=== PATIENT | male | born 1950 | race Caucasian/White ===

== ENCOUNTER 2018-02-22 11:49 | Emergency (ER) | payer MEDICARE, SELFPAY ==
[2018-02-22] VITALS (12 sets, daily range): BP systolic 141–159; BP diastolic 66–83; PULSE 79–97; RESP 16–24; TEMP 36.6; O2SAT 93–97
--- NOTE | 2018-02-22 11:59 | W.ED.GENAD ---
Discharge Plan Discharge Details Chief Complaint: Chest Pain Clinical Impression: Burning chest pain Reason For Visit: chest pain Primary Care Provider: Mich Taylor ED Provider: Yfn Bonds Disposition Patient Disposition: HOME Condition: Stable Home Meds and New Rx's Prescriptions: Continue acyclovir [Zovirax] 30 GM ointment 1 s[place] Topical Q4H PRN PRN (Reason: Mouth Sore Pain) RF: 0 magnesium oxide 400 MG capsule 400 mg PO DAILY RF: 0 aspirin 81 MG tablet,delayed release (DR/EC) 81 mg PO DAILY RF: 0 ascorbic acid (vitamin C) [Vitamin C] 500 MG capsule, extended release 500 mg PO DAILY RF: 0 lancets [RetAPPsuch UltraSoft Lancets] 1 EACH misc 1 ea Miscellaneous BID Qty: 180 RF: 3 lancing device with lancets [Smartdate Delica Lanc Device] 1 EACH kit 1 ea Miscellaneous BID Qty: 1 RF: 2 blood sugar diagnostic [Synergis EducationTouch Ultra Test] 1 EACH strip 1 ea Miscellaneous BID Qty: 180 RF: 3 insulin glargine [Lantus Solostar U-100 Insulin] 100 UNIT/1 ML insulin pen 40 units Sub-Q HS Qty: 5 RF: 12 esomeprazole magnesium [Nexium] 40 MG capsule,delayed release(DR/EC) 40 mg PO DAILY Qty: 90 RF: 3 metformin 500 MG tablet 500 mg PO BID Qty: 180 RF: 12 sucralfate 1 GM tablet 1 g PO QID Qty: 120 RF: 2 clonazepam [Klonopin] 0.5 MG tablet 0.5 mg PO DAILY Qty: 90 RF: 1 blood sugar diagnostic [Accu-Chek SmartView Test Strip] 1 EACH strip 1 ea Miscellaneous BID Qty: 180 RF: 3 pen needle, diabetic [BD Ultra-Fine Taina Pen Needle] 1 EACH needle 1 ea Miscellaneous DAILY Qty: 100 RF: 3 pravastatin [Pravachol] 20 MG tablet 20 mg PO DAILY Qty: 90 RF: 3 sertraline 50 MG tablet 50 mg PO DAILY Qty: 90 RF: 3 glipizide [Glucotrol] 10 MG tablet 10 mg PO BID Qty: 360 RF: 3 Discharge Instructions Instructions: Chest Pain (ED), Gastroesophageal Reflux Disease (ED) Additional Instructions: follow up with your primary care provider within a week if you have severe worsening pain, persistent vomit or difficulty breathing return to the emergency department Discharge Data Discharge Physician: Yfn Bonds Medical Decision Making MDM Narrative Medical decision making narrative: PAtient here with chest burning that comes when he eats and otherwise no pain with exertion or other findings to suggest acs. Heart score is 3 based on risk factors and age, given length of time will send a troponin and if negative feel he can be further eval'd as outpatient. I suspect his symptoms are due to gerd and has hx of this. No tearing back pain and normal vascular exam so doubt dissection. No tachycardia, hypoxia, pain with deep breaths or evidence of dvt so doubt PE at this time patient's symptoms improved with mylanta and labs unremarkable. Given length of time with symptoms and negative ekg and troponin and heart score of 3 feel he can be d/c'd and f/u with pcp, return precautiosn given. Suspect this is gerd Differential Diagnosis gerd, chest wall pain, acs Medical Records Medical records reviewed: Yes I reviewed the patient's medical records. ECG Data Attestation: I personally reviewed and interpreted this ECG (s) as follows: Prior ECG tracings: available for review Interpretation: normal axis, rate 92, normal sinus rhyhm, normal pr and st segments, no significant changes HPI - General Adult General Mode of arrival: ambulatory. Date/Time Provider Initiated Documentation: 02/22/18 11:53. Limitations to Documentation: no limitations. Information obtained by: patient. History of Present Illness 67 year old M presents to the emergency department with the chief complaint of chest burning, described as mild, with intensity rated at 3. Quality is described as other (burning), and is localized to the chest. Patient reports no radiation. Patient started experiencing this day(s) (7) and it has been intermittent. No relieving factors improve symptom(s), Eating worsens symptoms and Other factors that worsen symptoms (no pain with exertion) . Patient notes other (denies sob, n/v, diaphoresis, back pain, jaw pain or shoulder/arm pain or neck pain). Patient did receive the following treatments prior to arrival, none Related Data Home Medications Medication Instructions Recorded Confirmed acyclovir [Zovirax] 1 [place] TOPICAL Q4H PRN PRN 09/24/12 02/22/18 magnesium oxide 400 mg PO DAILY 09/24/12 02/22/18 aspirin 81 mg PO DAILY tab-cap 03/20/16 02/22/18 ascorbic acid (vitamin C) [Vitamin 500 mg PO DAILY 06/18/16 02/22/18 C] Allergies Allergy/AdvReac Type Severity Reaction Status Date / Time meloxicam Allergy Intermediate rash Unverified 02/22/18 12:00 amitriptyline Allergy Mild RASH Unverified 02/22/18 12:00 cyclobenzaprine Allergy Mild Skin Rash Unverified 02/22/18 12:00 hydrocodone Allergy Mild rash on Unverified 02/22/18 12:00 legs influenza virus vaccine, Allergy Mild SWELLING; Unverified 02/22/18 12:00 specific JOINT PAIN omeprazole Allergy Mild Skin Rash Unverified 02/22/18 12:00 gabapentin Allergy Unknown unknown Unverified 02/22/18 12:00 General Stated Complaint: Chest Pain JUAN ANTONIO: 2 Review of Systems Review of Systems All systems reviewed & are unremarkable except as noted in HPI and below Constitutional Denies chills, Denies fever(s) and Denies weakness Eyes Patient Denies loss of vision ENT Denies change in voice Cardiovascular Reports chest pain (chest burning, denies pain or pressure) and Denies dyspnea Respiratory Denies dyspnea Gastrointestinal Denies abdominal pain, Denies nausea and Denies vomiting Genitourinary Denies dysuria Musculoskeletal Denies joint swelling Integumentary/Breasts Denies rash Neurologic Denies loss of vision and Denies weakness Psychiatric Denies depression Endocrine Denies cold intolerance and Denies heat intolerance Allergic/Immunologic Reports urticaria PFSH Family History Mother Essential hypertension Cerebrovascular accident Father Personal history of malignant neoplasm Brother Diabetes Personal history of malignant neoplasm Grandmother Personal history of malignant neoplasm Social History Smoking/Tobacco Use Status: Former Tobacco Use Surgical History Arthroplasty of knee Cholecystectomy (~2002) Colonoscopy - MAC EGD - MAC (03/12/17) Endoscopy Exam Const General: no acute distress Orientation: alert HENMT Head: normal to inspection Ears: external ears normal General nose exam: external nose normal Mouth: moist mucous membranes Eyes General: appearance normal, both eyes and all related structures Neck Neck: normal visual inspection Resp Effort & Inspection: normal respiratory effort, able to speak in complete sentences and no cough Auscultation: clear to auscultation bilaterally Cardio Rate: regular rate Rhythm: regular rhythm Heart Sounds: no murmurs Skin General skin exam: no rashes or lesions noted Neuro General: alert and oriented x3 Extrem General: normal to inspection Psych Mental Status: mental status grossly normal Course Vital Signs Temperature 36.6 C 02/22/18 11:55 Pulse 97 H 02/22/18 11:55 Respiratory Rate 02/22/18 11:55 Blood Pressure 159/83 H 02/22/18 11:55 Temperature 36.6 C 02/22/18 11:55 Pulse 97 H 02/22/18 11:55 Respiratory Rate 02/22/18 11:55 Blood Pressure 159/83 H 02/22/18 11:55
--- NOTE | 2018-02-22 12:05 | ED.GENADUL_ITS ---
Discharge Plan Discharge Details Chief Complaint: Chest Pain Clinical Impression: Burning chest pain Reason For Visit: chest pain Primary Care Provider: Mich Taylor ED Provider: Yfn Bonds Disposition Patient Disposition: HOME Condition: Stable Home Meds and New Rx's Prescriptions: Continue acyclovir [Zovirax] 30 GM ointment 1 [place] Topical Q4H PRN PRN (Reason: Mouth Sore Pain) RF: 0 magnesium oxide 400 MG capsule 400 mg PO DAILY RF: 0 aspirin 81 MG tablet,delayed release (DR/EC) 81 mg PO DAILY RF: 0 ascorbic acid (vitamin C) [Vitamin C] 500 MG capsule, extended release 500 mg PO DAILY RF: 0 lancets [GIDEENuch UltraSoft Lancets] 1 EACH misc 1 ea Miscellaneous BID Qty: 180 RF: 3 lancing device with lancets [FansUnite Delica Lanc Device] 1 EACH kit 1 ea Miscellaneous BID Qty: 1 RF: 2 blood sugar diagnostic [D'Shane ServicesTouch Ultra Test] 1 EACH strip 1 ea Miscellaneous BID Qty: 180 RF: 3 insulin glargine [Lantus Solostar U-100 Insulin] 100 UNIT/1 ML insulin pen 40 units Sub-Q HS Qty: 5 RF: 12 esomeprazole magnesium [Nexium] 40 MG capsule,delayed release(DR/EC) 40 mg PO DAILY Qty: 90 RF: 3 metformin 500 MG tablet 500 mg PO BID Qty: 180 RF: 12 sucralfate 1 GM tablet 1 g PO QID Qty: 120 RF: 2 clonazepam [Klonopin] 0.5 MG tablet 0.5 mg PO DAILY Qty: 90 RF: 1 blood sugar diagnostic [Accu-Chek SmartView Test Strip] 1 EACH strip 1 ea Miscellaneous BID Qty: 180 RF: 3 pen needle, diabetic [BD Ultra-Fine Taina Pen Needle] 1 EACH needle 1 ea Miscellaneous DAILY Qty: 100 RF: 3 pravastatin [Pravachol] 20 MG tablet 20 mg PO DAILY Qty: 90 RF: 3 sertraline 50 MG tablet 50 mg PO DAILY Qty: 90 RF: 3 glipizide [Glucotrol] 10 MG tablet 10 mg PO BID Qty: 360 RF: 3 Discharge Instructions Instructions: Chest Pain (ED), Gastroesophageal Reflux Disease (ED) Additional Instructions: follow up with your primary care provider within a week if you have severe worsening pain, persistent vomit or difficulty breathing return to the emergency department Discharge Data Discharge Physician: Yfn Bonds Medical Decision Making MDM Narrative Medical decision making narrative: PAtient here with chest burning that comes when he eats and otherwise no pain with exertion or other findings to suggest acs. Heart score is 3 based on risk factors and age, given length of time will send a troponin and if negative feel he can be further eval'd as outpatient. I suspect his symptoms are due to gerd and has hx of this. No tearing back pain and normal vascular exam so doubt dissection. No tachycardia, hypoxia, pain with deep breaths or evidence of dvt so doubt PE at this time patient's symptoms improved with mylanta and labs unremarkable. Given length of time with symptoms and negative ekg and troponin and heart score of 3 feel he can be d/c'd and f/u with pcp, return precautiosn given. Suspect this is gerd Differential Diagnosis gerd, chest wall pain, acs Medical Records Medical records reviewed: Yes I reviewed the patient's medical records. ECG Data Attestation: I personally reviewed and interpreted this ECG (s) as follows: Prior ECG tracings: available for review Interpretation: normal axis, rate 92, normal sinus rhyhm, normal pr and st segments, no significant changes HPI - General Adult General Mode of arrival: ambulatory . Date/Time Provider Initiated Documentation: 02/22/18 11:53 . Limitations to Documentation: no limitations . Information obtained by: patient . History of Present Illness 67 year old M presents to the emergency department with the chief complaint of chest burning, described as mild, with intensity rated at 3. Quality is described as other (burning), and is localized to the chest. Patient reports no radiation. Patient started experiencing this day(s) (7) and it has been intermittent. No relieving factors improve symptom(s), Eating worsens symptoms and Other factors that worsen symptoms (no pain with exertion) . Patient notes other (denies sob, n/v, diaphoresis, back pain, jaw pain or shoulder/arm pain or neck pain). Patient did receive the following treatments prior to arrival, none Related Data Home Medications Medication Instructions Recorded Confirmed acyclovir [Zovirax] 1 [place] TOPICAL Q4H PRN PRN 09/24/12 02/22/18 magnesium oxide 400 mg PO DAILY 09/24/12 02/22/18 aspirin 81 mg PO DAILY tab-cap 03/20/16 02/22/18 ascorbic acid (vitamin C) [Vitamin 500 mg PO DAILY 06/18/16 02/22/18 C] Allergies Allergy/AdvReac Type Severity Reaction Status Date / Time meloxicam Allergy Intermediate rash Unverified 02/22/18 12:00 amitriptyline Allergy Mild RASH Unverified 02/22/18 12:00 cyclobenzaprine Allergy Mild Skin Rash Unverified 02/22/18 12:00 hydrocodone Allergy Mild rash on Unverified 02/22/18 12:00 legs influenza virus vaccine, Allergy Mild SWELLING; Unverified 02/22/18 12:00 specific JOINT PAIN omeprazole Allergy Mild Skin Rash Unverified 02/22/18 12:00 gabapentin Allergy Unknown unknown Unverified 02/22/18 12:00 General Stated Complaint: Chest Pain JUAN ANTONIO: 2 Review of Systems Review of Systems All systems reviewed & are unremarkable except as noted in HPI and below Constitutional Denies chills, Denies fever(s) and Denies weakness Eyes Patient Denies loss of vision ENT Denies change in voice Cardiovascular Reports chest pain (chest burning, denies pain or pressure) and Denies dyspnea Respiratory Denies dyspnea Gastrointestinal Denies abdominal pain, Denies nausea and Denies vomiting Genitourinary Denies dysuria Musculoskeletal Denies joint swelling Integumentary/Breasts Denies rash Neurologic Denies loss of vision and Denies weakness Psychiatric Denies depression Endocrine Denies cold intolerance and Denies heat intolerance Allergic/Immunologic Reports urticaria PFSH Family History Mother Essential hypertension Cerebrovascular accident Father Personal history of malignant neoplasm Brother Diabetes Personal history of malignant neoplasm Grandmother Personal history of malignant neoplasm Social History Smoking/Tobacco Use Status: Former Tobacco Use Surgical History Arthroplasty of knee Cholecystectomy (~2002) Colonoscopy - MAC EGD - MAC (03/12/17) Endoscopy Exam Const General: no acute distress Orientation: alert HENMT Head: normal to inspection Ears: external ears normal General nose exam: external nose normal Mouth: moist mucous membranes Eyes General: appearance normal, both eyes and all related structures Neck Neck: normal visual inspection Resp Effort & Inspection: normal respiratory effort, able to speak in complete sentences and no cough Auscultation: clear to auscultation bilaterally Cardio Rate: regular rate Rhythm: regular rhythm Heart Sounds: no murmurs Skin General skin exam: no rashes or lesions noted Neuro General: alert and oriented x3 Extrem General: normal to inspection Psych Mental Status: mental status grossly normal Course Vital Signs Temperature 36.6 C 02/22/18 11:55 Pulse 97 H 02/22/18 11:55 Respiratory Rate 02/22/18 11:55 Blood Pressure 159/83 H 02/22/18 11:55 Temperature 36.6 C 02/22/18 11:55 Pulse 97 H 02/22/18 11:55 Respiratory Rate 02/22/18 11:55 Blood Pressure 159/83 H 02/22/18 11:55
[2018-02-22 12:09] LABS: Abs Immature Grans 0.03 k/cumm (0.0-0.09); Absolute Basophil Count 0.01 k/cumm (0.0-0.2); Absolute Eosinophil Count 0.11 k/cumm (0.0-0.7); Absolute Lymphocyte Count 2.25 k/cumm (1.2-3.4); Absolute Monocyte Count 0.91 k/cumm (0.11-0.7); Basophils % 0.1; Eosinophils % 1.1; HGB 16.2 g/dL (13.5-17.5); Immature Grans % 0.3; Lymphocytes % 23.2; Mean Corp. HGB Concentration 33.8 g/dL (32.0-36.0); Mean Corpuscular Hemoglobin 30.1 pg (27.0-33.0); Mean Corpuscular Volume 89.1 fL (80-95); Mean Platelet Volume 9.1 fL (8.0-11.0); Monocytes % 9.4; Neutrophils % 65.9; Platelet Count 233 x1000/uL (130-400); RBC 5.39 m/cumm (4.50-6.00); RBC Distribution Width 13.6 % (11.8-14.1); White Blood Cell Count 9.71 k/cumm (4.4-10.8)
[2018-02-22 12:26] LABS: ALT 23 U/L (12-78); AST 8 U/L (15-37); Albumin 3.7 g/dL (3.4-5.0); Alkaline Phosphatase 84 U/L (46-116); Anion Gap 6.5 mmol/L (3-11); BUN 16 mg/dL (7-18); Bilirubin, Total 0.3 mg/dL (0.2-1.0); CO2 28.5 mmol/L (21.0-32.0); CREATININE 0.79 mg/dL (0.70-1.30); Calcium 8.8 mg/dL (8.5-10.1); Chloride 105 mmol/L (98-107); Glucose 92 mg/dL (70-100); Magnesium 1.9 mg/dL (1.8-2.4); Sodium 140 mmol/L (136-145); Total Protein 7.7 g/dL (6.4-8.2)
[2018-02-22 12:28] LABS: Troponin I < 0.02 ng/mL (0.00-0.06)
== END 2018-02-22 12:52 | disposition home or self-care (01) ==
PROVIDERS: Emergency Provider Emergency Medicine; PCP Emergency Medicine
DX: R07.9 Chest pain, unspecified (principal); K21.9 Gastro-esophageal reflux disease without esophagitis; E11.9 Type 2 diabetes mellitus without complications; Z79.4 Long term (current) use of insulin
CPT/HCPCS: 36415; 80053; 93005; 99284; 83735; 84484; 85025; 93010; 99285

== ENCOUNTER 2018-03-15 13:46 | Emergency (ER) | payer MEDICARE, SELFPAY ==
[2018-03-15] VITALS (9 sets, daily range): BP systolic 139–173; BP diastolic 64–76; PULSE 86–106; RESP 16–24; TEMP 36.7; O2SAT 94–96
--- NOTE | 2018-03-15 14:07 | W.ED.GENAD ---
Discharge Plan Disposition Patient Disposition: HOME Condition: Good Discharge Details Chief Complaint: Abd Prob Clinical Impression: Diabetic gastroparesis Primary Care Provider: Mich Taylor ED Provider: Dewey Nunn Home Meds and New Rx's Prescriptions: Continue acyclovir [Zovirax] 30 GM ointment 1 [place] Topical Q4H PRN PRN (Reason: Mouth Sore Pain) RF: 0 magnesium oxide 400 MG capsule 400 mg PO DAILY RF: 0 aspirin 81 MG tablet,delayed release (DR/EC) 81 mg PO DAILY RF: 0 ascorbic acid (vitamin C) [Vitamin C] 500 MG capsule, extended release 500 mg PO DAILY RF: 0 lancets [[employer]uch UltraSoft Lancets] 1 EACH misc 1 ea Miscellaneous BID Qty: 180 RF: 3 lancing device with lancets [[employer]uch Delica Lanc Device] 1 EACH kit 1 ea Miscellaneous BID Qty: 1 RF: 2 blood sugar diagnostic [OneTouch Ultra Test] 1 EACH strip 1 ea Miscellaneous BID Qty: 180 RF: 3 insulin glargine [Lantus Solostar U-100 Insulin] 100 UNIT/1 ML insulin pen 40 units Sub-Q HS Qty: 5 RF: 12 esomeprazole magnesium [Nexium] 40 MG capsule,delayed release(DR/EC) 40 mg PO DAILY Qty: 90 RF: 3 metformin 500 MG tablet 500 mg PO BID Qty: 180 RF: 12 sucralfate 1 GM tablet 1 g PO QID Qty: 120 RF: 2 clonazepam [Klonopin] 0.5 MG tablet 0.5 mg PO DAILY Qty: 90 RF: 1 blood sugar diagnostic [Accu-Chek SmartView Test Strip] 1 EACH strip 1 ea Miscellaneous BID Qty: 180 RF: 3 pen needle, diabetic [BD Ultra-Fine Taina Pen Needle] 1 EACH needle 1 ea Miscellaneous DAILY Qty: 100 RF: 3 pravastatin [Pravachol] 20 MG tablet 20 mg PO DAILY Qty: 90 RF: 3 sertraline 50 MG tablet 50 mg PO DAILY Qty: 90 RF: 3 glipizide [Glucotrol] 10 MG tablet 10 mg PO BID Qty: 360 RF: 3 bupropion HCl [Wellbutrin SR] 100 mg tablet extended release 12 hr 100 mg PO BID Qty: 60 RF: 3 Medical Decision Making 67-year-old male diabetic with 1 month of intermittent episodes of epigastric discomfort that is worsened with food. He is afebrile, in no significant distress, with mild tenderness in the epigastrium on exam. Differential diagnosis would include gastroparesis, gastritis, ileus, consideration of pancreatitis or ACS. Patient had IV access established, given fluid bolus, referred for laboratory testing and EKG. He is given a GI cocktail. Patient improved following GI cocktail. His laboratory analysis is unremarkable. If his symptoms continue, he may benefit from a trial of Reglan given its promotility properties, but this may be deferred to the outpatient setting. Finally, we will add psyllium to his regimen to improve complaints of constipation. Discussed return precautions to the ER with the patient. ECG Data Attestation: I personally reviewed and interpreted this ECG (s) as follows: Interpretation: Normal sinus rhythm, rate of 94, QRS is narrow, there is no ST segment elevation present. Intervals unremarkable HPI General Mode of arrival: ambulatory. Date/Time Provider Initiated Documentation: 03/15/18 13:50. Limitations to Documentation: no limitations. Information obtained by: patient. History of Present Illness 67 year old M presents to the emergency department with the chief complaint of Abdominal pain, described as mild, Quality is described as aching, and is localized to the abdomen. Patient reports no radiation. Patient started experiencing this minute(s) and it has been intermittent and now resolved. Eating worsens symptoms . Patient notes denies chest pain and shortness of breath. HPI Narrative: This is a 67-year-old male diabetic who states he has had 1 month of intermittent episodes of abdominal pain. He characterizes these as beginning with any kind of eating, worsening with the food, associated with bloating and increased gas. He becomes nauseated. He has associated burning epigastric discomfort. He has not had a fever, no vomiting, no diarrhea. Denies chest pain or shortness of breath. Related Data Home Medications Medication Instructions Recorded Confirmed acyclovir [Zovirax] 1 [place] TOPICAL Q4H PRN PRN 09/24/12 03/15/18 magnesium oxide 400 mg PO DAILY 09/24/12 03/15/18 aspirin 81 mg PO DAILY tab-cap 03/20/16 03/15/18 ascorbic acid (vitamin C) [Vitamin 500 mg PO DAILY 06/18/16 03/15/18 C] lancets [OneTouch UltraSoft #180 ea 07/24/16 Lancets] lancing device with lancets #1 kit 07/24/16 [OneTouch Delica Lanc Device] blood sugar diagnostic [OneTouch #180 strip 02/05/17 Ultra Test] insulin glargine [Lantus Solostar 40 units SUB-Q HS #5 pen 03/18/17 03/15/18 U-100 Insulin] esomeprazole magnesium [Nexium] 40 mg PO DAILY #90 cap 04/16/17 03/15/18 metformin 500 mg PO BID #180 tab-cap 08/19/17 03/15/18 sucralfate 1 g PO QID #120 tab-cap 09/02/17 03/15/18 clonazepam [Klonopin] 0.5 mg PO DAILY #90 tab 09/30/17 03/15/18 blood sugar diagnostic [Accu-Chek #180 strip 12/19/17 SmartView Test Strip] pen needle, diabetic [BD #100 ea 12/19/17 Ultra-Fine Taina Pen Needle] pravastatin [Pravachol] 20 mg PO DAILY #90 tab-cap 01/14/18 03/15/18 glipizide [Glucotrol] 10 mg PO BID #360 tab-cap 02/19/18 03/15/18 sertraline 50 mg PO DAILY #90 tab-cap 02/19/18 03/15/18 bupropion HCl SR 100 mg tablet,12 100 mg PO BID #60 tab 03/11/18 03/15/18 hr sustained-release Previous Rx's Medication Instructions Recorded insulin glargine [Lantus Solostar 40 units SUB-Q HS #5 pen 03/18/17 U-100 Insulin] esomeprazole magnesium [Nexium] 40 mg PO DAILY #90 cap 04/16/17 metformin 500 mg PO BID #180 tab-cap 08/19/17 sucralfate 1 g PO QID #120 tab-cap 09/02/17 clonazepam [Klonopin] 0.5 mg PO DAILY #90 tab 09/30/17 blood sugar diagnostic [Accu-Chek #180 strip 12/19/17 SmartView Test Strip] pen needle, diabetic [BD #100 ea 12/19/17 Ultra-Fine Taina Pen Needle] pravastatin [Pravachol] 20 mg PO DAILY #90 tab-cap 01/14/18 glipizide [Glucotrol] 10 mg PO BID #360 tab-cap 02/19/18 sertraline 50 mg PO DAILY #90 tab-cap 02/19/18 bupropion HCl SR 100 mg tablet,12 100 mg PO BID #60 tab 03/11/18 hr sustained-release Allergies Allergy/AdvReac Type Severity Reaction Status Date / Time meloxicam Allergy Intermediate rash Unverified 03/15/18 13:57 amitriptyline Allergy Mild RASH Unverified 03/15/18 13:57 cyclobenzaprine Allergy Mild Skin Rash Unverified 03/15/18 13:57 hydrocodone Allergy Mild rash on Unverified 03/15/18 13:57 legs influenza virus vaccine, Allergy Mild SWELLING; Unverified 03/15/18 13:57 specific JOINT PAIN omeprazole Allergy Mild Skin Rash Unverified 03/15/18 13:57 gabapentin Allergy Unknown unknown Unverified 03/15/18 13:57 General Stated Complaint: Abd Prob JUAN ANTONIO: 3 Review of Systems Review of Systems 8 systems reviewed and otherwise negative. + constipation PFSH Family History Mother Essential hypertension Cerebrovascular accident Father Personal history of malignant neoplasm Brother Diabetes Personal history of malignant neoplasm Grandmother Personal history of malignant neoplasm Social History Smoking/Tobacco Use Status: Former Tobacco Use Surgical History Arthroplasty of knee Cholecystectomy (~2002) Colonoscopy - MAC EGD - MAC (03/12/17) Endoscopy Exam Narrative Exam Narrative: GEN: awake, alert, oriented 3. Pleasant, well groomed, interactive. HEAD: Normocephalic, atraumatic ENT: Mucous membranes moist, oropharynx unremarkable, External ear exam unremarkable EYES: PERRL, EOMI NECK: Full ROM, no JESSICA, no menigismus CHEST/RESP: Nontender, clear to auscultation bilateral, no wheeze/rhonchi/rales CARDIOVASCULAR: RRR, no murmur, rub adrianna. 2+ Rad pulse bilateral ABDOMEN: Soft, mild tenderness in the epigastrium without rebound or guarding no mass. + Increased bowel sounds EXT: Full ROM, no edema, no rash Neuro: Grossly normal neurologic exam, conversant, interactive. Psych: Speech fluent, thoughts congruent, affect normal Course Vital Signs Temperature 36.7 C 03/15/18 13:52 Pulse 106 H 03/15/18 13:52 Respiratory Rate 16 03/15/18 13:52 Blood Pressure 173/76 H 03/15/18 13:52 Pulse Oximetry 96 03/15/18 13:52 Temperature 36.7 C 03/15/18 13:52 Temperature Source Skin 03/15/18 13:52 Pulse 106 H 03/15/18 13:52 Respiratory Rate 16 03/15/18 13:52 Respiratory Effort 03/15/18 13:52 Blood Pressure 173/76 H 03/15/18 13:52 Blood Pressure Position Sitting 03/15/18 13:52 Pulse Oximetry 96 03/15/18 13:52 Oxygen Delivery Method Room Air 03/15/18 13:52 Oxygen Flow Rate 0 03/15/18 13:52 Pain Level 2 03/15/18 13:52
[2018-03-15 14:27] LABS: Abs Immature Grans 0.02 k/cumm (0.0-0.09); Absolute Basophil Count 0.01 k/cumm (0.0-0.2); Absolute Eosinophil Count 0.13 k/cumm (0.0-0.7); Absolute Lymphocyte Count 2.09 k/cumm (1.2-3.4); Absolute Monocyte Count 0.68 k/cumm (0.11-0.7); Basophils % 0.1; Eosinophils % 1.7; HCT 45.8 % (40.0-50.0); HGB 15.7 g/dL (13.5-17.5); Immature Grans % 0.3; Lymphocytes % 27.8; Mean Corp. HGB Concentration 34.3 g/dL (32.0-36.0); Mean Corpuscular Hemoglobin 30.5 pg (27.0-33.0); Mean Corpuscular Volume 88.9 fL (80-95); Mean Platelet Volume 9.2 fL (8.0-11.0); Neutrophils % 61.1; Platelet Count 217 x1000/uL (130-400); RBC 5.15 m/cumm (4.50-6.00); RBC Distribution Width 13.7 % (11.8-14.1); White Blood Cell Count 7.53 k/cumm (4.4-10.8)
[2018-03-15 14:45] LABS: ALT 26 U/L (12-78); AST 11 U/L (15-37); Albumin 3.7 g/dL (3.4-5.0); Alkaline Phosphatase 86 U/L (46-116); Anion Gap 9.5 mmol/L (3-11); BUN 14 mg/dL (7-18); Bilirubin, Total 0.4 mg/dL (0.2-1.0); CO2 25.5 mmol/L (21.0-32.0); CREATININE 0.79 mg/dL (0.70-1.30); Calcium 8.5 mg/dL (8.5-10.1); Chloride 105 mmol/L (98-107); Glucose 109 mg/dL (70-100); Lipase 155 U/L (73-393); Potassium 3.8 mmol/L (3.5-5.1); Sodium 140 mmol/L (136-145); Total Protein 7.2 g/dL (6.4-8.2)
[2018-03-15 14:50] LABS: Troponin I < 0.02 ng/mL (0.00-0.06)
== END 2018-03-15 15:26 | disposition home or self-care (01) ==
PROVIDERS: Emergency Provider Emergency Medicine; PCP Emergency Medicine
DX: E11.43 Type 2 diabetes mellitus with diabetic autonomic (poly)neuropathy (principal); K59.00 Constipation, unspecified; Z79.4 Long term (current) use of insulin; K31.84 Gastroparesis
CPT/HCPCS: 36415; 80053; 83690; 93005; 99284; 84484; 85025; 93010

== ENCOUNTER → 2018-04-21 09:43 | Outpatient (BNVA) | payer MEDICARE, SELFPAY | PROVIDERS: PCP Emergency Medicine; Visit Provider Orthopaedic Surgery | DX: M17.0 Bilateral primary osteoarthritis of knee (principal) | CPT/HCPCS: 20610; 99211; 99213; J1040 ==

== ENCOUNTER 2018-07-03 08:12 | Day surgery (SDC) | payer MEDICARE, SELFPAY ==
[2018-07-03 08:43] VITALS: BP 139/74; PULSE 91; RESP 16; TEMP 36.3; O2SAT 98
[2018-07-03] MEDS: Lactated Ringers 1,000 ML 30 ML IV ×2 (09:07→11:44)
--- NOTE | 2018-07-03 11:52 | W.PM.OP ---
Date of service: 07/03/18 Time of Service: 11:52 Operative Note DATE OF PROCEDURE: 07/03/18 PRE-OP DIAGNOSIS: diverticulosis POST-OP DIAGNOSIS: same PROCEDURE: colonoscopy SURGEON: John Lambert III ANESTHESIA: MAC PATHOLOGY: none sent COMPLICATIONS: None Patient was transported to: PACU Patient's condition: stable Indications: screening/diverticulosis Procedure Description: After informed consent was obtained the patient was taken to the procedure room and placed in a left decubitous position. Monitors were applied and a time out was done. The patients name, date of , procedure, allergies to medications and metal in their body was reviewed. The patient was then sedated. Once sedated and comfortable a rectal exam was done. External exam was normal. Internal exam revealed a normal sphincter tone and no palpable masses. The prostate enlarged. The scope was then introduced and retrofelexed. no internal hemorrhoids were identified. The scope was then advanced to the cecum moderate difficulty. The TI and appendiceal orifice were identified. The prep was poor with lots of suction and watery stool. The scope was then slowly retracted over 10 minutes back into the rectum. No Polyps were removed. The scope was removed and the patient was woken up and taken back to Same day surgery in stable condition. The patient tolerated the procedure well and there were no immediate complications. Follow up: The patient should follow up in 10 years unless they develop changes in bowel habits or other new gastrointestinal complaints.
--- NOTE | 2018-07-03 11:54 | W.PM.DSUDISC ---
Discharge Plan Disposition Patient Disposition: HOME Condition: Stable Discharge Details Reason For Visit: colonoscopy Attending Provider: John Lambert III Primary Care Provider: Mich Taylor Home Meds and New Rx's Prescriptions: Continued bisacodyl [Dulcolax (bisacodyl)] 5 mg tablet,delayed release (DR/EC) 5 mg PO ONCE Qty: 4 RF: 0 polyethylene glycol 3350 17 gram/dose powder 255 g PO ONCE Qty: 255 RF: 0 acyclovir [Zovirax] 30 GM ointment 1 saskia Topical Q4H PRN PRN (Reason: Mouth Sore Pain) RF: 0 magnesium oxide 400 MG capsule 500 mg PO DAILY RF: 0 aspirin 81 MG tablet,delayed release (DR/EC) 81 mg PO DAILY RF: 0 ascorbic acid (vitamin C) [Vitamin C] 500 MG capsule, extended release 500 mg PO DAILY RF: 0 lancets [[employer] UltraSoft Lancets] 1 EACH misc 1 ea Miscellaneous BID Qty: 180 RF: 3 lancing device with lancets [[employer] Delica Lanc Device] 1 EACH kit 1 ea Miscellaneous BID Qty: 1 RF: 2 Neredekal.comTouch Ultra Test 1 EACH strip 1 ea Miscellaneous BID Qty: 180 RF: 3 metformin 500 MG tablet 500 mg PO BID Qty: 180 RF: 12 Accu-Chek SmartView Test Strip 1 EACH strip 1 ea Miscellaneous BID Qty: 180 RF: 3 pen needle, diabetic [BD Ultra-Fine Taina Pen Needle] 1 EACH needle 1 ea Miscellaneous DAILY Qty: 100 RF: 3 pravastatin [Pravachol] 20 MG tablet 20 mg PO DAILY Qty: 90 RF: 3 glipizide [Glucotrol] 10 MG tablet 10 mg PO BID Qty: 360 RF: 3 clonazepam [Klonopin] 0.5 mg tablet 0.5 mg PO DAILY Qty: 90 RF: 1 esomeprazole magnesium [Nexium] 40 mg capsule,delayed release(DR/EC) 40 mg PO DAILY Qty: 90 RF: 3 Lantus Solostar U-100 Insulin 100 unit/mL (3 mL) insulin pen 45 unit Sub-Q HS Qty: 5 RF: 12 sucralfate 1 gram tablet 1 g PO QID Qty: 120 RF: 2 sennosides [Senna Laxative] 8.6 mg tablet 8.6 mg PO BID PRN (Reason: constipation) Qty: 60 RF: 0 bupropion HCl [Wellbutrin SR] 100 mg tablet sustained-release 12 hr 100 mg PO BID Qty: 180 RF: 3 esomeprazole magnesium [Nexium] 40 mg Capsule,Delayed Release(Dr/Ec) 40 mg/day PO DAILY RF: 0 Discharge Instructions Referrals: Jasmin Hudson MD [ [facility] STAFF PHYSICIAN] - Activity:: Activity as Tolerated Diet:: As Tolerated DS: Diagnosis Discharge Diagnosis (1) Encounter for screening colonoscopy: Status: Acute
[2018-07-03 12:46] VITALS: BP 113/71; PULSE 75; RESP 16; TEMP 35.9; O2SAT 98
== END 2018-07-03 12:40 | disposition home or self-care (01) ==
PROVIDERS: PCP Emergency Medicine; Visit Provider Surgery
PROC: 0DJD8ZZ Inspection of Lower Intestinal Tract, Via Natural or Artificial Opening Endoscopic (ICD-10-PCS; CPT 45378; principal; 2018-07-03 09:45)
DX: Z12.11 Encounter for screening for malignant neoplasm of colon (principal); K57.30 Diverticulosis of large intestine without perforation or abscess without bleeding; K21.9 Gastro-esophageal reflux disease without esophagitis; E11.9 Type 2 diabetes mellitus without complications; Z79.4 Long term (current) use of insulin
CPT/HCPCS: G0121

== ENCOUNTER → 2018-07-21 10:17 | Outpatient (BNVA) | payer MEDICARE, SELFPAY | PROVIDERS: PCP Emergency Medicine; Referring Provider Emergency Medicine; Visit Provider Orthopaedic Surgery | DX: M17.0 Bilateral primary osteoarthritis of knee (principal) | CPT/HCPCS: 20610; 99211; 99213; J1040 ==

== ENCOUNTER 2018-09-04 09:03 | Outpatient (CLI) | payer MEDICARE, SELFPAY ==
[2018-09-04 14:43] LABS: Anion Gap 10.1 mmol/L (3-11); BUN 17 mg/dL (7-18); CO2 26.9 mmol/L (21.0-32.0); CREATININE 0.76 mg/dL (0.70-1.30); Calcium 8.9 mg/dL (8.5-10.1); Chloride 104 mmol/L (98-107); Glucose 117 mg/dL (70-100); Potassium 4.1 mmol/L (3.5-5.1); Sodium 141 mmol/L (136-145)
[2018-09-04 18:50] LABS: Hemoglobin A1C 7.4 % (4.5-6.2)
[2018-09-07 11:06] LABS: PSA, Screening 1.5 ng/ml (0-4.5)
== END 2018-09-04 09:23 ==
PROVIDERS: PCP Emergency Medicine; Visit Provider Emergency Medicine
DX: E11.69 Type 2 diabetes mellitus with other specified complication (principal); I10 Essential (primary) hypertension; Z12.5 Encounter for screening for malignant neoplasm of prostate
CPT/HCPCS: 36415; 80048; 84153; 83036

== ENCOUNTER → 2018-10-26 09:04 | Outpatient (BNVA) | payer MEDICARE, SELFPAY | PROVIDERS: PCP Emergency Medicine; Referring Provider Emergency Medicine; Visit Provider Orthopaedic Surgery | DX: M17.11 Unilateral primary osteoarthritis, right knee (principal); M17.12 Unilateral primary osteoarthritis, left knee; M25.561 Pain in right knee; M25.562 Pain in left knee | CPT/HCPCS: 20610; 99211; 99212; J1040 ==

== ENCOUNTER 2018-12-16 14:16 | Outpatient (CLI) | payer MEDICARE, SELFPAY ==
--- NOTE | 2018-12-16 14:12 | DI.RAD_ITS ---
SYMPTOMS/DIAGNOSIS: KNEE PAIN BILATERAL LOWER EXTREMITIES AND LEG LENGTH: RIGHT KNEE: Two views were obtained. There is narrowing of the medial and lateral tibiofemoral cartilaginous joint spaces. Mild marginal osteophyte formation noted and a small enthesophyte is noted at the attachment of the quadriceps tendon. CONCLUSION: DJD, right knee. LEFT KNEE: Two views were obtained and show marked narrowing of medial tibiofemoral cartilaginous joint space. Mild subchondral sclerosis and osteophyte formation noted. No other significant bony abnormality seen. CONCLUSION: DJD, predominantly involving medial tibiofemoral joint. AP views of the lower extremities were obtained for leg length determination. Note is made of degenerative changes of the joints of the knees, most prominent at the medial tibiofemoral joint on the right.
== END 2018-12-16 14:36 ==
PROVIDERS: PCP Emergency Medicine; Referring Provider Emergency Medicine; Visit Provider Student in an Organized Health Care Education/Training Program
DX: M25.561 Pain in right knee (principal); M25.562 Pain in left knee; M17.0 Bilateral primary osteoarthritis of knee; E11.9 Type 2 diabetes mellitus without complications; Z79.4 Long term (current) use of insulin
CPT/HCPCS: 99203; 99214; 73560; 77073

== ENCOUNTER 2019-01-28 12:42 | Outpatient (CLI) | payer MEDICARE, SELFPAY ==
--- NOTE | 2019-01-28 12:39 | W.PREOPHP ---
Date of service: 01/28/19 Assessment and Plan (1) Osteoarthritis of left knee: Current visit: Yes Status: Chronic Left total knee replacement. Details of surgery were discussed with patient as well as risks and pertinent anatomy. All questions were answered. Qualifiers: Osteoarthritis type: primary Qualified Code(s): M17.12 - Unilateral primary osteoarthritis, left knee History of Present Illness Chief Complaint: Left knee pain Narrative: Devin is a 68-year-old male for a left total knee replacement. He has been dealing with left knee pain for quite some time, he says many years, but it has gotten to the point now where it bothers him every step he takes. He previously has had surgery on both of his knees for intervention of his meniscus. Since then he has slowly developed knee pain that has continually gotten worse. He has been treated by Dr. Mock for many years with injection therapy. Synvisc injections did not work for him, but steroid injections seem to give him some pain relief. At this point, injection therapy has become ineffective and he would like to proceed with a left total knee replacement. X-rays were done in clinic at his last visit which show severe arthritis of the left knee especially in the medial compartment with a complete loss of joint space and bone spurs throughout. Dr. Santana discussed a total knee replacement as the next option, and he agrees with this plan and is anxious to proceed. Pertinent Surgical Information Devin has diabetes which had previously been uncontrolled. His control has gotten much better since he started insulin therapy. His last A1c was 7.4 done on 09/04/2018. He will have another A1c drawn today to ensure that he continues to be well controlled. He does not have a history of hypertension despite being on lisinopril. He states that he was put on this for kidney protection due to his diabetes, not hypertension. Patient denies history of hypertension, CVA, MD, angina, asthma, COPD, renal or liver disorders, hepatitis, bleeding disorders, immune or thyroid disorders. No complications from anesthesia. Review of Systems Constitutional Denies fever(s) ENT Denies dizziness and Denies sore throat Cardiovascular Denies chest pain, Denies palpitations and Denies dyspnea Respiratory Denies cough and Denies dyspnea Gastrointestinal Denies abdominal pain, Denies melena, Denies hematochezia, Denies diarrhea, Denies nausea and Denies vomiting Genitourinary Denies hematuria and Denies dysuria Neurologic Denies dizziness Endocrine Denies palpitations PFSH Medical History (Updated 01/28/19 @ 12:44 by KELLY Morrison) Diverticulosis of colon (Chronic) Surgical History (Updated 01/28/19 @ 12:43 by KELLY Morrison) Cholecystectomy (~2002) Colonoscopy - MAC EGD - MAC (03/12/17) Endoscopy H/O arthroscopic knee surgery (Chronic) H/O colonoscopy (Inactive 07/03/18) Social History (Updated 04/06/18 @ 10:42 by Estefani Nguyen) Smoking/Tobacco Use Status: Former Tobacco Use Alcohol Intake: current Alcohol Intake frequency: a few times a month Drug use: Never Substance use type: does not use Do you feel safe in your relationship?: Yes Meds Home Medications Medication Instructions Recorded Confirmed Type acyclovir [Zovirax] 1 saksia TOPICAL Q4H PRN PRN 09/24/12 01/28/19 History magnesium oxide 500 mg PO DAILY 09/24/12 01/28/19 History aspirin 81 mg PO DAILY tab-cap 03/20/16 01/28/19 History ascorbic acid (vitamin C) [Vitamin 500 mg PO DAILY 06/18/16 01/28/19 History C] lancets [[employer]elic[employer]Touch UltraSoft #180 ea 07/24/16 01/28/19 History Lancets] lancing device with lancets #1 kit 07/24/16 01/28/19 History [OneTouch Delica Lanc Device] OneTouch Ultra Test #180 strip 02/05/17 01/28/19 History Accu-Chek SmartView Test Strip #180 strip 12/19/17 01/28/19 Rx insulin glargine 100 unit/mL (3 45 unit SUB-Q HS #5 ml 03/31/18 01/28/19 Rx mL) subcutaneous pen sennosides 8.6 mg tablet 8.6 mg PO BID PRN #60 tab 05/06/18 01/28/19 Rx bupropion HCl 100 mg tablet,12 hr 100 mg PO BID #180 tab 07/01/18 01/28/19 Rx sustained-release esomeprazole magnesium 40 mg 40 mg PO DAILY #90 cap 07/09/18 01/28/19 Rx capsule,delayed release glipizide 10 mg tablet 10 mg PO BID #180 tab-cap 09/01/18 01/28/19 Rx lisinopril 5 mg tablet 5 mg PO DAILY #90 tab 09/04/18 12/16/18 Rx clonazepam 0.5 mg tablet 0.5 mg PO DAILY #90 tab 09/30/18 01/28/19 Rx metformin 500 mg tablet 500 mg PO BID #180 tab-cap 09/30/18 12/16/18 Rx pen needle, diabetic 32 gauge x #100 ea 12/14/18 01/28/19 Rx metformin 500 mg tablet,extended 500 mg PO BID #60 tab 12/22/18 01/28/19 Rx release 24 hr pravastatin 20 mg tablet 20 mg PO DAILY #90 tab-cap 12/29/18 01/28/19 Rx sucralfate 1 gram tablet 1 g PO BID tab-cap 01/28/19 History Allergies Allergy/AdvReac Type Severity Reaction Status Date / Time meloxicam Allergy Intermediate rash Verified 01/28/19 11:59 amitriptyline Allergy Mild RASH Verified 01/28/19 11:59 cyclobenzaprine Allergy Mild Skin Rash Verified 01/28/19 11:59 hydrocodone Allergy Mild rash on Verified 01/28/19 11:59 legs influenza virus vaccine, Allergy Mild SWELLING; Verified 01/28/19 11:59 specific JOINT PAIN omeprazole Allergy Mild Skin Rash Verified 01/28/19 11:59 gabapentin Allergy Unknown unknown Verified 01/28/19 11:59 sertraline AdvReac abdominal Verified 01/28/19 11:59 pain Exam [facility] [place] Head: normocephalic and atraumatic General nose exam: no nasal discharge Throat: uvula midline and no uvular edema Other: soft palate rises symmetrically, no erythema Resp Effort & Inspection: normal respiratory effort Auscultation: clear to auscultation bilaterally and no wheezes Cardio Rate: regular rate Rhythm: regular rhythm Heart Sounds: S1 normal, S2 normal and no murmurs GI Palpation: soft, no hepatosplenomegaly and nontender Auscultation: normal bowel sounds
[2019-01-28 14:13] LABS: HCT 45.1 % (40.0-50.0); HGB 15.3 g/dL (13.5-17.5); Mean Corp. HGB Concentration 33.9 g/dL (32.0-36.0); Mean Corpuscular Hemoglobin 29.9 pg (27.0-33.0); Mean Corpuscular Volume 88.3 fL (80-95); Mean Platelet Volume 9.6 fL (8.0-11.0); Platelet Count 240 x1000/uL (130-400); RBC 5.11 m/cumm (4.50-6.00); RBC Distribution Width 13.5 % (11.8-14.1); White Blood Cell Count 7.93 k/cumm (4.4-10.8)
[2019-01-28 14:17] LABS: Hemoglobin A1C 7.8 % (4.5-6.2)
[2019-01-28 14:48] LABS: BUN 17 mg/dL (7-18); CREATININE 0.77 mg/dL (0.70-1.30); Calcium 8.9 mg/dL (8.5-10.1); Chloride 105 mmol/L (98-107); Glucose 87 mg/dL (70-100); Potassium 4.1 mmol/L (3.5-5.1); Sodium 139 mmol/L (136-145)
== END 2019-01-28 13:02 ==
PROVIDERS: PCP Emergency Medicine; Visit Provider Student in an Organized Health Care Education/Training Program
DX: M25.562 Pain in left knee (principal); M17.12 Unilateral primary osteoarthritis, left knee; E11.9 Type 2 diabetes mellitus without complications; Z01.812 Encounter for preprocedural laboratory examination; Z01.818 Encounter for other preprocedural examination
CPT/HCPCS: 36415; 80048; 85027; NC; 83036

== ENCOUNTER 2019-02-02 13:16 | Inpatient (IN) | payer MEDICARE, SELFPAY ==
[2019-01-28 12:53] VITALS: BP 134/79; PULSE 87; RESP 18; TEMP 36.8; O2SAT 97
[2019-02-02 13:36] VITALS: BP 148/77; PULSE 88; RESP 16; TEMP 36.6; O2SAT 98
[2019-02-02 13:39] VITALS: BP 148/77; PULSE 88; RESP 16; TEMP 36.6; O2SAT 98
[2019-02-02] MEDS: Acetaminophen 500 MG TAB 1000 MG PO (13:53)
[2019-02-02] MEDS: oxyCODONE-CR 10 MG TABCR PO (13:53)
[2019-02-02] MEDS: Lactated Ringers 1,000 ML 80 ML IV ×2 (13:53→19:42)
[2019-02-02] MEDS: Celecoxib 200 MG CAP 400 MG PO (13:53)
[2019-02-02] MEDS: Bupivacaine 0.25% Pres-Free 10 ML VIAL (15:50)
[2019-02-02] MEDS: Bupivacaine LIPOSOME/PF 133 MG/10 ML VIAL IJ ×2 (15:50→17:48)
[2019-02-02] MEDS: DEXTROSE 5%-LACTATED RINGERS 1,000 ML 75 ML IV (16:30)
[2019-02-02] MEDS: ceFAZolin 2 GM/50 ML BAG IVPB (16:47)
[2019-02-02] MEDS: Ketorolac 30 MG/ML VIAL (17:48)
[2019-02-02] MEDS: Normal Saline 20 ML VIAL (17:48)
[2019-02-02] MEDS: Bupivacaine 0.25% Pres-Free 30 ML VIAL (17:48)
--- NOTE | 2019-02-02 18:37 | ROE_ITS ---
Date of service: 02/02/19 Time of Service: 18:37 Operative Note DATE OF PROCEDURE: 02/02/19 PRE-OP DIAGNOSIS: Left knee osteoarthritis POST-OP DIAGNOSIS: same PROCEDURE: Left Total Knee Replacement SURGEON: Nuno Santana [employer]: [employer] ANESTHESIA: regional and spinal ESTIMATED BLOOD LOSS: 200 PATHOLOGY: none sent TOURNIQUET TIME: 31 COMPLICATIONS: None Patient was transported to: PACU Patient's condition: stable Implants: 1. Depuy Attune Posterior Stabilized Femoral Component, Size 5 2. Depuy Attune Fixed Platform Tibial Component, Size 4 3. Depuy Attune 5x6mm Fixed, Stabilized Poly 4. Depuy Attune Patellar Component, Size 35mm Indications: I have seen Devin in clinic for symptoms of left knee arthritis, confirmed with radiographic findings. He has exhausted nonoperative methods and was having significant limitations in daily function and desired better function and less pain. I discussed the technical details of a knee replacement. I explained the risks of the procedure to include, but not limited to, bleeding, infection, pain, stiffness, fracture, damage to nerves and vessels, damage to muscles and tendons, loosening, need for repeat procedure, blood clot and cardiopulmonary demise. Despite these risks, Devin elected to proceed. Findings: There was significant signs of arthritis throughout the knee. Procedure Description: Devin was greeted in the preoperative holding area where the correct side was identified and marked. The consent was reviewed with the patient and signed. The history and physical was updated. All questions were answered. Preoperative mediacations were administered: Acetaminophen 1000mg, Celebrex 400mg, and Oxycontin 10mg. An adductor canal block was then administered by the anesthesia team in the PACU. Devin was taken back to the operating room. A spinal anesthestic was then administered. The patient was placed into the supine position on the operating room table. A nonsterile tourniquet was placed high onto the leg but only used for cementing. Posts were placed for positioning during the procedure. All bony prominences were well padded. Prophylactic antibiotics in the form of Cefazolin were administered. 1g of Tranxemic Acid was given intravenously within 30 minutes of incision. The left leg was then prepped with Chloraprep and draped in a standard fashion with impervious stockinette and extremity drape with Iodine impregnated skin protection. A timeout to confirm correct identity, side and site, procedure, allergies, anesthesia, and medical concerns was performed. With the knee in some flexion, a midline incision was made overlying the knee. Full thickness skin flaps were raised once the extensor mechanism was encountered. These were raised medially and laterally. Any bleeding was controlled with electrocautery. Once the extensor mechanism was fully exposed, a medial parapatellar arthrotomy was performed in a flexed position. All bleeding from the arthrotomy and the geniculate arteries was coagulated. A medial subperiosteal peel was performed with electrocautery to the midcoronal plane. The fat pad was removed while keeping the patellar tendon protected. The anterior distal femur synovium was removed for later visualization. The ACL and PCL were resected and the anterior horn of the lateral meniscus was transected. The knee was then flexed with the patella everted. Large osteophytes from the tibia were removed. Large osteophytes from the femur were removed. Using a step drill, and based on preoperative templating, the femoral canal was entered. This was done with a step drill without any difficulty. The intramedullary distal femoral cut guide was inserted, set to a 5 degree valgus cut and 9mm cut thickness. The distal femoral cut guide was then held in position and pinned. With the soft tissues protected, the distal cut was performed. This was passed over a few times to ensure a planar cut. I then turned attention to the tibia. The extramedullary guide was placed onto the leg. The distal aspect was slid medial to adjust for position of center of ankle and stay in line with shaft of the tibia. Approximately 3-5 degrees of posterior slope was kept in the proximal cutting guide. The center of the guide was aligned with the PCL. The stylus was used to assess cut thickness. The medial side, most involved side, was set for a 4mm cut. This was then held in position and pinned into place with 2 additional pins and a cross pin for stability. The medial and lateral collateral ligaments were protected and the cut was performed. With this completed, it was assessed and noted to be of appropriate dimensions. The guide was removed. A spacer block was inserted and the knee was brought into extension. The 6mm spacer block provided full extension, without hyperextension and with stability of both the medial and lateral collateral ligaments was assessed. The pins from the femur and the tibia were then removed. The distal femur was then sized. The anterior stylus was placed onto the lateral ridge of the anterior femur. This indicated a size 5 femur. The external rotation of the guide was adjusted to 3 degrees to match the epicondylar axis, perpendicular to Shanta?s line. The 4-in-1 cutting guide was the placed. The posterior medial femur cut was evaluated and appeared of good thickness. The spacer block was inserted underneath the cutting guide and stability was confirmed in 90 degrees of flexion. An addis wing was used to confirm appropriate position of the anterior cut to avoid notching. This cutting guide was ensured to be flush on the cut surface and then pinned into place with headed pins. While protecting the soft tissues, quad tendon, and collateral ligaments, the anterior and posterior cuts were performed with a saw. The central two pins were removed and the posterior and anterior chamfers were cut next. The notch-cutting guide was placed. This was pinned to lateralize the femoral component as much as possible while keeping it flush on the cut surface. This was then pinned into position. A reciprocating saw was used to make the notch cut. A rasp smoothed the cut surfaces. A trial posterior stabilized femoral component was then inserted, impacted down to the cut surfaces, and the lug holes were drilled. A provisional trial tibial component was placed and the knee was brought through range of motion. There was noted to be excellent extension and flexion. There was no significant instability. The patella was tracking without thumbs. The tibial cut surface was fully exposed. The medial and lateral menisci were removed. The tibia was then sized as a 4. The tibia had been previously marked during trialing to correspond to the center of the tibial component to help with rotation. The trial was aligned to this earline, approximately rotated to the medial 1/3rd of the tibial tubercle. The trial was pinned into place. The tibia was prepared with a reamer and a keel punch. The knee was then brought into extension and the patella was measured as 25mm. Using the patellar clamp and cut guide, this was resected to a flat surface with at least 13mm of thickness remaining. The size 35mm patella fit the best. This was oriented and then clamped into position. The lugs were drilled. The trial components were removed. The final components, except for the polyethylene were opened on the back table. The periosteal and capsular tissues, especially posteriorly, around the knee were then systematically injected with a periarticular cocktail consisting of 50cc 0.25% Marcaine, 30mg Ketorolac, 20cc of Exparal and 50cc of injectable saline. The tourniquet was then inflated to 275mmHg. The knee was thoroughly irrigated with a pulse lavage and dried. On the back table, with the implants opened, the cement was mixed. 2 batches of antibiotic laden cement were prepared with vacuum assistance. After the cement was ready a small amount was placed on to the back side of the tibial component at the keel. A small amount was placed onto the posterior flange of the femur. Cement was manual pressurized and impregnated into the cut surface of the tibia. The tibial component was then inserted into the cut surface and impacted into position. Excess cement was removed and the component was reimpacted. Again, excess cement was removed and our attention was then turned to the femur. The femoral cut surface was once again dried and cement was manually impacted into the cut surface. The femoral component was lined with the lug holes and impacted. Excess cement was removed. It was ensured to be down against the cut surface. The trial polyethylene was then inserted and the leg was brought out into full extension for the duration of the cement curing process, approximately 15min. Cement was lastly manually impacted into the cut surface of the patella and the patellar button was clamped into position and held. During this process attention was turned to the gutters of the knee and for all interfaces for any excess cement. After the cement had finally cured, approximately 15min, the clamp was removed from the patella and the knee was taken through range of motion. A size 6mm polyethylene component provided the best range of motion and stability with less than 2mm gapping with medial and lateral stress and full extension without significant hyperextension. The patella was tracking with a no-thumbs technique. The trial poly was removed and once again the knee was checked for any loose, excess, or errant cement. The poly component was then inserted and impacted into position after cleaning and drying the tibial tray. The capsule was then reapproximated with a No. 1 Vicryl at multiple locations. The capsule was finally closed with a No. 2 Stratafix, barbed suture. The tourniquet was then released and the arthrotomy appeared watertight without significant bleeding. The second dosing of 1g TXA was started. Deep tissues were then reapproximated with 0 Vicryl and 2-0 Vicryl. The skin was closed with a running 3-0 Monocryl in a subcuticular fashion. This was reinforced with skin glue. A Mepilex silver dressing was applied along with a [id number] JENIFER wrap. A CryoCuff was applied. Devin was transferred to the hospital bed without difficulty an suffering no apparent complication. He has a good prognosis. Physical therapy will start today and without restrictions, weight-bearing as tolerated. Aspirin 81mg BID will be used for DVT prophylaxis.
[2019-02-02] MEDS: buPROPion-CR 100 MG TABCR PO (20:25)
[2019-02-02] MEDS: Celecoxib 200 MG CAP PO (20:25)
[2019-02-02 21:03] VITALS: BP 153/81; PULSE 78; RESP 17; TEMP 36.5; O2SAT 98
[2019-02-02] MEDS: Insulin Glargine 300 UNITS/3 ML PEN 45 UNITS SC (22:21)
[2019-02-02] MEDS: clonazePAM 0.5 MG TAB PO (22:21)
[2019-02-02] MEDS: ceFAZolin 1 GM/50 ML BAG IVPB (22:55)
[2019-02-02 23:32] VITALS: BP 112/63; PULSE 94; RESP 18; TEMP 36.3; O2SAT 96
--- NOTE | 2019-02-03 01:47 | NUR.NOTE ---
Nursing Note: Pt received s/p left total knee and adductor cural block., Siva drsg C/D/I with cryo cuff applied. Pt pedal pilses present. Able to move affected leg without difficulty. post vital signs taken and recorded. Continue to monitor.
[2019-02-03 03:36] VITALS: BP 121/67; PULSE 86; RESP 18; TEMP 36.3; O2SAT 98
[2019-02-03] MEDS: ceFAZolin 1 GM/50 ML BAG IVPB ×2 (06:09→14:25)
[2019-02-03 07:23] VITALS: BP 124/70; PULSE 79; RESP 18; TEMP 35.7; O2SAT 97
[2019-02-03] MEDS: Sucralfate 1 GM TAB PO ×2 (07:39→20:09)
[2019-02-03] MEDS: Celecoxib 200 MG CAP PO ×2 (07:39→20:09)
[2019-02-03] MEDS: buPROPion-CR 100 MG TABCR PO ×2 (07:39→20:09)
[2019-02-03] MEDS: Aspirin E.C. 81 MG TABEC PO ×2 (07:39→20:09)
[2019-02-03] MEDS: metFORMIN C.R. 500 MG TABCR PO ×2 (07:40→20:10)
[2019-02-03] MEDS: Magnesium Oxide 400 MG TAB PO (07:40)
[2019-02-03] MEDS: Esomeprazole 40 MG CAPCR PO (07:40)
[2019-02-03] MEDS: Lisinopril 5 MG TAB PO (07:40)
[2019-02-03] MEDS: Ascorbic Acid 500 MG TAB PO (07:40)
[2019-02-03] MEDS: Pravastatin 20 MG TAB PO (07:50)
[2019-02-03] MEDS: Insulin Aspart 300 UNITS/3 ML PEN SC ×2 (07:54→11:52)
[2019-02-03] MEDS: glipiZIDE 10 MG TAB PO ×2 (09:55→20:09)
[2019-02-03 11:45] VITALS: BP 119/74; PULSE 85; RESP 18; TEMP 36.4; O2SAT 97
--- NOTE | 2019-02-03 12:11 | IN_ITS ---
Date of service: 02/03/19 Time of Service: 12:11 PT Notes Inpatient Physical Therapy Evaluation Date: 02/03/2019 Referring Doctor: Nuno Santana MD PT Orders: PT CONSULT: Status post left TKA Precautions: Fall. Standard. WBAT on L LE. Patient Profile/Admitting Diagnosis: Patient is a 68-year-old male with primary unilateral osteoarthritis of L knee and is S/P L total knee arthroplasty on postoperative day 1. PMHX: Medical History (Updated 01/28/19 @ 12:44 by KELLY Morrison) Diverticulosis of colon (Chronic) Surgical History (Updated 01/28/19 @ 12:43 by KELLY Morrison) Cholecystectomy (~2002) Colonoscopy - MAC EGD - MAC (03/12/17) Endoscopy H/O arthroscopic knee surgery (Chronic) H/O colonoscopy (Inactive 07/03/18) Social History/Home Situation: Patient lives with his partner in a mobile home with 4 steps with wooden rails on both sides. Patient reports that his significant other will be able to help with meals and chores but will not be able to any self-care tasks like donning his teds stocking on the right. Patient states that he is a retired and he currently calls being in [place], [place]. Current Functional Limitations: Need for an assistive device and supervision for all transfer and ambulation task performance Equipment Owned/DME: FWW, SC, bilateral axillary crutches Subjective: Patient is agreeable to a PT consult and treatment today. He is pleasant and cooperative. He reports he did not have a restful night last night due to the commotion on the floor. He states pain-chavarria that he is doing good. He does complain of having bouts of cough deep exhalation which was reported to charge nurse. Objective: General Observation: Patient seen resting in bed. JENIFER wraps on L LE. Cryocuff on L LE. Antithromboembolic pump on R LE. Knee-high TEDS on right leg. Mental Status: Alert and oriented times Pain: 0/10 at rest. 1/10 with mobility ADL performance. ROM: Right Upper Extremity: Shoulder Flexion WFL. Shoulder abduction WFL. Elbow flexion WFL. Wrist flexion WFL. Functional opening and closing of hand WFL. Left Upper Extremity: Shoulder Flexion WFL. Shoulder abduction WFL. Elbow flexion WFL. Wrist flexion WFL. Functional opening and closing of hand WFL. Right Lower Extremity: Hip flexion WFL. Hip abduction WFL. Knee flexion WFL. Ankle dorsiflexion WFL. Ankle plantarflexion WFL. Left Lower Extremity: Hip flexion allows up to 30 degrees above horizontal while seated at edge of bed. Hip abduction WFL. Knee flexion 0-110. Ankle dorsiflexion WFL. Ankle plantarflexion WFL. Strength: Right Upper Extremity: Shoulder flexors 5/5. Shoulder abductors 5/5. Elbow flexors 5/5. Elbow extensors 5/5. Picker Operator strong. Left Upper Extremity: Shoulder flexors 5/5. Shoulder abductors 5/5. Elbow flexors 5/5. Elbow extensors 5/5. Picker Operator strong. Right Lower Extremity: Hip flexors 5/5. Hip abductors 5/5. Knee flexors 5/5. Knee extensors 5/5. Ankle dorsiflexors 5/5. Ankle plantarflexors 5/5. Left Lower Extremity:Hip flexors 3-/5. Hip abductors 4/5. Knee flexors 3-/5. Knee extensors 4/5. Ankle dorsiflexors 5/5. Ankle plantarflexors 5/5. Sensation: Intact as to pain and pressure on bilateral lower extremities. Bed Mobility/Transfers: Rolling independent Supine to sit independent Sit to supine independent Sit to stand supervision Stand to sit supervision Bed to chair supervision Chair to bed supervision Gait: Patient was able to tolerate level surface ambulation using 400 feet x 2 with step through gait pattern with report of mild ache on popliteal area on the left that subsided with rest. Left knee in good alignment. Minimal reduction due to post operative status. Patient denies headache, chest pain, and dizziness, throughout gait activity. Balance: Static Sitting: Normal Dynamic Sitting: Normal Static Standing: Good Dynamic Standing: Fair Special Tests: Mobility Limitations Standardized Measure [facility] AM-PAC 6 clicks Basic Mobility Inpatient Short Form: Raw Score: 22 CMS Score: 21% deficit Informed Consent/Education: Patient instructed in purpose of PT consult and plan of care. Patient was also instructed in performaning ankle pumping x 30 quadriceps setting x10, heel slides on the left x10 every hour. Assessment: 68-year-old cognitively intact male with premorbid independent level with primary unilateral osteoarthritis of left knee status post left knee total arthroplasty on postoperative day. Patient presents with clinical signs and symptoms consistent with current/admitting diagnosis and postoperative status that have resulted to mobility limitations, gait instability, generalized weakness, and impairment of motor control as demonstrated by the following impairment level findings: 1. Decreased strength to left hip and knee major muscle groups 2. Impaired standing balance 3. Impaired activity tolerance 4. Limitation of joint range of motion in left hip and knee Impairments are contributing to the following functional limitations: 1. Increased dependence with transfers 2. Inability to safely ambulate without assistive device and physical assistance 3. Increase completion time for mobility ADL performance 4. Increased fall risk 7. Inability to negotiate steps alone safely Patient is assessed as a 09157 moderate complexity based on the following: History: 68-year-old cognitively intact male with premorbid independent level with primary unilateral osteoarthritis of left knee status post left knee total arthroplasty on postoperative day Examination: Demonstrable impairment in strength, balance, and range of motion with underlying impairments and functional limitations as documented above Presentation:Evolving Decision Makin moderate Goals: Goals X1 week 1. Supine-Sit independent 2. Sit-Supine independent 3. Sit-Stand independent 4. Stand-Sit independent 5. Bed-Chair independent 6. Chair-Bed independent 7. Independent gait on level surface with use of least restrictive device for at least 300 feet without report of pain nor dyspnea 8. Independent stair negotiation while holding onto bilateral rails for at least 5 steps without report of pain nor dyspnea 9. Independent with home exercise program 10. Good static and dynamic standing balance/tolerance Plan of Care/Treatment Plan: 1-2x/day, 7 days/week x 1 week. Plan of care has been reviewed with the MOBILE UI DEVELOPER providing the service under Physical Therapy direction. Initiate Physical Therapy intervention for strengthening, bed mobility, transfers, gait, stairs, balance training, use of assistive device. DISCHARGE RECOMMENDATIONS: May benefit from skilled physical therapy services according to orthopedic surgeon's timeline recommendations. Patient will be educated and trained on home exercise program per TKA exercise protocol in preparation for outpatient physical therapy services. TREATMENT CODE/TIME: 9716 2 x 34 minutes beginning at 854 Thank you very much for this referral. Samra Peterson PT, DPT, CLT [facility]
--- NOTE | 2019-02-03 13:07 | W.PM.PROGNOT ---
Date of Service Date of service: 02/03/19 Time of Service: 13:07 Assessment and Plan (1) Osteoarthritis of left knee: Current visit: No Status: Chronic Doing very well s/p TKA. Good pain control. Continue WBAT and working with PT. Likely d/c to home tomorrow. Qualifiers: Osteoarthritis type: primary Qualified Code(s): M17.12 - Unilateral primary osteoarthritis, left knee (2) Type II diabetes mellitus, uncontrolled: Current visit: No Status: Chronic Requiring sliding scale insulin for hyperglycemia. Does not use a short-acting insulin at home. He will benefit from a short course of Aspart to help control his periods of hyperglycemia and then get re-checked by PCP. I'l continue to look at his usage and prescribe a short course for home. Qualifiers: Glycemic state: with hyperglycemia Qualified Code(s): E11.65 - Type 2 diabetes mellitus with hyperglycemia Subjective Interval history since last seen: Devin is doiing well. He has mninimal pain. He has been able to mobilize. He denies any chest pain or shortness of breath. He has no nausea. No fever or chills. Exam Narrative Exam Narrative: LLE dressing is c/d/i. He is able to straight leg raise. +ADF/APF/EHL/FHL. SILT DP/SP/Tib. +PT/DP pulse Objective Objective Clinical Data: Vital Signs Temperature 35.7 C L 02/03/19 07:23 Temperature Source Tympanic 02/03/19 07:23 Pulse 79 02/03/19 07:23 Pulse Rhythm Regular 02/03/19 08:35 Respiratory Rate 18 02/03/19 07:23 Respiratory Effort Non-Labored 02/03/19 08:35 Respiratory Depth Normal 02/03/19 08:35 Respiratory Pattern Normal 02/03/19 08:35 Blood Pressure 124/70 02/03/19 07:23 Pulse Oximetry 97 02/03/19 07:23 Oxygen Delivery Method Room Air 02/03/19 07:23 Oxygen Flow Rate 0 02/03/19 07:23 Pain Level 0 02/03/19 07:23 Intake & Output 02/02/19 02/03/19 02/03/19 23:59 11:59 23:59 Intake Total 1110 / 1110 1500 / 1500 Output Total 300 / 300 2400 / 2400 Balance 810 / 810 -900 / -900 Weight 107 kg Intake: IV 1110 / 1110 1100 / 1100 Oral 400 / 400 Output: Urine 100 / 100 2400 / 2400 Estimated Blood Loss 200 / 200 Other: Urine Color Yellow Yellow Urine Appearance Clear Clear Comment verbal order by MD to discontinue at this time
--- NOTE | 2019-02-03 13:17 | PT.INTREAT ---
Date of service: 02/03/19 Time of Service: 13:17 PT Notes Inpatient Physical Therapy Treatment Note [facility] Date: 02/03/19 PRECAUTIONS: WBAT L SUBJECTIVE: Devin states that he is ready to get back into bed to rest for a little while. He reports that he will be going home tomorrow. OBJECTIVE: PAIN: Patient rates L knee pain as 1/10 at rest BED MOBILITY/TRANSFERS Sit-supine: I Sit-stand: I Stand-sit: I GAIT Assistive Device: FWW Weight bearing: WBAT L Assist: S Distance: 200' Deviation: Step-through gait pattern utilized THEREX: Patient completed a LE strengthening program, as per flow sheet. Patient ends with cryocuff to L knee. ASSESSMENT: Patient tolerated session well without complaint. He was able to tolerate a progression in gait distance with FWW support and supervision. PLAN: Continue with PT's POC TREATMENT CODE/TIME: 20 minutes; 95981
--- NOTE | 2019-02-03 13:51 | W.INDIABCONS ---
Date of service: 02/03/19 Time of Service: 13:57 Diabetes Inpatient Consult DESCRIPTION/ASSESSMENT: Appreciate diabetes consult for Mr. Quarles who is hospitalized s/p knee replacement. A1c 7.8 up from 7.3 BMI 33 States he has lost 10 pounds over the past 3 months because he has had a decrease in hunger and is eating smaller portions. Blood sugars this hospitalization up to 251mg/dl taking his usual 45u Glargine and moderate insulin correction. At home he takes 45u Glargine, glipizide and [id number] twice daily. Met with Tavia regarding his self management at home. States his PCP tells him to monitor blood sugars twice a week. States he feels hypoglycemic about once a week and treats this with apple juice. He admits to eating sweets of snack cakes. He usually cooks but once a week he gets a scissors grinder or TV dinner as he is too busy to cook. He does mow his own lawn and shovels his walks in the winter. INTERVENTION: Discussed with him self management, monitoring of blood sugars for meaning. DIscussed alternatives to snack cakes. Reviewed basics of diabetes food guide and he states he knows the right thing to do. Discussed physical activity for diabetes management and ongoing plan after PT. Mr. Quarles may benefit from insulin for carbohydrate so insulin correction can actually correct hyperglycemia if his stay is extended. PLAN: Mr. Quarles will: have any chocolate he eats be dark chocolate have 2 cups of vegetables daily monitor blood sugar for meaning looking at blood sugars in pairs Time Spent in Nutritional Counseling and Treatment: 15 minutes face to face
[2019-02-03 15:34] VITALS: BP 121/65; PULSE 80; RESP 18; TEMP 36; O2SAT 98
--- NOTE | 2019-02-03 16:00 | PDOC.CMIN ---
Care Management Initial Assess REASON FOR HOSPITALIZATION:: (L) Knee DJD PAST MEDICAL HISTORY/PAST SURGICAL HISTORY:: Diverticulosis, Cholecystectomy, colonoscopy, EGD, Endoscopy, arthroscopic knee surgery. PREVIOUS FUNCTIONAL STATUS/SOCIAL/FAMILY SUPPORTS:: Moe is retired and resides with his friend in [place], [place]. He reports being completed independent at baseline. CURRENT FUNCTIONAL STATUS:: Moe was lying in bed when CM met with him. He reported feeling surgery went well and recovery was going well thus far. He shared that he anticipated returning home tomorrow. Has patient been provided with information about the portal?: Yes Did the patient sign up for the portal?: No CODE STATUS:: Full Code INSURANCE COVERAGE / FINANCIAL ISSUES:: Medicare CURRENT HOME/COMMUNITY SERVICES/EQUIPMENT:: FWW, crutches, cane PRIMARY CARE PHYSICIAN:: Mich Taylor DO. POTENTIAL DISCHARGE NEEDS:: PT evaluation, follow up appointments. PATIENT/FAMILY EDUCATION NEEDS:: Review of discharge instructions, discuss Ask Me Three. ANTICIPATED BARRIERS TO DISCHARGE:: None identified at this time. TRANSPORTATION:: Moe will transport with his friend, Maxwell Peck. PLAN:: Moe will discharge home when ready per MD. He will follow up with Dr. Santana and his plan of care as prescribed including medication recommendations and physical limitations. He will transport via private vehicle with his friend, Maxwell.
--- NOTE | 2019-02-03 16:08 | CHAPLAIN ---
Moe was sitting up in the chair when I visited. He said his surgery went well and he's looking forward to being without pain in his knee. He expects some friends to be in to visit and said he may even be discharged today. He was pleasant and easily engaged in a conversation.
[2019-02-03] MEDS: Normal Saline Flush 10 ML SYR IV (20:10)
[2019-02-03 20:25] VITALS: BP 127/65; PULSE 82; RESP 16; TEMP 36.7; O2SAT 100
[2019-02-03] MEDS: clonazePAM 0.5 MG TAB PO (22:06)
[2019-02-03] MEDS: Insulin Glargine 300 UNITS/3 ML PEN 45 UNITS SC (22:06)
[2019-02-03] MEDS: oxyCODONE 5 MG TAB PO (22:06)
[2019-02-03 23:52] VITALS: BP 130/71; PULSE 82; RESP 18; TEMP 36.3; O2SAT 98
[2019-02-04 03:55] VITALS: BP 122/67; PULSE 80; RESP 17; TEMP 36.5; O2SAT 96
[2019-02-04] MEDS: oxyCODONE 5 MG TAB PO ×2 (04:03→08:30)
[2019-02-04 07:52] VITALS: BP 150/71; PULSE 84; RESP 17; TEMP 36.6; O2SAT 94
[2019-02-04 08:15] VITALS: BP 125/75; PULSE 63; RESP 18; TEMP 36.4; O2SAT 98
[2019-02-04] MEDS: Magnesium Oxide 400 MG TAB PO (08:17)
[2019-02-04] MEDS: Esomeprazole 40 MG CAPCR PO (08:17)
[2019-02-04] MEDS: Sucralfate 1 GM TAB PO (08:17)
[2019-02-04] MEDS: glipiZIDE 10 MG TAB PO (08:18)
[2019-02-04] MEDS: Ascorbic Acid 500 MG TAB PO (08:19)
[2019-02-04] MEDS: buPROPion-CR 100 MG TABCR PO (08:19)
[2019-02-04] MEDS: Pravastatin 20 MG TAB PO (08:19)
[2019-02-04] MEDS: Lisinopril 5 MG TAB PO (08:20)
[2019-02-04] MEDS: Celecoxib 200 MG CAP PO (08:20)
[2019-02-04] MEDS: metFORMIN C.R. 500 MG TABCR PO (08:20)
[2019-02-04] MEDS: Normal Saline Flush 10 ML SYR IV (08:21)
[2019-02-04] MEDS: Aspirin E.C. 81 MG TABEC PO (08:21)
--- NOTE | 2019-02-04 10:26 | DSE_ITS ---
Date of service: 02/04/19 Time of Service: 10:26 DS: Diagnosis Discharge Diagnosis (1) Osteoarthritis of left knee: Status: Chronic (2) Type II diabetes mellitus, uncontrolled: Status: Chronic Discharge Plan Disposition Patient Disposition: HOME Condition: Good Discharge Details Reason For Visit: (L) KNEE DJD Admit Date/Time: 02/02/19 13:16 Admit Provider: Nuno Santana Attending Provider: Nuno Santana Primary Care Provider: Mich Taylor Hospital Course Hospital Course: Patient was admitted to the medical/surgical floor following the procedure. It was tolerated well without any notable medical, surgical, or anesthetic complications. Mobilization began postoperatively. The mcgraw catheter was removed and voiding spontaneously. Vitals were stable. Physical therapy worked with the patient and was cleared for discharge home. No acute medical issues. Home Meds and New Rx's Prescriptions: New celecoxib 200 mg capsule 200 mg PO BID PRN (Reason: pain) Qty: 60 RF: 1 acetaminophen 500 mg tablet 1,000 mg PO Q8H PRN (Reason: pain) Qty: 90 RF: 3 oxycodone 5 mg tablet 5 mg PO Q4H Qty: 18 RF: 0 Continued sucralfate 1 gram tablet 1 g PO BID RF: 0 acyclovir [Zovirax] 30 GM ointment 1 saskia Topical Q4H PRN PRN (Reason: Mouth Sore Pain) RF: 0 magnesium oxide 400 MG capsule 500 mg PO DAILY RF: 0 ascorbic acid (vitamin C) [Vitamin C] 500 MG capsule, extended release 500 mg PO DAILY RF: 0 sennosides [Senna Laxative] 8.6 mg tablet 8.6 mg PO BID PRN (Reason: constipation) Qty: 60 RF: 0 bupropion HCl [Wellbutrin SR] 100 mg tablet sustained-release 12 hr 100 mg PO BID Qty: 180 RF: 3 esomeprazole magnesium [Nexium] 40 mg capsule,delayed release(DR/EC) 40 mg PO DAILY Qty: 90 RF: 4 glipizide [Glucotrol] 10 mg tablet 10 mg PO BID Qty: 180 RF: 3 clonazepam [Klonopin] 0.5 mg tablet 0.5 mg PO HS Qty: 90 RF: 1 metformin 500 mg tablet extended release 24 hr 500 mg PO BID Qty: 60 RF: 6 pravastatin [Pravachol] 20 mg tablet 20 mg PO DAILY Qty: 90 RF: 3 amoxicillin 500 mg Capsule 2,000 mg PO . DIRECTED RF: 0 Changed aspirin 81 MG tablet,delayed release (DR/EC) 81 mg PO BID Qty: 60 RF: 0 Discontinued metformin 500 mg tablet 500 mg PO BID Qty: 180 RF: 12 Hold Instructions: None No Action lisinopril 5 mg tablet 5 mg PO DAILY Qty: 90 RF: 3 (DME) lancets [OneTouch UltraSoft Lancets] 1 EACH misc 1 ea Miscellaneous BID Qty: 180 RF: 3 (DME) lancing device with lancets [TravelLineTouch Delica Lanc Device] 1 EACH kit 1 ea Miscellaneous BID Qty: 1 RF: 2 (DME) OneTouch Ultra Test 1 EACH strip 1 ea Miscellaneous BID Qty: 180 RF: 3 (DME) Accu-Chek SmartView Test Strip 1 EACH strip 1 ea Miscellaneous BID Qty: 180 RF: 3 Lantus Solostar U-100 Insulin 100 unit/mL (3 mL) insulin pen 45 unit Sub-Q HS Qty: 5 RF: 12 (DME) pen needle, diabetic [BD Ultra-Fine Taina Pen Needle] 32 gauge x 5/32 needle 1 ea Miscellaneous DAILY Qty: 100 RF: 3 Discharge Instructions Additional Instructions: Dr. Santana?s Total Knee Discharge Instructions Activity: The most important activity is to walk. You should try to take short walks a few times a day. It is important that when resting you work on keeping the knee straight. Avoid putting a pillow behind the knee as this will encourage flexion. Work on range of motion exercises as provided by Physical Therapy. - Start outpatient physical therapy within 2 weeks. - You should wear the DARCI hose on both legs for 2 weeks. Dressing: Keep the surgical dressing in place for at least one week. After the first week it may be removed and replace with light gauze and tape or nothing. It may get wet after 3 days but avoid soaking the dressing. If it gets wet, just lightly pat dry. Medications: - You should take Tylenol and anti-inflammatory Celebrex as your primary pain control medications - You have been prescribed a stronger pain medication Oxycodone for breakthrough pain, take as needed as prescribed. - You should continue your stomach acid reduction agent Esomeprazole to help reduce stomach acid and reflux. - You will be taking Aspirin 81mg twice a day for DVT prevention unless instructed otherwise. - If you have constipation you should take Colace or Miralax (both [id number]). It takes most people 3-4 days to have a bowel movement. Follow-up: 2 weeks Referrals: Nuno Santana MD [ [facility] STAFF PHYSICIAN] - Activity:: Activity as Tolerated Equipment/Supplies:: Walker Diet:: Carb Counting Discharge Orders Discharge Orders: Discharge Order (Routine); Ordered 02/04/19 Ordered By: Nuno Santana DS: Data Vitals/I&O Vitals and I&O: Vital Signs Temperature 36.4 C L 02/04/19 08:15 Temperature Source Tympanic 02/04/19 08:15 Pulse 63 02/04/19 08:15 Pulse Rhythm Regular 02/04/19 04:48 Respiratory Rate 18 02/04/19 08:15 Respiratory Effort Non-Labored 02/03/19 20:14 Respiratory Depth Normal 02/03/19 20:14 Respiratory Pattern Normal 02/03/19 20:14 Blood Pressure 125/75 02/04/19 08:15 Pulse Oximetry 98 02/04/19 08:15 Oxygen Delivery Method Room Air 02/04/19 08:15 Oxygen Flow Rate 0 02/04/19 08:15 Pain Level 4 02/04/19 10:19 Comment 02/04/19 08:15 Intake & Output 02/03/19 02/03/19 02/04/19 11:59 23:59 11:59 Intake Total 1500 / 1800 300 / 1800 Output Total 2500 / 2750 250 / 2750 200 / 200 Balance -1000 / -950 50 / -950 -190 / -190 Intake: IV 1100 / 1160 60 / 1160 Oral 400 / 640 240 / 640 Output: Urine 2500 / 2750 250 / 2750 200 / 200 Other: Urine Color Yellow Yellow Yellow Urine Appearance Clear Clear Clear Urine Odor None Normal None Comment verbal order by to discontinue at this time Voiding Methods Urinal Urinal Urinal PFS Social History (Updated 04/06/18 @ 10:42 by Estefani Nguyen) Smoking/Tobacco Use Status: Former Tobacco Use Alcohol Intake: current Alcohol Intake frequency: a few times a month Drug use: Never Substance use type: does not use Do you feel safe in your relationship?: Yes
--- NOTE | 2019-02-04 12:07 | PT.INTREAT ---
Date of service: 02/04/19 Time of Service: 12:07 PT Notes Inpatient Physical Therapy Treatment Note [facility] Date: 02/04/19 PRECAUTIONS: WBAT L SUBJECTIVE: Devin is agreeable to participating in PT OBJECTIVE: PAIN: Patient c/o L knee discomfort with gait training BED MOBILITY/TRANSFERS Supine-sit: I with HOB flat Sit-stand: I Stand-sit: I GAIT Assistive Device: FWW Weight bearing: WBAT L Assist: S Distance: 200' Deviation: Step-through gait pattern utilized THEREX: Patient completed a LE strengthening and stabilization program, in a supine position, as per flow sheet. Patient ends with cryocuff to L knee. STAIRS: Up/down 3x4 and 2x6 using B rails and a step-to pattern with supervision. ASSESSMENT: Patient tolerated session well with minimal complaint of L knee discomfort with gait training. He was able to tolerate the addition of stair training, demonstrating appropriate technique, without cueing, with supervision. PLAN: As per primary PT TREATMENT CODE/TIME: 30 minutes; 72065, 31861
[2019-02-04] MEDS: Insulin Aspart 300 UNITS/3 ML PEN SC (12:21)
--- NOTE | 2019-02-04 14:57 | NUR.NOTE ---
Nursing Note: for 8 am this morning. staff reported that patient had felt [id number] after pt. patient was sitting in chair, he stated pain had increased to a 4 during activity., FS evaluated for 106. ap 63, bp 125/75. patient felt that the episode had passed. he was rechecked at nine, and patient flet that this had resolved
--- NOTE | 2019-02-04 17:25 | PT.INDS ---
Date of service: 02/04/19 Time of Service: 17:25 PT Notes Inpatient Physical Therapy Discharge Summary Dates: 02/04/2019 Dates of Service: 02/03/2019 and 859 This is a clinical summary of care provided on the duration of dates listed above. No charge was made in the completion of this documentation. Referring Doctor: Nuno Santana MD PT Orders: PT CONSULT: Status post left TKA Precautions: Fall. Standard. WBAT on L LE. Patient Profile/Admitting Diagnosis: Patient is a 68-year-old male with primary unilateral osteoarthritis of L knee and is S/P L total knee arthroplasty on postoperative day 1. PMHX: Medical History (Updated 01/28/19 @ 12:44 by KELLY Morrison) Diverticulosis of colon (Chronic) Surgical History (Updated 01/28/19 @ 12:43 by KELLY Morrison) Cholecystectomy (~2002) Colonoscopy - MAC EGD - MAC (03/12/17) Endoscopy H/O arthroscopic knee surgery (Chronic) H/O colonoscopy (Inactive 07/03/18) Social History/Home Situation: Patient lives with his partner in a mobile home with 4 steps with wooden rails on both sides. Patient reports that his significant other will be able to help with meals and chores but will not be able to any self-care tasks like donning his teds stocking on the right. Patient states that he is a retired and he currently calls being in [place], [place]. Current Functional Limitations: Need for an assistive device and supervision for all transfer and ambulation task performance Equipment Owned/DME: [employer], [place], bilateral axillary crutches Subjective:NT Objective: General Observation: NT Mental Status: NT Pain: NT ROM: Right Upper Extremity: Shoulder Flexion WFL. Shoulder abduction WFL. Elbow flexion WFL. Wrist flexion WFL. Functional opening and closing of hand WFL. Left Upper Extremity: Shoulder Flexion WFL. Shoulder abduction WFL. Elbow flexion WFL. Wrist flexion WFL. Functional opening and closing of hand WFL. Right Lower Extremity: Hip flexion WFL. Hip abduction WFL. Knee flexion WFL. Ankle dorsiflexion WFL. Ankle plantarflexion WFL. Left Lower Extremity: Hip flexion allows up to 30 degrees above horizontal while seated at edge of bed. Hip abduction WFL. Knee flexion 0-110. Ankle dorsiflexion WFL. Ankle plantarflexion WFL. Strength: Right Upper Extremity: Shoulder flexors 5/5. Shoulder abductors 5/5. Elbow flexors 5/5. Elbow extensors 5/5. Aircraft Instrument Tester strong. Left Upper Extremity: Shoulder flexors 5/5. Shoulder abductors 5/5. Elbow flexors 5/5. Elbow extensors 5/5. Aircraft Instrument Tester strong. Right Lower Extremity: Hip flexors 5/5. Hip abductors 5/5. Knee flexors 5/5. Knee extensors 5/5. Ankle dorsiflexors 5/5. Ankle plantarflexors 5/5. Left Lower Extremity:Hip flexors 3-/5. Hip abductors 4/5. Knee flexors 3-/5. Knee extensors 4/5. Ankle dorsiflexors 5/5. Ankle plantarflexors 5/5. Sensation: Intact as to pain and pressure on bilateral lower extremities. Bed Mobility/Transfers: Rolling independent Supine to sit independent Sit to supine independent Sit to stand independent Stand to sit dependent Bed to chair independent Chair to bed independent Gait: Patient was able to tolerate level surface ambulation of 200 feet with step through gait pattern requiring supervision with report of mild ache on popliteal area on the left that subsided with rest. Left knee in good alignment. Patient denies headache, chest pain, and dizziness, throughout gait activity. Balance: Static Sitting: Normal Dynamic Sitting: Normal Static Standing: Good Dynamic Standing: Fair Assessment: 68-year-old cognitively intact male with premorbid independent level with primary unilateral osteoarthritis of left knee status post left knee total arthroplasty on postoperative day. Patient presents with clinical signs and symptoms consistent with current/admitting diagnosis and postoperative status that have resulted to mobility limitations, gait instability, generalized weakness, and impairment of motor control as demonstrated by the following impairment level findings: 1. Decreased strength to left hip and knee major muscle groups 2. Impaired standing balance 3. Impaired activity tolerance 4. Limitation of joint range of motion in left hip and knee Impairments are contributing to the following functional limitations: 1. Increased dependence with transfers 2. Inability to safely ambulate without assistive device and physical assistance 3. Increase completion time for mobility ADL performance 4. Increased fall risk 7. Inability to negotiate steps alone safely Goals: Goals X1 week 1. Supine-Sit independent MET 2. Sit-Supine independent MET 3. Sit-Stand independent MET 4. Stand-Sit independent MET 5. Bed-Chair independent MET 6. Chair-Bed independent MET 7. Independent gait on level surface with use of least restrictive device for at least 300 feet without report of pain nor dyspnea NOT MET 8. Independent stair negotiation while holding onto bilateral rails for at least 5 steps without report of pain nor dyspnea NOT MET 9. Independent with home exercise program NOT MET 10. Good static and dynamic standing balance/tolerance NOT MET DISCHARGE RECOMMENDATIONS: May benefit from skilled physical therapy services according to orthopedic surgeon's timeline recommendations. Patient will be educated and trained on home exercise program per TKA exercise protocol in preparation for outpatient physical therapy services. TREATMENT CODE/TIME: CO Thank you very much for this referral. Samra Peterson PT, DPT, CLT [facility]
== END 2019-02-04 13:17 | disposition home or self-care (01) | DRG 470 ==
LOC: PDS 22:49 → MS 02-03 09:44
PROVIDERS: Admitting Provider Student in an Organized Health Care Education/Training Program; PCP Emergency Medicine; Visit Provider Student in an Organized Health Care Education/Training Program
PROC: 0SRD0J9 Replacement of Left Knee Joint with Synthetic Substitute, Cemented, Open Approach (ICD-10-PCS; CPT 27447; principal; 2019-02-02 14:30)
DX: M17.12 Unilateral primary osteoarthritis, left knee (principal); M25.562 Pain in left knee; Z96.652 Presence of left artificial knee joint; E11.65 Type 2 diabetes mellitus with hyperglycemia; Z79.4 Long term (current) use of insulin; G89.18 Other acute postprocedural pain; Z71.3 Dietary counseling and surveillance
CPT/HCPCS: 27447; 76942; 97110; 97162; 97530; NC; J0690; J1100; J1885; J2250

== ENCOUNTER 2019-02-17 15:16 | Outpatient (CLI) | payer MEDICARE, SELFPAY ==
--- NOTE | 2019-02-17 13:20 | DI.RAD_ITS ---
SYMPTOMS/DIAGNOSIS: 1ST POST OP LEG LENGTH EXAMINATION AND LEFT KNEE: Comparison is 12/16/18. Since the prior examination, the patient has undergone a knee total knee replacement. The orthopedic hardware appears in good position. The bones are intact. The soft tissues are unremarkable. The right knee is well maintained. The lower extremity measures 95.9 cm. The left lower extremity measures 96.2 cm. IMPRESSION: Status post left TKR.
== END 2019-02-17 15:36 ==
PROVIDERS: PCP Emergency Medicine; Referring Provider Emergency Medicine; Visit Provider Student in an Organized Health Care Education/Training Program
DX: Z96.652 Presence of left artificial knee joint (principal); M17.12 Unilateral primary osteoarthritis, left knee; Z47.1 Aftercare following joint replacement surgery
CPT/HCPCS: 73560; 77073

== ENCOUNTER → 2019-03-15 08:47 | Outpatient (BNVA) | payer MEDICARE, SELFPAY | PROVIDERS: PCP Emergency Medicine; Referring Provider Emergency Medicine; Visit Provider Student in an Organized Health Care Education/Training Program | DX: Z96.652 Presence of left artificial knee joint (principal); Z47.1 Aftercare following joint replacement surgery ==

== ENCOUNTER → 2019-05-03 10:10 | Outpatient (BNVA) | payer MEDICARE, SELFPAY | PROVIDERS: PCP Emergency Medicine; Referring Provider Emergency Medicine; Visit Provider Student in an Organized Health Care Education/Training Program | DX: Z47.1 Aftercare following joint replacement surgery; Z96.652 Presence of left artificial knee joint ==

== ENCOUNTER 2019-05-04 14:33 | Emergency (ER) | payer MEDICARE, SELFPAY ==
[2019-05-04] VITALS (30 sets, daily range): BP systolic 113–142; BP diastolic 59–91; PULSE 92–121; RESP 16–30; TEMP 36.7; O2SAT 90–98
[2019-05-04 15:13] LABS: Abs Immature Grans 0.03 k/cumm (0.0-0.09); Absolute Basophil Count 0.01 k/cumm (0.0-0.2); Absolute Eosinophil Count 0.15 k/cumm (0.0-0.7); Absolute Lymphocyte Count 2.14 k/cumm (1.2-3.4); Absolute Monocyte Count 0.91 k/cumm (0.11-0.7); Absolute Neutrophil Count 6.88 k/cumm (1.2-6.7); Basophils % 0.1; Eosinophils % 1.5; HCT 45.2 % (40.0-50.0); HGB 15.2 g/dL (13.5-17.5); Immature Grans % 0.3; Lymphocytes % 21.1; Mean Corp. HGB Concentration 33.6 g/dL (32.0-36.0); Mean Corpuscular Hemoglobin 29.5 pg (27.0-33.0); Mean Corpuscular Volume 87.6 fL (80-95); Mean Platelet Volume 9.4 fL (8.0-11.0); Platelet Count 268 x1000/uL (130-400); RBC 5.16 m/cumm (4.50-6.00); RBC Distribution Width 13.9 % (11.8-14.1); White Blood Cell Count 10.12 k/cumm (4.4-10.8)
[2019-05-04] MEDS: Normal Saline 500 ML IV ×2 (15:23→17:18)
[2019-05-04 15:27] LABS: ALT 25 U/L (16-63); AST 11 U/L (15-37); Albumin 3.9 g/dL (3.4-5.0); Alkaline Phosphatase 82 U/L (46-116); Anion Gap 9.9 mmol/L (3-11); BUN 18 mg/dL (7-18); Bilirubin, Total 0.4 mg/dL (0.2-1.0); CO2 25.1 mmol/L (21.0-32.0); CREATININE 0.86 mg/dL (0.70-1.30); Chloride 104 mmol/L (98-107); Glucose 127 mg/dL (70-100); Magnesium 1.8 mg/dL (1.8-2.4); Potassium 3.9 mmol/L (3.5-5.1); Sodium 139 mmol/L (136-145); Total Protein 7.5 g/dL (6.4-8.2)
[2019-05-04 15:31] LABS: Troponin I < 0.05 ng/mL (0.00-0.06)
--- NOTE | 2019-05-04 15:44 | W.ED.GENAD ---
Discharge Plan Disposition Patient Disposition: HOME Condition: Improving Discharge Details Chief Complaint: Palpitatns Clinical Impression: Tachycardia, History of gastroesophageal reflux (GERD), Chronic cough, Hoarseness of voice, Dehydration Primary Care Provider: Mich Taylor ED Provider: Daysi Lares Home Meds and New Rx's Prescriptions: New pantoprazole [Protonix] 20 mg tablet,delayed release (DR/EC) 20 mg PO DAILY Qty: 20 RF: 0 Continued lisinopril 5 mg tablet 5 mg PO DAILY Qty: 90 RF: 3 ranitidine HCl 300 mg tablet 300 mg PO QHS Qty: 30 RF: 2 sucralfate 100 mg/mL suspension 5 ml PO QID Qty: 420 RF: 1 aspirin 81 mg tablet,delayed release (DR/EC) 81 mg PO DAILY RF: 0 acyclovir [Zovirax] 30 GM ointment 1 saskia Topical Q4H PRN PRN (Reason: Mouth Sore Pain) RF: 0 magnesium oxide 400 MG capsule 500 mg PO DAILY RF: 0 ascorbic acid (vitamin C) [Vitamin C] 500 MG capsule, extended release 500 mg PO DAILY RF: 0 (DME) Accu-Chek SmartView Test Strip 1 EACH strip 1 ea Miscellaneous BID Qty: 180 RF: 3 sennosides [Senna Laxative] 8.6 mg tablet 8.6 mg PO BID PRN (Reason: constipation) Qty: 60 RF: 0 bupropion HCl [Wellbutrin SR] 100 mg tablet sustained-release 12 hr 100 mg PO BID Qty: 180 RF: 3 esomeprazole magnesium [Nexium] 40 mg capsule,delayed release(DR/EC) 40 mg PO DAILY Qty: 90 RF: 4 glipizide [Glucotrol] 10 mg tablet 10 mg PO BID Qty: 180 RF: 3 metformin 500 mg tablet extended release 24 hr 500 mg PO BID Qty: 60 RF: 6 pravastatin [Pravachol] 20 mg tablet 20 mg PO DAILY Qty: 90 RF: 3 sucralfate 1 gram tablet 1 g PO BID Qty: 180 RF: 3 (DME) pen needle, diabetic [BD Ultra-Fine Taina Pen Needle] 32 gauge x 5/32 needle 1 ea Miscellaneous DAILY Qty: 100 RF: 3 (DME) blood sugar diagnostic Strip 1 ea Miscellaneous BID Qty: 180 RF: 3 (DME) OneTouch Ultra Blue Test Strip Strip See Rx Instructions .ROUTE .MEDSUPPLY Qty: 100 RF: 12 Lantus Solostar U-100 Insulin 100 unit/mL (3 mL) insulin pen 45 unit Sub-Q HS Qty: 5 RF: 12 clonazepam [Klonopin] 0.5 mg tablet 0.5 mg PO HS Qty: 90 RF: 1 acetaminophen 500 mg tablet 1,000 mg PO Q8H PRN (Reason: pain) Qty: 90 RF: 3 Discharge Instructions Instructions: Dehydration (ED), Gastroesophageal Reflux Disease (ED), Acute Cough (ED) Additional Instructions: Be sure to drink plenty of water throughout the day. Limit your chocolate intake as this may be affecting your reflux. Follow-up with surgery for reevaluation and for possible upper endoscopy. Return to the emergency department if you develop any worsening or new concerning symptoms. Referrals: Jasmin Hudson MD [ [facility] STAFF PHYSICIAN] - Discharge Data Discharge Date/Time-TO BE ENTERED AT DEPARTURE: 05/04/19 17:55 Discharge Physician: Daysi Lares Medical Decision Making 2397 -- 69-year-old male with a history of Graham's esophagus, hiatal hernia, reflux esophagitis, GERD, diabetes, obesity and pancreatitis presents for evaluation after sent by Dr. Taylor's office for tachycardia. Patient states he has had a hoarse voice and a mild dry cough for the last 4 weeks. He states he has a history of chronic reflux and feels that he is getting an occasional burning in his chest and sour taste in his mouth consistent with his reflux for the past 3 weeks. He states he drinks 1 can of soda and half a cup of water daily. He denies any fever, chest pain, shortness of breath, abdominal pain, back pain, vomiting, diarrhea or urinary symptoms. EKG notes a rate of 113, sinus with no acute ST ischemic changes. No acute findings on exam. Patient states he often has relief of the symptoms with a GI cocktail. Differential diagnosis includes GERD, esophagitis, gastritis, peptic ulcer, dehydration, electrolyte abnormality. History presentation not consistent with PE. Will check screening labs, give bolus IV fluids, GI cocktail, Pepcid and Zofran as well as chest x-ray and reassess. We will also check a d-dimer due to tachycardia. 1600 -- Patient feels much better after meds. Labs and imaging reviewed. Normal white blood cell count and electrolytes. Rapid strep negative. D-dimer elevated to 2678. Troponin negative. Chest x-ray negative. 1715 -- Patient referred for a CT chest which was negative for PE. Orthostatic vital signs note very minimal elevation in heart rate but not clinically significant. Heart rate improved to low 90s after 1 L IV fluids. Patient states his reflux symptoms are improved. He takes Nexium regularly. Discussed that he could try a different PPI. He states he feels good to go home and is requesting a prescription for Protonix. He is advised to watch possible triggers of his GERD including chocolate or spicy foods. He was advised to follow-up with his primary care doctor for evaluation within the next week. Patient placed on surgery follow-up last for evaluation and possible endoscopy. Medical Records Medical records reviewed: Yes I reviewed the patient's medical records. Imaging Data Radiologic Study: Radiologist's impression: XR CHEST 2V PA LATERAL INDICATION: cough, sore throat, r/o acute disease. COMPARISON: CHEST 2 VIEWS PA,LAT from 02/17/2017 TECHNIQUE: 2D digital imaging was performed. FINDINGS: Heart size and pulmonary vasculature are within normal limits. The lungs are clear. No pleural effusion or pneumothorax is identified. No acute osseous abnormalities present. IMPRESSION: No acute pulmonary process. CT Angiography Chest With Contrast Exam date and time: 05/04/2019 4:34 PM Clinical history: 69 years old, male; Other: Tachycardia, elevated d-dimer, R/O pe TECHNIQUE: Imaging protocol: Computed tomographic angiography of the chest with intravenous contrast. 3D rendering: MIP reconstructed images were created and reviewed. Radiation optimization: All CT scans at this facility use at least one of these dose optimization techniques: automated exposure control; mA and/or kV adjustment per patient size (includes targeted exams where dose is matched to clinical indication); or iterative reconstruction. Contrast material: OMNIPAQUE 350; Contrast volume: 100 ml; Contrast route: IV; COMPARISON: CR XR CHEST 2V PA LATERAL 05/04/2019 3:51 PM FINDINGS: Pulmonary arteries: Normal. No pulmonary emboli. Aorta: Unremarkable. No aortic aneurysm. No aortic dissection. Lungs: Unremarkable. No consolidation. No masses. Pleural space: Unremarkable. No pneumothorax. No pleural effusion. Heart: Unremarkable. No cardiomegaly. No pericardial effusion. Mediastinum: Small hiatal hernia Gallbladder and bile ducts: Cholecystectomy Lymph nodes: Unremarkable. No enlarged lymph nodes. Bones/joints: Unremarkable. No acute fracture. Soft tissues: Unremarkable. IMPRESSION: No acute process Lab Data Lab results reviewed: Yes I reviewed the patient's lab results. Labs: Laboratory Tests Range/Units 05/04/19 05/04/19 05/04/19 14:50 14:50 14:50 WBC (4.4-10.8) k/cumm 10.12 RBC (4.50-6.00) m/cumm 5.16 Hgb (13.5-17.5) g/dL 15.2 Hct (40.0-50.0) % 45.2 MCV (80-95) fL 87.6 MCH (27.0-33.0) pg 29.5 MCHC (32.0-36.0) g/dL 33.6 RDW (11.8-14.1) % 13.9 Plt Count (130-400) x1000/uL 268 MPV (8.0-11.0) fL 9.4 Immature Gran % 0.3 Neutrophils % 68.0 Lymphocytes % 21.1 Monocytes % 9.0 Eosinophils % 1.5 Basophils % 0.1 Absolute Neutrophils (1.2-6.7) k/cumm 6.88 H Absolute Lymphocytes (1.2-3.4) k/cumm 2.14 Absolute Monocytes (0.11-0.7) k/cumm 0.91 H Absolute Eosinophils (0.0-0.7) k/cumm 0.15 Absolute Basophils (0.0-0.2) k/cumm 0.01 D-Dimer (<500) ng/mlFEU 2678 H Sodium (136-145) mmol/L 139 Potassium (3.5-5.1) mmol/L 3.9 Chloride (98-107) mmol/L 104 Carbon Dioxide (21.0-32.0) mmol/L 25.1 Anion Gap (3-11) mmol/L 9.9 BUN (7-18) mg/dL 18 Creatinine (0.70-1.30) mg/dL 0.86 Estimated GFR/1.73 m2 (mL/min/1.73m2) >= 60.00 Glucose (70-100) mg/dL 127 H Calcium (8.5-10.1) mg/dL 9.0 Magnesium (1.8-2.4) mg/dL 1.8 Total Bilirubin (0.2-1.0) mg/dL 0.4 AST (15-37) U/L 11 L ALT (16-63) U/L 25 Alkaline Phosphatase (46-116) U/L 82 Troponin I (0.00-0.06) ng/mL < 0.05 Total Protein (6.4-8.2) g/dL 7.5 Albumin (3.4-5.0) g/dL 3.9 ECG Data Attestation: I personally reviewed and interpreted this ECG (s) as follows: Interpretation: Rate of 113, sinus, no acute ST elevation or depression. T wave inversion in lead III. OH 152. QTc 439. QRS 102. HPI General Mode of arrival: ambulatory. Date/Time Provider Initiated Documentation: 05/04/19 14:57. Limitations to Documentation: no limitations. Information obtained by: patient. HPI Narrative: Patient is a 69-year-old male with a history of diabetes, obesity, reflux esophagitis, GERD and hiatal hernia who presents for evaluation from Dr. Bowens's office for tachycardia. Patient states he was being seen for what he thought was laryngitis and a dry cough for the past 4 weeks. He states he has had a hoarse voice which has been slightly improving but persistent. He states his cough is mild and denies any sputum. He states he has frequent episodes of indigestion and belching which she associates with his acid reflux for several years. He states he has intermittent sour taste in his mouth. He states he drinks 1 can of diet soda daily as well as 1/2 to 1 cup of water. He states he does not think that he drinks enough water. He denies any fever, ear pain, neck pain, chest pain, shortness of breath, abdominal pain, urinary symptoms. Related Data Home Medications Medication Instructions Recorded Confirmed acyclovir [Zovirax] 1 saskia TOPICAL Q4H PRN PRN 09/24/12 05/04/19 magnesium oxide 500 mg PO DAILY 09/24/12 05/04/19 ascorbic acid (vitamin C) [Vitamin 500 mg PO DAILY 06/18/16 05/04/19 C] Accu-Chek SmartView Test Strip #180 strip 12/19/17 05/03/19 sennosides 8.6 mg tablet 8.6 mg PO BID PRN #60 tab 05/06/18 05/04/19 bupropion HCl 100 mg tablet,12 hr 100 mg PO BID #180 tab 07/01/18 05/04/19 sustained-release esomeprazole magnesium 40 mg 40 mg PO DAILY #90 cap 07/09/18 05/04/19 capsule,delayed release glipizide 10 mg tablet 10 mg PO BID #180 tab-cap 09/01/18 05/04/19 lisinopril 5 mg tablet 5 mg PO DAILY #90 tab 09/04/18 05/04/19 metformin 500 mg tablet,extended 500 mg PO BID #60 tab 12/22/18 05/04/19 release 24 hr pravastatin 20 mg tablet 20 mg PO DAILY #90 tab-cap 12/29/18 05/04/19 acetaminophen 1,000 mg PO Q8H PRN #90 tab 02/04/19 05/04/19 sucralfate 1 gram tablet 1 g PO BID #180 tab-cap 02/05/19 05/04/19 pen needle, diabetic 32 gauge x #100 ea 02/16/19 05/03/19 aspirin 81 mg tablet,delayed 81 mg PO DAILY tab-cap 03/18/19 05/04/19 release blood sugar diagnostic #100 each 03/26/19 05/03/19 blood sugar diagnostic #180 strip 03/26/19 05/03/19 insulin glargine 100 unit/mL (3 45 unit SUB-Q HS #5 ml 04/06/19 05/04/19 mL) subcutaneous pen clonazepam 0.5 mg tablet 0.5 mg PO HS #90 tab 04/13/19 05/04/19 ranitidine HCl 300 mg tablet 300 mg PO QHS #30 tab 04/14/19 05/04/19 sucralfate 100 mg/mL oral 5 ml PO QID #420 ml 04/14/19 05/04/19 suspension pantoprazole [Protonix] 20 mg PO DAILY #20 tab 05/04/19 Previous Rx's Medication Instructions Recorded Accu-Chek SmartView Test Strip #180 strip 12/19/17 sennosides 8.6 mg tablet 8.6 mg PO BID PRN #60 tab 05/06/18 bupropion HCl 100 mg tablet,12 hr 100 mg PO BID #180 tab 07/01/18 sustained-release esomeprazole magnesium 40 mg 40 mg PO DAILY #90 cap 07/09/18 capsule,delayed release glipizide 10 mg tablet 10 mg PO BID #180 tab-cap 09/01/18 lisinopril 5 mg tablet 5 mg PO DAILY #90 tab 09/04/18 metformin 500 mg tablet,extended 500 mg PO BID #60 tab 12/22/18 release 24 hr pravastatin 20 mg tablet 20 mg PO DAILY #90 tab-cap 12/29/18 acetaminophen 1,000 mg PO Q8H PRN #90 tab 02/04/19 sucralfate 1 gram tablet 1 g PO BID #180 tab-cap 02/05/19 pen needle, diabetic 32 gauge x #100 ea 02/16/19 blood sugar diagnostic #100 each 03/26/19 blood sugar diagnostic #180 strip 03/26/19 insulin glargine 100 unit/mL (3 45 unit SUB-Q HS #5 ml 04/06/19 mL) subcutaneous pen clonazepam 0.5 mg tablet 0.5 mg PO HS #90 tab 04/13/19 ranitidine HCl 300 mg tablet 300 mg PO QHS #30 tab 04/14/19 sucralfate 100 mg/mL oral 5 ml PO QID #420 ml 04/14/19 suspension pantoprazole [Protonix] 20 mg PO DAILY #20 tab 05/04/19 Allergies Allergy/AdvReac Type Severity Reaction Status Date / Time meloxicam Allergy Intermediate rash Verified 05/04/19 14:48 amitriptyline Allergy Mild RASH Verified 05/04/19 14:48 cyclobenzaprine Allergy Mild Skin Rash Verified 05/04/19 14:48 hydrocodone Allergy Mild rash on Verified 05/04/19 14:48 legs influenza virus vaccine, Allergy Mild SWELLING; Verified 05/04/19 14:48 specific JOINT PAIN omeprazole Allergy Mild Skin Rash Verified 05/04/19 14:48 gabapentin Allergy Unknown unknown Verified 05/04/19 14:48 sertraline AdvReac abdominal Verified 05/04/19 14:48 pain General Stated Complaint: Palpitatns JUAN ANTONIO: 2 Review of Systems All systems reviewed & are unremarkable except as noted in HPI and below Constitutional Constitutional: Reports as per HPI, Denies chills and Denies fever(s) Eyes Eyes: Denies blurry vision ENT Ears, Nose, Mouth, and Throat: Denies dizziness, Reports sore throat and Denies throat swelling Cardiovascular Cardiovascular: Denies chest pain and Denies dyspnea Respiratory Respiratory: Reports cough and Denies dyspnea Gastrointestinal Gastrointestinal: Denies abdominal pain, Denies diarrhea and Denies vomiting Genitourinary Genitourinary: Denies hematuria and Denies dysuria Musculoskeletal Musculoskeletal: Denies back pain and Denies numbness Integumentary/Breasts Skin/Breast: Denies lesions and Denies rash Neurologic Neurologic: Denies dizziness, Denies focal weakness and Denies numbness Allergic/Immunologic Allergic/Immunologic: Denies throat swelling [facility] Medical History Depression (Chronic) Diverticulosis of colon (Chronic) Hiatal hernia (Inactive) EGD 2003 Insomnia (Acute) Kidney stone (Inactive) left Obesity (Inactive) Pancreatitis (Chronic) Reflux esophagitis (Inactive 06/30/15) Type II diabetes mellitus, uncontrolled (Inactive) Surgical History Cholecystectomy (~2002) and pancreatitis [place] [facility] [place] [place], 07/03/18 Dr John Lambert, [facility], normal, repeat in 10 years. mg EGD - MAC (03/12/17) Endoscopy 2004, 2011,2016 Barium swallow 2015 H/O arthroscopic knee surgery (Chronic) b/l Dr. Mock H/O colonoscopy (Inactive 07/03/18) diverticulosis, otherwise normal, repeat 10 years, Dr John Lambert Family History Mother Essential hypertension Stroke Father Personal history of malignant neoplasm STOMACH Brother Diabetes Personal history of malignant neoplasm Grandmother Personal history of malignant neoplasm Social History Smoking/Tobacco Use Status: Former Tobacco Use Alcohol Intake: current Alcohol Intake frequency: a few times a month Drug use: Never Substance use type: does not use Current gender identity: male Do you feel safe in your relationship?: Yes Exam Const General: cooperative and no acute distress Orientation: alert, awake and oriented x3 HENMT Head: normal to inspection Ears: hearing grossly normal bilaterally, external ears normal and TM's normal bilaterally General nose exam: external nose normal Face and sinus: normal facial exam Mouth: oral mucosae normal Teeth and gingiva: dentition normal Throat: posterior oropharynx normal Eyes General: appearance normal, both eyes and all related structures Eyelids: eyelids normal Pupils: PERRL EOM: EOM intact bilaterally Neck Neck: normal visual inspection Lymphatic: no lymphadenopathy noted Chest Chest: normal inspection of the chest Resp Effort & Inspection: normal respiratory effort and able to speak in complete sentences Auscultation: clear to auscultation bilaterally Cardio Rate: regular rate Rhythm: regular rhythm GI Inspection: normal to inspection Palpation: soft, not firm, no guarding, no hepatosplenomegaly, no masses and nontender Auscultation: normal bowel sounds Skin General skin exam: no rashes or lesions noted Neuro General: alert and awake Cognition: normal cognition Speech: speech normal Gait: normal gait Motor: muscle tone normal throughout Sensory Exam: no sensory deficits noted Extrem General: normal to inspection, full ROM and normal capillary refill Psych Appearance: grossly normal Mental Status: mental status grossly normal Speech and Movement: speech and movement normal Affect: normal affect Thought Process: normal Course Vital Signs Vital signs: Vital Signs Temperature 98.1 F 05/04/19 14:45 Pulse 115 H 05/04/19 14:45 Respiratory Rate 16 05/04/19 14:45 Blood Pressure 133/72 05/04/19 14:45 Pulse Oximetry 97 05/04/19 14:45 Temperature 98.1 F 05/04/19 14:45 Temperature Source Skin 05/04/19 14:45 Pulse 115 H 05/04/19 14:45 Respiratory Rate 16 05/04/19 14:45 Respiratory Effort Non-Labored 05/04/19 14:45 Blood Pressure 133/72 05/04/19 14:45 Blood Pressure Position Supine 05/04/19 14:45 Pulse Oximetry 97 05/04/19 14:45 Oxygen Delivery Method Room Air 05/04/19 14:45 Oxygen Flow Rate 0 05/04/19 14:45 Pain Level 0 05/04/19 14:45 Lab/Test Results Lab/Test Results: Laboratory Tests Range/Units 05/04/19 05/04/19 14:50 14:50 WBC (4.4-10.8) k/cumm 10.12 RBC (4.50-6.00) m/cumm 5.16 Hgb (13.5-17.5) g/dL 15.2 Hct (40.0-50.0) % 45.2 MCV (80-95) fL 87.6 MCH (27.0-33.0) pg 29.5 MCHC (32.0-36.0) g/dL 33.6 RDW (11.8-14.1) % 13.9 Plt Count (130-400) x1000/uL 268 MPV (8.0-11.0) fL 9.4 Immature Gran % 0.3 Neutrophils % 68.0 Lymphocytes % 21.1 Monocytes % 9.0 Eosinophils % 1.5 Basophils % 0.1 Absolute Neutrophils (1.2-6.7) k/cumm 6.88 H Absolute Lymphocytes (1.2-3.4) k/cumm 2.14 Absolute Monocytes (0.11-0.7) k/cumm 0.91 H Absolute Eosinophils (0.0-0.7) k/cumm 0.15 Absolute Basophils (0.0-0.2) k/cumm 0.01 Sodium (136-145) mmol/L 139 Potassium (3.5-5.1) mmol/L 3.9 Chloride (98-107) mmol/L 104 Carbon Dioxide (21.0-32.0) mmol/L 25.1 Anion Gap (3-11) mmol/L 9.9 BUN (7-18) mg/dL 18 Creatinine (0.70-1.30) mg/dL 0.86 Estimated GFR/1.73 m2 (mL/min/1.73m2) >= 60.00 Glucose (70-100) mg/dL 127 H Calcium (8.5-10.1) mg/dL 9.0 Magnesium (1.8-2.4) mg/dL 1.8 Total Bilirubin (0.2-1.0) mg/dL 0.4 AST (15-37) U/L 11 L ALT (16-63) U/L 25 Alkaline Phosphatase (46-116) U/L 82 Troponin I (0.00-0.06) ng/mL < 0.05 Total Protein (6.4-8.2) g/dL 7.5 Albumin (3.4-5.0) g/dL 3.9
--- NOTE | 2019-05-04 15:55 | DI.RAD_ITS ---
EXAM: XR CHEST 2V PA LATERAL INDICATION: cough, sore throat, r/o acute disease. COMPARISON: CHEST 2 VIEWS PA,LAT from 02/17/2017 TECHNIQUE: 2D digital imaging was performed. FINDINGS: Heart size and pulmonary vasculature are within normal limits. The lungs are clear. No pleural effusion or pneumothorax is identified. No acute osseous abnormalities present. IMPRESSION: No acute pulmonary process.
[2019-05-04 16:16] LABS: D-Dimer 2678 ng/mlFEU (<500)
--- NOTE | 2019-05-04 16:33 | DI.CT_ITS ---
EXAM: CT CHEST PE CTA CLINICAL HISTORY: tachycardia, elevated d dimer, r/o PE TECHNIQUE: Imaging Protocol: Axial CT angiography was performed with multi-slice acquisition and mu lti-planar and/or 3D reconstructions. CONTRAST MATERIAL: Intravenous: Omnipaque 350 Contrast volume:100 mL contrast route:IV - Oral:No COMPARISON: ABD PELVIS WITH CONTRAST from 11/30/2012 FINDINGS: Pulmonary Arteries: No evidence of filling defect to suggest pulmonary emboli. Tracheobronchial tree: Patent where visualized. Mediastinum and Claudia: No dominant adenopathy or fluid collection. Pulmonary parenchyma: No consolidation or dominant measurable mass. No architectural distortion. Pleura: No effusion or pneumothorax. Heart/Aorta: No evidence of thoracic aortic aneurysm or dissection. The heart is not dilated. No cor onary artery calcifications are seen. No pericardial effusion or right heart strain. Upper abdomen: Unremarkable. Status post cholecystectomy. IMPRESSION: No evidence of pulmonary embolus, thoracic aortic dissection or aneurysm. DATA REPOSITORY: All CT scans at this facility are submitted to the National Radiology Data Registry (NRDR) Dose Index Registry (DIR) with the [employer] (ACR). RADIATION OPTIMIZATION: All CT scans at this facility use at least one of these dose optimization te chniques: automated exposure control; mA and/or kV adjustment per patient size (includes targeted exa ms where dose is matched to clinical indication); or iterative reconstruction.
[2019-05-04] MEDS: Omnipaque 350 MG/ML 100 ML BTL IJ (16:45)
--- NOTE | 2019-05-04 17:17 | DI.VRAD_ITS ---
PROCEDURE INFORMATION: Exam: CT Angiography Chest With Contrast Exam date and time: 05/04/2019 4:34 PM Clinical history: 69 years old, male; Other: Tachycardia, elevated d-dimer, R/O pe TECHNIQUE: Imaging protocol: Computed tomographic angiography of the chest with intravenous contrast. 3D rendering: MIP reconstructed images were created and reviewed. Radiation optimization: All CT scans at this facility use at least one of these dose optimization techniques: automated exposure control; mA and/or kV adjustment per patient size (includes targeted exams where dose is matched to clinical indication); or iterative reconstruction. Contrast material: OMNIPAQUE 350; Contrast volume: 100 ml; Contrast route: IV; COMPARISON: CR XR CHEST 2V PA LATERAL 05/04/2019 3:51 PM FINDINGS: Pulmonary arteries: Normal. No pulmonary emboli. Aorta: Unremarkable. No aortic aneurysm. No aortic dissection. Lungs: Unremarkable. No consolidation. No masses. Pleural space: Unremarkable. No pneumothorax. No pleural effusion. Heart: Unremarkable. No cardiomegaly. No pericardial effusion. Mediastinum: Small hiatal hernia Gallbladder and bile ducts: Cholecystectomy Lymph nodes: Unremarkable. No enlarged lymph nodes. Bones/joints: Unremarkable. No acute fracture. Soft tissues: Unremarkable. IMPRESSION: No acute process Dictated and Authenticated by: Tiny Simpson MD. Ordering:ENEDINA Tavarez MD
--- NOTE | 2019-05-05 07:00 | NUR.NOTE ---
Referral faxed to surgical assoc.Nursing Note:
== END 2019-05-04 17:55 | disposition home or self-care (01) ==
PROVIDERS: Emergency Provider Physician Assistant; PCP Emergency Medicine
DX: R00.0 Tachycardia, unspecified (principal); K21.9 Gastro-esophageal reflux disease without esophagitis; R05 Cough; K22.70 Barrett's esophagus without dysplasia; E86.0 Dehydration; E11.9 Type 2 diabetes mellitus without complications; Z79.4 Long term (current) use of insulin
CPT/HCPCS: 36415; 71275; 80053; 96360; 96361; 99285; 71046; 83735; 84484; 85025; 85379; 99284; J3490

== ENCOUNTER 2019-07-26 02:37 | Outpatient (CLI) | payer MEDICARE, SELFPAY ==
[2019-07-26 11:54] LABS: Anion Gap 9.3 mmol/L (3-11); BUN 19 mg/dL (7-18); CO2 27.7 mmol/L (21.0-32.0); CREATININE 0.91 mg/dL (0.70-1.30); Calcium 8.5 mg/dL (8.5-10.1); Chloride 105 mmol/L (98-107); Glucose 104 mg/dL (74-106); Potassium 4.5 mmol/L (3.5-5.1); Sodium 142 mmol/L (136-145)
[2019-07-26 11:55] LABS: Hemoglobin A1C 7.2 % (3.8-5.6)
== END 2019-07-26 02:57 ==
PROVIDERS: PCP Emergency Medicine; Visit Provider Emergency Medicine
DX: E11.9 Type 2 diabetes mellitus without complications (principal)
CPT/HCPCS: 36415; 80048; 83036

== ENCOUNTER 2020-02-07 08:14 | Outpatient (CLI) | payer MEDICARE, SELFPAY ==
--- NOTE | 2020-02-07 07:45 | DI.RAD_ITS ---
EXAM: XR KNEE LT 2V AP,LAT INDICATION: annual f/u. COMPARISON: CR XR knee LT 1V from 02/17/2019 TECHNIQUE: 2D digital imaging was performed. FINDINGS: There has been no change in the appearance of the total knee prosthesis or surrounding bone. DATA REPOSITORY: RADIATION DOSE DELIVERED:
== END 2020-02-07 08:34 ==
PROVIDERS: PCP Emergency Medicine; Referring Provider Emergency Medicine; Visit Provider Student in an Organized Health Care Education/Training Program
DX: Z96.652 Presence of left artificial knee joint (principal); M79.652 Pain in left thigh; E11.9 Type 2 diabetes mellitus without complications
CPT/HCPCS: 99213; 73560

== ENCOUNTER 2020-04-05 08:43 | Outpatient (REF) | payer MEDICARE, SELFPAY ==
[2020-04-05 13:11] LABS: Anion Gap 9.1 mmol/L (3-11); BUN 13 mg/dL (7-18); CO2 27.9 mmol/L (21.0-32.0); CREATININE 0.91 mg/dL (0.70-1.30); Calcium 8.5 mg/dL (8.5-10.1); Calculated LDL 55 mg/dL (<100); Chloride 104 mmol/L (98-107); Cholesterol 110 mg/dL (<200); Glucose 124 mg/dL (74-106); HDL Cholesterol 41 mg/dL (40-60); Potassium 4.5 mmol/L (3.5-5.1); Sodium 141 mmol/L (136-145); Triglyceride 73 mg/dL (<150)
[2020-04-05 14:11] LABS: COMMENT (LAB VIEW ONLY) 186.58 mg/dL; Microalb ug/mg Crea 5.5 ug/mg Cr
[2020-04-05 14:15] LABS: Hemoglobin A1C 7.8 % (<5.7)
== END 2020-04-05 09:03 ==
LOC: LBN 08:43
PROVIDERS: PCP Emergency Medicine; Visit Provider Emergency Medicine
DX: E11.9 Type 2 diabetes mellitus without complications (principal); I10 Essential (primary) hypertension
CPT/HCPCS: 80048; 80061; 82043; 82570; 83036

== ENCOUNTER 2020-04-14 10:44 | Outpatient (CLI) | payer MEDICARE, SELFPAY ==
--- NOTE | 2020-04-14 10:43 | DI.RAD_ITS ---
EXAM: XR KNEE LT 1V CLINICAL HISTORY: eval L anterior knee pain. TECHNIQUE: 2D digital imaging was performed. COMPARISON: CR XR standing alignment from 12/16/2018 CR XR knee RT 2V AP,lat from 12/16/2018 CR XR standing alignment from 02/17/2019 CR XR knee LT 1V from 02/17/2019 CR XR KNEE LT 2V AP,LAT from 02/07/2020 FINDINGS: A patellar view was performed. There are no prior patellar views for comparison. There is apparent n arrowing at the lateral aspect of the patellofemoral components. No evident abnormal bony lucencies a re seen. DATA REPOSITORY: RADIATION DOSE DELIVERED:
== END 2020-04-14 11:04 ==
PROVIDERS: PCP Emergency Medicine; Referring Provider Emergency Medicine; Visit Provider Student in an Organized Health Care Education/Training Program
DX: M25.562 Pain in left knee (principal); Z96.652 Presence of left artificial knee joint; M76.892 Other specified enthesopathies of left lower limb, excluding foot; E11.9 Type 2 diabetes mellitus without complications; Z79.4 Long term (current) use of insulin
CPT/HCPCS: 99213; 73560

== ENCOUNTER 2020-05-02 09:44 | Outpatient (CLI) | payer MEDICARE, SELFPAY ==
[2020-05-06 14:02] LABS: Patient Race White; SARS-CoV-2 RNA Undetected (Undetected); SARS-CoV-2 Specimen Source Nasal
== END 2020-05-02 10:04 ==
PROVIDERS: PCP Emergency Medicine; Visit Provider Emergency Medicine
DX: Z20.828 Contact with and (suspected) exposure to other viral communicable diseases (principal)
CPT/HCPCS: U0003

== ENCOUNTER 2020-09-22 11:03 | Outpatient (CLI) | payer MEDICARE, SELFPAY ==
--- NOTE | 2020-09-22 10:00 | DI.RAD_ITS ---
EXAM: XR KNEE LT 1V CLINICAL HISTORY: LEFT KNEE PAIN TECHNIQUE: COMPARISON: CR XR KNEE LT 1V from 04/14/2020 FINDINGS: Single Merchant view was obtained. There is a patello femoral joint replacement. There appears to b e some mild lateral subluxation of the patella. No other significant abnormality seen. IMPRESSION: RADIATION DOSE DELIVERED: Total DLP
== END 2020-09-22 11:04 | disposition home or self-care (01) ==
LOC: DIORS 11:03
PROVIDERS: PCP Emergency Medicine; Referring Provider Emergency Medicine; Visit Provider Student in an Organized Health Care Education/Training Program
DX: M25.562 Pain in left knee (principal); Z96.652 Presence of left artificial knee joint
CPT/HCPCS: 99213; 73560

== ENCOUNTER 2020-12-01 09:39 | Outpatient (CLI) | payer MEDICARE, SELFPAY ==
[2020-12-01 12:42] LABS: TSH 0.67 uIU/mL (0.36-3.74)
[2020-12-01 22:18] LABS: Prolactin 6.4 ng/mL (2.1-17.7)
[2020-12-06 10:13] LABS: Testosterone, Free 6.51 ng/dL (3.47-13.0); Testosterone, Total 217 ng/dL (240-950)
== END 2020-12-01 09:40 | disposition home or self-care (01) ==
LOC: LOS 09:40
PROVIDERS: PCP Emergency Medicine; Visit Provider Emergency Medicine
DX: E11.9 Type 2 diabetes mellitus without complications (principal); N62 Hypertrophy of breast; E03.9 Hypothyroidism, unspecified
CPT/HCPCS: 36415; 84402; 84403; 83036; 84146; 84443

== ENCOUNTER 2021-02-08 08:49 | Outpatient (CLI) | payer MEDICARE, SELFPAY ==
--- NOTE | 2021-02-08 08:06 | DI.RAD_ITS ---
Exam(s) XR KNEE LT 3V AP,LAT,DELICIA EXAM: XR KNEE LT 3V AP,LAT,DELICIA CLINICAL HISTORY: LEFT KNEE PAIN. TECHNIQUE: 2D digital imaging was performed. COMPARISON: CR XR KNEE LT 2V AP,LAT from 02/07/2020 CR XR KNEE LT 1V from 09/22/2020 FINDINGS: Again noted is left knee prosthesis. Appearance is unchanged. No loosening of the femoral component . Subtle linear lucency noted subjacent the tibial plateau component but this is unchanged. No radi ographic evidence of osteomyelitis. IMPRESSION: DATA REPOSITORY: RADIATION DOSE DELIVERED:
== END 2021-02-08 08:50 | disposition home or self-care (01) ==
LOC: DIORS 08:49
PROVIDERS: PCP Emergency Medicine; Visit Provider Student in an Organized Health Care Education/Training Program
DX: Z47.1 Aftercare following joint replacement surgery (principal); Z96.652 Presence of left artificial knee joint; M25.562 Pain in left knee
CPT/HCPCS: 73562; 99213

== ENCOUNTER 2021-02-23 02:29 | Outpatient (CLI) | payer MEDICARE, SELFPAY ==
[2021-02-23 11:25] LABS: Source Nasal/Nares
[2021-02-23 14:00] LABS: COVID-19 PCR Negative (Negative)
== END 2021-02-23 02:30 | disposition home or self-care (01) ==
LOC: LBO 02:30
PROVIDERS: PCP Emergency Medicine; Visit Provider Student in an Organized Health Care Education/Training Program
DX: Z20.822 Contact with and (suspected) exposure to COVID-19 (principal); Z01.818 Encounter for other preprocedural examination
CPT/HCPCS: 87635

== ENCOUNTER 2021-02-27 09:06 | Day surgery (SDC) | payer MEDICARE, SELFPAY ==
[2021-02-27] VITALS (7 sets, daily range): BP systolic 109–144; BP diastolic 52–85; PULSE 70–82; RESP 15–23; TEMP 36–36.7; O2SAT 95–99; BMI 33.0
[2021-02-27] MEDS: Lactated Ringers 1,000 ML 80 ML IV (10:10)
--- NOTE | 2021-02-27 10:18 | PDOC.DSDIS_ITS ---
Discharge Plan Disposition Patient Disposition: HOME Condition: Good Discharge Details Reason For Visit: L knee arthroscopy Attending Provider: Nuno Santana Primary Care Provider: Mich Taylor Home Meds and New Rx's Prescriptions: New acetaminophen 500 mg capsule 1,000 mg PO Q8H PRN PRNQty: 90 RF: 0 ibuprofen 600 mg tablet 600 mg PO TID PRN (Reason: pain) Qty: 90 RF: 0 hydrocodone-acetaminophen 5-325 mg tablet 1 tab PO Q6H PRN (Reason: pain) Qty: 6 RF: 0 Continued aspirin 81 mg tablet,delayed release (DR/EC) 81 mg PO DAILY RF: 0 metformin 500 mg tablet extended release 24hr 500 mg PO BID Qty: 180 RF: 3 Lantus Solostar U-100 Insulin 100 unit/mL (3 mL) insulin pen 30 unit Sub-Q HS Qty: 5 RF: 12 acyclovir [Zovirax] 30 GM ointment 1 s[place] Topical Q4H PRN PRN (Reason: Mouth Sore Pain) RF: 0 (DME) blood sugar diagnostic Strip 1 ea Miscellaneous BID Qty: 180 RF: 3 clonazepam [Klonopin] 0.5 mg tablet 0.5 mg PO HS Qty: 90 RF: 1 (DME) OneTouch Ultra Blue Test Strip Strip See Rx Instructions .ROUTE .MEDSUPPLY Qty: 100 RF: 12 lisinopril 5 mg tablet 5 mg PO DAILY Qty: 90 RF: 3 (DME) pen needle, diabetic [BD Ultra-Fine T[place]a Pen Needle] 32 gauge x 5/32 needle 1 ea Miscellaneous DAILY Qty: 100 RF: 8 esomeprazole magnesium [Nexium] 40 mg capsule,delayed release(DR/EC) 40 mg PO DAILY Qty: 90 RF: 3 pravastatin 20 mg tablet 20 mg PO DAILY Qty: 90 RF: 3 glipizide [Glucotrol] 10 mg tablet 10 mg PO BID Qty: 180 RF: 3 Discontinued acetaminophen [Tylenol Extra Strength] 500 mg Capsule 1,000 mg PO PRNRF: 0 Discharge Instructions Stand Alone Forms: Max Knee Arthroscopy Referrals: Nuno Santana MD [ [facility] STAFF PHYSICIAN] - Equipment/Supplies: Partial Weight Bearing Crutches Activity:: Activity as Tolerated Remove Dressings/Wound Care:: 72 hours Shower/Bathe:: 72 hours Diet:: As Tolerated Discharge Orders Discharge Orders: Discharge Order (Routine); Ordered 02/27/21 Ordered By: Prashant Capps DS: Diagnosis Discharge Diagnosis (1) History of total left knee replacement (TKR): Status: Acute
--- NOTE | 2021-02-27 10:51 | ANES.PREOP_ITS ---
General Info Date of Service Date Performed: 02/27/21 Height: 5 ft 10 in Weight: 104.3 kg Body Mass Index (BMI): 33.0 Surgical Procedure: Operation Date: 02/27/21 12:25 Proposed Procedures Side Surgeon p Knee Arthroscopy with synovectomy Left Nuno Santana MD Meds Allergies and Home Medications Allergies Allergy/AdvReac Type Severity Reaction Status Date / Time meloxicam Allergy Intermediate rash Verified 02/27/21 09:29 amitriptyline Allergy Mild RASH Verified 02/27/21 09:29 cyclobenzaprine Allergy Mild Skin Rash Verified 02/27/21 09:29 hydrocodone Allergy Mild rash on Verified 02/27/21 09:29 legs influenza virus vaccine, Allergy Mild SWELLING; Verified 02/27/21 09:29 specific JOINT PAIN omeprazole Allergy Mild Skin Rash Verified 02/27/21 09:29 gabapentin Allergy Unknown unknown Verified 02/27/21 09:29 [facility]ulaglutide [[facility] AdvReac Intermediate abd pain Verified 02/27/21 09:29 sertraline AdvReac abdominal Verified 02/27/21 09:29 pain Home Medication Medication Instructions Recorded acyclovir [Zovirax] 1 saskia TOPICAL Q4H PRN PRN 09/24/12 aspirin 81 mg tablet,delayed 81 mg PO DAILY tab-cap 03/18/19 release blood sugar diagnostic #180 strip 03/26/19 clonazepam 0.5 mg tablet 0.5 mg PO HS #90 tab 03/29/20 blood sugar diagnostic #100 each 06/02/20 lisinopril 5 mg tablet 5 mg PO DAILY #90 tab 07/10/20 pen needle, diabetic 32 gauge x #100 each 07/10/20 insulin glargine 100 unit/mL (3 30 unit SUB-Q HS #5 ml 07/21/20 mL) subcutaneous pen metformin 500 mg tablet,extended 500 mg PO BID #180 tab 10/04/20 release 24hr esomeprazole magnesium 40 mg 40 mg PO DAILY #90 cap 10/05/20 capsule,delayed release pravastatin 20 mg tablet 20 mg PO DAILY #90 tab-cap 01/03/21 glipizide 10 mg tablet 10 mg PO BID #180 tab-cap 01/30/21 acetaminophen 1,000 mg PO Q8H PRN PRN #90 cap 09/07/21 hydrocodone-acetaminophen 1 tab PO Q6H PRN #6 tab 02/27/21 ibuprofen 600 mg PO TID PRN #90 tab 02/27/21 Current Visit Medications: Current Medications Generic Name Dose Route Start Last Admin Trade Name Freq PRN Reason Stop Dose Admin Acetaminophen 650 mg 02/27/21 10:16 Acetaminophen 325 Mg Tab PO Q4H PRN PRN Hydrocodone Bitart/Acetaminophen 0 tab 02/27/21 10:16 Hydrocodone 5/Acetaminophen 325 Tab PO Q3H PRN PRN Pain Ringer's Solution 1,000 mls @ 80 mls/hr 02/27/21 06:00 IV 03/25/21 23:59 INFUSION MARY Cefazolin Sodium 2,000 mg/ 100 mls @ 200 mls/hr 02/27/21 06:00 Sodium Chloride IVPB 02/27/21 23:59 PREOP MARY IV Miscellaneous Supplies 1 each 02/27/21 06:00 Iv Access IV 03/25/21 23:59 DIRECTED MARY Sodium Chloride 0 ml 02/27/21 06:00 Normal Saline Flush 10 Ml Syr IV 03/25/21 23:59 PRN PRN Sodium Chloride 0 ml 02/27/21 06:00 Normal Saline 10 Ml Vial IJ 03/25/21 23:59 DIRECTED PRN Sterile Water 0 ml 02/27/21 06:00 Water,Injection,Sterile 10 Ml Vial IJ 03/25/21 23:59 DIRECTED PRN PFSH Active Problems Active Problems: Problem Status Onset Code 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 08/08/15 K22.70 Diverticulosis of colon without diverticulitis 05/22/07 K57.30 Skin eruption 07/15/12 R21 Headache R51 Hemorrhoids K64.9 Light-headed feeling 07/10/17 R42 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 Polyp of colon 05/22/02 K63.5 Primary osteoarthritis of right knee 07/24/15 M17.11 Encounter for screening colonoscopy Z12.11 Diverticulosis ~07/03/18 K57.90 History of total left knee replacement (TKR) 02/02/19 Z96.652 Status post cholecystectomy Z90.49 History of esophagogastroduodenoscopy Z98.890 History of arthroscopy of knee Z98.890 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 Erythema nodosum 05/22/01 L52 Chest pain 10/20/01 R07.9 Bilateral knee pain 03/09/14 M25.561, M25.562 Laryngitis from reflux of stomach acid J04.0, K21.9 Trigeminal neuralgia G50.0 Left anterior knee pain M25.562 Painful total knee replacement, left T84.84XA, Z96.652 Gynecomastia N62 Diabetes mellitus E11.9 Insomnia G47.00 Medical History Medical History Depression Diabetes mellitus Diverticulosis of colon Gynecomastia Hiatal hernia EGD 2003 Insomnia Kidney stone left Obesity Pancreatitis Reflux esophagitis (06/30/15) Type II diabetes mellitus, uncontrolled Surgical History Surgical History (Updated 02/27/21 @ 09:30 by Yasmin Thompson) Cholecystectomy (~2002) and pancreatitis Colonoscopy - MAC 2002 and 2007, 07/03/18 Dr John Lambert, [facility], normal, repeat in 10 years. mg EGD - MAC (03/12/17) Endoscopy 2003, 2011,2015 Barium swallow 2016 H/O arthroscopic knee surgery b/l Dr. Mock H/O colonoscopy (07/03/18) diverticulosis, otherwise normal, repeat 10 years, Dr John Lambert Hx of total knee replacement left Tobacco Smoking/Tobacco Use Status: Former Tobacco Use Alcohol Alcohol Intake: current Alcohol intake frequency: holidays/special occasions only Substance Use Substance use: Never Substance use type: does not use Details: pt. states he doesnt use much alcohol because of diabetes Vital Signs and Lab Results Vital Signs Most Recent Vital Signs in EMR: Most Recent Vital Signs Temp Pulse Resp BP Pulse Ox 36.4 C L 79 20 144/85 H 97 02/27/21 09:37 02/27/21 09:37 02/27/21 09:37 02/27/21 09:37 02/27/21 09:37 Point of Care Results Point of Care Results: Finger Stick Blood Glucose 99 02/27/21 10:13 Lab Results Blood Type / Crossmatch: No Data to Display Complete Blood Count: No Data to Display Complete Metabolic Panel: No Data to Display Liver Function Panel: No Data to Display Coagulation Panel: No Data to Display Cardiac Panel: No Data to Display Arterial Blood Gas: No Data to Display Venous Blood Gas: No Data to Display Pancreas Panel: No Data to Display Thyroid Panel: No Data to Display Infectious Disease: Coronavirus (COVID-19)(PCR) Negative (Negative) 02/23/21 08:37 02/23/21 Coronavirus 2019 Source Nasal/Nares 02/23/21 08:37 02/23/21 Blood Cultures: No Data to Display Toxicology Panel: No Data to Display Anesthesia Assessment and Plan Anesthesia History Personal History: No History of Anesthesia Complications Family History: No Family History of Anesthesia Complications Exercise Tolerance Exercise Tolerance: Metabolic Equivalents>4 Pertinent Negatives Pertinent Negatives: No Symptoms of GERD (History of GERD, no active symptoms today, took daily medication), No Major Cardiovascular Symptoms or Complaints and No Major Pulmonary Symptoms or Complaints Cardiac & Pulmonary Exam Cardiac Exam: Normal S1/S2 Heart Sounds Pulmonary Exam: Clear Bilateral Breath Sounds Airway Exam Known Difficult Airway: No Mallampati Class: 2 Mouth Opening: Normal (> 3cm) Thyromental Distance: Greater than 3 cm Neck Range of Motion: Full ROM Neck Circumference: Normal Teeth Condition: Removable Dentures/Plates Upper and Other (6 teeth on the bottom) ASA Classification ASA Score: ASA 2 Emergency Case?: No NPO Status NPO Status: NPO Clears >2 hours, Solids >8 hours Anesthesia Plan Resuscitation Status: Full Code Anesthesia Technique: General Anesthesia Airway Planned: LMA Monitors Used: Standard Monitors
[2021-02-27] MEDS: ceFAZolin 2,000 MG in Normal Saline 100 ML 200 MG IVPB (12:45)
[2021-02-27] MEDS: Bupivacaine 0.5% Pres-Free 30 ML VIAL (13:08)
--- NOTE | 2021-02-27 13:41 | W.ANESPOSTOP ---
Postoperative Evaluation Date, Time and Location Date Performed: 02/27/21 Time Performed: 13:42 Patient Location: PACU Vital Signs Most Recent Imported Vital Signs: Most Recent Vital Signs Temp Pulse Resp BP Pulse Ox 36.7 C 78 15 116/58 L 95 02/27/21 13:40 02/27/21 13:40 02/27/21 13:40 02/27/21 13:40 02/27/21 13:40 Pain Score Most Recent Pain Score: Most Recent Pain Score Pain Level 3 02/27/21 13:40 Assessment Mental Status: Awake (Alert & Oriented to Patient Baseline) Airway and Respiratory Function: Patent airway with normal (patient baseline) respiratory exam Cardiovascular Function: Hemodynamically Stable Hydration Status: Adequately Hydrated Nausea & Vomiting: No Nausea or Vomiting Pain: Pain is tolerable per patient Peripheral Nerve Block: Patient did not receive a nerve block
--- NOTE | 2021-02-27 21:32 | W.PM.OP ---
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 This was confirmed based on exam findings. Nonoperative measures were exhausted but disability due to lack of motion persisted. I discussed knee arthroscopy with synovectomy with the patient. I reviewed the risks of the procedure to include, but not limited to, bleeding, infection, pain, continued stiffness, recurrence, blood clot. Despite these risks, the patient elected to proceed. Findings: There is notable synovitis throughout the knee. This is most notable around the patella where there was pedunculated synovium and scar tissue. There is also interposed scar tissue seen between the metal components and the plastic implant. This was all resected arthroscopically. Procedure Description: Devin was greeted in the preoperative holding area where the correct side was identified and marked. The consent was reviewed with the patient and signed. The history and physical was updated. All questions were answered. He was taken back to the operating room. The patient was placed into the supine position on the operating room table. All bony prominences were well padded. Prophylactic antibiotics in the form of cefazolin were administered. The left leg was then prepped with Chloraprep and draped in a standard fashion with stockinette and extremity drape. A timeout to confirm correct identity, side and site, procedure, allergies, anesthesia, and medical concerns was performed. The leg was placed into a pneumatic leg solitario, [id number]. A standard lateral portal was made at the lateral border of the patella tendon in line with the inferior pole of the patella, soft spot. The skin and deep tissue was incised sharply and the blunt trochar was inserted atraumatically. At this point had visualization of the femoral component. In addition, the patella was visualized and showed significant amount of synovitis surrounding the patella with pedunculated scar and synovitis. A superolateral portal was then established with spinal needle localization just superior and lateral to the patella. A knife was taken down through the skin and soft tissue to enter the knee joint. Starting in the superior compartment above the femoral component and anterior to the femur I released all scarring between the anterior femoral synovium and the overlying extensor mechanism. This was taken through all of any noticeable scar tissue until the superior patellar pouch was fully released and mobile. This resection was carried out mostly with electrocautery as well as shaver. Once this was released fully from lateral to medial superiorly I then continue working down the lateral gutter. All scar tissue in the lateral gutter was released so there is normal space and movement between the capsular tissues and the edge of the femoral component and femur. This was taken down through the lateral gutter such that I was able to identify the polyethylene to its posterior corner. Once again, all scar tissue in this area was resected so the polyethylene was easily visible and there is no interposed tissue in the back or the polyethylene was identified. I think continue to work anteriorly. To continue the synovectomy from the lateral compartment to the anterior compartment into the medial compartment, I placed a medial portal under spinal needle localization. Once this was in place it became another working portal and I continued the synovectomy through the anterior compartment to the medial compartment. Once again, I freed up the medial gutter so I was able to visualize the polyethylene from the anterior posterior margins. There is no interposed tissue after full synovectomy was performed. Adhesions between the capsule and the femur were released. This was continued up the medial gutter until it met up with the releases performed previously in the superior compartment. Any remnant scar tissue from around the patella was then removed with a shaver and electrocautery. This was performed until there is no loose pieces of scar tissue nor synovitis seen around the patella. The arthroscope was brought back into the suprapatellar pouch and the leg was in full extension. The knee was thoroughly irrigated with the arthroscopic fluid on high flow and pressure. Inflow was stopped and excess fluid was removed. The wounds were closed with 4-0 Nylon. 0.25% bupivacaine was injected around the portal sites and into the knee. The wounds were dressed with Xeroform, 4x4 gauze, ABD pad, Kerlix and an JENIFER wrap. A cryo-cuff was applied. The patient tolerated the procedure well and was returned to the Same Day Surgery area in a stable condition suffering no known complication..
== END 2021-02-27 15:04 | disposition home or self-care (01) ==
PROVIDERS: PCP Emergency Medicine; Visit Provider Student in an Organized Health Care Education/Training Program
PROC: (CPT 29870; principal; 2021-02-27 12:15)
DX: M65.862 Other synovitis and tenosynovitis, left lower leg (principal); M23.8X2 Other internal derangements of left knee; M24.662 Ankylosis, left knee; Z96.652 Presence of left artificial knee joint
CPT/HCPCS: 29876; J0690; J1885; J2001; J2405; J2704

== ENCOUNTER → 2021-03-12 07:56 | Outpatient (BNVA) | payer MEDICARE, SELFPAY | PROVIDERS: PCP Emergency Medicine; Referring Provider Emergency Medicine | DX: Z47.89 Encounter for other orthopedic aftercare (principal); Z96.652 Presence of left artificial knee joint ==

== ENCOUNTER → 2021-04-09 07:59 | Outpatient (BNVA) | payer MEDICARE, SELFPAY | PROVIDERS: PCP Emergency Medicine; Referring Provider Emergency Medicine; Visit Provider Student in an Organized Health Care Education/Training Program | DX: Z47.89 Encounter for other orthopedic aftercare (principal); M25.562 Pain in left knee ==

== ENCOUNTER 2021-04-12 11:55 | Outpatient (REF) | payer MEDICARE, SELFPAY ==
[2021-04-12 12:28] LABS: Anion Gap 7.3 mmol/L (3-11); BUN 16 mg/dL (7-18); CO2 29.7 mmol/L (21.0-32.0); CREATININE 0.8 mg/dL (0.70-1.30); Calcium 8.5 mg/dL (8.5-10.1); Chloride 106 mmol/L (98-107); Glucose 113 mg/dL (74-106); Potassium 4.4 mmol/L (3.5-5.1); Sodium 143 mmol/L (136-145)
[2021-04-12 13:28] LABS: Hemoglobin A1C 7.1 % (<5.7)
== END 2021-04-12 11:56 | disposition home or self-care (01) ==
LOC: LBN 11:55
PROVIDERS: PCP Emergency Medicine; Visit Provider Emergency Medicine
DX: I10 Essential (primary) hypertension (principal); E11.9 Type 2 diabetes mellitus without complications
CPT/HCPCS: 80048; 83036

== ENCOUNTER → 2021-05-21 08:11 | Outpatient (BNVA) | payer MEDICARE, MEDICAID, SELFPAY | PROVIDERS: PCP Emergency Medicine; Visit Provider Student in an Organized Health Care Education/Training Program | DX: Z47.89 Encounter for other orthopedic aftercare (principal); M25.562 Pain in left knee ==

== ENCOUNTER 2021-08-29 13:24 | Outpatient (CLI) | payer MEDICARE, MEDICAID, SELFPAY ==
--- NOTE | 2021-08-29 12:45 | DI.RAD_ITS ---
Exam(s) XR KNEE LT 2V AP,LAT EXAM: XR KNEE LT 2V AP,LAT CLINICAL HISTORY: pain TECHNIQUE: COMPARISON: CR XR KNEE LT 3V AP,LAT,DELICIA from 02/08/2021 FINDINGS: Two views were obtained. There is a total knee joint replacement in position. The components appear well seated. No other significant bony abnormality seen. IMPRESSION: RADIATION DOSE DELIVERED: Total DLP
== END 2021-08-29 13:25 | disposition home or self-care (01) ==
LOC: DIORS 13:24
PROVIDERS: PCP Family Medicine; Referring Provider Family Medicine; Visit Provider Physician Assistant Surgical
DX: T84.84XA Pain due to internal orthopedic prosthetic devices, implants and grafts, initial encounter; Z96.652 Presence of left artificial knee joint
CPT/HCPCS: 99214; 73560

== ENCOUNTER 2021-09-03 02:12 | Outpatient (CLI) | payer MEDICARE, MEDICAID, SELFPAY ==
[2021-09-03 07:20] LABS: ESR 8 mm/hr (0-20)
[2021-09-03 07:38] LABS: COMMENT (LAB VIEW ONLY) 144.16 mg/dL; Microalb ug/mg Crea 5.9 ug/mg Cr
[2021-09-03 07:41] LABS: Hemoglobin A1C 7.6 % (<5.7)
[2021-09-03 08:13] LABS: ALT 21 U/L (16-63); AST 8 U/L (15-37); Albumin 3.6 g/dL (3.4-5.0); Alkaline Phosphatase 71 U/L (46-116); Anion Gap 7.3 mmol/L (3-11); BUN 21 mg/dL (7-18); Bilirubin, Total 0.4 mg/dL (0.2-1.0); CO2 27.7 mmol/L (21.0-32.0); CREATININE 0.8 mg/dL (0.70-1.30); Calcium 8.4 mg/dL (8.5-10.1); Calculated LDL 51 mg/dL (<100); Chloride 105 mmol/L (98-107); Cholesterol 101 mg/dL (<200); Glucose 140 mg/dL (74-106); HDL Cholesterol 39 mg/dL (40-60); Potassium 4.2 mmol/L (3.5-5.1); Sodium 140 mmol/L (136-145); Total Protein 6.9 g/dL (6.4-8.2); Triglyceride 57 mg/dL (<150)
[2021-09-03 08:26] LABS: C-Reactive Protein 0.64 mg/dL (0.0-0.3)
== END 2021-09-03 02:13 | disposition home or self-care (01) ==
LOC: LBO 02:12
PROVIDERS: Physician Assistant Surgical; PCP Family Medicine; Visit Provider Family Medicine
DX: E11.9 Type 2 diabetes mellitus without complications (principal); E78.5 Hyperlipidemia, unspecified; Z12.5 Encounter for screening for malignant neoplasm of prostate; Z85.46 Personal history of malignant neoplasm of prostate; T84.84XA Pain due to internal orthopedic prosthetic devices, implants and grafts, initial encounter
CPT/HCPCS: 36415; 80053; 80061; 84153; 85652; 82043; 82570; 83036; 86140

== ENCOUNTER 2021-09-19 01:45 | Outpatient (CLI) | payer MEDICARE, MEDICAID, SELFPAY ==
--- NOTE | 2021-09-19 06:45 | DI.NM_ITS ---
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 COMPARISON: NM GASTRIC EMPTYING from 03/18/2017 CR XR KNEE LT 2V AP,LAT from 08/29/2021 TECHNIQUE: Three-phase bone scan was performed with intravenous infusion 25.5 millicuries of technet ium 99 labeled methylene diphosphonate. Flow images of the knee show mildly increased uptake in yesy on of the left knee. Delayed images show total knee joint prosthesis on the left. There is increased uptake associated wi th the bony margins of all 3 components. Findings are nonspecific and could represent mild loosening . No other area of increased uptake identified on whole body imaging apart from mildly increased uptake in right foot consistent with degenerative change. FINDINGS: Mildly increased uptake associated with left knee prosthesis, borderline severity of findings, prosth etic loosening may be present, but the findings may lie within the normal range. IMPRESSION: DATA REPOSITORY:
== END 2021-09-19 02:05 ==
PROVIDERS: PCP Family Medicine; Visit Provider Physician Assistant Surgical
DX: T84.84XA Pain due to internal orthopedic prosthetic devices, implants and grafts, initial encounter (principal); Z96.659 Presence of unspecified artificial knee joint
CPT/HCPCS: 78315

== ENCOUNTER → 2021-10-04 10:16 | Outpatient (BNVA) | payer MEDICARE, MEDICAID, SELFPAY | PROVIDERS: PCP Family Medicine; Referring Provider Family Medicine; Visit Provider Student in an Organized Health Care Education/Training Program | DX: T84.033A Mechanical loosening of internal left knee prosthetic joint, initial encounter (principal); T84.84XA Pain due to internal orthopedic prosthetic devices, implants and grafts, initial encounter; Z96.652 Presence of left artificial knee joint | CPT/HCPCS: 20610; J1040 ==

== ENCOUNTER 2021-10-04 16:03 | Outpatient (REF) | payer MEDICARE, MEDICAID, SELFPAY ==
[2021-10-04 13:06] LABS: Clarity Cloudy; Mononuclear Cells 10 %; Nucleated Cells 198 uL (0); Polynuclear Cells 90 %
== END 2021-10-04 16:04 | disposition home or self-care (01) ==
LOC: LBN 16:03
PROVIDERS: PCP Family Medicine; Visit Provider Student in an Organized Health Care Education/Training Program
DX: M25.562 Pain in left knee (principal); T84.033A Mechanical loosening of internal left knee prosthetic joint, initial encounter; T84.84XA Pain due to internal orthopedic prosthetic devices, implants and grafts, initial encounter; Z96.652 Presence of left artificial knee joint
CPT/HCPCS: 87077; 87070; 87186; 87205; 89051

== ENCOUNTER → 2021-10-22 10:17 | Outpatient (BNVA) | payer MEDICARE, MEDICAID, SELFPAY | PROVIDERS: PCP Family Medicine; Referring Provider Family Medicine; Visit Provider Student in an Organized Health Care Education/Training Program | DX: T84.84XA Pain due to internal orthopedic prosthetic devices, implants and grafts, initial encounter (principal); T84.033A Mechanical loosening of internal left knee prosthetic joint, initial encounter; Z96.652 Presence of left artificial knee joint | CPT/HCPCS: 20610 ==

== ENCOUNTER 2021-10-22 17:08 | Outpatient (REF) | payer MEDICARE, MEDICAID, SELFPAY | END 2021-10-22 17:09 | disposition home or self-care (01) | LOC: LBN 17:08 | PROVIDERS: PCP Family Medicine; Visit Provider Student in an Organized Health Care Education/Training Program | DX: M25.562 Pain in left knee (principal); T84.033A Mechanical loosening of internal left knee prosthetic joint, initial encounter; Z96.652 Presence of left artificial knee joint | CPT/HCPCS: 87070; 87205 ==

== ENCOUNTER → 2021-10-30 13:47 | Outpatient (BNVA) | payer MEDICARE, MEDICAID, SELFPAY | PROVIDERS: PCP Family Medicine; Referring Provider Family Medicine; Visit Provider Physician Assistant Surgical | DX: T84.033A Mechanical loosening of internal left knee prosthetic joint, initial encounter (principal); E11.9 Type 2 diabetes mellitus without complications ==

== ENCOUNTER 2021-11-05 03:13 | Outpatient (CLI) | payer MEDICARE, MEDICAID, SELFPAY ==
[2021-11-05 13:02] LABS: HCT 45.2 % (40.0-50.0); HGB 15.1 g/dL (13.5-17.5); MCH 29.3 pg (27.0-33.0); MCHC 33.4 % (32.0-36.0); MCV 88 fL (80-95); MPV 8.9 fL (8.0-11.0); Platelet Count 226 10^3/uL (130-400); RBC 5.15 10^6/uL (4.36-5.78); RDW 13.1 % (11.8-14.1); RDW-SD 42.1 fL; WBC 6.65 10^3/uL (4.4-10.8)
[2021-11-05 13:12] LABS: Hemoglobin A1C 7.5 % (<5.7)
[2021-11-05 13:37] LABS: Anion Gap 10.5 mmol/L (3-11); BUN 18 mg/dL (7-18); CO2 25.5 mmol/L (21.0-32.0); CREATININE 0.8 mg/dL (0.70-1.30); Calcium 8.4 mg/dL (8.5-10.1); Chloride 104 mmol/L (98-107); Glucose 155 mg/dL (74-106); Potassium 4.2 mmol/L (3.5-5.1); Sodium 140 mmol/L (136-145)
[2021-11-05 14:16] LABS: Source Nasal/Nares
[2021-11-05 17:42] LABS: COVID-19 PCR Negative (Negative)
== END 2021-11-05 03:14 | disposition home or self-care (01) ==
PROVIDERS: Physician Assistant Surgical; PCP Family Medicine; Visit Provider Student in an Organized Health Care Education/Training Program
DX: E11.9 Type 2 diabetes mellitus without complications (principal); T84.033A Mechanical loosening of internal left knee prosthetic joint, initial encounter; Z01.818 Encounter for other preprocedural examination; Z20.822 Contact with and (suspected) exposure to COVID-19; M25.562 Pain in left knee; Z01.812 Encounter for preprocedural laboratory examination
CPT/HCPCS: 36415; 80048; 85027; 86850; 86900; 86901; 87635; U0005; 83036

== ENCOUNTER 2021-11-05 03:19 | Outpatient (CLI) | payer MEDICARE, MEDICAID, SELFPAY | END 2021-11-05 03:20 | disposition home or self-care (01) | LOC: LBO 03:19 | PROVIDERS: PCP Family Medicine; Visit Provider Student in an Organized Health Care Education/Training Program ==

== ENCOUNTER 2021-11-07 13:43 | Inpatient (IN) | payer MEDICARE, MEDICAID, SELFPAY ==
[2021-11-07] VITALS (11 sets, daily range): BP systolic 90–136; BP diastolic 48–78; PULSE 59–93; RESP 16–26; TEMP 36.2–37; O2SAT 93–100; BMI 33.4
--- NOTE | 2021-11-07 06:39 | W.ANESPRE ---
General Info Date of Service Date Performed: 11/07/21 Height: 5 ft 10 in Weight: 105.687 kg Body Mass Index (BMI): 33.4 Surgical Procedure: Operation Date: 11/07/21 11:10 Proposed Procedure Side Surgeon p Knee Total Revision Left Nuno Santana MD Meds Allergies and Home Medications Allergies Allergy/AdvReac Type Severity Reaction Status Date / Time meloxicam Allergy Intermediate rash Verified 11/07/21 07:36 amitriptyline Allergy Mild RASH Verified 11/07/21 07:36 cyclobenzaprine Allergy Mild Skin Rash Verified 11/07/21 07:36 hydrocodone Allergy Mild rash on Verified 11/07/21 07:36 legs influenza virus vaccine, Allergy Mild SWELLING; Verified 11/07/21 07:36 specific JOINT PAIN omeprazole Allergy Mild Skin Rash Verified 11/07/21 07:36 gabapentin Allergy Unknown unknown Verified 11/07/21 07:36 dulaglutide [From [facility]] AdvReac Intermediate abd pain Verified 11/07/21 07:36 sertraline AdvReac abdominal Verified 11/07/21 07:36 pain Home Medication Medication Instructions Recorded acyclovir 5 % topical ointment 1 saskia topical Q4H PRN PRN Mouth 09/24/12 (Zovirax) Sore Pain blood sugar diagnostic #180 strips 03/26/19 pravastatin 20 mg tablet 20 mg PO DAILY #90 tab-caps 01/03/21 glipizide 10 mg tablet (Glucotrol) 10 mg PO BID #180 tab-caps 01/30/21 lisinopril 10 mg tablet 10 mg PO DAILY #90 tabs 04/12/21 insulin glargine 100 unit/mL (3 30 unit (0.3 mL) subcut HS #5 mL 06/05/21 mL) subcutaneous pen (Lantus Solostar U-100 Insulin) metformin 500 mg tablet,extended 500 mg PO BID #180 tabs 08/22/21 release 24hr pen needle, diabetic 32 gauge x #100 ea 08/22/21 (BD Ultra-Fine Taina Pen Needle) acetaminophen 500 mg tablet 1,000 mg PO Q6H PRN fever #30 tabs 08/29/21 (Tylenol Extra Strength) ibuprofen 600 mg tablet 600 mg PO TID PRN pain #30 tabs 08/29/21 blood sugar diagnostic #100 ea 10/16/21 loratadine 10 mg tablet (Allergy 10 mg PO DAILY #90 tabs 10/17/21 Relief (loratadine)) Nexium 40 mg capsule,delayed 40 mg PO DAILY #90 caps 10/22/21 release (esomeprazole magnesium) cranberry conc 250 mg-vit C 30 1 tab PO DAILY PRN 10/30/21 mg-Bacillus coagulans 3.5 mg tablet (Cranberry Urinary Tract Health) magnesium oxide 500 mg capsule 500 mg PO DAILY 10/30/21 acetaminophen 500 mg capsule 1,000 mg PO Q8H PRN PRN #90 caps 11/07/21 aspirin 81 mg tablet,delayed 81 mg PO BID #60 tabs 11/07/21 release ibuprofen 600 mg tablet 600 mg PO TID #90 tabs 11/07/21 oxycodone 5 mg tablet 5 mg PO Q4H PRN #18 tabs 11/07/21 Current Visit Medications: Current Medications Generic Name Dose Route Start Last Admin Trade Name Freq PRN Reason Stop Dose Admin Acetaminophen 1,000 mg 11/07/21 06:00 Acetaminophen 500 Mg Tab PO PREOP MARY Celecoxib 400 mg 11/07/21 06:00 Celecoxib 200 Mg Cap PO PREOP MARY Tranexamic Acid 1,000 mg/ 60 mls @ 360 mls/hr 11/07/21 06:00 Sodium Chloride IVPB PREOP MARY Tranexamic Acid 1,000 mg/ 60 mls @ 360 mls/hr 11/07/21 06:00 Sodium Chloride IVPB DIRECTED MARY Ringer's Solution 1,000 mls @ 80 mls/hr 11/07/21 06:00 IV 12/06/21 23:59 INFUSION MARY Cefazolin Sodium/Dextrose 2 gm in 50 mls @ 100 mls/hr 11/07/21 06:00 Ancef Duplex IVPB 12/06/21 23:59 PREOP MARY IV Miscellaneous Supplies 1 each 11/07/21 06:00 Iv Access IV 12/06/21 23:59 DIRECTED MARY Sodium Chloride 0 ml 11/07/21 06:00 Normal Saline Flush 10 Ml Syr IV 12/06/21 23:59 PRN PRN Sodium Chloride 0 ml 11/07/21 06:00 Normal Saline 10 Ml Vial IJ 12/06/21 23:59 DIRECTED PRN Sterile Water 0 ml 11/07/21 06:00 Water,Injection,Sterile 10 Ml Vial IJ 12/06/21 23:59 DIRECTED PRN PFSH Active Problems Active Problems: Problem Status Onset Code Seasonal allergies J30.2 Loosening of prosthesis of left total knee replacement T84.033A Painful orthopaedic hardware T84.84XA Benign prostatic hyperplasia N40.0 Hyperlipidemia E78.5 Hypertension I10 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 08/08/15 K22.70 Headache R51 Hemorrhoids K64.9 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 Polyp of colon 05/22/02 K63.5 Primary osteoarthritis of right knee 07/24/15 M17.11 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 mg EGD - MAC (03/12/17) Endoscopy 2004, 2011,2016 Barium swallow 2016 H/O arthroscopic knee surgery b/l Dr. Mock H/O colonoscopy (07/03/18) diverticulosis, otherwise normal, repeat 10 years, Dr John Lambert History of arthroscopy of left knee (02/27/21) Synovectomy of left TKA Hx of total knee replacement left Tobacco Smoking/Tobacco Use Status: Former Tobacco Use Passive smoking exposure: Yes Second hand exposure: Yes Alcohol Alcohol Intake: former Substance Use Substance use: Never Substance use type: does not use Details: pt. states he doesnt use much alcohol because of diabetes Vital Signs and Lab Results Vital Signs Most Recent Vital Signs in EMR: Temp Pulse Resp BP Pulse Ox 36.4 C L 83 16 120/65 98 11/07/21 07:41 11/07/21 07:41 11/07/21 07:41 11/07/21 07:41 11/07/21 07:41 Lab Results Blood Type / Crossmatch: Patient ABO/Rh A Positive 11/05/21 Antibody Screen NEGATIVE 11/05/21 Complete Blood Count: White Blood Count 6.65 10^3/uL (4.4-10.8) 11/05/21 12:51 Red Blood Count 5.15 10^6/uL (4.36-5.78) 11/05/21 12:51 Hemoglobin 15.1 g/dL (13.5-17.5) 11/05/21 12:51 Hematocrit 45.2 % (40.0-50.0) 11/05/21 12:51 Platelet Count 226 10^3/uL (130-400) 11/05/21 12:51 Complete Metabolic Panel: Sodium Level 140 mmol/L (136-145) 11/05/21 12:51 Potassium Level 4.2 mmol/L (3.5-5.1) 11/05/21 12:51 Chloride Level 104 mmol/L (98-107) 11/05/21 12:51 Carbon Dioxide Level 25.5 mmol/L (21.0-32.0) 11/05/21 12:51 Blood Urea Nitrogen 18 mg/dL (7-18) 11/05/21 12:51 Creatinine 0.8 mg/dL (0.70-1.30) 11/05/21 12:51 Estimated GFR/1.73 m2 >= 60.00 (mL/min/1.73m2) 11/05/21 12:51 Calcium Level 8.4 mg/dL (8.5-10.1) L 11/05/21 12:51 Glucose Level 155 mg/dL (74-106) H 11/05/21 12:51 Hemoglobin A1c 7.5 % (<5.7) H 11/05/21 12:51 Liver Function Panel: No Data to Display Coagulation Panel: No Data to Display Cardiac Panel: No Data to Display Arterial Blood Gas: No Data to Display Venous Blood Gas: No Data to Display Pancreas Panel: No Data to Display Thyroid Panel: No Data to Display Infectious Disease: Coronavirus (COVID-19)(PCR) Negative (Negative) 11/05/21 13:04 Coronavirus 2019 Source Nasal/Nares 11/05/21 13:04 Blood Cultures: No Data to Display Toxicology Panel: No Data to Display Anesthesia Assessment and Plan Anesthesia History Personal History: No History of Anesthesia Complications Family History: No Family History of Anesthesia Complications Exercise Tolerance Exercise Tolerance: Metabolic Equivalents>4 Cardiac & Pulmonary Exam Cardiac Exam: Normal S1/S2 Heart Sounds Pulmonary Exam: Clear Bilateral Breath Sounds Implantable Cardiac Device Does patient have a Pacemaker or an ICD?: No Airway Exam Known Difficult Airway: No Mallampati Class: 2 Mouth Opening: Normal (> 3cm) Thyromental Distance: Greater than 3 cm Neck Range of Motion: Full ROM Neck Circumference: Normal Teeth Condition: Removable Dentures/Plates Upper and Other (6 teeth on the bottom) ASA Classification ASA Score: ASA 3 Emergency Case?: No NPO Status NPO Status: NPO Clears >2 hours, Solids >8 hours Anesthesia Plan Resuscitation Status: Full Code Anesthesia Technique: Spinal Anesthesia Airway Planned: Natural Airway Pain Management: Surgeon and patient request nerve block Monitors Used: Standard Monitors Preoperative Comments:: 71 yo male for revision left knee replacement. Sig PMHx: DM2 (last A1c 7.5%, glipizide, glargine, metformin), HTN (lisinopril), former smoker (quit 1985), barretts/GERD (esomeprazole), Previous Anes: spinal for total. LMA 5.
--- NOTE | 2021-11-07 06:47 | PDOC.DSDIS_ITS ---
Discharge Plan Disposition Patient Disposition: HOME Condition: Stable Discharge Details Reason For Visit: Left TKA Revision Attending Provider: Nuno Santana Primary Care Provider: Bryan Isaacs Home Meds and New Rx's Prescriptions: New acetaminophen 500 mg capsule 1,000 mg PO Q8H PRN PRNQty: 90 0RF aspirin 81 mg tablet,delayed release (DR/EC) 81 mg PO BID Qty: 60 0RF ibuprofen 600 mg tablet 600 mg PO TID Qty: 90 0RF oxycodone 5 mg tablet 5 mg PO Q4H PRNQty: 18 0RF Continued acetaminophen [Tylenol Extra Strength] 500 mg tablet 1,000 mg PO Q6H PRN (Reason: fever) Qty: 30 0RF ibuprofen 600 mg tablet 600 mg PO TID PRN (Reason: pain) Qty: 30 0RF magnesium oxide 500 mg capsule 500 mg PO DAILY Cranberry Urinary Tract Health 250-30-3.5 mg tablet 1 tab PO DAILY PRN lisinopril 10 mg tablet 10 mg PO DAILY Qty: 90 3RF loratadine [Allergy Relief (loratadine)] 10 mg tablet 10 mg PO DAILY Qty: 90 3RF acyclovir [Zovirax] 30 GM ointment 1 saskia Topical Q4H PRN PRN (Reason: Mouth Sore Pain) Label Comments: 08/22/14 - 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 Rx Instructions: 5% (DME) blood sugar diagnostic Strip 1 ea Miscellaneous BID Qty: 180 3RF Rx Instructions: As directed pravastatin 20 mg tablet 20 mg PO DAILY Qty: 90 3RF glipizide [Glucotrol] 10 mg tablet 10 mg PO BID Qty: 180 3RF Rx Instructions: Lantus Solostar U-100 Insulin 100 unit/mL (3 mL) insulin pen 30 unit Sub-Q HS Qty: 5 12RF Rx Instructions: Dx DM 250.02 metformin 500 mg tablet extended release 24hr 500 mg PO BID Qty: 180 3RF (DME) pen needle, diabetic [BD Ultra-Fine Taina Pen Needle] 32 gauge x 5/32 needle 1 ea Miscellaneous DAILY Qty: 100 8RF Rx Instructions: DX e11.65 ultra fine needle (DME) blood sugar diagnostic Strip See Rx Instructions .ROUTE .MEDSUPPLY Qty: 100 12RF Rx Instructions: test bid esomeprazole magnesium [Nexium] 40 mg capsule,delayed release(DR/EC) 40 mg PO DAILY Qty: 90 3RF Discontinued aspirin 81 mg capsule 81 mg PO DAILY Discharge Instructions Additional Instructions: Total Knee Discharge Instructions Activity: The most important activity is to walk. You should try to take short walks a few times a day. It is important that when resting you work on keeping the knee straight. Avoid putting a pillow behind the knee as this will encourage flexion. Work on range of motion exercises as provided by Physical Therapy. If you have the [employer] bike coming, this will be your primary tool for exercise after the knee replacement. You should use it and follow the directions for the knee. Utilize the other exercises sparingly based on your symptoms. - Start outpatient physical therapy within 2 weeks. - You should wear the DARCI hose on both legs for 2 weeks. You may remove these at night. You may also use any compression sock in place of the DARCI hose. - Utilize [employer] to review exercises, see videos on exercises and obtain basic information pertaining to your surgery and your recovery. Dressing: Remove the Siva wrap by 2 days after your surgery and put on the DARCI stocking given to you from the hospital. Keep the surgical dressing (underneath the SIVA wrap) in place for at least one week. After the first week it may be removed and replaced with light gauze and tape or nothing. The wound and dressing may get wet after 3 days but avoid soaking the dressing or otherwise it will need to be changed. Many people prefer covering the dressing with cling wrap (saran wrap) to minimize it from getting soaked. If it gets wet, just pat dry. If it starts to peel off then it will need to be changed. Medications: - You should take Tylenol and anti-inflammatory Ibuprofen as your primary pain control medications. Please call the office for another alternative (Celebrex, or Naproxen/Aleve) - You have been prescribed a stronger pain medication Oxycodone for breakthrough pain, take as needed as prescribed. - Please continue with your previously prescribed stomach acid reduction agent Nexium to help reduce stomach acid and reflux. - You will be taking Aspirin 81mg twice a day for DVT prevention unless instructed otherwise. - If you have constipation you should take Colace or Miralax (both [id number]). It takes most people 3-4 days to have a bowel movement. Follow-up: 2 weeks If you have any acute concerns or questions, please do not hesitate to contact the office at [phone]. You may contact Dr. Santana with any questions after hours through the hospital at [phone] or on his cell phone at [phone]. Referrals: Nuno Santana MD [ [facility] STAFF PHYSICIAN] - Equipment/Supplies: Walker Activity:: Activity as Tolerated Remove Dressings/Wound Care:: Do Not Remove Shower/Bathe:: 72 hours Diet:: As Tolerated Discharge Orders Discharge Orders: Discharge Order (Routine); Ordered 11/07/21 Ordered By: Tanya Cruz DS: Diagnosis Discharge Diagnosis (1) Loosening of prosthesis of left total knee replacement: Status: Acute
[2021-11-07] MEDS: Celecoxib 200 MG CAP 400 MG PO (08:06)
[2021-11-07] MEDS: Acetaminophen 500 MG TAB 1000 MG PO ×3 (08:06→20:59)
[2021-11-07] MEDS: Lactated Ringers 1,000 ML 80 ML IV ×2 (08:06→15:13)
--- NOTE | 2021-11-07 10:16 | W.ANESNERVE ---
Nerve Block Single Injection Procedure Date and Time Date Performed: 11/07/21 Procedure Start: 10:10 Location Where Procedure Performed Procedure Location: Day Surgery Unit Reason Performed: Postoperative Analgesia Requesting Provider: Nuno Santana Timeout Performed Timeout Performed: Yes Monitoring Used ECG, Blood Pressure and SpO2 Sterility Sterility: Hand Hygiene, Surgical Cap, Surgical Mask, Sterile Gloves and Chlorhexidine Sedation Given During Procedure Sedation Given (Indicate Dose Given): No Sedation given Patient Mental Status Patient Mental Status: Awake Nerve Block 1st Nerve Block: Laterality: Left Block Type: Adductor Canal Needle / Catheter Used: 100mm SonoPlex II Local Anesthetic Bolus (Indicate Dose Given): Lidocaine used for local infiltration of skin, Injected in 3-5ml increments after negative blood aspiration and Bupivacaine 0.375% Dose:: 10 mL Additives (Indicate Dose Given): Precedex Dose:: 30 mcg Ultrasound: Sterile probe cover and gel used Ultrasound Image Saved?: Yes Nerve Stimulator: Not Used Paresthesia: None Procedure Tolerated: No Complications Procedure Outcome: Successful Performed By: Landon Seay
[2021-11-07] MEDS: ceFAZolin 2 GM/50 ML BAG IVPB (10:44)
--- NOTE | 2021-11-07 14:26 | W.ANESPOSTOP ---
Postoperative Evaluation Date, Time and Location Date Performed: 11/07/21 Time Performed: 14:26 Patient Location: PACU Vital Signs Most Recent Imported Vital Signs: Most Recent Vital Signs Temp Pulse Resp BP Pulse Ox 36.3 C L 85 25 H 125/56 L 96 11/07/21 14:14 11/07/21 14:14 11/07/21 14:14 11/07/21 14:14 11/07/21 14:14 Pain Score Most Recent Pain Score: Most Recent Pain Score Pain Level 0 11/07/21 10:13 Assessment Mental Status: Awake (Alert & Oriented to Patient Baseline) Airway and Respiratory Function: Patent airway with normal (patient baseline) respiratory exam Cardiovascular Function: Hemodynamically Stable Hydration Status: Adequately Hydrated Nausea & Vomiting: No Nausea or Vomiting Pain: Pain is tolerable per patient Peripheral Nerve Block: Patient did not receive a nerve block
--- NOTE | 2021-11-07 14:46 | W.PM.OP ---
Date of service: 11/07/21 Time of Service: 13:50 Operative Note Operative Note DATE OF PROCEDURE: 11/07/21 PRE-OP DIAGNOSIS: Left Knee Prosthetic Loosening POST-OP DIAGNOSIS: same PROCEDURE: Left Total Knee Replacement SURGEON: Nuno Santana SPINDRAW OPERATOR: Tanya Cruz ANESTHESIA TYPE: Spinal Refer to Anesthesia Record PATHOLOGY: none sent COMPLICATIONS: None Patient was transported to: PACU Patient's condition: stable Implants: TIBIA: - Depuy Attune Tibial Rotating Platform Revision Tray, Size 5 - Depuy Attune Tibial Partially Coated Cementless Sleeve, 37mm - Depuy Attune [id number] FEMUR: - Depuy Attune Femoral Revision Comonent, Size 6 - 4mm posteromedial augment - 8mm posterolateral augment - Depuy Attune [id number] Cementless Stem POLY: - Depuy Attune 6x10mm Stabilzed Rotating Platform Indications: I have seen Devin in clinic for symptoms of continued left knee pain after knee replacement. He has been managed with a host of treatment options but continues to have some pain about the left knee. Three-phase bone scan identified that the components appear to be loose and given the failure of other nonoperative options I offered revision knee replacement to Devin. I reviewed the technical considerations of revision knee replacement and what is involved with explantation and reimplantation. I explained the risks of the procedure to include, but not limited to, bleeding, infection, pain, stiffness, fracture, damage to nerves and vessels, damage to muscles and tendons, loosening, need for repeat procedure, blood clot and cardiopulmonary demise. Despite these risks, Devin elected to proceed. Findings: There is no sign of infection. No purulence. There was significant synovitis which was removed. The majority of the medial tibia seem to be very loosely associated at the bone cement interface. Likewise on the femur the lateral portion as well as the distal aspect had very loose association between the cement and bone. The components were removed without significant difficulty and revision components were placed. Procedure Description: Devin was greeted in the preoperative holding area where the correct side was identified and marked. The consent was reviewed with the patient and signed. The history and physical was updated. All questions were answered. Preoperative mediacations were administered: Acetaminophen 1000mg, Celebrex 400mg. An adductor canal block was then administered by the anesthesia team in the PACU. He was taken back to the operating room. A spinal anesthestic was then administered. The patient was placed into the supine position on the operating room table. A nonsterile tourniquet was placed high onto the leg but was not used. Posts were placed for positioning during the procedure. All bony prominences were well padded. Prophylactic antibiotics in the form of cefazolin were administered. 1g of Tranxemic Acid was given intravenously within 30 minutes of incision. The right leg was then prepped with Chloraprep and draped in a standard fashion with impervious stockinette. A second prep with Chloraprep was performed prior to application of Iodine impregnated skin protection. A timeout to confirm correct identity, side and site, procedure, allergies, anesthesia, and medical concerns was performed. With the knee in some flexion, a midline incision was made overlying the knee utilizing the previous incision and extending it proximally and distally Full thickness skin flaps were raised once the extensor mechanism was encountered. These were raised medially and laterally. Any bleeding was controlled with electrocautery. Once the extensor mechanism was fully exposed, a medial parapatellar arthrotomy was performed in a flexed position. All bleeding from the arthrotomy and the geniculate arteries was coagulated. A medial subperiosteal peel was performed with electrocautery to the midcoronal plane. Scarring between the patellar tendon and the anterior tibia was also released around the lateral aspect of the tibial plateau to identify the entirety of the medal?bone interface of the tibia. An aggressive synovectomy was then performed. This was done by using 2 Allis and 2 Matthew clamps. This was removed in whole from the underside of the extensor mechanism all along the femur. This was also paid attention to it in the gutters themselves. Once this was fully released the knee was then flexed up with the patellar everted. Patellar insertion was inspected to make sure there is no peel off. The polyethylene was removed. There is no signs of purulence. There was significant posterior synovitis appreciated but no other signs of concern. I then used then flexible chisels to remove the implants. Starting with the femur, I was able to easily slide anything anterior flange as well as the distal aspect of the medial lateral component. There was some fixation over the anterior chamfer but it appeared to be not completely fixed in certain areas. After working which is all around all the periphery of the femoral component a bone tamp was then utilized to remove the femoral component. Attention was then turned to the tibia. Likewise identify the interface between the bone and the tibial component. A thin flexible osteotome was utilized to separate the tibial component from the bone. It was evident on the medial side that the bulk of the cement was loose from within the bone and the bone was soft in this area. Likewise, laterally, there was also some the same findings although there was some portions anteriorly which seem to be well fixed. Once these bonds were broken a bone tamp was then used to the tibial component with minimal bone loss. This point I used a small osteotome as well as a rongeur to remove any remnant cement including that within the canal. It was not sure there is no remnant cement to alter the placement of the new components. Once all cement was removed the knee was thoroughly irrigated with the pulse lavage to ensure there is no other debris that need to be removed at this time. A synovectomy was performed posteriorly and the entirety of the tibial plateau and femur was evaluated could sure that it was being easily visualized. Starting with the tibia, I began reaming by hand. This was taken up to size 18 mm reamer where there were cortical contact encountered. A tibial sleeve was then placed by broaching. This was broached up to size 37 mm sleeve where there is excellent rotational control attained. I then freshened up the proximal tibia with an oscillating saw taking only 1 to 2 mm at most from the proximal tibia. A trial tibial component was then inserted and showed to be a size 5 tibia. This was rotated appropriately and locked into position. Attention was then turned to the femur. Once again, I began reaming the femoral canal up to a size 20 mm reamer which had excellent cortical contact with the plan for a cementless stem assuming that we needed no offset. With this in place I then assembled the distal femoral cutting guide and removed 2 mm as a freshening cut to the distal femur. The 4-in-1 cutting guide was then assembled and placed onto the of the femur. Spacer blocks were utilized to test her extension gaps. 10 mm provided excellent stability in extension with about 2 to 3 mm of gapping medially and laterally in a balance format. There is also attained similar balance in flexion. Using the spacer block in flexion of the knee at 90 degrees the rotation was set and pinned into position. This seemed to be only mildly more externally rotated than the original. The posterior cuts were then assessed and this demonstrated the need for a 4 mm offset medially and an 8 mm offset laterally. These cuts were then made without difficulty protecting the soft tissues at all times. I then completed the anterior and posterior chamfer cuts. The anterior distal femur cut was also completed without difficulty. The notch cutter was then placed and the notch cut was performed with the reciprocating saw. The trial component was then cemented in the back table and positioned into the knee. The 10 mm polyethylene was utilized and this showed excellent extension as well as flexion with about 2 to 3 mm of gapping with varus and valgus stress which was balanced both in extent and into flexion. Given his propensity for stiffness I did not increase in size from beyond this point. The balance was symmetrical and within 2 to 3 mm. The trial components were removed. The final components, except for the polyethylene were opened on the back table. The periosteal and capsular tissues, especially posteriorly, around the knee were then systematically injected with a periarticular cocktail consisting of 246mg of Ropivacaine, 0.5mg of Epinephrine, 0.08mg of Clonidine, and 30mg of Ketorolac, diluted to 100cc.. The intramedullary canals were scraped with a wire brush and irrigated with pulse lavage on an extended wand. The knee surfaces were thoroughly irrigated with a pulse lavage and dried. On the back table, the implants were assembled. The cement was mixed. 2 batches of medium viscosity cement were prepared with vacuum assistance. After the cement was ready a small amount was placed on to the back side of the tibial component at the keel making sure not to place any on the cementless components. A small amount was placed onto the backside of the femur including the posterior flange. Cement was manual pressurized and impregnated into the cut surface of the tibia. The tibial component was then inserted into the cut surface and impacted into position. Excess cement was removed and the component was reimpacted. Again, excess cement was removed and our attention was then turned to the femur. The femoral cut surface was once again dried and cement was manually impacted into the cut surface. The femoral component was lined up and impacted. Excess cement was removed. It was ensured to be down against the cut surface. The trial polyethylene was then inserted and the leg was brought out into full extension for the duration of the cement curing process, approximately 18min. While the cement was hardening, the knee was irrigated with Surgiphor chlorhexadine solution. This was allowed to sit in the knee for 3 minutes and then it was thoroughly irrigated with saline. After the cement had finally cured, approximately 18min, the knee was taken through range of motion. A size 10 mm polyethylene component provided the best range of motion and stability with less than 2mm gapping with medial and lateral stress and full extension without significant hyperextension. The patella was tracking with a no-thumbs technique. The trial poly was removed and once again the knee was checked for any loose, excess, or errant cement. The poly component was then inserted after cleaning and drying the tibial tray. The capsule was then reapproximated with a No. 1 Vicryl at multiple locations. The capsule was finally closed with a No. 2 Stratafix, barbed suture. The tourniquet was then released and the arthrotomy appeared watertight without significant bleeding. The second dose of 1g TXA was started. Deep tissues were then reapproximated with 0 Vicryl and 2-0 Vicryl. The skin was closed with a running 3-0 Monocryl in a subcuticular fashion. This was reinforced with skin glue. A Mepilex silver dressing was applied along with a [id number] JENIFER wrap. A CryoCuff was applied. Devin was transferred to the hospital bed without difficulty an suffering no apparent complication. Devin has a good prognosis. Physical therapy will start today and without restrictions, weight-bearing as tolerated. Aspirin 81mg BID will be used for DVT prophylaxis.
[2021-11-07] MEDS: ceFAZolin 1 GM/50 ML BAG IVPB (15:13)
--- NOTE | 2021-11-07 15:40 | IN_ITS ---
Date of service: 11/07/21 Time of Service: 15:40 PT Notes Visit Reasons: Left TKA Revision Physical Therapy Inpatient Initial Evaluation Date: 11/07/2021 Referring Doctor: KELLY Hernandez PT Orders: PT CONSULT: S/p Ortho surgery Precautions: Fall. Standard. WBAT on left LE with AD. 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 PMHX: Medical History? Depression Diverticulosis of colon Hiatal hernia EGD 2003 Kidney stone left Obesity Pancreatitis Reflux esophagitis (06/30/15) Type II diabetes mellitus, uncontrolled Surgical History? Cholecystectomy (~2002) and pancreatitis Colonoscopy - MAC 2002 and 2007, 07/03/18 Dr John Lambert, [facility], normal, repeat in 10 years. mgEGD - MAC (03/12/17) Endoscopy 2003, 2011,2016 Barium swallow 2016 H/O arthroscopic knee surgery b/l Dr. Mock H/O colonoscopy (07/03/18) diverticulosis, otherwise normal, repeat 10 years, Dr John Lambert History of arthroscopy of left knee (02/27/21) Synovectomy of left TKA Hx of total knee replacement left Social History/Home Situation: Lives with friend in a mobile home with 4 steps to enter with rails on both sides. Independent with all ADLs prior to surgery without an assistive device nor adaptive equipment. Equipment Owned/DME: FWW Subjective: Agreeable to PT consult. Verbalizes lack of control in bilateral feet and legs with the right more affected than the left. Reports 1/10 pain in the left knee. Denies headache, chest pain, and dizziness throughout session. Wanted to have something to eat after session was done, Nurse Paras was informed. Objective: General Observation: Supine in bed. In NAD. JENIFER wraps to left LE. Cryocuff to left knee. TEDS on right LE. IV in right UE. Mental Status: Alert and oriented as to person, place, time, and purpose. Able to pay attention, focus, and respond appropriately. Pain: 1/10 in L knee Vital Signs: WNL as closely monitored by nursing staff ROM: Right Lower Extremity: Hip flexion up to 80 degrees. Hip abduction WFL. Knee flexion 0 up to 45 degrees. Knee extension 945 degrees to 0 ankle dorsiflexion absent. Ankle plantarflexion absent. Left Lower Extremity: Hip flexion to about 80 degrees with pain at 3-4/10 in the knee at end of range. Hip abduction WFL. Knee flexion to 90 degrees actively with pain at end of range at 3-4/10.knee extension 90 degrees to 0 ankle DF to neutral only. Ankle PF about 10 degrees. Strength: Right Lower Extremity: Hip flexors 3-/5. Hip abductors 4-/5. Knee flexors 3-/5. Knee extensors 3-/5. Ankle dorsiflexors 1/5. Ankle plantarflexors 1/5. Left Lower Extremity: Hip flexors 3-5. Hip abductors 4-/5. Knee flexors 3-/5. Knee extensors 3-/5. Ankle dorsiflexors 2-/5. Ankle plantarflexors 2-/5. Bed Mobility/Transfers: Supine to sit with standby assist with HOB flat Sit to supine with minimal assist to B LE Sit to stand with moderate assist with increased patient trunk lean to R needing to sit back down Stand to sit with moderate assist Bed to reclining chair unable due to lack of full return of motor control from preoperative spinal anesthesia and postoperative adductor canal block THERA EX: Instructed patient in room exercises consisting of quadriceps sets health for 5 counts x 5 reps, gluteal sets held for 5 counts x5 reps, adductor squeeze held for 5 counts x 5 reps, heel slides to tolerance on the left x 5, heel slide on the right x5, ankle DF on the left (unable to do on the R). Deep breathing exercises in between activity. Gait: Unable to safely advance either foot due to lack of full awareness from preoperative spinal anesthesia and postoperative adductor canal block. Nurse Crain assisted for safety to see if patient could advance each leg. 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 A second attempt was done but patient still did not appear safe. Further ambulation is deferred until tomorrow morning. Balance: Static Sitting: Normal Dynamic Sitting: Normal Static Standing: Poor Dynamic Standing: Unable Special Tests: Mobility Limitations Standardized Measure [facility] AM-PAC 6 clicks Basic Mobility Inpatient Short Form: Raw Score: 11 CMS Score: 73% deficit SLR: Able to lift L LE withknee straight up to 30 degrees before pain prevented him, he was able to do this exercise x 5 reps. Informed Consent/Education: Patient was instructed in purpose of PT consult and plan of care. Agreeable to proceed with established PT POC to achieve personal goals. Assessment: Mobility assessment was not fully implemented due to lack of full sensation and motor control on B LE from preoperative spinal anesthesia and postoperative adductor canal block. Will reassess transfers and ambulation tomorrow morning. Patient will have the support of his friend at home as he recovers. Patient presents with clinical signs and symptoms consistent with current/admitting diagnoses that have resulted to mobility limitations, gait instability, generalized weakness, and overall ADL decline as demonstrated by the following impairment level findings: 1. Decreased strength to B knee and ankle major muscle groups 2. Impaired sitting/standing balance 3. Impaired activity tolerance 4. Limitation of joint range of motion in B knees and ankles 5. Lack of full AROM in B knees and ankles 6. Lack of full sensation in B legs and feet Impairments are contributing to the following functional limitations: 1. Decline in bed mobility skills 2. Decline in transfer skills 3. Inability to ambulate at time of ambulation due to aftereffect of adductor canal block 4. Increased completion time for mobility ADL performance 5. Increased risk for falls Patient is assessed as a 91002 moderate complexity based on the following: History: 71-year-old male with past medical history as indicated above Examination: Demonstrable impairment in strength, balance, and mobility level with underlying impairments and functional limitations as exhibited above as well as deficit score of 73% utilizing the [facility] Mobility Inpatient Short Form Presentation: Evolving Decision Makin moderate complexity Goals: Goals X1 week 1. Supine-Sit independent 2. Sit-Supine independent 3. Sit-Stand independent 4. Stand-Sit independent with FWW 5. Bed-Chair independent with FWW 6. Chair-Bed independent with FWW 7. Independent gait on level surface with use of FWW for at least 300 feet without report of pain nor dyspnea 8. Independent stair negotiation while holding onto B rails for at least 5 steps without report of pain nor dyspnea 9. Independent with home exercise program 10. Good static and dynamic standing balance/tolerance Plan of Care/Treatment Plan: 1-2x/day, 7 days/week x 1 week. Plan of care has been reviewed with the HEAV[employer]MENT SALES MANAGER providing the service under Physical Therapy direction. Initiate Physical Therapy intervention for pain management as needed, strengthening, bed mobility, transfers, gait, stairs, balance training, and use of assistive device. DISCHARGE RECOMMENDATIONS: [] Home with no services [] [X] Home with services. Home when medically cleared by the orthopedic surgeon. Patient will benefit from home health PT services in order to progress mobility level using least restrictive assistive ambulatory device, assess home safety, identify additional equipment needs, and establish a functional maintenance program that will increase ability of patient to remain at home. [] Home with outpatient PT [] [] SNF for continued rehabilitation [] [] [facility] [] [] SNF versus LTC based on ability to participate and progress [] TREATMENT CODE/TIME: 59782 x 25 minutes, 49325 x 15 minutes beginning at 15:40 PM. Thank you for the opportunity to participate in the care of this patient. Samra Peterson PT, DPT, CLT [facility] [place], [place]
[2021-11-07] MEDS: Celecoxib 200 MG CAP PO (21:00)
[2021-11-07] MEDS: Aspirin E.C. 81 MG TABEC PO (21:00)
[2021-11-07] MEDS: Pravastatin 20 MG TAB PO (21:02)
[2021-11-07] MEDS: Insulin Glargine 300 UNITS/3 ML PEN 30 UNITS SC (22:30)
[2021-11-08] MEDS: ceFAZolin 1 GM/50 ML BAG IVPB ×2 (00:15→08:09)
[2021-11-08 03:29] VITALS: BP 137/66; PULSE 84; RESP 18; TEMP 35.9; O2SAT 97
[2021-11-08] MEDS: Lactated Ringers 1,000 ML 80 ML IV (04:09)
[2021-11-08 07:32] VITALS: BP 130/63; PULSE 51; RESP 18; TEMP 36; O2SAT 99
[2021-11-08] MEDS: Magnesium Oxide 400 MG TAB PO (08:07)
[2021-11-08] MEDS: Acetaminophen 500 MG TAB 1000 MG PO (08:07)
[2021-11-08] MEDS: glipiZIDE 10 MG TAB PO (08:08)
[2021-11-08] MEDS: oxyCODONE 5 MG TAB PO (08:08)
[2021-11-08] MEDS: metFORMIN C.R. 500 MG TABCR PO (08:08)
[2021-11-08] MEDS: Loratidine 10 MG TAB PO (08:08)
[2021-11-08] MEDS: Esomeprazole 40 MG CAPCR PO (08:08)
[2021-11-08] MEDS: Aspirin E.C. 81 MG TABEC PO (08:08)
[2021-11-08] MEDS: Lisinopril 10 MG TAB PO (08:08)
[2021-11-08] MEDS: Celecoxib 200 MG CAP PO (08:08)
[2021-11-08] MEDS: Normal Saline Flush 10 ML SYR IV (08:09)
--- NOTE | 2021-11-08 09:41 | PT.INTREAT ---
Date of service: 11/08/21 Time of Service: 09:02 PT Notes Visit Reasons: Left TKA Revision Inpatient Physical Therapy Treatment Note [facility] Date: 11/08/2021 PRECAUTIONS: Activity as tolerated, WBAT L LE SUBJECTIVE: Devin is pleasant and agreeable to participating in PT. He states that she is feeling better today, and hopes to go home today. He reports that he transferred from bed to chair this morning independently. OBJECTIVE: PAIN: Patient c/o minimal pain in L knee with ther ex BED MOBILITY/TRANSFERS Sit-stand: I Stand-sit: I Bed-chair: I Chair-bed: I GAIT: Assistive Device: FWW Weight bearing: WBAT L Assistance: S Distance: 350' Deviation: Slightly antalgic gait pattern THEREX: Patient was instructed in a LE strengthening and stabilization program completed in both seated and long-sitting positions, to include: ankle pumps, quad sets, glute sets, heel slides, hip abduction, SLR, LAQ and hip flexion exercises. Patient ends with cryocuff to L knee. ASSESSMENT: Patient demonstrates independence with transfers and requires only supervision with ambulation with FWW. Following discussion with nursing, patient cleared to be independent with transfers and short distance ambulation with FWW. PLAN: Patient to discharge to home later today, per provider. TREATMENT CODE/TIME: 25 minutes; 27015, 65324 (09:02)
--- NOTE | 2021-11-08 10:04 | DI.RAD_ITS ---
Exam(s) XR KNEE LT 2V AP,LAT EXAM: XR KNEE LT 2V AP,LAT CLINICAL HISTORY: s/p revision L TKA. TECHNIQUE: 2D digital imaging was performed of the left knee. Two images were obtained. AP and lat eral views were obtained. COMPARISON: CR XR KNEE LT 2V AP,LAT from 08/29/2021 FINDINGS: BONES: No acute fracture is present. No bony destructive lesion is seen. JOINTS: The patient is now status post revision of the left total knee replacement. The orthopedic h ardware appears in good position. No joint effusion is seen. SOFT TISSUE: Postsurgical changes are seen in the soft tissues. IMPRESSION: Status post left total knee revision. DATA REPOSITORY: RADIATION DOSE DELIVERED:
[2021-11-08 12:17] VITALS: BP 131/83; PULSE 75; RESP 17; TEMP 36.1; O2SAT 99
--- NOTE | 2021-11-08 12:32 | W.PM.DS.N ---
Date of service: 11/08/21 Time of Service: 11:33 DS: Diagnosis Discharge Diagnosis (1) Loosening of prosthesis of left total knee replacement: Status: Acute Discharge Plan Disposition Patient Disposition: HOME Condition: Stable Discharge Details Reason For Visit: Left TKA Revision Admit Date/Time: 11/07/21 06:39 Admit Provider: Nuno Santana Attending Provider: Nuno Santana Primary Care Provider: Bryan Isaacs Hospital Course Hospital Course: Patient was admitted to the medical/surgical floor following the procedure. The surgery was tolerated well without any notable medical, surgical, or anesthetic complications. Mobilization began postoperatively. He was voiding spontaneously. Vitals were stable. Physical therapy worked with the patient and was cleared for discharge home. No acute medical issues. Pain was controlled on oral regimen. Home Meds and New Rx's Prescriptions: New acetaminophen 500 mg capsule 1,000 mg PO Q8H PRN PRNQty: 90 0RF aspirin 81 mg tablet,delayed release (DR/EC) 81 mg PO BID Qty: 60 0RF ibuprofen 600 mg tablet 600 mg PO TID Qty: 90 0RF oxycodone 5 mg tablet 5 mg PO Q4H PRNQty: 18 0RF Continued acetaminophen [Tylenol Extra Strength] 500 mg tablet 1,000 mg PO Q6H PRN (Reason: fever) Qty: 30 0RF ibuprofen 600 mg tablet 600 mg PO TID PRN (Reason: pain) Qty: 30 0RF magnesium oxide 500 mg capsule 500 mg PO DAILY [facility] 250-30-3.5 mg tablet 1 tab PO DAILY PRN lisinopril 10 mg tablet 10 mg PO DAILY Qty: 90 3RF loratadine [Allergy Relief (loratadine)] 10 mg tablet 10 mg PO DAILY Qty: 90 3RF acyclovir [Zovirax] 30 GM ointment 1 saskia Topical Q4H PRN PRN (Reason: Mouth Sore Pain) Label Comments: 08/22/14 - 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 Rx Instructions: 5% (DME) blood sugar diagnostic Strip 1 ea Miscellaneous BID Qty: 180 3RF Rx Instructions: As directed pravastatin 20 mg tablet 20 mg PO DAILY Qty: 90 3RF glipizide [Glucotrol] 10 mg tablet 10 mg PO BID Qty: 180 3RF Rx Instructions: Lantus Solostar U-100 Insulin 100 unit/mL (3 mL) insulin pen 30 unit Sub-Q HS Qty: 5 12RF Rx Instructions: Dx DM 250.02 metformin 500 mg tablet extended release 24hr 500 mg PO BID Qty: 180 3RF (DME) pen needle, diabetic [BD Ultra-Fine Taina Pen Needle] 32 gauge x 5/32 needle 1 ea Miscellaneous DAILY Qty: 100 8RF Rx Instructions: DX e11.65 ultra fine needle (DME) blood sugar diagnostic Strip See Rx Instructions .ROUTE .MEDSUPPLY Qty: 100 12RF Rx Instructions: test bid esomeprazole magnesium [Nexium] 40 mg capsule,delayed release(DR/EC) 40 mg PO DAILY Qty: 90 3RF Discontinued aspirin 81 mg capsule 81 mg PO DAILY Discharge Instructions Additional Instructions: Total Knee Discharge Instructions Activity: The most important activity is to walk. You should try to take short walks a few times a day. It is important that when resting you work on keeping the knee straight. Avoid putting a pillow behind the knee as this will encourage flexion. Work on range of motion exercises as provided by Physical Therapy. If you have the [employer] bike coming, this will be your primary tool for exercise after the knee replacement. You should use it and follow the directions for the knee. Utilize the other exercises sparingly based on your symptoms. - Start outpatient physical therapy within 2 weeks. - You should wear the DARCI hose on both legs for 2 weeks. You may remove these at night. You may also use any compression sock in place of the DARCI hose. - Utilize [employer] to review exercises, see videos on exercises and obtain basic information pertaining to your surgery and your recovery. Dressing: Remove the Siva wrap by 2 days after your surgery and put on the DARCI stocking given to you from the hospital. Keep the surgical dressing (underneath the SIVA wrap) in place for at least one week. After the first week it may be removed and replaced with light gauze and tape or nothing. The wound and dressing may get wet after 3 days but avoid soaking the dressing or otherwise it will need to be changed. Many people prefer covering the dressing with cling wrap (saran wrap) to minimize it from getting soaked. If it gets wet, just pat dry. If it starts to peel off then it will need to be changed. Medications: - You should take Tylenol and anti-inflammatory Ibuprofen as your primary pain control medications. - You have been prescribed a stronger pain medication Oxycodone for breakthrough pain, take as needed as prescribed. - Please continue with your previously prescribed stomach acid reduction agent Nexium to help reduce stomach acid and reflux. - You will be taking Aspirin 81mg twice a day for DVT prevention unless instructed otherwise. - If you have constipation you should take Colace or Miralax (both [id number]). It takes most people 3-4 days to have a bowel movement. Follow-up: 2 weeks If you have any acute concerns or questions, please do not hesitate to contact the office at [phone]. You may contact Dr. Santana with any questions after hours through the hospital at [phone] or on his cell phone at [phone]. Referrals: Nuno Santana MD [ [facility] STAFF PHYSICIAN] - Equipment/Supplies: Walker Activity:: Activity as Tolerated Remove Dressings/Wound Care:: Do Not Remove Shower/Bathe:: 72 hours Activity:: Activity as Tolerated Equipment/Supplies:: Walker Diet:: As Tolerated Discharge Orders Discharge Orders: Discharge Order (Routine); Ordered 11/07/21 Ordered By: Tanya Cruz DS: Summary Time Spent with Patient providing and/or coordinating discharge services: Less than 30 minutes Status at Discharge Functional status at discharge: uses cane/walker Overall status at discharge: patient is progressing back to baseline Mental Status: mental status grossly normal Speech and Movement: speech and movement normal Mood: congruent mood Affect: normal affect Exam Narrative Exam Narrative: Sitting up. NAD. AAOx3. LLE Dressing c/d/i. +ADF/APF/EHL/FHL SILT DP/SP/Tib. Psych Mental Status: mental status grossly normal Speech and Movement: speech and movement normal Mood: congruent mood Affect: normal affect DS: Data Vitals/I&O Vitals and I&O: Vital Signs Temperature 36.1 C L 11/08/21 12:17 Temperature Source Tympanic 11/08/21 12:17 Pulse 75 11/08/21 12:17 Pulse Rhythm Regular 11/08/21 07:27 Respiratory Rate 17 11/08/21 12:17 Respiratory Effort 11/08/21 07:27 Respiratory Depth Normal 11/08/21 07:27 Respiratory Pattern Normal 11/08/21 07:27 Blood Pressure 131/83 11/08/21 12:17 Blood Pressure Mean 91 11/07/21 10:13 Blood Pressure Position Supine 11/07/21 09:58 Pulse Oximetry 99 11/08/21 12:17 Respiratory End-tidal CO2 24 11/07/21 14:27 Oxygen Delivery Method Room Air 11/08/21 12:17 Oxygen Flow Rate 0 11/08/21 12:17 Pain Level 1 11/08/21 08:08 Comment 11/08/21 07:32 Intake & Output 11/07/21 11/08/21 11/08/21 23:59 11:59 23:59 Intake Total 1098.667 / 1225.909 2497 / 2138.667 358.667 / 2138.667 Output Total 1450 / 1450 1175 / 1175 Balance -351.333 / -241.333 605 / 963.667 358.667 / 963.667 Intake: IV 898.667 / 7015.604 8018 / 1458.667 358.667 / 1458.667 Oral 200 / 200 680 / 680 Output: Urine 1050 / 1050 1175 / 1175 Estimated Blood Loss 400 / 400 Other: Urine Color Pale Yellow Urine Appearance Clear Clear Urine Odor Normal Normal Emesis Description None Voiding Methods Bedside Commode Urinal PFSH All Active Problems Seasonal allergies (Acute) Loosening of prosthesis of left total knee replacement (Acute) Painful orthopaedic hardware (Acute) Benign prostatic hyperplasia (Chronic) Hyperlipidemia (Acute) Hypertension (Chronic) 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) FOLLOWED BY OPTICAL EXPRESSIONS (SEE SCANNED) Polyp of colon (Chronic 05/22/02) Primary osteoarthritis of right knee (Chronic 07/24/15) Gastric motor function disorder (Acute) Erythema nodosum (Acute 05/22/01) Laryngitis from reflux of stomach acid (Acute) Trigeminal neuralgia (Acute) Gynecomastia (Acute) Diabetes mellitus (Chronic) Insomnia (Acute) Medical History Depression Diverticulosis of colon Hiatal hernia EGD 2003 Kidney stone left Obesity Pancreatitis Reflux esophagitis (06/30/15) Type II diabetes mellitus, uncontrolled Surgical History Cholecystectomy (~2002) and pancreatitis Colonoscopy - MAC 2002 and 2007, 07/03/18 Dr John Lambert, [facility], normal, repeat in 10 years. mg EGD - MAC (03/12/17) Endoscopy 2004, 2011,2016 Barium swallow 2016 H/O arthroscopic knee surgery b/l Dr. Mock H/O colonoscopy (07/03/18) diverticulosis, otherwise normal, repeat 10 years, Dr John Lambert History of arthroscopy of left knee (02/27/21) Synovectomy of left TKA Hx of total knee replacement left Family History Mother Essential hypertension Stroke Father Personal history of malignant neoplasm STOMACH Brother Diabetes Personal history of malignant neoplasm Grandmother Personal history of malignant neoplasm Social History Smoking/Tobacco Use Status: Former Tobacco Use tobacco type: cigarettes Quit Date: 06/23/85 Tobacco: How many years used: 15 Second Hand Exposure: Yes Smoking risk assessment performed?: Yes Alcohol Intake: former Drug use: Never Substance use type: does not use Details: pt. states he doesnt use much alcohol because of diabetes Household members: friend(s) Housing: house Communication Needs: None Do you need help understanding health information?: Never Pets and animals: Yes Pets and animals: cat(s) and dog(s) Sexually active: Yes Do you think of yourself as: lesbian/harris/homosexual Current gender identity: male What is your relationship status?: living with partner How often do you talk on the phone with friends or family?: three or more times per week How often do you get together with friends or relatives?: once per week Do you belong to any clubs or organized social groups?: yes Panel score (0-1 are the most socially isolated patients): 3 What type of physical activity do you participate in: bicycling Duration: < 15 minutes/day Frequency: 1-2 times per week Galilea/Jehovah'S Witness: No preference Special galilea needs: No Seatbelt use: never Drive intox or ride w/intox lyft driver: No Do you feel safe at home: Yes Do you feel safe in your relationship?: Yes
--- NOTE | 2021-11-08 19:00 | INDS_ITS ---
Date of service: 11/08/21 PT Notes Visit Reasons: Left TKA Revision Physical Therapy Inpatient Initial Evaluation Date:? 11/08/2021 Dates of Service: 11/07/2021 through 11/08/2021 This is a clinical summary of care provided for the duration of dates listed above. No charge was made in the completion of this documentation. Referring Doctor: KELLY Hernandez PT Orders: PT CONSULT: S/p Ortho surgery Precautions: Fall. Standard.? WBAT on left LE with AD. Patient Profile/Admitting Diagnosis:? Devin is a 71-year-old male with loosening of left total knee arthroplasty prosthesis and is status post left total knee arthroplasty revision on postoperative day 1.? PMHX: Medical History? Depression Diverticulosis of colon Hiatal hernia EGD 2003 Kidney stone left Obesity Pancreatitis Reflux esophagitis (06/30/15) Type II diabetes mellitus, uncontrolled Surgical History? Cholecystectomy (~2002) and pancreatitis Colonoscopy - MAC 2002 and 2007, 07/03/18 Dr John Lambert, [facility], normal, repeat in 10 years. mgEGD - MAC (03/12/17) Endoscopy 2004, 2012,2016 Barium swallow 2016 H/O arthroscopic knee surgery b/l Dr. Mock H/O colonoscopy (07/03/18) diverticulosis, otherwise normal, repeat 10 years, Dr John Lambert History of arthroscopy of left knee (02/27/21) Synovectomy of left TKA Hx of total knee replacement left Social History/Home Situation: Lives with friend in a mobile home with 4 steps to enter with rails on both sides.? Independent with all ADLs prior to surgery without an assistive device nor adaptive equipment. Equipment Owned/DME: FWW Subjective: NT. See most recent [facility] CHARGER notes. Objective: General Observation: NT. See most recent [facility] CHARGER notes. Mental Status: NT. See most recent [facility] CHARGER notes. Pain: NT. See most recent [facility] CHARGER notes. Vital Signs: NT. See most recent [facility] CHARGER notes. ROM: Right Lower Extremity: Hip flexion WFL. Hip abduction WFL. Knee flexion WFL. Ankle dorsiflexion WFL. Ankle plantarflexion WFL. Left Lower Extremity: Hip flexion WFL. Hip abduction WFL. Knee flexion 0-90 degrees. Knee extension 90 degree to 0. Ankle dorsiflexion WFL. Ankle plantarflexion WFL. Strength: Right Lower Extremity: Hip flexors 5/5. Hip abductors 5/5. Knee flexors 5/5. Knee extensors 5/5. Ankle dorsiflexors 5/5. Ankle plantarflexors 5/5. Left Lower Extremity: Hip flexors 5/5. Hip abductors 5/5. Knee flexors 3-/5. Knee extensors 4-/5. Ankle dorsiflexors 5/5. Ankle plantarflexors 5/5. Bed Mobility/Transfers: Supine to sit independent Sit to supine independent Sit to stand independent Stand to sit independent Bed to reclining chair independent Gait: UP to 350 feet with supervision using FWW with step through gait pattern. Balance: Static Sitting: Normal Dynamic Sitting: Normal Static Standing: Poor Dynamic Standing: Unable Assessment:? Demonstrates functional mobility improvement prior to discharge with full motor control regained in B ankles. Patient presents with clinical signs and symptoms consistent with current/admitting diagnoses that have resulted to mobility limitations, gait instability, generalized weakness, and overall ADL decline as demonstrated by the following impairment level findings: 1.? Decreased strength to B knee major muscle groups 2.? Impaired standing balance 3.? Impaired activity tolerance 4.? Limitation of joint range of motion in B knees Impairments are contributing to the following functional limitations: 3.? Impairment with ambulation at time of ambulation requiring FWW use 4.? Increased completion time for mobility ADL performance 5.? Increased risk for falls Goals: Goals X1 week 1. Supine-Sit independent MET 2. Sit-Supine independent MET 3. Sit-Stand independent MET 4. Stand-Sit independent with FWW MET 5. Bed-Chair independent with FWW MET 6. Chair-Bed independent with FWW MET 7. Independent gait on level surface with use of FWW for at least 300 feet without report of pain nor dyspnea NOT MET 8. Independent stair negotiation while holding onto B rails for at least 5 steps without report of pain nor dyspnea NOT MET 9. Independent with home exercise program MET 10. Good static and dynamic standing balance/tolerance NOT MET DISCHARGE RECOMMENDATIONS: [] ? Home with no services [] [X] ? Home with services.? Home when medically cleared by the orthopedic surgeon.? Patient will benefit from home health PT services in order to progress mobility level using least restrictive assistive ambulatory device, assess home safety, identify additional equipment needs, and establish a functional maintenance program that will increase ability of patient to remain at home. [] ? Home with outpatient PT [] [] ? SNF for continued rehabilitation [] [] ? Shelter Care [] [] ? SNF versus LTC based on ability to participate and progress [] TREATMENT CODE/TIME: AL Thank you for the opportunity to participate in the care of this patient. Samra Peterson PT, DPT, CLT [facility] [place], [place]
== END 2021-11-08 14:08 | disposition home or self-care (01) | DRG 468 ==
LOC: MS 18:01 → SUR 11-08 09:41 → MS 11-08 09:42
PROVIDERS: Admitting Provider Student in an Organized Health Care Education/Training Program; PCP Family Medicine; Visit Provider Student in an Organized Health Care Education/Training Program
PROC: 0SPD0JZ Removal of Synthetic Substitute from Left Knee Joint, Open Approach (ICD-10-PCS; CPT 27487; principal; 2021-11-07 11:00)
DX: T84.033A Mechanical loosening of internal left knee prosthetic joint, initial encounter (principal); T84.84XA Pain due to internal orthopedic prosthetic devices, implants and grafts, initial encounter; Z79.4 Long term (current) use of insulin; K22.70 Barrett's esophagus without dysplasia; N40.0 Benign prostatic hyperplasia without lower urinary tract symptoms; E78.5 Hyperlipidemia, unspecified; I10 Essential (primary) hypertension; G47.00 Insomnia, unspecified; K44.9 Diaphragmatic hernia without obstruction or gangrene; F32.A Depression, unspecified; K57.30 Diverticulosis of large intestine without perforation or abscess without bleeding; E66.9 Obesity, unspecified; Z68.33 Body mass index [BMI] 33.0-33.9, adult; Z87.891 Personal history of nicotine dependence; Z79.84 Long term (current) use of oral hypoglycemic drugs
CPT/HCPCS: 27487; 97110; 97530; 73560; J0690; J1100; J2250; J2370; J2405

== ENCOUNTER 2021-11-22 11:27 | Outpatient (CLI) | payer MEDICARE, MEDICAID, SELFPAY ==
--- NOTE | 2021-11-22 11:15 | DI.RAD_ITS ---
Exam(s) XR KNEE LT 1V EXAM: XR KNEE LT 1V CLINICAL HISTORY: f/u revision L TKA. TECHNIQUE: 2D digital imaging was performed. COMPARISON: CR XR KNEE LT 2V AP,LAT from 11/08/2021 FINDINGS: Single lateral view: Stable position alignment prosthesis, seen on this lateral view. There is evidence of patellar resur facing again noted IMPRESSION: DATA REPOSITORY: RADIATION DOSE DELIVERED:
--- NOTE | 2021-11-22 11:22 | DI.RAD_ITS ---
Exam(s) XR STANDING ALIGNMENT EXAM: CLINICAL HISTORY: . TECHNIQUE: 2D digital imaging was performed. COMPARISON: CR XR standing alignment from 02/17/2019 FINDINGS: There has been interval revision of left knee prosthesis which now exhibits both longer stem femoral and tibial components. These appear to be in satisfactory position. Moderate narrowing joint space on the opposite-right side is noted. Hips appear unremarkable-symmetrical. No osseous lesions. Ank les unremarkable. IMPRESSION: DATA REPOSITORY: RADIATION DOSE DELIVERED:
== END 2021-11-22 11:28 | disposition home or self-care (01) ==
LOC: DIORS 11:28
PROVIDERS: PCP Family Medicine; Referring Provider Family Medicine; Visit Provider Student in an Organized Health Care Education/Training Program
DX: T84.033A Mechanical loosening of internal left knee prosthetic joint, initial encounter (principal); Z47.89 Encounter for other orthopedic aftercare; Z96.652 Presence of left artificial knee joint
CPT/HCPCS: 73560; 77073

== ENCOUNTER → 2021-12-28 09:53 | Outpatient (BNVA) | payer MEDICARE, MEDICAID, SELFPAY | PROVIDERS: PCP Family Medicine; Referring Provider Family Medicine; Visit Provider Student in an Organized Health Care Education/Training Program | DX: Z47.1 Aftercare following joint replacement surgery (principal); Z96.652 Presence of left artificial knee joint ==

== ENCOUNTER → 2022-02-04 09:50 | Outpatient (BNVA) | payer MEDICARE, MEDICAID, SELFPAY | PROVIDERS: PCP Family Medicine; Referring Provider Family Medicine; Visit Provider Student in an Organized Health Care Education/Training Program | DX: Z47.1 Aftercare following joint replacement surgery (principal); Z96.652 Presence of left artificial knee joint ==

== ENCOUNTER 2022-02-15 00:12 | Emergency (ER) | payer MEDICARE, MEDICAID, SELFPAY ==
[2022-02-15 00:18] VITALS: BP 141/71; PULSE 73; RESP 16; TEMP 36.8; O2SAT 98
--- NOTE | 2022-02-15 00:30 | DI.CT_ITS ---
Exam(s) CT LUMBAR SPINE RECONS EXAM: CT LUMBAR SPINE RECONS CLINICAL HISTORY: right lower back pain. TECHNIQUE: Imaging Protocol: Axial computed tomography images with coronal and sagittal reformatted images were created and reviewed COMPARISON: CT CT CHEST PE CTA from 05/04/[address] RENAL COLIC WO from 02/15/2022 FINDINGS: Bones: There are no fractures, listhesis, nor pars defects. There are no lytic osseous lesions evide nt.. No Schmorl's node endplate invaginations evident. INDIVIDUAL LEVELS: No disc herniations nor central canal stenosis. No prominent foraminal stenosis There is advanced disc space narrowing at L5-S1 level, without a obvious disc herniation at this leve l. There is some vertical foraminal stenosis evident at this level due to the disc height loss with impingement of the exiting nerve roots between the overlying L5 pedicles and subjacent annulus. The visualized sacroiliac joints and sacrum appear unremarkable. PARASPINAL SOFT TISSUES: See separate abdomen pelvis CT report IMPRESSION: 1. No fractures. No listhesis. 2. Advanced disc space narrowing L5-S1 level. No prominent disc herniations nor central canal stenos is. There is an element of bilateral vertical foraminal stenosis at L5-S1 level. RADIATION DOSE DELIVERED: 1,262.53mGy.cm Total DLP DATA REPOSITORY: All CT scans at this facility are submitted to the National Radiology Data Registry (NRDR) Dose Index Registry (DIR) with the [employer] (A[employer]). RADIATION OPTIMIZATION: All CT scans at this facility use at least one of these dose optimization te chniques: automated exposure control; mA and/or kV adjustment per patient size (includes targeted exa ms where dose is matched to clinical indication); or iterative reconstruction.
--- NOTE | 2022-02-15 00:33 | DI.CT_ITS ---
Exam(s) CT RENAL COLIC WO EXAM: CT RENAL COLIC WO CLINICAL HISTORY: please do reconstructions. TECHNIQUE: Imaging Protocol: Axial computed tomography images with coronal and sagittal reformatted images were created and reviewed CONTRAST MATERIAL: Intravenous: none Oral: None COMPARISON: CT CT LUMBAR SPINE RECONS from 02/15/2022 FINDINGS: VISUALIZED LUNG BASES: No nodules nor pleural effusions evident. ABDOMEN: There is no ascites. LIVER: There are no obvious focal hepatic lesions evident of this noninfused study. GALLBLADDER/BILIARY: Gallbladder surgically absent. CBD is not dilated. PANCREAS: No evidence of pancreatic mass nor dilatation of the pancreatic duct. Pancreatic head is p artially obscured by adjacent duodenal diverticulum SPLEEN: Spleen is not enlarged. No obvious intrasplenic lesions. ADRENALS: There are no significant adrenal masses. KIDNEYS:Is a small exophytic cyst off the lateral cortex of the right kidney measuring 1.2 x 1.2 cm. No solid renal masses. No calculi nor hydronephrosis. . ABDOMINAL AORTA: Abdominal aorta is not enlarged. LYMPH NODES: There is no retroperitoneal nor paraaortic adenopathy. ABDOMINAL WALL: Small fat only containing umbilical hernia. No bowel loops therein. GI: There is no evidence of bowel obstruction, free air, nor abscess. PELVIS: LYMPH NODES: There is no intrapelvic nor inguinal adenopathy. GI: No evidence of appendicitis.There are diverticuli in the descending-left colon as well as in the sigmoid. However, there is no obvious acute diverticulitis. URINARY BLADDER: Completely collapsed. REPRODUCTIVE: Prostate size upper normal. Seminal vesicles unremarkable. OSSEOUS: No significant osseous lesions. SI joints unremarkable. Advanced disc space narrowing at L5-S1 level noted. IMPRESSION: 1. No renal tract calculi. No hydronephrosis. Urinary bladder is completely collapsed and difficult to evaluate. Small 12 millimeter benign cyst in the right kidney noted. 2. Gallbladder surgically absent. The biliary tree is not dilated RADIATION DOSE DELIVERED: Total DLP DATA REPOSITORY: All CT scans at this facility are submitted to the National Radiology Data Registry (NRDR) Dose Index Registry (DIR) with the [employer] (ACR). RADIATION OPTIMIZATION: All CT scans at this facility use at least one of these dose optimization te chniques: automated exposure control; mA and/or kV adjustment per patient size (includes targeted exa ms where dose is matched to clinical indication); or iterative reconstruction.
--- NOTE | 2022-02-15 00:42 | W.ED.GENAD ---
Discharge Plan Disposition Patient Disposition: HOME Condition: Stable Discharge Details Clinical Impression: Acute right-sided back pain, Hypomagnesemia Primary Care Provider: Bryan Isaacs ED Provider: Yfn Bonds [place] Meds and New Rx's Prescriptions: New oxycodone 5 mg tablet 5 mg PO Q6H PRNQty: 7 0RF Continued magnesium oxide 500 mg capsule 500 mg PO DAILY [facility] 250-30-3.5 mg tablet 1 tab PO DAILY PRN aspirin [Adult Aspirin Regimen] 81 mg tablet,delayed release (DR/EC) 81 mg PO DAILY ibuprofen 600 mg tablet 600 mg PO TID Qty: 90 0RF lisinopril 10 mg tablet 10 mg PO DAILY Qty: 90 3RF loratadine [Allergy Relief (loratadine)] 10 mg tablet 10 mg PO DAILY Qty: 90 3RF Rybelsus 3 mg tablet 3 mg PO DAILY 30 Days Qty: 30 0RF Rybelsus 7 mg tablet 7 mg PO DAILY Qty: 30 2RF Rx Instructions: start after 3mg Rx finishes metformin 500 mg tablet extended release 24 hr 500 mg PO BID acyclovir [Zovirax] 30 GM ointment 1 saskia Topical Q4H PRN PRN (Reason: Mouth Sore Pain) Label Comments: 08/22/14 - 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 Rx Instructions: 5% (DME) blood sugar diagnostic Strip 1 ea Miscellaneous BID Qty: 180 3RF Rx Instructions: As directed insulin glargine [Lantus Solostar U-100 Insulin] 100 unit/mL (3 mL) insulin pen 30 unit Sub-Q HS Qty: 5 12RF Rx Instructions: Dx DM 250.02 (DME) pen needle, diabetic [BD Ultra-Fine Taina Pen Needle] 32 gauge x /32 needle 1 ea Miscellaneous DAILY Qty: 100 8RF Rx Instructions: DX e11.65 ultra fine needle (DME) blood sugar diagnostic Strip See Rx Instructions .ROUTE .MEDSUPPLY Qty: 100 12RF Rx Instructions: test bid esomeprazole magnesium [Nexium] 40 mg capsule,delayed release(DR/EC) 40 mg PO DAILY Qty: 90 3RF pravastatin 20 mg tablet 20 mg PO DAILY Qty: 90 3RF glipizide 10 mg tablet 10 mg PO BID Qty: 180 3RF Rx Instructions: lactulose 20 gram/30 mL solution 20 g PO BID PRN (Reason: constipation) Qty: 1200 0RF acetaminophen 500 mg capsule 1,000 mg PO Q8H PRN PRNQty: 90 0RF Discharge Instructions Instructions: Hypomagnesemia (ED), Back Pain (ED) Additional Instructions: follow up with your primary care provider within 1 week especially if pain continues if you feel more ill, have severe worsening pain or fevers return to the emergency department Medical Decision Making 71 yo male who has a hx of dm, htn, hld, who comes in with right lower back pain radiating to the right groin and right leg since yesterday morning. He states he woke up with the symptoms and pain has not allowed him to sleep. He denies fevers, chills, abdomen pain, difficulty urinating or with bowel movements. He localizes the pain to the right lower back and states it shoots down the right leg. He has no rashes, no cva tenderness, no saddle anesthesia, normal distal sensation and pulses and no abdominal tenderness. His pain is reproducible when right lower back is palpated. Suspect musculoskeletal back pain vs djd but given continued pain and doesn't get pain like this chronically will obtain ct renal colic and lumbar reconstructions to evaluate for kidney stone vs compression fracture. No findings on history or physical to suggest cauda equina or spinal epidural abscess. normal sensation and pulses so doubt dissection labs show mag of 1.3 otherwise unremarkable, iv repletion ordered. CT shows no acute findings. HE feels improved with pain medication. He has multiple pain allergies which limits what he can take, discussed with him and he has tolerated oxycodone in the past, will provide short course of this and advised to try and only take it at night for sleep. Advised to f/u with pcp and return precautions given Differential Diagnosis Differential Diagnosis: muscle spasm, strain, kidney stone Medical Records Medical records reviewed: Yes I reviewed the patient's medical records. Imaging Data Radiologic Study: Attestation: I personally reviewed and interpreted this imaging study as follows: Imaging: CT Scan Radiologist's impression: 1. No acute findings of the abdomen or pelvis. 2. No acute urinary tract pathology. No hydronephrosis, calculi, or inflammation. Benign right renal cyst. 3. 2 cm diverticulum of the duodenal sweep at the junction of the 2nd and 3rd portion. 4. Previous cholecystectomy. No acute biliary tract disease. 5. Partial visualization of the liver and spleen without acute features. 6. Lumbar spine degenerative disease. No compression fractures or suspicious bone lesions. 7. Paravertebral soft tissues are unremarkable. Radiologic Study #2: Attestation: I personally reviewed and interpreted this imaging study as follows: Imaging: CT Scan Radiologist's impression: no acute findings lumbar spine ct Lab Data Lab results reviewed: Yes I reviewed the patient's lab results. HPI General Mode of arrival: ambulatory. Date/Time Provider Initiated Documentation: 02/15/22 00:15. Limitations to Documentation: no limitations. Information obtained by: patient. History of Present Illness 71 year old M presents to the emergency department with the chief complaint of right lower back pain, described as moderate, with intensity rated at 6. Quality is described as aching, and is localized to the back. Patient started experiencing this day(s) (1) and it has been constant. No relieving factors improve symptom(s), No exacerbating factors reported . Related Data Home Medications Medication Instructions Recorded Confirmed acyclovir 5 % topical ointment 1 saskia topical Q4H PRN PRN Mouth 09/24/12 02/15/22 (Zovirax) Sore Pain blood sugar diagnostic #180 strips 03/26/19 02/15/22 lisinopril 10 mg tablet 10 mg PO DAILY #90 tabs 04/12/21 02/15/22 insulin glargine 100 unit/mL (3 30 unit (0.3 mL) subcut HS #5 mL 06/05/21 02/15/22 mL) subcutaneous pen (Lantus Solostar U-100 Insulin) pen needle, diabetic 32 gauge x #100 ea 08/22/21 02/15/22 5/32 (BD Ultra-Fine Taina Pen Needle) blood sugar diagnostic #100 ea 10/16/21 02/15/22 loratadine 10 mg tablet (Allergy 10 mg PO DAILY #90 tabs 10/17/21 02/15/22 Relief (loratadine)) Nexium 40 mg capsule,delayed 40 mg PO DAILY #90 caps 10/22/21 02/15/22 release (esomeprazole magnesium) cranberry conc 250 mg-vit C 30 1 tab PO DAILY PRN 10/30/21 02/15/22 mg-Bacillus coagulans 3.5 mg tablet ([facility]) magnesium oxide 500 mg capsule 500 mg PO DAILY 10/30/21 02/15/22 acetaminophen 500 mg capsule 1,000 mg PO Q8H PRN PRN #90 caps 11/07/21 02/15/22 pravastatin 20 mg tablet 20 mg PO DAILY #90 tab-caps 12/21/21 02/15/22 aspirin 81 mg tablet,delayed 81 mg PO DAILY 12/28/21 02/15/22 release (Adult Aspirin Regimen) ibuprofen 600 mg tablet 600 mg PO TID #90 tabs 12/28/21 02/15/22 glipizide 10 mg tablet 10 mg PO BID #180 tab-caps 01/14/22 02/15/22 semaglutide 3 mg tablet (Rybelsus) 3 mg PO DAILY 30 days #30 tabs 01/24/22 02/15/22 semaglutide 7 mg tablet (Rybelsus) 7 mg PO DAILY #30 tabs 01/24/22 02/15/22 metformin 500 mg tablet,extended 500 mg PO BID 02/04/22 02/15/22 release 24 hr lactulose 20 gram/30 mL oral 20 g (30 mL) PO BID PRN 02/05/22 02/15/22 solution constipation #1,200 mL oxycodone 5 mg tablet 5 mg PO Q6H PRN #7 tabs 02/15/22 Previous Rx's Medication Instructions Recorded blood sugar diagnostic #180 strips 03/26/19 lisinopril 10 mg tablet 10 mg PO DAILY #90 tabs 04/12/21 insulin glargine 100 unit/mL (3 30 unit (0.3 mL) subcut HS #5 mL 06/05/21 mL) subcutaneous pen (Lantus Solostar U-100 Insulin) pen needle, diabetic 32 gauge x #100 ea 08/22/21 (BD Ultra-Fine Taina Pen Needle) blood sugar diagnostic #100 ea 10/16/21 loratadine 10 mg tablet (Allergy 10 mg PO DAILY #90 tabs 10/17/21 Relief (loratadine)) Nexium 40 mg capsule,delayed 40 mg PO DAILY #90 caps 10/22/21 release (esomeprazole magnesium) acetaminophen 500 mg capsule 1,000 mg PO Q8H PRN PRN #90 caps 11/07/21 pravastatin 20 mg tablet 20 mg PO DAILY #90 tab-caps 12/21/21 ibuprofen 600 mg tablet 600 mg PO TID #90 tabs 12/28/21 glipizide 10 mg tablet 10 mg PO BID #180 tab-caps 01/14/22 semaglutide 3 mg tablet (Rybelsus) 3 mg PO DAILY 30 days #30 tabs 01/24/22 semaglutide 7 mg tablet (Rybelsus) 7 mg PO DAILY #30 tabs 01/24/22 lactulose 20 gram/30 mL oral 20 g (30 mL) PO BID PRN 02/05/22 solution constipation #1,200 mL oxycodone 5 mg tablet 5 mg PO Q6H PRN #7 tabs 02/15/22 Allergies Allergy/AdvReac Type Severity Reaction Status Date / Time meloxicam Allergy Intermediate rash Verified 02/15/22 00:23 amitriptyline Allergy Mild RASH Verified 02/15/22 00:23 cyclobenzaprine Allergy Mild Skin Rash Verified 02/15/22 00:23 hydrocodone Allergy Mild rash on Verified 02/15/22 00:23 legs influenza virus vaccine, Allergy Mild SWELLING; Verified 02/15/22 00:23 specific JOINT PAIN omeprazole Allergy Mild Skin Rash Verified 02/15/22 00:23 gabapentin Allergy Unknown unknown Verified 02/15/22 00:23 dulaglutide [[facility]] AdvReac Intermediate abd pain Verified 02/15/22 00:23 sertraline AdvReac abdominal Verified 02/15/22 00:23 pain General Stated Complaint: Nk/Back Pain JUAN ANTONIO: 2 Review of Systems All systems reviewed & are unremarkable except as noted in HPI and below Constitutional Constitutional: Denies chills, Denies fever(s) and Denies weakness Eyes Eyes: Denies loss of vision Cardiovascular Cardiovascular: Denies chest pain and Denies dyspnea Respiratory Respiratory: Denies cough and Denies dyspnea Gastrointestinal Gastrointestinal: Denies abdominal pain, Denies nausea and Denies vomiting Integumentary/Breasts Skin/Breast: Denies rash Neurologic Neurologic: Denies loss of vision and Denies weakness PFSH All Active Problems (Updated 02/15/22 @ 01:45 by Yfn Bonds MD) Acute right-sided back pain (Acute) Hypomagnesemia (Acute) COVID-19 (Acute ~12/25/21) Status post revision of total replacement of left knee (Acute 11/07/21) Seasonal allergies (Acute) Loosening of prosthesis of left total knee replacement (Acute) Painful orthopaedic hardware (Acute) Benign prostatic hyperplasia (Chronic) Hyperlipidemia (Acute) Hypertension (Chronic) 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) FOLLOWED BY OPTICAL EXPRESSIONS (SEE SCANNED) Polyp of colon (Chronic 05/22/02) Primary osteoarthritis of right knee (Chronic 07/24/15) Gastric motor function disorder (Acute) Erythema nodosum (Acute 05/22/01) Laryngitis from reflux of stomach acid (Acute) Trigeminal neuralgia (Acute) Gynecomastia (Acute) Diabetes mellitus (Chronic) Insomnia (Acute) Medical History Depression Diverticulosis of colon Hiatal hernia EGD 2003 Kidney stone left Obesity Pancreatitis Reflux esophagitis (06/30/15) Type II diabetes mellitus, uncontrolled Surgical History Cholecystectomy (~2002) and pancreatitis Colonoscopy - MAC 2002 and 2007, 07/03/18 Dr John Lambert, [facility], normal, repeat in 10 years. mg EGD - MAC (03/12/17) Endoscopy 2004, 2011,2016 Barium swallow 2016 H/O arthroscopic knee surgery b/l Dr. Mock H/O colonoscopy (07/03/18) diverticulosis, otherwise normal, repeat 10 years, Dr John Lambert History of arthroscopy of left knee (02/27/21) Synovectomy of left TKA Hx of total knee replacement left Family History Mother Essential hypertension Stroke Father Personal history of malignant neoplasm STOMACH Brother Diabetes Personal history of malignant neoplasm Grandmother Personal history of malignant neoplasm Social History Smoking/Tobacco Use Status: Former Tobacco Use tobacco type: cigarettes Quit Date: 06/23/85 Tobacco: How many years used: 15 Second Hand Exposure: Yes Smoking risk assessment performed?: Yes Alcohol Intake: former Drug use: Never Substance use type: does not use Details: pt. states he doesnt use much alcohol because of diabetes Household members: friend(s) Housing: house Communication Needs: None Do you need help understanding health information?: Never Pets and animals: Yes Pets and animals: cat(s) and dog(s) Sexually active: Yes Do you think of yourself as: lesbian/harris/homosexual Current gender identity: male What is your relationship status?: living with partner How often do you talk on the phone with friends or family?: three or more times per week How often do you get together with friends or relatives?: once per week Do you belong to any clubs or organized social groups?: yes Panel score (0-1 are the most socially isolated patients): 3 What type of physical activity do you participate in: bicycling Duration: < 15 minutes/day Frequency: 1-2 times per week Galilea/Amish: No preference Special galilea needs: No Seatbelt use: never 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 Do you feel safe at home: Yes Do you feel safe in your relationship?: Yes Exam Const General: no acute distress Orientation: alert HENMT Head: normal to inspection Ears: external ears normal General nose exam: external nose normal Mouth: moist mucous membranes Eyes General: appearance normal, both eyes and all related structures Neck Neck: normal visual inspection Resp Effort & Inspection: normal respiratory effort and able to speak in complete sentences Cardio Rate: regular rate GI Palpation: soft Back/Spine/Pelvis Back: no CVA tenderness Skin General skin exam: no rashes or lesions noted Neuro General: patient alert and patient oriented x3 Extrem General: normal to inspection Psych Mental Status: mental status grossly normal Course Vital Signs Vital signs: Vital Signs Temperature 36.8 C 02/15/22 00:18 Pulse 73 02/15/22 00:18 Respiratory Rate 16 02/15/22 00:18 Blood Pressure 141/71 H 02/15/22 00:18 Pulse Oximetry 98 02/15/22 00:18 Temperature 36.8 C 02/15/22 00:18 Temperature Source Temporal Artery Scan 02/15/22 00:18 Pulse 73 02/15/22 00:18 Respiratory Rate 16 02/15/22 00:18 Respiratory Effort 02/15/22 00:18 Blood Pressure 141/71 H 02/15/22 00:18 Blood Pressure Position Sitting 02/15/22 00:18 Pulse Oximetry 98 02/15/22 00:18 Oxygen Delivery Method Room Air 02/15/22 00:18 Oxygen Flow Rate 0 02/15/22 00:18 Pain Level 6 02/15/22 00:18
[2022-02-15 00:50] LABS: Bilirubin Negative (Negative); Blood Negative (Negative); Clarity Clear (Clear); Glucose 500 mg/dL (Negative); Ketones Negative (Negative); Leukocyte Esterase Negative (Negative); Nitrite Negative (Negative); Specific Gravity >= 1.030 (1.005-1.025)
[2022-02-15 00:55] LABS: Abs Immature Grans 0.03 10^3/uL (0.0-0.06); Absolute Basophil Count 0.01 10^3/uL (0.0-0.2); Absolute Eosinophil Count 0.17 10^3/uL (0.0-0.7); Absolute Lymphocyte Count 2.55 10^3/uL (1.2-3.4); Basophils % 0.1; Eosinophils % 2.5; HCT 40.9 % (40.0-50.0); HGB 13.8 g/dL (13.5-17.5); Immature Grans % 0.4; Lymphocytes % 37.2; MCH 29.1 pg (27.0-33.0); MCHC 33.7 % (32.0-36.0); MCV 86 fL (80-95); Monocytes % 10.2; Neutrophils % 49.6; Platelet Count 207 10^3/uL (130-400); RBC 4.74 10^6/uL (4.36-5.78); RDW-SD 40.3 fL; WBC 6.86 10^3/uL (4.4-10.8)
[2022-02-15] MEDS: Normal Saline 1,000 ML 1000 ML IV (00:55)
[2022-02-15] MEDS: HYDROmorphone 2 MG/ML SYR 1 MG IVP (01:00)
[2022-02-15] MEDS: Normal Saline Flush 10 ML SYR IVP (01:00)
[2022-02-15 01:13] LABS: ALT 20 U/L (16-63); AST 6 U/L (15-37); Albumin 3.5 g/dL (3.4-5.0); Alkaline Phosphatase 75 U/L (46-116); Anion Gap 8.9 mmol/L (3-11); BUN 20 mg/dL (7-18); Bilirubin, Total 0.2 mg/dL (0.2-1.0); CO2 26.1 mmol/L (21.0-32.0); CREATININE 0.9 mg/dL (0.70-1.30); Calcium 8.6 mg/dL (8.5-10.1); Chloride 105 mmol/L (98-107); Glucose 124 mg/dL (74-106); Lipase 140 U/L (73-393); Magnesium 1.3 mg/dL (1.8-2.4); Potassium 3.6 mmol/L (3.5-5.1); Sodium 140 mmol/L (136-145); Total Protein 7.2 g/dL (6.4-8.2)
[2022-02-15] MEDS: MAGNESIUM SULFATE 1 GM/100 ML BAG IVPB (02:05)
--- NOTE | 2022-02-15 02:25 | DI.VRAD_ITS ---
PROCEDURE INFORMATION: Exam: CT Abdomen And Pelvis Without Contrast Exam date and time: 02/15/2022 1:10 AM Age: 71 years old Clinical indication: Other: RT lower back pain; Patient HX: Renal colic protocol with L spine recons TECHNIQUE: Imaging protocol: Computed tomography of the abdomen and pelvis without contrast. COMPARISON: CT CHEST PE CTA 05/04/2019 4:46 PM FINDINGS: Lungs: Visualized portion the posterior lung bases are clear. Pleural spaces: No pleural effusion. Liver: Visible portion of the liver is unremarkable. Gallbladder and bile ducts: Previous cholecystectomy. No biliary dilatation. Pancreas: Mild pancreatic atrophy. No acute inflammation. Spleen: Visible portion of the spleen is unremarkable. Adrenal glands: The adrenal glands are normal in size and contour bilaterally. Kidneys and ureters: No acute renal pathology. Right midpole lateral exophytic 13 mm low-attenuation focus consistent with a benign cyst. No further imaging follow-up recommended based on MIPS criteria. Stomach and bowel: Gastric contour morphology are unremarkable. Small hiatal hernia. No acute features. Duodenal sweep with a diverticulum at the junction of the 2nd and 3rd portion measuring 2.2 cm. Small bowel is otherwise unremarkable. Normal course and caliber. No edema. No obstruction. Large bowel is unremarkable. No acute disease. Diverticulosis without acute diverticulitis. No edema. No mass. Formed fecal contents. Appendix: No evidence of appendicitis. Intraperitoneal space: No free fluid. No free air. Vasculature: Unremarkable. No abdominal aortic aneurysm. Lymph nodes: Unremarkable. No enlarged lymph nodes. Urinary bladder: Unremarkable as visualized. Under distended at time of imaging limiting evaluation. Reproductive: Unremarkable as visualized. Bones/joints: Degenerative lumbar spine. Severe degenerative disc disease at L5-S1. No compression fractures. No neoplastic features. Soft tissues: Small fat containing umbilical hernia. No acute strangulation. Paravertebral soft tissues are unremarkable. IMPRESSION: 1. No acute findings of the abdomen or pelvis. 2. No acute urinary tract pathology. No hydronephrosis, calculi, or inflammation. Benign right renal cyst. 3. 2 cm diverticulum of the duodenal sweep at the junction of the 2nd and 3rd portion. 4. Previous cholecystectomy. No acute biliary tract disease. 5. Partial visualization of the liver and spleen without acute features. 6. Lumbar spine degenerative disease. No compression fractures or suspicious bone lesions. 7. Paravertebral soft tissues are unremarkable. Dictated and Authenticated by: Fito Jameson MD. Ordering:CAROLYNN Coulter MD
[2022-02-15 03:10] VITALS: BP 121/58; PULSE 56; RESP 16; TEMP 36.8; O2SAT 97
--- NOTE | 2022-02-15 04:31 | DI.VRAD_ITS ---
PROCEDURE INFORMATION: Exam: CT Lumbar Spine Without Contrast Exam date and time: 02/15/2022 1:10 AM Age: 71 years old Clinical indication: Other: RT lower back pain TECHNIQUE: Imaging protocol: Computed tomography of the lumbar spine without contrast. COMPARISON: No relevant prior studies available. FINDINGS: Bones/joints: No acute fracture or posttraumatic subluxation. Mild arthritic change within the sacroiliac joints without widening or erosion. No lytic or blastic lesions. T12-L1: T12-L1 disc space appears unremarkable without disc herniation or spinal stenosis. Mild hypertrophic facets without subluxation. No neural foraminal narrowing. L1-L2: L1-L2 disc space appears unremarkable without disc herniation or spinal stenosis. Mild hypertrophic facets without subluxation. No neural foraminal narrowing. L2-L3: L2-L3 disc space appears unremarkable without disc herniation or spinal stenosis. Mild hypertrophic facets without subluxation. No neural foraminal narrowing. L3-L4: L3-L4 disc space appears unremarkable without disc herniation or spinal stenosis. Mild hypertrophic facets without subluxation. No neural foraminal narrowing. L4-L5: L4-L5 disc degeneration with diffuse bulging. No extruded fragment. Hypertrophic facets with ligamentous thickening with minimal central stenosis. Mild bilateral hypertrophic neural foraminal narrowing. L5-S1: L5-S1 advanced degenerative disc disease with disc osteophyte complex minimally impressing upon the thecal sac. No extruded fragment with minimal central stenosis. Hypertrophic facets without significant subluxation. Bilateral hypertrophic neural foraminal narrowing. Gallbladder and bile ducts: Surgical clips from prior cholecystectomy. Vasculature: Aortic calcification without aneurysm Soft tissues: Paravertebral soft tissues unremarkable. IMPRESSION: 1. No acute fracture or posttraumatic subluxation. 2. Mild degenerative changes most pronounced L5-S1 and L4-L5 as described. Dictated and Authenticated by: Lokesh Melissa MD. Ordering:CAROLYNN Coulter MD
== END 2022-02-15 03:15 | disposition home or self-care (01) ==
PROVIDERS: Emergency Provider Emergency Medicine; PCP Family Medicine
DX: M54.50 Low back pain, unspecified (principal); E83.42 Hypomagnesemia; I10 Essential (primary) hypertension; E11.9 Type 2 diabetes mellitus without complications; Z87.891 Personal history of nicotine dependence
CPT/HCPCS: 36415; 80053; 83690; 96361; 96365; 96375; 99284; 74176; 81003; 83735; 85025; J1170; J3475

== ENCOUNTER 2022-03-28 20:23 | Emergency (ER) | payer MEDICARE, MEDICAID, SELFPAY ==
[2022-03-28 20:27] VITALS: BP 175/63; PULSE 80; RESP 18; TEMP 36.8; O2SAT 98
--- NOTE | 2022-03-28 21:11 | ED.GENADUL_ITS ---
Discharge Plan Disposition Patient Disposition: HOME Condition: Stable Discharge Details Clinical Impression: Epicondylitis elbow, medial Primary Care Provider: Bryan Isaacs ED Provider: Peewee Hoskins Home Meds and New Rx's Prescriptions: Continued magnesium oxide 500 mg capsule 500 mg PO DAILY Cranberry [facility] 250-30-3.5 mg tablet 1 tab PO DAILY PRN aspirin [Adult Aspirin Regimen] 81 mg tablet,delayed release (DR/EC) 81 mg PO DAILY ibuprofen 600 mg tablet 600 mg PO TID Qty: 90 0RF loratadine [Allergy Relief (loratadine)] 10 mg tablet 10 mg PO DAILY Qty: 90 3RF Rybelsus 7 mg tablet 7 mg PO DAILY Qty: 30 2RF Hold Instructions: Adverse Reaction Rx Instructions: start after 3mg Rx finishes acyclovir [Zovirax] 30 GM ointment 1 saskia Topical Q4H PRN PRN (Reason: Mouth Sore Pain) Label Comments: 08/22/14 - 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 Rx Instructions: 5% (DME) blood sugar diagnostic Strip 1 ea Miscellaneous BID Qty: 180 3RF Rx Instructions: As directed insulin glargine [Lantus Solostar U-100 Insulin] 100 unit/mL (3 mL) insulin pen 30 unit Sub-Q HS Qty: 5 12RF Rx Instructions: Dx DM 250.02 (DME) pen needle, diabetic [BD Ultra-Fine Taina Pen Needle] 32 gauge x 5/32 needle 1 ea Miscellaneous DAILY Qty: 100 8RF Rx Instructions: DX e11.65 ultra fine needle (DME) blood sugar diagnostic Strip See Rx Instructions .ROUTE .MEDSUPPLY Qty: 100 12RF Rx Instructions: test bid esomeprazole magnesium [Nexium] 40 mg capsule,delayed release(DR/EC) 40 mg PO DAILY Qty: 90 3RF pravastatin 20 mg tablet 20 mg PO DAILY Qty: 90 3RF glipizide 10 mg tablet 10 mg PO BID Qty: 180 3RF Rx Instructions: lactulose 20 gram/30 mL solution 20 g PO BID PRN (Reason: constipation) Qty: 1200 0RF metformin 500 mg tablet extended release 24 hr 1,000 mg PO BID lisinopril 10 mg tablet 10 mg PO DAILY Qty: 90 3RF acetaminophen 500 mg capsule 1,000 mg PO Q8H PRN PRNQty: 90 0RF oxycodone 5 mg tablet 5 mg PO Q6H PRNQty: 7 0RF Discharge Instructions Instructions: Tennis Elbow (ED) Additional Instructions: Either use the band that you have at home or purchase another forearm band to help with your discomfort. Minimize or reduce repetitive motion of your left upper extremity and continue to take reub-jyb-gxctisg pain medication such as Tylenol/acetaminophen as needed for discomfort. If you have any new or worsening symptoms or drastic change or spread of your symptoms return to the emergency department for reassessment otherwise follow-up with your primary care provider if not improving in the next 1 to 2 weeks. Referrals: Bryan Isaacs MD [Primary Care Provider] - Discharge Data Discharge Date/Time-TO BE ENTERED AT DEPARTURE: 03/28/22 21:29 Medical Decision Making Patient presenting to the emergency department for chief complaint of left hand numbness and tingling with slight discomfort. He states that this started approximately an hour and a half ago. Patient denies any other symptoms but does report that 2 days ago he did receive his COVID booster shot. Pattern of symptoms seems to be in the mid to distal ulnar nerve pattern. Strength se nsation and movement along with cap refill are all intact. Patient does have slight tenderness to the medial epicondyle. Further discussion shows that patient does have slight repetitive motion from counting bingo tickets. Have suspicion that this may be the source of patient's discomfort. Patient has no other symptoms to suggest CVA, [place], or other neurological dysfunction. Symptoms were relieved when I put pressure on patient's forearm. Patient encouraged to get an ibkh-ogh-[id number] band for symptom relief and take acetaminophen as needed for further pain control. Patient was offered pain meds in the emergency department but refused and stated he would take some at home. Encourage patient to follow-up with primary care provider if not improving over the next week. After discussion of diagnosis and plan of care patient has no further needs, questions, or concerns and states clear understanding to return to the emergency department for any worsening symptoms. This documentation was generated using [employer] system, please disregard any oddities of phrase or misspellings. HPI General Mode of arrival: ambulatory . Date/Time Provider Initiated Documentation: 03/28/22 20:44 . Limitations to Documentation: no limitations . Information obtained by: patient and RN notes reviewed . History of Present Illness 71 year old M presents to the emergency department with the chief complaint of left forearm pain , described as mild, with intensity rated at 5. Quality is described as aching, and is localized to the left and upper extremity. Patient reports no radiation. Patient started experiencing this minute(s) (90) and it has been constant. No relieving factors improve symptom(s), No exacerbating factors reported . Patient notes no other symptoms.. Patient did receive the following treatments prior to arrival, none Related Data Home Medications Medication Instructions Recorded Confirmed acyclovir 5 % topical ointment 1 saskia topical Q4H PRN PRN Mouth 09/24/12 02/15/22 (Zovirax) Sore Pain blood sugar diagnostic #180 strips 03/26/19 02/15/22 insulin glargine 100 unit/mL (3 30 unit (0.3 mL) subcut HS #5 mL 06/05/21 02/15/22 mL) subcutaneous pen (Lantus Solostar U-100 Insulin) pen needle, diabetic 32 gauge x #100 ea 08/22/21 02/15/22/32 (BD Ultra-Fine Taina Pen Needle) blood sugar diagnostic #100 ea 10/16/21 02/15/22 loratadine 10 mg tablet (Allergy 10 mg PO DAILY #90 tabs 10/17/21 02/15/22 Relief (loratadine)) Nexium 40 mg capsule,delayed 40 mg PO DAILY #90 caps 10/22/21 02/15/22 release (esomeprazole magnesium) cranberry conc 250 mg-vit C 30 1 tab PO DAILY PRN 10/30/21 02/15/22 mg-Bacillus coagulans 3.5 mg tablet (Cranberry [facility]) magnesium oxide 500 mg capsule 500 mg PO DAILY 10/30/21 02/15/22 acetaminophen 500 mg capsule 1,000 mg PO Q8H PRN PRN #90 caps 11/07/21 02/15/22 pravastatin 20 mg tablet 20 mg PO DAILY #90 tab-caps 12/21/21 02/15/22 aspirin 81 mg tablet,delayed 81 mg PO DAILY 12/28/21 02/15/22 release (Adult Aspirin Regimen) ibuprofen 600 mg tablet 600 mg PO TID #90 tabs 12/28/21 02/15/22 glipizide 10 mg tablet 10 mg PO BID #180 tab-caps 01/14/22 02/15/22 semaglutide 7 mg tablet (Rybelsus) 7 mg PO DAILY #30 tabs 01/24/22 02/15/22 lactulose 20 gram/30 mL oral 20 g (30 mL) PO BID PRN 02/05/22 02/15/22 solution constipation #1,200 mL oxycodone 5 mg tablet 5 mg PO Q6H PRN #7 tabs 02/15/22 metformin 500 mg tablet,extended 1,000 mg PO BID 02/18/22 release 24 hr lisinopril 10 mg tablet 10 mg PO DAILY #90 tabs 03/28/22 Previous Rx's Medication Instructions Recorded blood sugar diagnostic #180 strips 03/26/19 insulin glargine 100 unit/mL (3 30 unit (0.3 mL) subcut HS #5 mL 06/05/21 mL) subcutaneous pen (Lantus Solostar U-100 Insulin) pen needle, diabetic 32 gauge x #100 ea 08/22/21 (BD Ultra-Fine Taina Pen Needle) blood sugar diagnostic #100 ea 10/16/21 loratadine 10 mg tablet (Allergy 10 mg PO DAILY #90 tabs 10/17/21 Relief (loratadine)) Nexium 40 mg capsule,delayed 40 mg PO DAILY #90 caps 10/22/21 release (esomeprazole magnesium) acetaminophen 500 mg capsule 1,000 mg PO Q8H PRN PRN #90 caps 11/07/21 pravastatin 20 mg tablet 20 mg PO DAILY #90 tab-caps 12/21/21 ibuprofen 600 mg tablet 600 mg PO TID #90 tabs 12/28/21 glipizide 10 mg tablet 10 mg PO BID #180 tab-caps 01/14/22 semaglutide 7 mg tablet (Rybelsus) 7 mg PO DAILY #30 tabs 01/24/22 lactulose 20 gram/30 mL oral 20 g (30 mL) PO BID PRN 02/05/22 solution constipation #1,200 mL oxycodone 5 mg tablet 5 mg PO Q6H PRN #7 tabs 02/15/22 lisinopril 10 mg tablet 10 mg PO DAILY #90 tabs 03/28/22 Allergies Allergy/AdvReac Type Severity Reaction Status Date / Time meloxicam Allergy Intermediate rash Verified 02/15/22 00:23 amitriptyline Allergy Mild RASH Verified 02/15/22 00:23 cyclobenzaprine Allergy Mild Skin Rash Verified 02/15/22 00:23 hydrocodone Allergy Mild rash on Verified 02/15/22 00:23 legs influenza virus vaccine, Allergy Mild SWELLING; Verified 02/15/22 00:23 specific JOINT PAIN omeprazole Allergy Mild Skin Rash Verified 02/15/22 00:23 gabapentin Allergy Unknown unknown Verified 02/15/22 00:23 dulaglutide [From Trulicity] AdvReac Intermediate abd pain Verified 02/15/22 00:23 sertraline AdvReac abdominal Verified 02/15/22 00:23 pain General Stated Complaint: Orthopedic JUAN ANTONIO: 4 Review of Systems Constitutional Constitutional: Denies headache(s) Eyes Eyes: Denies change in vision ENT Ears, Nose, Mouth, and Throat: Denies headache(s) Cardiovascular Cardiovascular: Denies chest pain and Denies syncope Musculoskeletal Musculoskeletal: Reports as per HPI, Denies arthralgias, Denies joint swelling, Denies limited range of motion, Denies muscle weakness, Denies numbness and Reports tingling Integumentary/Breasts Skin/Breast: Denies unusual bruising and Denies wounds Neurologic Neurologic: Denies syncope, Denies headache(s), Denies numbness and Reports tingling PFSH All Active Problems (Updated 03/28/22 @ 21:14 by Peewee Hoskins NP) Epicondylitis elbow, medial (Acute) COVID-19 (Acute ~12/25/21) Status post revision of total replacement of left knee (Acute 11/07/21) Seasonal allergies (Acute) Loosening of prosthesis of left total knee replacement (Acute) Painful orthopaedic hardware (Acute) Benign prostatic hyperplasia (Chronic) Hyperlipidemia (Acute) Hypertension (Chronic) 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) FOLLOWED BY OPTICAL EXPRESSIONS (SEE SCANNED) Polyp of colon (Chronic 05/22/02) Primary osteoarthritis of right knee (Chronic 07/24/15) Gastric motor function disorder (Acute) Erythema nodosum (Acute 05/22/01) Laryngitis from reflux of stomach acid (Acute) Trigeminal neuralgia (Acute) Gynecomastia (Acute) Diabetes mellitus (Chronic) Insomnia (Acute) Medical History Depression Diverticulosis of colon Hiatal hernia EGD 2003 Kidney stone left Obesity Pancreatitis Reflux esophagitis (06/30/15) Type II diabetes mellitus, uncontrolled Surgical History Cholecystectomy (~2002) and pancreatitis Colonoscopy - MAC 2002 and 2007, 07/03/18 Dr John Lambert, [facility], normal, repeat in 10 years. mg EGD - MAC (03/12/17) Endoscopy 2004, 2011,2016 Barium swallow 2015 H/O arthroscopic knee surgery b/l Dr. Mock H/O colonoscopy (07/03/18) diverticulosis, otherwise normal, repeat 10 years, Dr John Lambert History of arthroscopy of left knee (02/27/21) Synovectomy of left TKA Hx of total knee replacement left Family History Mother Essential hypertension Stroke Father Personal history of malignant neoplasm STOMACH Brother Diabetes Personal history of malignant neoplasm Grandmother Personal history of malignant neoplasm Social History Smoking/Tobacco Use Status: Former Tobacco Use tobacco type: cigarettes Quit Date: 06/23/85 Tobacco: How many years used: 15 Second Hand Exposure: Yes Smoking risk assessment performed?: Yes Alcohol Intake: former Drug use: Never Substance use type: does not use Details: pt. states he doesnt use much alcohol because of diabetes Household members: friend(s) Housing: house Communication Needs: None Do you need help understanding health information?: Never Pets and animals: Yes Pets and animals: cat(s) and dog(s) Sexually active: Yes Do you think of yourself as: lesbian/harris/homosexual Current gender identity: male What is your relationship status?: living with partner How often do you talk on the phone with friends or family?: three or more times per week How often do you get together with friends or relatives?: once per week Do you belong to any clubs or organized social groups?: yes Panel score (0-1 are the most socially isolated patients): 3 What type of physical activity do you participate in: bicycling Duration: < 15 minutes/day Frequency: 1-2 times per week Galilea/Hinduism: No preference Special galilea needs: No Seatbelt use: never 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 Do you feel safe at home: Yes Do you feel safe in your relationship?: Yes Exam Const General: cooperative, healthy appearing, no acute distress and well groomed Orientation: alert, awake and oriented x3 HENAZ Head: normal to inspection Ears: hearing grossly normal bilaterally Eyes Visual Gould: normal visual gould by confrontation Alignment and Position: alignment normal Periorbital: periorbital findings normal Eyelids: eyelids normal Sclera: sclerae normal Pupils: PERRL EOM: EOM intact bilaterally Neck Neck: normal visual inspection, full ROM and no meningeal signs Resp Effort & Inspection: normal respiratory effort and able to speak in complete sentences Auscultation: clear to auscultation bilaterally Cardio Rate: regular rate Rhythm: regular rhythm Heart Sounds: S1 normal and S2 normal Neuro General: patient alert, patient awake, patient oriented x3, gait normal, tone normal, moves all extremities and not confused Cognition: normal cognition Speech: speech normal Motor: muscle tone normal throughout and no movement abnormalities noted Sensory Exam: no sensory deficits noted Extrem General: normal to inspection and normal exam except as noted Left upper extremity: elbow/forearm Details: normal to inspection, tenderness Location: of the medial epicondyle, normal ROM and distal pulses intact; no def ormity, wrist Details: normal to inspection, normal ROM, normal vascular exam, radial pulse present, Tinel's negative and Phalen's negative and hand Details: normal to inspection, normal capillary refill, neuromotor exam normal, neurosensory exam normal, tendon exam normal and normal ROM of fingers; no tenderness Course Vital Signs Vital signs: Vital Signs Temperature 36.8 C 03/28/22 20:27 Pulse 80 03/28/22 20:27 Respiratory Rate 18 03/28/22 20:27 Blood Pressure 175/63 H 03/28/22 20:27 Pulse Oximetry 98 03/28/22 20:27 Temperature 36.8 C 03/28/22 20:27 Temperature Source Tympanic 03/28/22 20:27 Pulse 80 03/28/22 20:27 Respiratory Rate 18 03/28/22 20:27 Respiratory Effort 03/28/22 20:30 Blood Pressure 175/63 H 03/28/22 20:27 Blood Pressure Position Supine 03/28/22 20:27 Pulse Oximetry 98 03/28/22 20:27 Oxygen Delivery Method Room Air 03/28/22 20:27 Oxygen Flow Rate 0 03/28/22 20:27 Pain Level 2 03/28/22 20:27
== END 2022-03-28 21:29 | disposition home or self-care (01) ==
PROVIDERS: Emergency Provider Nurse Practitioner Family; PCP Family Medicine
DX: M77.02 Medial epicondylitis, left elbow (principal); R20.0 Anesthesia of skin; E11.9 Type 2 diabetes mellitus without complications; Z79.4 Long term (current) use of insulin; Z79.82 Long term (current) use of aspirin; Z79.84 Long term (current) use of oral hypoglycemic drugs; Z87.891 Personal history of nicotine dependence
CPT/HCPCS: 99281; 99282

== ENCOUNTER 2022-04-24 04:12 | Outpatient (CLI) | payer MEDICARE, MEDICAID, SELFPAY ==
[2022-04-24 13:57] LABS: COMMENT (LAB VIEW ONLY) 121.48 mg/dL; Microalb ug/mg Crea 7.1 ug/mg Cr
== END 2022-04-24 04:13 | disposition home or self-care (01) ==
PROVIDERS: PCP Family Medicine; Visit Provider Family Medicine
DX: E11.9 Type 2 diabetes mellitus without complications (principal)
CPT/HCPCS: 82043; 82570

== ENCOUNTER 2022-04-29 03:05 | Outpatient (CLI) | payer MEDICARE, MEDICAID, SELFPAY | END 2022-04-29 03:06 | disposition home or self-care (01) | LOC: LOS 03:05 | PROVIDERS: PCP Family Medicine; Visit Provider Nurse Practitioner Family | DX: N40.0 Benign prostatic hyperplasia without lower urinary tract symptoms (principal); Z12.5 Encounter for screening for malignant neoplasm of prostate | CPT/HCPCS: 36415; 84153 ==

== ENCOUNTER 2022-09-16 12:08 | Outpatient (CLI) | payer MEDICARE, MEDICAID, SELFPAY ==
[2022-09-16 14:31] LABS: Hemoglobin A1C 8.1 % (<5.7)
== END 2022-09-16 12:09 | disposition home or self-care (01) ==
LOC: LOS 12:09
PROVIDERS: PCP Family Medicine; Visit Provider Family Medicine
DX: E83.42 Hypomagnesemia (principal); R73.09 Other abnormal glucose
CPT/HCPCS: 36415; 83036; 83735

== ENCOUNTER 2022-11-21 10:51 | Outpatient (CLI) | payer MEDICARE, MEDICAID, SELFPAY ==
--- NOTE | 2022-11-21 10:15 | DI.RAD_ITS ---
Exam(s) XR KNEE LT 2V AP,LAT EXAM: XR KNEE LT 2V AP,LAT CLINICAL HISTORY: annual f/u REVISION L TKA. TECHNIQUE: 2D digital imaging was performed. COMPARISON: CR XR KNEE LT 2V AP,LAT from 08/29/2021 CR XR KNEE LT 2V AP,LAT from 11/08/2021 CR XR KNEE LT 1V from 11/22/2021 CR XR STANDING ALIGNMENT from 11/22/2021 FINDINGS: 3 views The appearance of the components of the revised knee prosthesis appears stable. No fracture or loose diego evident. IMPRESSION: Satisfactory stable appearance of the revised left knee prosthesis DATA REPOSITORY: RADIATION DOSE DELIVERED:
== END 2022-11-21 10:52 | disposition home or self-care (01) ==
LOC: DIORS 10:51
PROVIDERS: PCP Family Medicine; Referring Provider Family Medicine; Visit Provider Student in an Organized Health Care Education/Training Program
DX: Z96.652 Presence of left artificial knee joint (principal); Z47.1 Aftercare following joint replacement surgery; M25.662 Stiffness of left knee, not elsewhere classified; M25.462 Effusion, left knee
CPT/HCPCS: 99213; 73560

== ENCOUNTER 2023-02-10 05:02 | Outpatient (CLI) | payer MEDICARE, MEDICAID, SELFPAY ==
[2023-02-11 09:16] LABS: PSA, Screening 0.9 ng/mL (<=6.5)
== END 2023-02-10 05:03 | disposition home or self-care (01) ==
LOC: LOS 05:02
PROVIDERS: PCP Family Medicine; Visit Provider Nurse Practitioner Family
DX: N40.0 Benign prostatic hyperplasia without lower urinary tract symptoms (principal); Z12.5 Encounter for screening for malignant neoplasm of prostate
CPT/HCPCS: 36415; 84153

== ENCOUNTER → 2023-02-17 09:25 | Outpatient (BNVA) | payer MEDICARE, MEDICAID, SELFPAY | PROVIDERS: PCP Family Medicine; Referring Provider Family Medicine; Visit Provider Surgery | DX: R19.8 Other specified symptoms and signs involving the digestive system and abdomen (principal); K22.70 Barrett's esophagus without dysplasia; K44.9 Diaphragmatic hernia without obstruction or gangrene; K57.30 Diverticulosis of large intestine without perforation or abscess without bleeding | CPT/HCPCS: 99214; 99242 ==

== ENCOUNTER 2023-02-28 07:01 | Day surgery (SDC) | payer MEDICARE, MEDICAID, SELFPAY ==
--- NOTE | 2023-02-27 12:15 | W.PM.ENDDOP ---
Date of service: 02/28/23 Time of Service: 08:42 Endoscopy Report DATE OF PROCEDURE: 02/28/23 PRE-OP DIAGNOSIS: Graham's esophagus POST-OP DIAGNOSIS: other (2 cm sliding-type hiatal hernia and Graham's esophagus island at 2:00) SURGEON: Joan Lopez ANESTHESIA TYPE: General:No Airway ESTIMATED BLOOD LOSS: 1 PATHOLOGY: other COMPLICATIONS: None DISPOSITION: same day PROCEDURE DESCRIPTION: After informed consent was obtained the patient was take to the procedure room and placed in a supine position. Monitors were applied and a time out was done. The patients name, date of , procedure type, allergies to medications and metal in their body was reviewed. A bite block was placed and the patient was sedated. Once sed normal normal ated and comfortable the gastroscope was advanced through the oropharynx which was grossly normal into the esophagus. The proximal and mid-esophagus were normal. There are no erosions/varices/diverticula in the distal esophagus. He does have 1 island of Graham's at 2 o'clock position 0.5 cm in length. He does have a sliding-type hiatal hernia 2 cm in length. The scope was advanced into the stomach and through the pylorus into the 3rd portion of the duodenum. The duodenum was noted to be normal. Biopsies were done, all specimens are retrieved and no bleeding is noted.. The scope was retracted back into the stomach and biopsies were done to rule out H. pylori. There were no or gastritis ulcers. The scope was retroflexed. The cardia and fundus were noted to be normal. The scope was retracted back into the esophagus and biopsies were done of the GE junction and distal esophagus. The Z line was irregular. The GE junction was at 30 cm. The scope was removed and the patient was woken up and taken back to [facility] in stable condition.
--- NOTE | 2023-02-27 12:16 | PDOC.DSDIS_ITS ---
Date of service: 02/28/23 Time of Service: 08:45 Discharge Plan Disposition Patient Disposition: Home Condition: Good Discharge Details Reason For Visit: stomach scope Attending Provider: Joan Lopez Primary Care Provider: Bryan Isaacs Home Meds and New Rx's Prescriptions: No Action glipizide 5 mg tablet 5 mg PO BID Qty: 180 3RF Jardiance 25 mg tablet 25 mg PO QAM Qty: 90 3RF polyethylene glycol 3350 17 gram powder in packet 17 g PO DAILY PRN (Reason: constipation) Qty: 100 3RF magnesium oxide 500 mg capsule 500 mg PO BID insulin glargine [Lantus Solostar U-100 Insulin] 100 unit/mL (3 mL) insulin pen 30 unit Sub-Q HS Qty: 5 12RF Rx Instructions: Dx DM 250.02 Myrbetriq 25 mg tablet extended release 24 hr 25 mg PO DAILY metformin 500 mg tablet extended release 24 hr 500 mg PO BID (DME) blood sugar diagnostic Strip 1 ea Miscellaneous BID Qty: 180 3RF Rx Instructions: As directed lactulose 20 gram/30 mL solution 20 g PO BID PRN (Reason: constipation) Qty: 1200 0RF lisinopril 10 mg tablet 10 mg PO DAILY Qty: 90 3RF (DME) blood sugar diagnostic Strip See Rx Instructions .ROUTE .MEDSUPPLY Qty: 100 12RF Rx Instructions: test bid (DME) pen needle, diabetic [BD Ultra-Fine Taina Pen Needle] 32 gauge x 5/32 n eedle 1 ea Miscellaneous DAILY Qty: 100 3RF Rx Instructions: DX e11.65 ultra fine needle test once/day esomeprazole magnesium [Nexium] 40 mg capsule,delayed release(DR/EC) 40 mg PO DAILY Qty: 90 3RF loratadine [Allergy Relief (loratadine)] 10 mg tablet 10 mg PO DAILY Qty: 90 3RF pravastatin 20 mg tablet 20 mg PO DAILY Qty: 90 3RF acyclovir [Zovirax] 5 % ointment 1 applic Topical .q 4h PRN (Reason: Mouth Sore Pain) Qty: 10 5RF Rx Instructions: 5% Discharge Instructions Additional Instructions: Post EGD Instruction ?You had anesthesia for your EGD/stomach scope today.? For your safety, please do the following for the next twenty-four (24) hours: Do Not operate a motor vehicle (car, truck, motorcycle, etc.) Do Not drink alcoholic beverages or use any recreational drugs for the first 24 hours or while taking pain medications. The medications in your body may have a reaction that can be dangerous. Do Not make any important decisions or sign any important papers You have just had a gastroscopy (EGD) or upper GI tract examination. It is important for your smooth recovery that you carefully follow the recommendations below. Do not hesitate to call if any questions should arise about your anesthesia, condition, or care. -Symptoms you may experience during the next 24 hours: ?1. Mild abdominal pain or excessive gas or a bloated feeling which improves with rest, liquids, eating? slightly, and walking as tolerated. 2. Drowsiness and/or forgetfulness because of the medications you were given. ?3. Throat numbness for about 1 hour. 4. A sore throat which you can treat with throat lozenges or by gargling with salt water 4-5 times a day. 5. Redness at the site of your IV which you can treat with warm compresses. SPECIAL INSTRUCTIONS: 1. You may resume your previous diet in one hour. We recommend a light meal to start, then progress as tolerated. 2. Restart regular medications in one hour. 3. No aspirin or non-steroidal containing medication for three days. 4. No lifting over 20 pounds or strenuous activity for the first 24 hours after your procedure. After 24 hours there are no restrictions on your activity, but you may feel fatigued for a few days. Findings: Chronic Graham's esophagus -Medications: Continue Nexium -Continue to follow lifestyle modifications: No alcohol, tobacco products, Aspirin or NSAID's (ibuprofen, Motrin, Naprosyn, aleve, etc).? Try to limit/avoid:? soda pop/any carbonated beverages, caffeine (including tea & chocolate), and acidic foods, (tomatoes, citrus, onions, peppermints) spicy or fried/fatty foods. Do not lie down for 30 minutes after eating, and do not eat 2 hours prior to bedtime. Avoid wearing tight fitting clothing/ belts. Follow up: -My office will send a letter with the results of your biopsy?s in 2-3wks time. -Repeat EGD in 3 years for surveillance Call the office at [phone] (Office) or [phone] (Hospital), or go to the ER right away if you notice any of the followin. Vomiting blood and /or ?coffee ground? material. ?2. Worsening of abdominal pain or cramping. ?3. Trouble with breathing, cough, and/or fever (temperature above 101.5 F). 4. Increasing pain with swallowing. ?5. Chest pain. 6. Any new symptoms. 7. Worsening of the redness at the IV site Activity:: See above Diet:: See above Discharge Orders Discharge Orders: Discharge Order (Routine); Ordered 02/28/23 Ordered By: Joan Lopez DS: Diagnosis Discharge Diagnosis (1) Constipation: Status: Acute (2) Benign prostatic hyperplasia: Status: Chronic (3) Hyperlipidemia: Status: Acute (4) Hypertension: Status: Chronic (5) 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: Status: Chronic Asessment and Plan: Patient is seen and examined after they are endoscopy.? Patient has minimal sore throat.? They have been able to tolerate liquids.? They do not have any nausea vomiting.? They are not having any chest pain or shortness of breath.? They have been able to pass gas and are not having any abdominal pain or distention.? They have not vomited any blood.? The vital signs have been stable-see nursing notes. We discussed findings on their endoscopy. We reviewed the importance of lifestyle modification-see discharge instructions We reviewed any new medications that the patient may be prescribed-see discharge instructions Patient will either be sent a letter with the biopsy results or follow-up in the office-see discharge instructions. Patient was given explicit instructions to follow-up regarding post endoscopy- refer to discharge Patient verbalized understanding and discharged in stable and satisfactory c ondition.? See nursing notes. (6) Headache: Status: Chronic (7) Hemorrhoids: Status: Chronic (8) Gastric motor function disorder: Status: Acute (9) Laryngitis from reflux of stomach acid: Status: Acute (10) Diabetes mellitus: Status: Chronic (11) Insomnia: Status: Acute (12) Diverticulosis of colon: (13) Hiatal hernia: (14) Obesity: (15) Reflux esophagitis: (16) Type II diabetes mellitus, uncontrolled:
[2023-02-28 07:15] VITALS: BP 131/74; PULSE 90; RESP 16; TEMP 36; O2SAT 98
[2023-02-28] MEDS: Lactated Ringers 1,000 ML 80 ML IV (07:45)
--- NOTE | 2023-02-28 07:56 | W.ANESPRE ---
General Info Date of Service Date Performed: 02/28/23 Height: 5 ft 8 in Weight: 105.4 kg Body Mass Index (BMI): 35.3 Surgical Procedure: Operation Date: 02/28/23 08:20 Proposed Procedure Side Surgeon p Gastroscopy Joan Lopez, Meds Allergies and Home Medications Allergies Allergy/AdvReac Type Severity Reaction Status Date / Time meloxicam Allergy Intermediate rash Verified 02/28/23 07:34 amitriptyline Allergy Mild RASH Verified 02/28/23 07:34 cyclobenzaprine Allergy Mild Skin Rash Verified 02/28/23 07:34 hydrocodone Allergy Mild rash on Verified 02/28/23 07:34 legs influenza virus vaccine, Allergy Mild SWELLING; Verified 02/28/23 07:34 specific JOINT PAIN omeprazole Allergy Mild Skin Rash Verified 02/28/23 07:34 gabapentin Allergy Unknown unknown Verified 02/28/23 07:34 dulaglutide [From [facility]] AdvReac Intermediate abd pain Verified 02/28/23 07:34 sertraline AdvReac abdominal Verified 02/28/23 07:34 pain Home Medication Medication Instructions Recorded blood sugar diagnostic #180 strips 03/26/19 lactulose 20 gram/30 mL oral 20 g (30 mL) PO BID PRN 02/05/22 solution constipation #1,200 mL lisinopril 10 mg tablet 10 mg PO DAILY #90 tabs 03/28/22 insulin glargine 100 unit/mL (3 30 unit (0.3 mL) subcut HS #5 mL 06/04/22 mL) subcutaneous pen (Lantus Solostar U-100 Insulin) magnesium oxide 500 mg capsule 500 mg PO BID 06/04/22 blood sugar diagnostic #100 ea 10/28/22 pen needle, diabetic 32 gauge x #100 ea 10/28/22 (BD Ultra-Fine Taina Pen Needle) Nexium 40 mg capsule,delayed 40 mg PO DAILY #90 caps 11/16/22 release (esomeprazole magnesium) loratadine 10 mg tablet (Allergy 10 mg PO DAILY #90 tabs 11/25/22 Relief (loratadine)) pravastatin 20 mg tablet 20 mg PO DAILY #90 tab-caps 12/09/22 empagliflozin 25 mg tablet 25 mg PO QAM #90 tabs 12/19/22 (Jardiance) glipizide 5 mg tablet 5 mg PO BID #180 tabs 12/19/22 acyclovir 5 % topical ointment 1 applic topical .q 4h PRN Mouth 01/28/23 (Zovirax) Sore Pain #10 grams metformin 500 mg tablet,extended 500 mg PO BID 02/07/23 release 24 hr mirabegron 25 mg tablet,extended 25 mg PO DAILY 02/07/23 release 24 hr (Myrbetriq) polyethylene glycol 3350 17 gram 17 g PO DAILY PRN constipation 02/12/23 oral powder packet #100 ea Current Visit Medications: Current Medications Generic Name Dose Route Start Last Admin Trade Name Freq PRN Reason Stop Dose Admin Hyoscyamine Sulfate 0.125 mg 02/28/23 00:13 Hyoscyamine 0.125 Mg Sl/Oral/Chew SL 03/30/23 00:12 DIRECTED PRN Ringer's Solution 1,000 mls @ 80 mls/hr 02/28/23 06:00 02/28/23 07:45 IV 03/29/23 23:59 80 mls/hr INFUSION MARY Administration IV Miscellaneous Supplies 1 each 02/28/23 06:00 Iv Access IV 03/29/23 23:59 DIRECTED MARY Ondansetron HCl 4 mg 02/28/23 00:13 Ondansetron 4 Mg/2 Ml Vial IVP 03/30/23 00:12 Q4H PRN PRN Nausea / Vomiting Sodium Chloride 0 ml 02/28/23 06:00 Normal Saline Flush 10 Ml Syr IV 03/29/23 23:59 PRN PRN Sodium Chloride 0 ml 02/28/23 06:00 Normal Saline 10 Ml Vial IJ 03/29/23 23:59 DIRECTED PRN Sterile Water 0 ml 02/28/23 06:00 Water,Injection,Sterile 10 Ml Vial IJ 03/29/23 23:59 DIRECTED PRN PFSH Active Problems Active Problems: Problem Status Onset Code Constipation K59.00 Hypomagnesemia E83.42 Change in stool habits R19.4 Nail dystrophy L60.3 Urgency of urination R39.15 COVID-19 ~12/25/21 U07.1 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.652 Seasonal allergies J30.2 Loosening of prosthesis of left total knee replacement T84.033A Painful orthopaedic hardware T84.84XA Benign prostatic hyperplasia N40.0 Hyperlipidemia E78.5 Hypertension I10 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 08/08/15 K22.70 Headache R51 Hemorrhoids K64.9 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 Polyp of colon 05/22/02 K63.5 Primary osteoarthritis of right knee 07/24/15 M17.11 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 mg EGD - MAC (03/12/17) Endoscopy 2004, 2012,2016 Barium swallow 2016 H/O arthroscopic knee surgery b/l Dr. Mock H/O colonoscopy (07/03/18) diverticulosis, otherwise normal, repeat 10 years, Dr John Lambert History of arthroscopy of left knee (02/27/21) Synovectomy of left TKA Hx of total knee replacement left Tobacco Smoking/Tobacco Use Status: Former Tobacco Use Smokeless tobacco user: other (Cigarettes ) Passive smoking exposure: Yes Second hand exposure: Yes Alcohol Alcohol Intake: current Alcohol intake frequency: holidays/special occasions only Substance Use Substance use: Never Substance use type: does not use Vital Signs and Lab Results Vital Signs Most Recent Vital Signs in EMR: Most Recent Vital Signs Temp Pulse Resp BP Pulse Ox 36 C L 90 16 131/74 98 02/28/23 07:15 02/28/23 07:15 02/28/23 07:15 02/28/23 07:15 02/28/23 07:15 Lab Results Blood Type / Crossmatch: No Data to Display Complete Blood Count: No Data to Display Complete Metabolic Panel: No Data to Display Liver Function Panel: No Data to Display Coagulation Panel: No Data to Display Cardiac Panel: No Data to Display Arterial Blood Gas: No Data to Display Venous Blood Gas: No Data to Display Pancreas Panel: No Data to Display Thyroid Panel: No Data to Display Infectious Disease: No Data to Display Blood Cultures: No Data to Display Toxicology Panel: No Data to Display Anesthesia Assessment and Plan Anesthesia History Personal History: No History of Anesthesia Complications Family History: No Family History of Anesthesia Complications Exercise Tolerance Exercise Tolerance: Metabolic Equivalents>4 Pertinent Negatives Pertinent Negatives: No Major Cardiovascular Symptoms or Complaints and No History of CVA/TIA Cardiac & Pulmonary Exam Cardiac Exam: Normal S1/S2 Heart Sounds Pulmonary Exam: Clear Bilateral Breath Sounds Implantable Cardiac Device Does patient have a Pacemaker or an ICD?: No Airway Exam Known Difficult Airway: No Mallampati Class: 2 Mouth Opening: Normal (> 3cm) Thyromental Distance: Greater than 3 cm Neck Range of Motion: Full ROM Neck Circumference: Normal Teeth Condition: Removable Dentures/Plates Upper and Other (6 teeth on the bottom) ASA Classification ASA Score: ASA 2 Emergency Case?: No NPO Status NPO Status: NPO Clears >2 hours, Solids >8 hours Anesthesia Plan Resuscitation Status: Full Code Anesthesia Technique: General Anesthesia Airway Planned: Natural Airway Monitors Used: Standard Monitors
[2023-02-28 07:58] VITALS: BMI 35.3
--- NOTE | 2023-02-28 08:18 | STOM_PTH ---
PATIENT: Moe Quarles LOC: [facility] U#:[id number] AGE/SX: 72/M ROOM: RE02/28/[address]: Joan Lopez : 1950 BED: DIS: 02/28/2023 SPEC #: [id number] RECD: 02/28/23 11:52 STATUS: FRANCHESCA RE #: [id number] RANDY: 02/28/23 08:[address]: Joan Lopez DEPT: Surgical Specimen RECD BY: Solange Garcia ENTERED: 02/28/23 11:55 SP TYPE: STOMACH OTHR DR: Bryan Isaacs MD Tissues: 1 - STOMACH BIOPSY 2 - STOMACH BIOPSY 3 - STOMACH BIOPSY 4 - ESOPHAGUS BIOPSY 5 - ESOPHAGUS BIOPSY Procedures: GROSS AND MICRO LEVEL 4 Comments: [id number]
[2023-02-28 08:36] VITALS: BP 117/65; PULSE 92; RESP 18; TEMP 36.3; O2SAT 96
--- NOTE | 2023-02-28 08:46 | W.ANESPOSTOP ---
Postoperative Evaluation Date, Time and Location Date Performed: 02/28/23 Time Performed: 08:47 Patient Location: Day Surgery Unit Vital Signs Most Recent Imported Vital Signs: Most Recent Vital Signs Temp Pulse Resp BP Pulse Ox 36.3 C L 92 H 18 117/65 96 02/28/23 08:36 02/28/23 08:36 02/28/23 08:36 02/28/23 08:36 02/28/23 08:36 Pain Score Most Recent Pain Score: Most Recent Pain Score Pain Level 0 02/28/23 07:15 Assessment Mental Status: Awake (Alert & Oriented to Patient Baseline) Airway and Respiratory Function: Patent airway with normal (patient baseline) respiratory exam Cardiovascular Function: Hemodynamically Stable Hydration Status: Adequately Hydrated Nausea & Vomiting: No Nausea or Vomiting Pain: Pt. Denies Any Pain Peripheral Nerve Block: Patient did not receive a nerve block
[2023-02-28 08:55] VITALS: BP 135/70; PULSE 82; RESP 18; TEMP 36.3; O2SAT 97
== END 2023-02-28 09:30 | disposition home or self-care (01) ==
PROVIDERS: PCP Family Medicine; Visit Provider Surgery
PROC: 0DJ68ZZ Inspection of Stomach, Via Natural or Artificial Opening Endoscopic (ICD-10-PCS; CPT 43235; principal; 2023-02-28 08:15)
DX: K22.70 Barrett's esophagus without dysplasia (principal); K44.9 Diaphragmatic hernia without obstruction or gangrene; K31.9 Disease of stomach and duodenum, unspecified
CPT/HCPCS: 43239; 88305; J2704

== ENCOUNTER 2023-03-01 07:05 | Emergency (ER) | payer MEDICARE, MEDICAID, SELFPAY ==
[2023-03-01 07:11] VITALS: BP 149/73; PULSE 89; RESP 18; TEMP 37.3; O2SAT 95
--- NOTE | 2023-03-01 07:29 | ED.GENADUL_ITS ---
Discharge Plan Discharge Details Chief Complaint: ThroatFB Primary Care Provider: Bryan Isaacs ED Provider: Rose Marie Mulligan Home Meds and New Rx's Prescriptions: No Action glipizide 5 mg tablet 5 mg PO BID Qty: 180 3RF Jardiance 25 mg tablet 25 mg PO QAM Qty: 90 3RF polyethylene glycol 3350 17 gram powder in packet 17 g PO DAILY PRN (Reason: constipation) Qty: 100 3RF magnesium oxide 500 mg capsule 500 mg PO BID insulin glargine [Lantus Solostar U-100 Insulin] 100 unit/mL (3 mL) insulin pen 30 unit Sub-Q HS Qty: 5 12RF Rx Instructions: Dx DM 250.02 Myrbetriq 25 mg tablet extended release 24 hr 25 mg PO DAILY metformin 500 mg tablet extended release 24 hr 500 mg PO BID (DME) blood sugar diagnostic Strip 1 ea Miscellaneous BID Qty: 180 3RF Rx Instructions: As directed lactulose 20 gram/30 mL solution 20 g PO BID PRN (Reason: constipation) Qty: 1200 0RF lisinopril 10 mg tablet 10 mg PO DAILY Qty: 90 3RF (DME) blood sugar diagnostic Strip See Rx Instructions .ROUTE .MEDSUPPLY Qty: 100 12RF Rx Instructions: test bid (DME) pen needle, diabetic [BD Ultra-Fine Taina Pen Needle] 32 gauge x 5/32 needle 1 ea Miscellaneous DAILY Qty: 100 3RF Rx Instructions: DX e11.65 ultra fine needle test once/day esomeprazole magnesium [Nexium] 40 mg capsule,delayed release(DR/EC) 40 mg PO DAILY Qty: 90 3RF loratadine [Allergy Relief (loratadine)] 10 mg tablet 10 mg PO DAILY Qty: 90 3RF pravastatin 20 mg tablet 20 mg PO DAILY Qty: 90 3RF acyclovir [Zovirax] 5 % ointment 1 applic Topical .q 4h PRN (Reason: Mouth Sore Pain) Qty: 10 5RF Rx Instructions: 5% Medical Decision Making Medical Records Medical records narrative: This is a 72-year-old male with Graham's esophagus who underwent EGD yesterday and is now complaining of a foreign body sensation in his throat and gagging. He does appear to have swelling and erythema of the uvula which is more likely traumatic and infectious. We will obtain a CT of the neck to rule out esophageal perforation. I will sign him out to the oncoming provider and he will likely be discharged home with outpatient follow-up HPI General Date/Time Provider Initiated Documentation: 03/01/23 07:28 . Information obtained by: patient . History of Present Illness described as mild, Quality is described as dull, HPI Narrative: Time seen was 7:29 AM in bed 5. The patient is a 72-year-old male with history of GE reflux and Graham's esophagus who undergoes upper endoscopy every 3 to 4 years. He had an EGD yesterday and now complains of gagging and discomfort in his throat. He denies any change in his voice. He has been able to eat and had hotdogs after his procedure. He denies any shortness of breath or fever or chills. He denies any other aggravating or alleviating factors. He states it feels as though there is a piece of skin in the posterior throat Related Data Home Medications Medication Instructions Recorded Confirmed blood sugar diagnostic #180 strips 03/26/19 03/01/23 lactulose 20 gram/30 mL oral 20 g (30 mL) PO BID PRN 02/05/22 03/01/23 solution constipation #1,200 mL lisinopril 10 mg tablet 10 mg PO DAILY #90 tabs 03/28/22 03/01/23 insulin glargine 100 unit/mL (3 30 unit (0.3 mL) subcut HS #5 mL 06/04/22 03/01/23 mL) subcutaneous pen (Lantus Solostar U-100 Insulin) magnesium oxide 500 mg capsule 500 mg PO BID 06/04/22 03/01/23 blood sugar diagnostic #100 ea 10/28/22 03/01/23 pen needle, diabetic 32 gauge x #100 ea 10/28/22 03/01/23 5/32 (BD Ultra-Fine Taina Pen Needle) Nexium 40 mg capsule,delayed 40 mg PO DAILY #90 caps 11/16/22 03/01/23 release (esomeprazole magnesium) loratadine 10 mg tablet (Allergy 10 mg PO DAILY #90 tabs 11/25/22 03/01/23 Relief (loratadine)) pravastatin 20 mg tablet 20 mg PO DAILY #90 tab-caps 12/09/22 03/01/23 empagliflozin 25 mg tablet 25 mg PO QAM #90 tabs 12/19/22 03/01/23 (Jardiance) glipizide 5 mg tablet 5 mg PO BID #180 tabs 12/19/22 03/01/23 acyclovir 5 % topical ointment 1 applic topical .q 4h PRN Mouth 01/28/23 03/01/23 (Zovirax) Sore Pain #10 grams metformin 500 mg tablet,extended 500 mg PO BID 02/07/23 03/01/23 release 24 hr mirabegron 25 mg tablet,extended 25 mg PO DAILY 02/07/23 03/01/23 release 24 hr (Myrbetriq) polyethylene glycol 3350 17 gram 17 g PO DAILY PRN constipation 02/12/23 03/01/23 oral powder packet #100 ea Previous Rx's Medication Instructions Recorded blood sugar diagnostic #180 strips 03/26/19 lactulose 20 gram/30 mL oral 20 g (30 mL) PO BID PRN 02/05/22 solution constipation #1,200 mL lisinopril 10 mg tablet 10 mg PO DAILY #90 tabs 03/28/22 insulin glargine 100 unit/mL (3 30 unit (0.3 mL) subcut HS #5 mL 06/04/22 mL) subcutaneous pen (Lantus Solostar U-100 Insulin) blood sugar diagnostic #100 ea 10/28/22 pen needle, diabetic 32 gauge x #100 ea 10/28/22 (BD Ultra-Fine Taina Pen Needle) Nexium 40 mg capsule,delayed 40 mg PO DAILY #90 caps 11/16/22 release (esomeprazole magnesium) loratadine 10 mg tablet (Allergy 10 mg PO DAILY #90 tabs 11/25/22 Relief (loratadine)) pravastatin 20 mg tablet 20 mg PO DAILY #90 tab-caps 12/09/22 empagliflozin 25 mg tablet 25 mg PO QAM #90 tabs 12/19/22 (Jardiance) glipizide 5 mg tablet 5 mg PO BID #180 tabs 12/19/22 acyclovir 5 % topical ointment 1 applic topical .q 4h PRN Mouth 01/28/23 (Zovirax) Sore Pain #10 grams polyethylene glycol 3350 17 gram 17 g PO DAILY PRN constipation 08/23/23 oral powder packet #100 ea Allergies Allergy/AdvReac Type Severity Reaction Status Date / Time meloxicam Allergy Intermediate rash Verified 03/01/23 07:16 amitriptyline Allergy Mild RASH Verified 03/01/23 07:16 cyclobenzaprine Allergy Mild Skin Rash Verified 03/01/23 07:16 hydrocodone Allergy Mild rash on Verified 03/01/23 07:16 legs influenza virus vaccine, Allergy Mild SWELLING; Verified 03/01/23 07:16 specific JOINT PAIN omeprazole Allergy Mild Skin Rash Verified 03/01/23 07:16 gabapentin Allergy Unknown unknown Verified 03/01/23 07:16 dulaglutide [From [facility]] AdvReac Intermediate abd pain Verified 03/01/23 07:16 sertraline AdvReac abdominal Verified 03/01/23 07:16 pain General Stated Complaint: ThroatFB JUAN ANTONIO: 3 Review of Systems Narrative: see hpi ENT Ears, Nose, Mouth, and Throat: Denies dysphagia and Reports odynophagia Cardiovascular Cardiovascular: Denies dyspnea Respiratory Respiratory: Denies hemoptysis and Denies dyspnea Gastrointestinal Gastrointestinal: Denies abdominal pain, Denies dysphagia, Reports odynophagia and Denies hematemesis PFSH All Active Problems Constipation (Acute) Hypomagnesemia (Acute) Change in stool habits (Acute) Nail dystrophy (Acute) Urgency of urination (Acute) COVID-19 (Acute ~12/25/21) Status post revision of total replacement of left knee (Acute 11/07/21) Seasonal allergies (Acute) Loosening of prosthesis of left total knee replacement (Acute) Painful orthopaedic hardware (Acute) Benign prostatic hyperplasia (Chronic) Hyperlipidemia (Acute) Hypertension (Chronic) 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) FOLLOWED BY OPTICAL EXPRESSIONS (SEE SCANNED) Polyp of colon (Chronic 05/22/02) Primary osteoarthritis of right knee (Chronic 07/24/15) Gastric motor function disorder (Acute) Erythema nodosum (Acute 05/22/01) Laryngitis from reflux of stomach acid (Acute) Trigeminal neuralgia (Acute) Gynecomastia (Acute) Diabetes mellitus (Chronic) Insomnia (Acute) Medical History Depression Diverticulosis of colon Hiatal hernia EGD 2003 Kidney stone left Obesity Pancreatitis Reflux esophagitis (06/30/15) Type II diabetes mellitus, uncontrolled Surgical History Cholecystectomy (~2002) and pancreatitis Colonoscopy - MAC 2002 and 2007, 07/03/18 Dr John Lambert, [facility], normal, repeat in 10 years. mg EGD - MAC (03/12/17) Endoscopy 2003, 2011,2016 Barium swallow 2016 H/O arthroscopic knee surgery b/l Dr. Mock H/O colonoscopy (07/03/18) diverticulosis, otherwise normal, repeat 10 years, Dr John Lambert History of arthroscopy of left knee (02/27/21) Synovectomy of left TKA Hx of total knee replacement left Family History Mother Essential hypertension Stroke Father Personal history of malignant neoplasm STOMACH Brother Diabetes Personal history of malignant neoplasm Grandmother Personal history of malignant neoplasm Social History Smoking/Tobacco Use Status: Former Tobacco Use tobacco type: cigarettes Quit Date: 06/23/85 Tobacco: How many years used: 12 Smokeless tobacco user: other (Cigarettes ) Second Hand Exposure: Yes Smoking risk assessment performed?: Yes Alcohol Intake: current Alcohol Intake frequency: holidays/special occasions only Drug use: Never Substance use type: does not use Caregiver/Support person: No Household members: friend(s) Housing: house Communication Needs: Corrective Lenses Do you need help understanding health information?: Never Pets and animals: Yes Pets and animals: cat(s) and dog(s) Sexually active: No Do you think of yourself as: lesbian/harris/homosexual Current gender identity: male What is your relationship status?: living with partner How often do you talk on the phone with friends or family?: three or more times per week How often do you get together with friends or relatives?: three or more times per week How often do you attend bahai or evangelical services?: 1-3 times per year Do you belong to any clubs or organized social groups?: yes Panel score (0-1 are the most socially isolated patients): 3 What type of physical activity do you participate in: walking and bicycling Duration: 15-30 minutes/day Frequency: 3-4 times per week Galilea/Mormonism: No preference Special galilea needs: No Seatbelt use: never Helmet use: No Drive intox or ride w/intox delivery driver/customer service: No Do you feel safe at home: Yes Do you feel safe in your relationship?: Yes Exam Narrative Exam Narrative: The patient is a well-developed well-nourished male who is alert and oriented and is in no acute distress. He has normal phonation. His vital signs are within normal limits. He is handling secretions although he does gag intermittently. Const General: cooperative, healthy appearing, comfortable, no acute distress, well developed and well groomed Nutritional Appearance: average body habitus Orientation: alert, awake and oriented x3 Limitations: mental status not altered HENMT Head: normal to inspection, normocephalic and atraumatic Ears: hearing grossly normal bilaterally and external ears normal General nose exam: external nose normal and nares normal Face and sinus: normal facial exam and sinuses nontender Mouth: oral mucosae normal, lip normal, tongue normal, moist mucous membranes and no muffled voice Teeth and gingiva: dentition normal Throat: uvular edema and other (Uvula appears swollen and erythematous. No lacerations. ) Other: Normal phonation handling secretions. No evidence of buccal cellulitis Eyes General: appearance normal, both eyes and all related structures Alignment and Position: alignment normal Periorbital: periorbital findings normal Eyelids: eyelids normal Conjunctivae: conjunctivae normal Sclera: sclerae normal Cornea: corneas normal Pupils: PERRL EOM: EOM intact bilaterally Neck Neck: normal visual inspection, full ROM, no lymphadenopathy, no meningeal signs, trachea midline, no anterior neck swelling, no lymphadenopathy noted and no JVD Other: No cricoid tenderness. No subcutaneous emphysema Chest Chest: normal inspection of the chest Resp Effort & Inspection: normal respiratory effort, able to speak in complete sentences, no audible wheezes, no pursed lip breathing, no respiratory distress, no stridor, no tracheal deviation, no tripod positioning and no use of accessory muscles Auscultation: clear to auscultation bilaterally, no crackles, no rales, no rhonchi, no wheezes and no rubs Tactile Fremitus: tactile fremitus absent Cardio Jugular venous pressure: no JVD Palpation: normal PMI Rate: regular rate Rhythm: regular rhythm Heart Sounds: S1 normal, S2 normal, no gallops, no murmurs and no rubs GI Palpation: soft, no hepatosplenomegaly and nontender Auscultation: normal bowel sounds Skin General skin exam: no rashes or lesions noted Other: His skin is warm and dry normal for ethnicity. Neuro General: patient alert, patient awake and patient oriented x3 Cranial Nerves: CN's II-XI intact bilaterally Cognition: normal cognition Speech: speech normal Gait: normal gait Motor: muscle tone normal throughout Extrem General: normal to inspection and full ROM Psych Appearance: grossly normal and well kempt Mental Status: mental status grossly normal Speech and Movement: speech and movement normal Mood: congruent mood Affect: normal affect Attitude: cooperative Thought Process: normal Thought Content: normal Insight: insight good Judgment: judgment good Course Vital Signs Vital signs: Vital Signs Temperature 37.3 C 03/01/23 07:11 Pulse 89 03/01/23 07:11 Respiratory Rate 18 03/01/23 07:11 Blood Pressure 149/73 H 03/01/23 07:11 Pulse Oximetry 95 03/01/23 07:11 Temperature 37.3 C 03/01/23 07:11 Temperature Source Oral 03/01/23 07:11 Pulse 89 03/01/23 07:11 Respiratory Rate 18 03/01/23 07:11 Respiratory Effort Normal, Non-Labored 03/01/23 07:24 Respiratory Pattern Normal 03/01/23 07:24 Blood Pressure 149/73 H 03/01/23 07:11 Blood Pressure Position Sitting 03/01/23 07:11 Pulse Oximetry 95 03/01/23 07:11 Oxygen Delivery Method Room Air 03/01/23 07:11 Oxygen Flow Rate 0 03/01/23 07:11 Pain Level 0 03/01/23 07:11 Sign Out Sign Out Data: Sign Out Comment: This is a 72-year-old male with Graham's esophagus who underwent endoscopy yesterday who is now complaining of gagging and we are awaiting the results of his labs and CT. He does have what appears to be a swollen uvula. Last updated by Rose Marie Mulligan MD at 03/01/23 10:02
--- NOTE | 2023-03-01 07:30 | DI.CT_ITS ---
Exam(s) CT NECK CHEST W EXAM: CT NECK CHEST W INDICATION: s/p endoscopy c/o gagging and throat discomfort,. COMPARISON: No exams were available for comparison TECHNIQUE: FINDINGS: CT SOFT TISSUES OF THE NECK WITH IV CONTRAST: VISUALIZED PARANASAL SINUSES: Unremarkable. NASOPHARYNX: Unremarkable ORODENTAL: Unremarkable. OROPHARYNX: Unremarkable. No masses evident. HYPOPHARYNX: Unremarkable. Valleculae and epiglottis and aryepiglottic folds appear normal. VOCAL CORDS: Unremarkable. No masses evident. Subglottic airway appears unremarkable. THYROID GLAND: Unremarkable. Normal size and no obvious nodules. SALIVARY GLANDS: Unremarkable. No significant findings in the parotid and submandibular glands. LYMPH NODES: There is no adenopathy evident in the neck and supraclavicular regions. CT CHEST WITH IV CONTRAST: Lungs: There are no infiltrates nor pleural effusions nor ominous lung nodules. No findings in the t rachea and mainstem bronchi. There is no bronchiectasis. Mediastinum: There is no new hilar nor mediastinal adenopathy. Thyroid gland unremarkable. Moderate size hiatal hernia. Cardiac: Heart size normal. No pericardial effusion. Caliber of thoracic aorta is upper normal. No dissection. No coronary artery calcification evident Osseous: No fractures. No significant osseous lesions. Other: No adrenal masses. Gallbladder is surgically absent. Spleen size normal. IMPRESSION: 1. No significant focal findings in the soft tissues of the neck. 2. No significant pulmonary findings. No pleural effusions. 3. Moderate size hiatal hernia noted. RADIATION DOSE DELIVERED: 1,547.24mGy.cm Total DLP DATA REPOSITORY: All CT scans at this facility are submitted to the National Radiology Data Registry (NRDR) Dose Index Registry (DIR) with the [employer] ([employer]). RADIATION OPTIMIZATION: All CT scans at this facility use at least one of these dose optimization te chniques: automated exposure control; mA and/or kV adjustment per patient size (includes targeted exa ms where dose is matched to clinical indication); or iterative reconstruction.
[2023-03-01 07:59] LABS: Abs Immature Grans 0.03 10^3/uL (0.0-0.06); Absolute Basophil Count 0.02 10^3/uL (0.0-0.2); Absolute Eosinophil Count 0.13 10^3/uL (0.0-0.7); Absolute Lymphocyte Count 1.89 10^3/uL (1.2-3.4); Absolute Monocyte Count 0.69 10^3/uL (0.1-0.8); Absolute Neutrophil Count 4.69 10^3/uL (1.2-6.7); Basophils % 0.3; Eosinophils % 1.7; HCT 49.1 % (40.0-50.0); HGB 16.4 g/dL (13.5-17.5); Immature Grans % 0.4; Lymphocytes % 25.4; MCH 29.2 pg (27.0-33.0); MCHC 33.4 % (32.0-36.0); MCV 88 fL (80-95); MPV 8.6 fL (8.0-11.0); Monocytes % 9.3; Neutrophils % 62.9; Platelet Count 220 10^3/uL (130-400); RBC 5.61 10^6/uL (4.36-5.78); RDW 13.5 % (11.8-14.1); RDW-SD 43.1 fL; WBC 7.45 10^3/uL (4.4-10.8)
[2023-03-01 08:04] VITALS: O2SAT 97
[2023-03-01] MEDS: Normal Saline 1,000 ML 1000 ML IV (08:05)
--- NOTE | 2023-03-01 08:06 | NUR.NOTE ---
Nursing Note: Secondary assessment, Fall risk assessment, throat/esophageal foreign body, blood draw, and IV start all documented under wrong nurse (ASHLIE, RN), PITO Pinzon actually did the documentation for all the above assessments.
[2023-03-01 08:10] VITALS: O2SAT 95
[2023-03-01 08:20] VITALS: O2SAT 95
[2023-03-01 08:22] LABS: Anion Gap 9.1 mmol/L (3-11); BUN 20 mg/dL (7-18); CO2 25.9 mmol/L (21.0-32.0); CREATININE 0.9 mg/dL (0.70-1.30); Chloride 102 mmol/L (98-107); Estimated GFR 91.88 (mL/min/1.73m2); Glucose 156 mg/dL (74-106); Potassium 4.3 mmol/L (3.5-5.1); Sodium 137 mmol/L (136-145)
[2023-03-01] MEDS: Normal Saline - Diluent 50 ML VIAL IJ (09:36)
[2023-03-01] MEDS: Omnipaque 350 MG/ML 100 ML BTL 120 ML IJ (09:37)
[2023-03-01] MEDS: Normal Saline Flush 10 ML SYR IVP (10:01)
--- NOTE | 2023-03-01 10:23 | DI.VRAD_ITS ---
PROCEDURE INFORMATION: Exam: CT Neck With Contrast Exam date and time: 03/01/2023 9:42 AM Age: 72 years old Clinical indication: Other: S/P post endoscopy C/O gagging and throat discomfort TECHNIQUE: Imaging protocol: Computed tomography of the neck with contrast. 3D rendering (Not supervised by radiologist): MIP and/or 3D reconstructed images were created by the technologist. Radiation optimization: All CT scans at this facility use at least one of these dose optimization techniques: automated exposure control; mA and/or kV adjustment per patient size (includes targeted exams where dose is matched to clinical indication); or iterative reconstruction. Contrast material: OMNI 350; Contrast volume: 120 ml; Contrast route: IV; COMPARISON: CT CHEST PE CTA 05/04/2019 4:46 PM FINDINGS: Limitations: None significant. Brain: The partly visualized brain is unremarkable. Orbital cavities: Normal optic globes. Normal retrobulbar fat and other adjacent tissues. Normal optic nerves and extra-ocular muscles. Pharynx: Unremarkable. Larynx: Normal. Prevertebral and retropharyngeal spaces: Unremarkable. Salivary glands: Normal. Thyroid: No findings indicating follow up. Lymph nodes: Nonepathologically enlarged or otherwise suspicious. Trachea: Unremarkable. Lungs: Unremarkable. Esophagus: Unremarkable. Bones/joints: No fracture. No significant appearing stenosis. Vasculature: No calcification. Soft tissues: Unremarkable. IMPRESSION: No acute or suspicious findings. PROCEDURE INFORMATION: Exam: CT Chest With Contrast; Diagnostic Exam date and time: 03/01/2023 9:42 AM Age: 72 years old Clinical indication: Other: S/P post endoscopy C/O gagging and throat discomfort TECHNIQUE: Imaging protocol: Diagnostic computed tomography of the chest with contrast. 3D rendering (Not supervised by radiologist): MIP and/or 3D reconstructed images were created by the technologist. Radiation optimization: All CT scans at this facility use at least one of these dose optimization techniques: automated exposure control; mA and/or kV adjustment per patient size (includes targeted exams where dose is matched to clinical indication); or iterative reconstruction. Contrast material: OMNI 350; Contrast volume: 70 ml; Contrast route: IV; COMPARISON: CT CHEST PE CTA 05/04/2019 4:46 PM FINDINGS: Limitations: None significant. Lungs: Normally expanded. Clear. Pleural spaces: Normal. Heart: Normal dimensions. No pericardial effusion. Coronary arteries: No calcification. Lymph nodes: None enlarged or otherwise suspicious. Vasculature: Normal. Diaphragm: Unchanged, small sliding-type hiatal hernia. Gallbladder and bile ducts: Surgical clips are present in the right upper quadrant, consistent with previous cholecystectomy. Normal bile ducts. Adrenal glands: Unremarkable. No lesions indicating follow up. Bones/joints: No acute fracture or suspicious osseous lesion. Soft tissues: Unremarkable. IMPRESSION: 1. No acute or suspicious findings. 2. Negative for coronary artery calcium. 3. Incidentally noted chronic unchanged small sliding-type hiatal hernia. Dictated and Authenticated by: Simone Sinclair MD. Ordering:LUIS Trotter MD
--- NOTE | 2023-03-01 10:39 | W.EDPROG ---
Date of service: 03/01/23 Time of Service: 10:39 Medical Decision Making pt signed out to me pending ct results which are negative. Pt stable, caox4 speaking clearly, no stridor, breathing and swallowing normally. No throat pain prior to endoscopy and states his throat was sore after the endoscopy. He has a mildly enlarged lower 1/3 uvula, no erythema, it is midline. Suspect traumatic uvulitis, no findings to suggest infectious etiology. Will provide one time dose of decadron, advised can use prn tylenol/ibuprofen. 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 He does have what appears to be a swollen uvula. Last updated by Rose Marie Mulligan MD at 03/01/23 10:02 Discharge Plan Disposition Patient Disposition: Home Condition: Stable Discharge Details Clinical Impression: Sensation of foreign body in throat, Uvulitis Primary Care Provider: Bryan Isaacs ED Provider: Rose Marie Mulligan Home Meds and New Rx's Prescriptions: Continued glipizide 5 mg tablet 5 mg PO BID Qty: 180 3RF Jardiance 25 mg tablet 25 mg PO QAM Qty: 90 3RF polyethylene glycol 3350 17 gram powder in packet 17 g PO DAILY PRN (Reason: constipation) Qty: 100 3RF magnesium oxide 500 mg capsule 500 mg PO BID insulin glargine [Lantus Solostar U-100 Insulin] 100 unit/mL (3 mL) insulin pen 30 unit Sub-Q HS Qty: 5 12RF Rx Instructions: Dx DM 250.02 Myrbetriq 25 mg tablet extended release 24 hr 25 mg PO DAILY metformin 500 mg tablet extended release 24 hr 500 mg PO BID (DME) blood sugar diagnostic Strip 1 ea Miscellaneous BID Qty: 180 3RF Rx Instructions: As directed lactulose 20 gram/30 mL solution 20 g PO BID PRN (Reason: constipation) Qty: 1200 0RF lisinopril 10 mg tablet 10 mg PO DAILY Qty: 90 3RF (DME) blood sugar diagnostic Strip See Rx Instructions .ROUTE .MEDSUPPLY Qty: 100 12RF Rx Instructions: test bid (DME) pen needle, diabetic [BD Ultra-Fine [place] Pen Needle] 32 gauge x 5/32 needle 1 ea Miscellaneous DAILY Qty: 100 3RF Rx Instructions: DX e11.65 ultra fine needle test once/day esomeprazole magnesium [Nexium] 40 mg capsule,delayed release(DR/EC) 40 mg PO DAILY Qty: 90 3RF loratadine [Allergy Relief (loratadine)] 10 mg tablet 10 mg PO DAILY Qty: 90 3RF pravastatin 20 mg tablet 20 mg PO DAILY Qty: 90 3RF acyclovir [Zovirax] 5 % ointment 1 applic Topical .q 4h PRN (Reason: Mouth Sore Pain) Qty: 10 5RF Rx Instructions: 5% Discharge Instructions Instructions: Uvulitis (ED) Additional Instructions: your cat scans did not show concerning findings you have mild swelling of your uvula likely from the endoscopy and it is not uncommon if you feel more ill, have severe worsening pain or inability to swallow liquids return to the emergency department follow up with your primary care provider if still having symptoms in a week.
[2023-03-01] MEDS: Dexamethasone 10 MG/ML VIAL IVP (10:43)
[2023-03-01 10:45] VITALS: BP 153/71; PULSE 85; RESP 18; O2SAT 100
== END 2023-03-01 10:51 | disposition home or self-care (01) ==
PROVIDERS: Emergency Medicine Emergency Medical Services; Emergency Provider Emergency Medicine; PCP Family Medicine
DX: K12.2 Cellulitis and abscess of mouth (principal); R09.89 Other specified symptoms and signs involving the circulatory and respiratory systems; R05.9 Cough, unspecified
CPT/HCPCS: 36416; 70491; 80048; 96361; 96374; 99285; 71260; 85025; 99284; J1100; J3490

== ENCOUNTER 2023-05-29 14:26 | Outpatient (CLI) | payer MEDICARE, MEDICAID, SELFPAY ==
--- NOTE | 2023-05-29 08:30 | DI.RAD_ITS ---
Exam(s) XR KNEE LT 2V AP,LAT EXAM: XR KNEE LT 2V AP,LAT CLINICAL HISTORY: s/p left TKA. TECHNIQUE: 2D digital imaging was performed. Three views. COMPARISON: CR XR KNEE LT 2V AP,LAT from 11/21/2022 FINDINGS: BONES: No acute fracture is present. No bony destructive lesion is seen. JOINTS: No change in revised knee prosthesis. No joint effusion is seen. SOFT TISSUE: Normal. IMPRESSION: Normal stable appearance of revised knee prosthesis. DATA REPOSITORY: RADIATION DOSE DELIVERED:
== END 2023-05-29 14:27 | disposition home or self-care (01) ==
LOC: DIORS 14:28
PROVIDERS: PCP Family Medicine; Referring Provider Family Medicine; Visit Provider Student in an Organized Health Care Education/Training Program
DX: T84.84XA Pain due to internal orthopedic prosthetic devices, implants and grafts, initial encounter (principal); Z96.652 Presence of left artificial knee joint
CPT/HCPCS: 20610; 99213; 73560

== ENCOUNTER 2023-05-29 15:54 | Outpatient (REF) | payer MEDICARE, MEDICAID, SELFPAY ==
[2023-05-29 17:28] LABS: Clarity Cloudy; Nucleated Cells 191 uL (0); Source Synovial
== END 2023-05-29 15:55 | disposition home or self-care (01) ==
LOC: LBN 15:54
PROVIDERS: PCP Family Medicine; Visit Provider Student in an Organized Health Care Education/Training Program
DX: T84.84XA Pain due to internal orthopedic prosthetic devices, implants and grafts, initial encounter (principal)
CPT/HCPCS: 87070; 87205; 89051

== ENCOUNTER → 2023-08-13 11:01 | Outpatient (BNVA) | payer MEDICARE, MEDICAID, SELFPAY | PROVIDERS: PCP Family Medicine; Referring Provider Family Medicine; Visit Provider Podiatrist | DX: E11.9 Type 2 diabetes mellitus without complications (principal); I87.2 Venous insufficiency (chronic) (peripheral) | CPT/HCPCS: 99213 ==

== ENCOUNTER 2023-09-21 12:59 | Emergency (ER) | payer MEDICARE, MEDICAID, SELFPAY ==
[2023-09-21] VITALS (36 sets, daily range): BP systolic 128–158; BP diastolic 57–84; PULSE 49–119; RESP 13–26; TEMP 36.8; O2SAT 94–100
--- NOTE | 2023-09-21 13:00 | RT.EKG_ITS ---
APPROVED REPORT Exam: Resting ECG Reason for Exam: Chest Pain Patient Location: E HR:91 bpm ECG Measurements Heart Rate 91 AXIS IN 186 P 60 QRSd 101 QRS 4 QT 358 T 0 QTc 441 Conclusion Sinus rhythm...normal P axis, V-rate 60- 99 Normal sinus rhythm at a rate of 91. Left axis deviation no signs of LVH. Mildly widened QRS at 101 ms consistent with interventricular conduction delay. IN and QTc intervals within normal limits. N o ST segment abnormalities. T wave inversion in lead III. Low voltage in chest wall leads. No prio r for comparison. No acute injury pattern.
--- NOTE | 2023-09-21 13:17 | W.ED.GENAD ---
Discharge Plan Disposition Patient Disposition: Home Discharge Details Clinical Impression: Chest pain, unspecified Primary Care Provider: Bryan Isaacs ED Provider: Provider,Temporary Home Meds and New Rx's Prescriptions: Continued glipizide 5 mg tablet 5 mg PO BID Qty: 180 3RF Jardiance 25 mg tablet 25 mg PO QAM Qty: 90 3RF polyethylene glycol 3350 17 gram powder in packet 17 g PO DAILY PRN (Reason: constipation) Qty: 100 3RF magnesium oxide 500 mg capsule 500 mg PO BID Myrbetriq 25 mg tablet extended release 24 hr 25 mg PO DAILY Hold Instructions: Changed by Provider metformin 500 mg tablet extended release 24 hr 500 mg PO BID (DME) Dexcom G7 Sensor Device See Rx Instructions .Route Qty: 2 11RF Rx Instructions: As directed (DME) Dexcom G7 Trust Vault Clerk Misc See Rx Instructions .Route Qty: 1 0RF Rx Instructions: As directed insulin degludec [Tresiba FlexTouch U-100] 100 unit/mL (3 mL) insulin pen 30 unit subcut QHS MDD 30 units 50 Days Qty: 15 12RF Rx Instructions: Inject 25 units subcutaneously once daily, titrate as directed. (DME) blood sugar diagnostic Strip 1 ea Miscellaneous BID Qty: 180 3RF Rx Instructions: As directed (DME) blood sugar diagnostic Strip See Rx Instructions .ROUTE .MEDSUPPLY Qty: 100 12RF Rx Instructions: test bid (DME) pen needle, diabetic [BD Ultra-Fine Taina Pen Needle] 32 gauge x 5/32 needle 1 ea Miscellaneous DAILY Qty: 100 3RF Rx Instructions: DX e11.65 ultra fine needle test once/day esomeprazole magnesium [Nexium] 40 mg capsule,delayed release(DR/EC) 40 mg PO DAILY Qty: 90 3RF loratadine [Allergy Relief (loratadine)] 10 mg tablet 10 mg PO DAILY Qty: 90 3RF pravastatin 20 mg tablet 20 mg PO DAILY Qty: 90 3RF acyclovir [Zovirax] 5 % ointment 1 applic Topical .q 4h PRN (Reason: Mouth Sore Pain) Qty: 10 5RF Rx Instructions: 5% lisinopril 10 mg tablet 10 mg PO DAILY Qty: 90 3RF insulin glargine [Basaglar KwikPen U-100 Insulin] 100 unit/mL (3 mL) insulin pen 30 unit subcut DAILY Qty: 15 8RF Hold Instructions: Home Medication placed on hold at Doctor's office Linzess 72 mcg capsule 72 mcg PO DAILY Qty: 90 1RF tolterodine 2 mg capsule,extended release 24hr 2 mg PO DAILY Qty: 90 3RF Discharge Instructions Instructions: Chest Pain (ED) Additional Instructions: You are seen in the emergency department for your chest pain. Your EKG and your blood work showed no sign of heart attack. Your CAT scan showed no sign of a blood clot in your lungs. Please return to the emergency department if you develop shortness of breath worsening chest pain or if you pass out. Otherwise please follow-up with your primary care provider and discuss possibility of a stress test. Discharge Data Discharge Date/Time-TO BE ENTERED AT DEPARTURE: 09/21/23 17:48 HPI General Date/Time Provider Initiated Documentation: 09/21/23 13:17. HPI Narrative: MDM This is an overall well-appearing normothermic but mildly tachycardic 73-year-old insulin-dependent diabetic with hypertension and chest pain concerning for the possibility of ACS for which we will obtain ECG and 2 sets of troponins. Patient lacks risk factors for PE however given chest pain and low risk we will obtain a D-dimer to screen for PE. No tearing quality to suggest dissection. No cough to suggest pneumonia. No trauma to the chest and equal breath sounds so doubt pneumothorax. Not hypotensive nor a dialysis patient so doubt tamponade. No tonic-clonic activity to suggest seizure. No rash to chest to suggest zoster. No pain out of proportion to suggest necrotizing soft tissue infection. No history of recent emesis to suggest increased risk for esophageal rupture. Patient also reports similar symptoms occurred in setting of GERD so we will treat with famotidine and Mylanta. No epigastric tenderness to suggest pancreatitis. No right upper quadrant tenderness to suggest acute cholecystitis. HEART SCORE Chest pain Diagnostic Protocol: [- History/Physical/Gestalt: Moderately Suspicious (+1)] [- EKG: Nonspecific repolarization (+1)] [- AGE: 65 and older (+2)] [- RISK FACTORS: 3 or more risk factors and/or known CAD (+2)] [-TROPONIN: <= normal limit (0)] - TOTAL SCORE: 6 - Risk Factors: DM, current or recent smoker, HTN, HLD, family hx of CAD, obesity - INTERPRETATION: With a total score of 3 or less, risk of major cardiac event within six weeks 1.7%, likely lower with two negative troponins. Patient has multiple risk factors for coronary artery disease: Diabetes, hypertension and obesity. Given his elevated heart score, I offered him hospitalization for stress test but he declined. I advised him to follow-up with his primary care provider later this week to discuss possibility of stress test. I advised that he return to the emergency department if he developed recurrent chest pain, any syncopal episodes or if he developed any shortness of breath. He understood his return indications and was discharged with an empiric trial of expectant outpatient management. Of note the patient was found to be mildly bradycardic at the time of discharge. He was not feeling lightheaded and he was in normal sinus rhythm on the monitor. In reviewing his prior vital signs he has routinely been bradycardic. He is not on a beta-delia. Chronic conditions affecting the care of the patient: Diabetes hypertension elevated BMI History obtained from an outside historian: N/A External record review: Gastroenterology [facility] [place] [Diagnostic interpretations performed by me: Per my independent interpretation chest x-ray shows: No acute cardiopulmonary process Per my independent interpretation EKG shows: Normal sinus rhythm at a rate of 91. Left axis deviation no signs of LVH. Mildly widened QRS at 101 ms consistent with interventricular conduction delay. KS and QTc intervals within normal limits. No ST segment abnormalities. T wave inversion in lead III. Low voltage in chest wall leads. No prior for comparison. No acute injury pattern. ]Medications: Famotidine Mylanta Social determinants of health affecting disposition: N/A Management discussed with: N/A Treatment/interventions considered: N/A Response to therapies provided: Improved symptoms in the ED HPI This is a 73-year-old [id number] diabetic with hypertension arrived to the emergency department via private vehicle in the setting of chest heaviness that began yesterday. Patient reports that he feels that he has low energy. He has some dyspnea on exertion. He is not able to do his daily activities. He notes that his fingerstick blood glucose have been within normal limits. He is not having any leg pain nor fevers. He is not short of breath. He does say that his central chest heaviness is worse with exertion. It does not radiate. He has tried sleeping but this did not improve his symptoms. He is occasionally become dizzy. He has not passed out. He remotely had a stress test. He denies routine tobacco, ethanol, and illicits. He was able to tolerate several pieces of toast this morning. He is not having abdominal pain nor is he been nauseous nor vomiting. He does have a history of acid reflux. Exam General: Well-appearing in no acute distress speaking in complete sentences. Head: Normocephalic, atraumatic. Eye: Extraocular eye movements intact. No conjunctival injection. No scleral icterus. Ear, nose, mouth, throat: Grossly normal inspection. Normal voice, handling secretions normally. Neck: Trachea midline. Cardiovascular: Well-perfused distal extremities. Regular rate and rhythm Respiratory: Nonlabored respiration. Clear lungs bilaterally Gastrointestinal: Nondistended abdomen. Musculoskeletal: No significant lower extremity pitting edema. Moving all 4 extremities spontaneously. Skin: Normal for age and race, grossly normal temperature and turgor. No acute rash. Neurologic: Alert and appropriate, no apparent acute deficits. Psychiatric: Mood and manner are appropriate. Grooming and personal hygiene are appropriate. Related Data Home Medications Medication Instructions Recorded Confirmed blood sugar diagnostic #180 strips 03/26/19 09/21/23 magnesium oxide 500 mg capsule 500 mg PO BID 06/04/22 09/21/23 blood sugar diagnostic #100 ea 10/28/22 09/21/23 pen needle, diabetic 32 gauge x #100 ea 10/28/22 09/21/23 (BD Ultra-Fine Taina Pen Needle) Nexium 40 mg capsule,delayed 40 mg PO DAILY #90 caps 11/16/22 09/21/23 release (esomeprazole magnesium) loratadine 10 mg tablet (Allergy 10 mg PO DAILY #90 tabs 11/25/22 09/21/23 Relief (loratadine)) pravastatin 20 mg tablet 20 mg PO DAILY #90 tab-caps 12/09/22 09/21/23 empagliflozin 25 mg tablet 25 mg PO QAM #90 tabs 12/19/22 09/21/23 (Jardiance) glipizide 5 mg tablet 5 mg PO BID #180 tabs 12/19/22 09/21/23 acyclovir 5 % topical ointment 1 applic topical .q 4h PRN Mouth 01/28/23 09/21/23 (Zovirax) Sore Pain #10 grams metformin 500 mg tablet,extended 500 mg PO BID 02/07/23 09/21/23 release 24 hr mirabegron 25 mg tablet,extended 25 mg PO DAILY 02/07/23 09/21/23 release 24 hr (Myrbetriq) polyethylene glycol 3350 17 gram 17 g PO DAILY PRN constipation 02/12/23 09/21/23 oral powder packet #100 ea lisinopril 10 mg tablet 10 mg PO DAILY #90 tabs 03/17/23 09/21/23 insulin glargine 100 unit/mL (3 30 unit (0.3 mL) subcut DAILY #15 05/05/23 09/21/23 mL) subcutaneous pen (Basaglar mL KwikPen U-100 Insulin) blood-glucose meter,continuous #1 ea 07/02/23 09/21/23 (Dexcom G7 Trust Vault Clerk) blood-glucose sensor (Dexcom G7 #2 ea 07/02/23 09/21/23 Sensor device) insulin degludec 100 unit/mL (3 30 unit (0.3 mL) subcut QHS 50 08/14/23 09/21/23 mL) subcutaneous pen (Tresi days #15 mL FlexTouch U-100 insulin) linaclotide 72 mcg capsule 72 mcg PO DAILY #90 caps 08/18/23 09/21/23 (Linzess) tolterodine 2 mg capsule,extended 2 mg PO DAILY #90 caps 08/18/23 09/21/23 release 24 hr Previous Rx's Medication Instructions Recorded blood sugar diagnostic #180 strips 03/26/19 blood sugar diagnostic #100 ea 10/28/22 pen needle, diabetic 32 gauge x #100 ea 10/28/22 (BD Ultra-Fine Taina Pen Needle) Nexium 40 mg capsule,delayed 40 mg PO DAILY #90 caps 11/16/22 release (esomeprazole magnesium) loratadine 10 mg tablet (Allergy 10 mg PO DAILY #90 tabs 11/25/22 Relief (loratadine)) pravastatin 20 mg tablet 20 mg PO DAILY #90 tab-caps 12/09/22 empagliflozin 25 mg tablet 25 mg PO QAM #90 tabs 12/19/22 (Jardiance) glipizide 5 mg tablet 5 mg PO BID #180 tabs 12/19/22 acyclovir 5 % topical ointment 1 applic topical .q 4h PRN Mouth 01/28/23 (Zovirax) Sore Pain #10 grams polyethylene glycol 3350 17 gram 17 g PO DAILY PRN constipation 02/12/23 oral powder packet #100 ea lisinopril 10 mg tablet 10 mg PO DAILY #90 tabs 03/17/23 insulin glargine 100 unit/mL (3 30 unit (0.3 mL) subcut DAILY #15 05/05/23 mL) subcutaneous pen (Basaglar mL KwikPen U-100 Insulin) blood-glucose meter,continuous #1 ea 07/02/23 (Dexcom G7 Trust Vault Clerk) blood-glucose sensor (Dexcom G7 #2 ea 07/02/23 Sensor device) insulin degludec 100 unit/mL (3 30 unit (0.3 mL) subcut QHS 50 08/14/23 mL) subcutaneous pen (Tresiba days #15 mL FlexTouch U-100 insulin) linaclotide 72 mcg capsule 72 mcg PO DAILY #90 caps 08/18/23 (Linzess) tolterodine 2 mg capsule,extended 2 mg PO DAILY #90 caps 08/18/23 release 24 hr Allergies Allergy/AdvReac Type Severity Reaction Status Date / Time meloxicam Allergy Intermediate rash Verified 09/21/23 13:11 amitriptyline Allergy Mild RASH Verified 09/21/23 13:11 cyclobenzaprine Allergy Mild Skin Rash Verified 09/21/23 13:11 hydrocodone Allergy Mild rash on Verified 09/21/23 13:11 legs influenza virus vaccine, Allergy Mild SWELLING; Verified 09/21/23 13:11 specific JOINT PAIN omeprazole Allergy Mild Skin Rash Verified 09/21/23 13:11 gabapentin Allergy Unknown unknown Verified 09/21/23 13:11 [facility] AdvReac Intermediate abd pain Verified 09/21/23 13:11 sertraline AdvReac abdominal Verified 09/21/23 13:11 pain General Stated Complaint: SOB JUAN ANTONIO: 2 Course Vital Signs Vital signs: Vital Signs Temperature 36.8 C 09/21/23 13:01 Pulse 114 H 09/21/23 13:01 Respiratory Rate 21 09/21/23 13:01 Blood Pressure 155/73 H 09/21/23 13:01 Pulse Oximetry 97 09/21/23 13:01 Temperature 36.8 C 09/21/23 13:01 Temperature Source Tympanic 09/21/23 13:01 Pulse 114 H 09/21/23 13:01 Respiratory Rate 21 09/21/23 13:01 Blood Pressure 155/73 H 09/21/23 13:01 Pulse Oximetry 97 09/21/23 13:01 Oxygen Delivery Method Room Air 09/21/23 13:01 Oxygen Flow Rate 0 09/21/23 13:01 Pain Level 1 09/21/23 13:01 Medical Decision Making Quality:SDOH Health Related Social Needs: No Data to Display PFSH All Active Problems (Updated 09/21/23 @ 17:13 by Gabe Jensen MD) Chest pain, unspecified (Acute) Venous insufficiency (Acute) Painful total knee replacement, left (Acute) Crepitus of joint of left knee (Acute) Graham's esophagus (Acute ~02/2023) chronic Pelvic pain in male (Acute) Constipation (Acute) Hypomagnesemia (Acute) Change in stool habits (Acute) Nail dystrophy (Acute) Urgency of urination (Acute) COVID-19 (Acute ~12/25/21) Status post revision of total replacement of left knee (Acute 11/07/21) Seasonal allergies (Acute) Loosening of prosthesis of left total knee replacement (Acute) Painful orthopaedic hardware (Acute) Benign prostatic hyperplasia (Chronic) Hyperlipidemia (Acute) Hypertension (Chronic) 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) FOLLOWED BY OPTICAL EXPRESSIONS (SEE SCANNED) Polyp of colon (Chronic 05/22/02) Primary osteoarthritis of right knee (Chronic 07/24/15) Gastric motor function disorder (Acute) Erythema nodosum (Acute 05/22/01) Laryngitis from reflux of stomach acid (Acute) Trigeminal neuralgia (Acute) Gynecomastia (Acute) Diabetes mellitus (Chronic) Insomnia (Acute) Medical History Pancreatitis Depression Diverticulosis of colon Type II diabetes mellitus, uncontrolled Reflux esophagitis (06/30/15) Obesity Kidney stone left Hiatal hernia EGD 2003 Surgical History History of arthroscopy of left knee (02/27/21) Synovectomy of left TKA Hx of total knee replacement left H/O arthroscopic knee surgery b/l Dr. Mock H/O colonoscopy (07/03/18) diverticulosis, otherwise normal, repeat 10 years, Dr John Lambert Endoscopy (~02/2023) 2003, 2011,2016 Barium swallow 2016 EGD - MAC (03/12/17) Colonoscopy - MAC 2002 and 2007, 07/03/18 Dr John Lambert, [facility], normal, repeat in 10 years. mg Cholecystectomy (~2002) and pancreatitis Family History Mother Essential hypertension Stroke Father Personal history of malignant neoplasm STOMACH Brother Diabetes Personal history of malignant neoplasm Grandmother Personal history of malignant neoplasm Social History Smoking/Tobacco Use Status: Former Tobacco Use tobacco type: cigarettes Quit Date: 06/23/85 Tobacco: How many years used: 12 Smokeless tobacco user: other (Cigarettes ) Second Hand Exposure: Yes Smoking risk assessment performed?: Yes Alcohol Intake: current Alcohol Intake frequency: holidays/special occasions only Drug use: Never Substance use type: does not use Caregiver/Support person: No Household members: friend(s) Housing: house Communication Needs: Corrective Lenses Do you need help understanding health information?: Never Pets and animals: Yes Pets and animals: cat(s) and dog(s) Sexually active: No Do you think of yourself as: lesbian/harris/homosexual Current gender identity: male What is your relationship status?: living with partner How often do you talk on the phone with friends or family?: three or more times per week How often do you get together with friends or relatives?: three or more times per week How often do you attend latter day or sabianism services?: 1-3 times per year Do you belong to any clubs or organized social groups?: yes Panel score (0-1 are the most socially isolated patients): 3 What type of physical activity do you participate in: walking and bicycling Duration: 15-30 minutes/day Frequency: 3-4 times per week Galilea/Cheondoism: No preference Special galilea needs: No Seatbelt use: never Helmet use: No Drive intox or ride w/intox ambulette driver: No Do you feel safe at home: Yes Do you feel safe in your relationship?: Yes POCUS Exam (ED) Limited Cardiac Exam DATE OF EXAM: 09/21/23 TIME OF EXAM: 17:22 PROVIDER THAT PERFORMED THE STUDY: Gabe Jensen REASON FOR EXAM: Chest pain VISUALIZED STRUCTURES: Four Chambers, Left ventricle and LVOT VIEW OBTAINED: Apical 4-Chamber, Parasternal long-axis and Subxiphoid PERTINENT FINDINGS/IMPRESSION: Other Good squeeze, aortic outflow track less than 4 cm, RV less than LV, no significant pericardial effusion. ; No LV dysfunction, No pericardial effusion and No RV dilation Exam complete
--- NOTE | 2023-09-21 13:30 | DI.RAD_ITS ---
Exam(s) XR PORTABLE CHEST AP EXAM: XR PORTABLE CHEST AP CLINICAL HISTORY: Chest pain TECHNIQUE: 2D digital imaging was performed of the chest. One image was obtained. An AP view was ob tained. COMPARISON: CR XR CHEST 2V PA LATERAL from 05/04/2019 FINDINGS: MEDIASTINUM: Normal. HEART: Normal. PULMONARY VASCULATURE: Normal. LUNGS: Clear. PLEURAL SPACE: No pleural effusion or pneumothorax. BONE:Within normal limits for the patient's age. OTHER FINDINGS:Normal. IMPRESSION: No acute pulmonary findings. DATA REPOSITORY: RADIATION DOSE DELIVERED:
[2023-09-21] MEDS: Famotidine 20 MG/2 ML VIAL 40 MG IVP (13:40)
[2023-09-21] MEDS: Mylanta Suspension 30 ML CUP PO (13:40)
[2023-09-21] MEDS: Acetaminophen 500 MG TAB 1000 MG PO (13:40)
[2023-09-21 13:44] LABS: Abs Immature Grans 0.03 10^3/uL (0.0-0.06); Absolute Basophil Count 0.02 10^3/uL (0.0-0.2); Absolute Eosinophil Count 0.09 10^3/uL (0.0-0.7); Absolute Lymphocyte Count 2.25 10^3/uL (1.2-3.4); Absolute Monocyte Count 0.47 10^3/uL (0.1-0.8); Absolute Neutrophil Count 3.97 10^3/uL (1.2-6.7); Basophils % 0.3; Eosinophils % 1.3; HCT 48.7 % (40.0-50.0); HGB 16.4 g/dL (13.5-17.5); Immature Grans % 0.4; Lymphocytes % 32.9; MCH 29.9 pg (27.0-33.0); MCHC 33.7 % (32.0-36.0); MCV 89 fL (80-95); MPV 9.2 fL (8.0-11.0); Monocytes % 6.9; Neutrophils % 58.2; Platelet Count 230 10^3/uL (130-400); RBC 5.49 10^6/uL (4.36-5.78); RDW 13.2 % (11.8-14.1); RDW-SD 42.9 fL; WBC 6.83 10^3/uL (4.4-10.8)
[2023-09-21 14:02] LABS: Anion Gap 10.2 mmol/L (3-11); BUN 18 mg/dL (7-18); CO2 25.8 mmol/L (21.0-32.0); CREATININE 0.8 mg/dL (0.70-1.30); Chloride 103 mmol/L (98-107); Estimated GFR 94.62 (mL/min/1.73m2); Glucose 100 mg/dL (74-106); Sodium 139 mmol/L (136-145)
[2023-09-21 14:04] LABS: Troponin I < 50 ng/L (< or =60)
[2023-09-21 14:15] LABS: D-Dimer 1526 ng/mlFEU (<500)
--- NOTE | 2023-09-21 14:15 | DI.CT_ITS ---
Exam(s) CT CHEST PE CTA EXAM: CT CHEST PE CTA CLINICAL HISTORY: Chest pain positive dimer. TECHNIQUE: Imaging Protocol: Axial CT angiography was performed with multi-slice acquisition and mu lti-planar and/or 3D reconstructions. CONTRAST MATERIAL: Intravenous: Omnipaque 350 contrast volume:83 mL COMPARISON: CT CT NECK CHEST W from 03/01/2023 CR,XR XR PORTABLE CHEST AP from 09/21/2023 FINDINGS: Tracheobronchial tree: Patent where visualized. Pulmonary parenchyma: No consolidation or dominant measurable mass. No architectural distortion. Pulmonary Arteries: No evidence of filling defect to suggest pulmonary emboli. Mediastinum and Claudia: No dominant adenopathy or fluid collection. The esophagus is unremarkable. Th ere is a small hiatal hernia. Visualized thyroid gland: Unremarkable. Pleura: No effusion or pneumothorax. Heart: Cardiomegaly. No coronary artery calcifications are seen. No pericardial effusion. Aorta: Thoracic aorta non-dilated. No evidence of dissection. Mild atherosclerotic calcification is p resent. Upper abdomen: Status post cholecystectomy. Soft tissues: Unremarkable. Bones: Within normal limits for the patient's age. IMPRESSION: No evidence of pulmonary embolism, thoracic aortic dissection or aneurysm. RADIATION DOSE DELIVERED: Total DLP DATA REPOSITORY: All CT scans at this facility are submitted to the National Radiology Data Registry (NRDR) Dose Index Registry (DIR) with the [employer] (ACR). RADIATION OPTIMIZATION: All CT scans at this facility use at least one of these dose optimization te chniques: automated exposure control; mA and/or kV adjustment per patient size (includes targeted exa ms where dose is matched to clinical indication); or iterative reconstruction.
--- NOTE | 2023-09-21 14:50 | DI.VRAD_ITS ---
PROCEDURE INFORMATION: Exam: XR Chest Exam date and time: 09/21/2023 2:09 PM Age: 73 years old Clinical indication: Condition or disease; Other: Chest pain TECHNIQUE: Imaging protocol: Radiologic exam of the chest. Views: 1 view. COMPARISON: CT NECK CHEST W 03/01/2023 9:42 AM FINDINGS: Lungs: Unremarkable. No consolidation. Pleural spaces: Unremarkable. No pleural effusion. No pneumothorax. Heart/Mediastinum: Unremarkable. No cardiomegaly. Bones/joints: Unremarkable. IMPRESSION: No acute findings. Dictated and Authenticated by: Tiny Simpson MD. Ordering:SABI Bernal MD
[2023-09-21] MEDS: Normal Saline - Diluent 50 ML VIAL IJ (14:54)
[2023-09-21] MEDS: Omnipaque 350 MG/ML 100 ML BTL 83 ML IJ (14:55)
[2023-09-21] MEDS: Normal Saline Flush 10 ML SYR IVP (15:08)
--- NOTE | 2023-09-21 15:27 | DI.VRAD_ITS ---
PROCEDURE INFORMATION: Exam: CTA Chest With Contrast Exam date and time: 09/21/2023 3:03 PM Age: 73 years old Clinical indication: Other: Chest pain positive dimer TECHNIQUE: Imaging protocol: Computed tomographic angiography of the chest with contrast. Exam focused on the arteries. 3D rendering (Not supervised by radiologist): MIP and/or 3D reconstructed images were created by the technologist. Contrast material: OMNIPAQUE 350; Contrast volume: 83 ml; Contrast route: INTRAVENOUS (IV); COMPARISON: CT CHEST PE CTA 05/04/2019 4:46 PM FINDINGS: Pulmonary arteries: Pulmonary arteries are adequately opacified to the segmental level. No pulmonary emboli within the main or segmental pulmonary arteries. Aorta: Unremarkable. No aortic aneurysm. No aortic dissection. Lungs: Unremarkable. No consolidation. No masses. Pleural spaces: Unremarkable. No pneumothorax. No pleural effusion. Heart: Unremarkable. No cardiomegaly. No pericardial effusion. Small hiatal hernia . Lymph nodes: Unremarkable. No enlarged lymph nodes. Gallbladder and bile ducts: Post cholecystectomy. Bones/joints: Unremarkable. No acute fracture. Soft tissues: Bilateral gynecomastia. IMPRESSION: No pulmonary emboli within the main or segmental pulmonary arteries. Dictated and Authenticated by: Rachel Goldsmith MD. Ordering:SABI Bernal MD
[2023-09-21 17:05] LABS: Troponin I < 50 ng/L (< or =60)
== END 2023-09-21 17:48 | disposition home or self-care (01) ==
PROVIDERS: Emergency Provider Emergency Medicine; PCP Family Medicine
DX: R07.89 Other chest pain (principal); I10 Essential (primary) hypertension; E78.5 Hyperlipidemia, unspecified; E11.9 Type 2 diabetes mellitus without complications; Z79.84 Long term (current) use of oral hypoglycemic drugs; Z79.4 Long term (current) use of insulin; Z87.891 Personal history of nicotine dependence
CPT/HCPCS: 36415; 71275; 80048; 93005; 93308; 96374; 99285; 71045; 84484; 85025; 85379; 93010; 99284; J3490

== ENCOUNTER 2023-09-29 11:40 | Outpatient (REF) | payer MEDICARE, MEDICAID, SELFPAY ==
[2023-09-29 12:38] LABS: Clarity Cloudy; Nucleated Cells 896 uL (0)
[2023-09-29 13:22] LABS: Mononuclear Cells 91 %; Polynuclear Cells 9 %
== END 2023-09-29 11:41 | disposition home or self-care (01) ==
LOC: LBN 11:40
PROVIDERS: PCP Family Medicine; Visit Provider Student in an Organized Health Care Education/Training Program
DX: T84.84XA Pain due to internal orthopedic prosthetic devices, implants and grafts, initial encounter (principal); Z96.652 Presence of left artificial knee joint
CPT/HCPCS: 87070; 87205; 89051

== ENCOUNTER 2023-09-29 13:10 | Outpatient (CLI) | payer MEDICARE, MEDICAID, SELFPAY ==
--- NOTE | 2023-09-29 09:00 | DI.RAD_ITS ---
Exam(s) XR KNEE LT 4V AP,LAT,DELICIA,PAT EXAM: XR KNEE LT 4V AP,LAT,DELICIA,PAT CLINICAL HISTORY: eval continued left knee pain. TECHNIQUE: 2D digital imaging was performed. Three views. COMPARISON: CR XR KNEE LT 2V AP,LAT from 05/29/2023 FINDINGS: BONES: No acute fracture is present. No bony destructive lesion is seen. Stable appearance knee pros thesis. JOINTS: The knee is normally aligned. No joint effusion is seen. SOFT TISSUE: Normal. IMPRESSION: Stable appearance of knee prosthesis. DATA REPOSITORY: RADIATION DOSE DELIVERED:
== END 2023-09-29 13:11 | disposition home or self-care (01) ==
LOC: DIORS 13:11
PROVIDERS: PCP Family Medicine; Referring Provider Family Medicine; Visit Provider Student in an Organized Health Care Education/Training Program
DX: Z47.1 Aftercare following joint replacement surgery (principal); Z96.652 Presence of left artificial knee joint; T84.84XD Pain due to internal orthopedic prosthetic devices, implants and grafts, subsequent encounter
CPT/HCPCS: 20610; 73564; J1040

== ENCOUNTER → 2023-10-02 01:29 | Outpatient (CLI) | payer MEDICARE, MEDICAID, SELFPAY ==
--- NOTE | 2023-10-02 07:30 | DI.NM_ITS ---
APPROVED REPORT Exam: Pharmacologic Patient Location: Out-Patient Room/Bed: Stress Nurse: Kathrin Godinez RN Ordering Provider:BOB QUIROS, Contact Number: [phone] BMI: 32.78 Baseline Rhythm: Sinus Bradycardia Indications: Chest pain, Medical History Medical History: DMT2, depression, obesity, chest pain, HLD, HTN, OA Cardiac Medications: Aspirin, empagliflozin, glipizide, lisinopril, metformin, nexium, pravastatin Allergies: Meloxicam, amitriptyline, cyclobenzaprine, hydrocondone, omeprazole, gabapentin, dulagluti de, sertraline Cardiac Risk Factors: Family hx, HTN, HLD, diabetes, previous smoker, obesity Previous Cardiac Procedures: None Pretest Chest Pain Characteristics: None Exercise History: None Physical Disabilities: Left Knee Lung Sounds: Clear to auscultation Heart Sounds: Bradycardia Stress Test Details Test: Pharmacologic stress testing performed using 0.4 mg of regadenoson per 5 mL given IV over 10 s econds. Reason for pharmacologic stress test: physical limitation. Nuclear Acquisition: Rest Tc-99m/Stress Tc-99m 1 day Rest Isotope: Tc-99m Sestamibi. Dose: 10.0 Date: 10/02/2023 Injection Time: 0840 Stress Isotope: Tc-99m Sestamibi. Dose: 31.0 Date: 10/02/2023 Injection Time: 0946 HR Resting HR Supine: 51 bpm Max Heart Rate (APMHR): 149.486175 bpm Target HR (85% APMHR): 126.039086 bpm Max HR Achieved: 110 bpm % of APMHR: 73.83 Recovery HR: 58 bpm BP Resting BP Supine: 138/64 mmHg Max BP: 160/58 mmHg Recovery BP: 142/60 mmHg BP response to stress: Normal blood pressure response to stress. ECG Resting ECG: Sinus Bradycardia Stress ECG: Sinus Tachycardia ST Change: Nondiagnostic low heart rate Recovery ECG: Sinus Bradycardia Recovery ST Change: Nondiagnostic low heart rate Clinical Stress Symptoms: None Angina Score: None Rate Pressure Product: [id number] Stress ECG Conclusion 1. Resting EKG was normal 2. Patient underwent testing using pharmacologic stress with regadenoson 3. Peak heart rate achieved was 74% of maximal for age 4. The electrocardiographic portion of the test was noniagnostic 5. See MPI report Stress Test Summary STAGE HR BP SpO2 Symptoms NOTES Supine 51 138/64 1 min post Lexiscan injection 109 158/72 96 3 min post Lexiscan injection 92 160/58 98 6 min post Lexiscan injection 58 142/60 MPI Conclusion Myocardial perfusion is normal. There is no ischemia or evidence of infarction EF 61%, normal wall motion Radiologist Interpretation Radiologist Interpretation by: Pankaj Hampton MD Interpretation Date/Time: 10/02/2023 18:45:44
[2023-10-02] MEDS: Regadenoson 0.4 MG/5 ML SYR IVP (09:58)
== END ==
PROVIDERS: PCP Family Medicine; Visit Provider Family Medicine
DX: R07.9 Chest pain, unspecified (principal)
CPT/HCPCS: 78452; 93016; 93018; 93017; J2785

== ENCOUNTER → 2023-12-15 09:25 | Outpatient (BNVA) | payer MEDICARE, MEDICAID, SELFPAY | PROVIDERS: PCP Family Medicine; Visit Provider Student in an Organized Health Care Education/Training Program | DX: Z47.1 Aftercare following joint replacement surgery (principal); T84.84XS Pain due to internal orthopedic prosthetic devices, implants and grafts, sequela; Z96.652 Presence of left artificial knee joint | CPT/HCPCS: 99213 ==

== ENCOUNTER 2024-01-17 10:14 | Emergency (ER) | payer MEDICARE, MEDICAID, SELFPAY ==
[2024-01-17 10:20] VITALS: BP 161/81; PULSE 89; RESP 16; TEMP 36.7; O2SAT 98
--- NOTE | 2024-01-17 10:54 | W.ED.GENAD ---
Discharge Plan Disposition Patient Disposition: Home Discharge Details Clinical Impression: Pruritic rash Primary Care Provider: Bryan Isaacs ED Provider: Peewee Hoskins Home Meds and New Rx's Prescriptions: No Action polyethylene glycol 3350 17 gram powder in packet 17 g PO DAILY PRN (Reason: constipation) Qty: 100 3RF docusate sodium [Colace] 100 mg capsule 100 - 200 mg PO DAILY Qty: 90 3RF triamcinolone acetonide 0.1 % cream 1 applic topical BID Qty: 80 0RF Rx Instructions: for no longer than 2 weeks magnesium oxide 500 mg capsule 500 mg PO BID metformin 500 mg tablet extended release 24 hr 500 mg PO BID (DME) Dexcom G7 Sensor Device See Rx Instructions .Route Qty: 2 11RF Rx Instructions: As directed (DME) Dexcom G7 Environmental Studies Department Chair Misc See Rx Instructions .Route Qty: 1 0RF Rx Instructions: As directed Jardiance 25 mg tablet 25 mg PO QAM Qty: 90 3RF esomeprazole magnesium [Nexium] 40 mg capsule,delayed release(DR/EC) 40 mg PO DAILY Qty: 90 3RF (DME) pen needle, diabetic [BD Ultra-Fine Taina Pen Needle] 32 gauge x 5/32 needle 1 ea Miscellaneous DAILY Qty: 100 3RF Rx Instructions: DX e11.65 ultra fine needle test once/day pravastatin 20 mg tablet 20 mg PO DAILY Qty: 90 3RF insulin degludec [Tresiba FlexTouch U-100] 100 unit/mL (3 mL) insulin pen 25 unit subcut QHS MDD 30 units 50 Days Qty: 12.5 12RF Rx Instructions: Inject 25 units subcutaneously once daily, titrate as directed. (DME) blood sugar diagnostic Strip 1 ea Miscellaneous BID Qty: 180 3RF Rx Instructions: As directed (DME) blood sugar diagnostic Strip See Rx Instructions .ROUTE .MEDSUPPLY Qty: 100 12RF Rx Instructions: test bid acyclovir [Zovirax] 5 % ointment 1 applic Topical .q 4h PRN (Reason: Mouth Sore Pain) Qty: 10 5RF Rx Instructions: 5% lisinopril 10 mg tablet 10 mg PO DAILY Qty: 90 3RF Linzess 72 mcg capsule 72 mcg PO DAILY Qty: 90 1RF tolterodine 2 mg capsule,extended release 24hr 2 mg PO DAILY Qty: 90 3RF glipizide 5 mg tablet 5 mg PO BID Qty: 180 3RF venlafaxine 37.5 mg capsule,extended release 24hr 37.5 mg PO DAILY Qty: 30 2RF Discharge Instructions Instructions: Skin Rash ED Additional Instructions: At this time it does not appear that you have a life-threatening rash. Please continue to monitor symptoms and return for any emergent changes as discussed. Your referral has already been placed to [facility] [place] follow-[place] and in the meantime continue to use Benadryl cream or gel as needed to help control symptoms Referrals: [facility] [Outside] (Please call the dermatology office on Friday morning for arrangement of your follow-up appointment) HPI General Mode of arrival: ambulatory. Date/Time Provider Initiated Documentation: 01/17/24 10:18. Limitations to Documentation: no limitations. Information obtained by: patient, RN notes reviewed and old records reviewed. History of Present Illness 73 year old M presents to the emergency department with the chief complaint of Rash, described as mild, and is localized to the lower extremity. Patient started experiencing this month(s) (7) and it has been constant. No relieving factors improve symptom(s), No exacerbating factors reported . Patient notes no other symptoms.. Related Data Home Medications ?Medication ?Instructions ?Recorded ?Confirmed blood sugar diagnostic #180 strips 03/26/19 01/17/24 magnesium oxide 500 mg capsule 500 mg PO BID 06/04/22 01/17/24 blood sugar diagnostic #100 ea 10/28/22 01/17/24 acyclovir 5 % topical ointment 1 applic topical .q 4h PRN Mouth 01/28/23 01/17/24 (Zovirax) Sore Pain #10 grams metformin 500 mg tablet,extended 500 mg PO BID 02/07/23 01/17/24 release 24 hr lisinopril 10 mg tablet 10 mg PO DAILY #90 tabs 03/17/23 01/17/24 blood-glucose meter,continuous #1 ea 07/02/23 01/17/24 (Dexcom G7 Environmental Studies Department Chair) blood-glucose sensor (Dexcom G7 #2 ea 07/02/23 01/17/24 Sensor device) linaclotide 72 mcg capsule 72 mcg PO DAILY #90 caps 08/18/23 01/17/24 (Linzess) tolterodine 2 mg capsule,extended 2 mg PO DAILY #90 caps 08/18/23 01/17/24 release 24 hr Nexium 40 mg capsule,delayed 40 mg PO DAILY #90 caps 10/02/23 01/17/24 release (esomeprazole magnesium) empagliflozin 25 mg tablet 25 mg PO QAM #90 tabs 10/02/23 01/17/24 (Jardiance) insulin degludec 100 unit/mL (3 25 unit (0.25 mL) subcut QHS 50 10/02/23 01/17/24 mL) subcutaneous pen ( #12.5 mL FlexTouch U-100 insulin) pen needle, diabetic 32 gauge x #100 ea 10/02/23 01/17/24 (BD Ultra-Fine Taina Pen Needle) pravastatin 20 mg tablet 20 mg PO DAILY #90 tab-caps 10/02/23 01/17/24 docusate sodium 100 mg capsule 100 - 200 mg (1 - 2 x 100 mg) PO 11/04/23 01/17/24 (Colace) DAILY #90 caps polyethylene glycol 3350 17 gram 17 g PO DAILY PRN constipation 11/04/23 01/17/24 oral powder packet #100 ea glipizide 5 mg tablet 5 mg PO BID #180 tabs 12/02/23 01/17/24 venlafaxine 37.5 mg 37.5 mg PO DAILY #30 caps 12/24/23 01/17/24 capsule,extended release 24 hr triamcinolone acetonide 0.1 % 1 applic topical BID #80 grams 01/13/24 01/17/24 topical cream Previous Rx's ?Medication ?Instructions ?Recorded blood sugar diagnostic #180 strips 03/26/19 blood sugar diagnostic #100 ea 10/28/22 acyclovir 5 % topical ointment 1 applic topical .q 4h PRN Mouth 01/28/23 (Zovirax) Sore Pain #10 grams lisinopril 10 mg tablet 10 mg PO DAILY #90 tabs 03/17/23 blood-glucose meter,continuous #1 ea 07/02/23 (Dexcom G7 Environmental Studies Department Chair) blood-glucose sensor (Dexcom G7 #2 ea 07/02/23 Sensor device) linaclotide 72 mcg capsule 72 mcg PO DAILY #90 caps 08/18/23 (Linzess) tolterodine 2 mg capsule,extended 2 mg PO DAILY #90 caps 08/18/23 release 24 hr Nexium 40 mg capsule,delayed 40 mg PO DAILY #90 caps 10/02/23 release (esomeprazole magnesium) empagliflozin 25 mg tablet 25 mg PO QAM #90 tabs 10/02/23 (Jardiance) insulin degludec 100 unit/mL (3 25 unit (0.25 mL) subcut QHS 50 10/02/23 mL) subcutaneous pen (Tresiba days #12.5 mL FlexTouch U-100 insulin) pen needle, diabetic 32 gauge x #100 ea 10/02/23 (BD Ultra-Fine Taina Pen Needle) pravastatin 20 mg tablet 20 mg PO DAILY #90 tab-caps 10/02/23 docusate sodium 100 mg capsule 100 - 200 mg (1 - 2 x 100 mg) PO 11/04/23 (Colace) DAILY #90 caps polyethylene glycol 3350 17 gram 17 g PO DAILY PRN constipation 11/04/23 oral powder packet #100 ea glipizide 5 mg tablet 5 mg PO BID #180 tabs 12/02/23 venlafaxine 37.5 mg 37.5 mg PO DAILY #30 caps 12/24/23 capsule,extended release 24 hr triamcinolone acetonide 0.1 % 1 applic topical BID #80 grams 01/13/24 topical cream Allergies Allergy/AdvReac Type Severity Reaction Status Date / Time meloxicam Allergy Intermediate rash Verified 12/30/23 07:55 amitriptyline Allergy Mild RASH Verified 12/30/23 07:55 cyclobenzaprine Allergy Mild Skin Rash Verified 12/30/23 07:55 hydrocodone Allergy Mild rash on Verified 12/30/23 07:55 legs influenza virus vaccine, Allergy Mild SWELLING; Verified 12/30/23 07:55 specific JOINT PAIN omeprazole Allergy Mild Skin Rash Verified 12/30/23 07:55 gabapentin Allergy Unknown unknown Verified 12/30/23 07:55 dulaglutide (From [facility]) AdvReac Intermediate abd pain Verified 12/30/23 07:55 sertraline AdvReac abdominal Verified 12/30/23 07:55 pain General Stated Complaint: RashLesion JUAN ANTONIO: 4 Review of Systems Constitutional Constitutional: Denies chills and Denies fever(s) ENT Ears, Nose, Mouth, and Throat: Denies lip swelling, Denies mouth lesions, Denies sore throat, Denies throat swelling and Denies tongue swelling Cardiovascular Cardiovascular: Denies dyspnea Respiratory Respiratory: Denies dyspnea and Denies wheezing Gastrointestinal Gastrointestinal: Denies nausea and Denies vomiting Integumentary/Breasts Skin/Breast: Reports as per HPI, Reports erythema and Reports rash Allergic/Immunologic Allergic/Immunologic: Denies lip swelling, Denies throat swelling, Denies tongue swelling and Denies wheezing Exam Const General: cooperative and comfortable Orientation: alert and awake HENMT Head: normal to inspection and normocephalic General nose exam: external nose normal Face and sinus: normal facial exam Mouth: oral mucosae normal, lip normal, tongue normal and no audible dysphonia Throat: posterior oropharynx normal and uvula midline Resp Effort & Inspection: normal respiratory effort and able to speak in complete sentences Auscultation: clear to auscultation bilaterally Cardio Rate: regular rate Rhythm: regular rhythm Heart Sounds: S1 normal and S2 normal Skin Rashes: rashes noted papules bilateral lower leg Full body images: 1. Area of rash Course Vital Signs Vital signs: Vital Signs Temperature 36.7 C 01/17/24 10:20 Pulse 89 01/17/24 10:20 Respiratory Rate 16 01/17/24 10:20 Blood Pressure 161/81 H 01/17/24 10:20 Pulse Oximetry 98 01/17/24 10:20 Temperature 36.7 C 01/17/24 10:20 Pulse 89 01/17/24 10:20 Respiratory Rate 16 01/17/24 10:20 Respiratory Effort Normal 01/17/24 10:27 Blood Pressure 161/81 H 01/17/24 10:20 Pulse Oximetry 98 01/17/24 10:20 Pain Level 0 01/17/24 10:20 Medical Decision Making Patient presenting to the emergency department for chief complaint of rash that has been going on for greater than 7 months. Patient is seen primary care multiple times with medication adjustments, has washed linens with new soap and otherwise monitored for any other contact sources. Rashes only on lower extremities and started out mainly on the right medial aspect of the lower leg only above the sock line to exposed area of skin. Rash is now present on left lower extremity. Patient did see primary care earlier this week who placed an appropriate referral to [facility] [place] for follow-up. Patient states the steroid cream that he was placed on has not been helping but [id number] Benadryl cream does. Patient denies any new or worsening symptoms just concern for lack of resolution. Physical exam does show localized rash to mainly the exposed medial aspects of the lower extremities that patient does state is pruritic no systemic symptoms noted and exam is otherwise noncontributory along with review of systems. No signs of anaphylaxis or life-threatening rash, no systemic symptoms noted. Differential diagnosis is extensive and I feel that there is very low likelihood of emergent or life-threatening nature to rash that is been very slow in progression for 7 months. Some consideration is atopic dermatitis, auto eczematization , contact dermatitis, drug reaction, pruritus of senescence, diabetic dermopathy. Patient encouraged to continue to use [id number] Benadryl cream since that is helpful but to hold off on steroid cream since that seems to be causing some irritation. Patient encouraged to call dermatology on Friday morning and to otherwise monitor symptoms and return to emergency department for emergent findings that were discussed otherwise to continue with plan established from primary care provider. After discussion of diagnosis and plan of care patient has no further needs, questions, or concerns and states clear understanding to return to the emergency department for any worsening symptoms. This documentation was generated using [employer] dictation system, please disregard any oddities of phrase or misspellings. Quality:SDOH Health Related Social Needs: No Data to Display PFSH All Active Problems Pruritic rash (Acute) Anxiety (Chronic) Venous insufficiency (Acute) Painful total knee replacement, left (Acute) DEPO MEDROL 09/29/23 Crepitus of joint of left knee (Acute) Graham's esophagus (Acute ~02/2023) chronic Pelvic pain in male (Acute) Constipation (Acute) Hypomagnesemia (Acute) Change in stool habits (Acute) Nail dystrophy (Acute) Urgency of urination (Acute) COVID-19 (Acute ~12/25/21) Status post revision of total replacement of left knee (Acute 11/07/21) Seasonal allergies (Acute) Painful orthopaedic hardware (Acute) Benign prostatic hyperplasia (Chronic) Hyperlipidemia (Acute) Hypertension (Chronic) 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) FOLLOWED BY OPTICAL EXPRESSIONS (SEE SCANNED) Polyp of colon (Chronic 05/22/02) Primary osteoarthritis of right knee (Chronic 07/24/15) Gastric motor function disorder (Acute) Erythema nodosum (Acute 05/22/01) Laryngitis from reflux of stomach acid (Acute) Trigeminal neuralgia (Acute) Gynecomastia (Acute) Diabetes mellitus (Chronic) Insomnia (Acute) Medical History Pancreatitis Depression Diverticulosis of colon Type II diabetes mellitus, uncontrolled Reflux esophagitis (06/30/15) Obesity Kidney stone left Hiatal hernia EGD 2003 Surgical History History of arthroscopy of left knee (02/27/21) Synovectomy of left TKA Hx of total knee replacement left H/O arthroscopic knee surgery b/l Dr. Mock H/O colonoscopy (07/03/18) diverticulosis, otherwise normal, repeat 10 years, Dr John Lambert Endoscopy (~02/2023) 2003, 2011,2016 Barium swallow 2016 EGD - MAC (03/12/17) Colonoscopy - MAC 2002 and 2007, 07/03/18 Dr John Lambert, [facility], normal, repeat in 10 years. mg Cholecystectomy (~2002) and pancreatitis Family History Mother Essential hypertension Stroke Father Personal history of malignant neoplasm STOMACH Brother Diabetes Personal history of malignant neoplasm Grandmother Personal history of malignant neoplasm Social History Smoking/Tobacco Use Status: Former Tobacco Use tobacco type: cigarettes Quit Date: 06/23/85 Tobacco: How many years used: 12 Smokeless tobacco user: other (Cigarettes ) Second Hand Exposure: Yes Smoking risk assessment performed?: Yes Alcohol Intake: current Alcohol Intake frequency: holidays/special occasions only Drug use: Never Substance use type: does not use Caregiver/Support person: No Household members: friend(s) Housing: house Communication Needs: Corrective Lenses Do you need help understanding health information?: Never Pets and animals: Yes Pets and animals: cat(s) and dog(s) Sexually active: No Do you think of yourself as: lesbian/harris/homosexual Current gender identity: male What is your relationship status?: living with partner How often do you talk on the phone with friends or family?: three or more times per week How often do you get together with friends or relatives?: three or more times per week How often do you attend mandaeism or protestant services?: 1-3 times per year Do you belong to any clubs or organized social groups?: yes Panel score (0-1 are the most socially isolated patients): 3 What type of physical activity do you participate in: walking and bicycling Duration: 15-30 minutes/day Frequency: 3-4 times per week Galilea/Church: No preference Special galilea needs: No Seatbelt use: never Helmet use: No Drive intox or ride w/intox coal tram driver: No Do you feel safe at home: Yes Do you feel safe in your relationship?: Yes
[2024-01-17 11:29] VITALS: BP 161/81; PULSE 80; RESP 16; TEMP 36.7; O2SAT 98
== END 2024-01-17 11:13 | disposition home or self-care (01) ==
PROVIDERS: Emergency Provider Nurse Practitioner Family; PCP Family Medicine
DX: R21 Rash and other nonspecific skin eruption (principal); I10 Essential (primary) hypertension; E78.5 Hyperlipidemia, unspecified; E11.9 Type 2 diabetes mellitus without complications; Z79.84 Long term (current) use of oral hypoglycemic drugs; Z79.4 Long term (current) use of insulin; Z87.891 Personal history of nicotine dependence
CPT/HCPCS: 99283

== ENCOUNTER 2024-02-04 10:14 | Day surgery (SDC) | payer MEDICARE, MEDICAID, SELFPAY ==
[2024-02-04] VITALS (14 sets, daily range): BP systolic 139–152; BP diastolic 57–93; PULSE 44–79; RESP 14–24; TEMP 36–36.6; O2SAT 93–99; BMI 32.7
--- NOTE | 2024-02-04 11:09 | W.ANESPRE ---
General Info Date of Service Date Performed: 02/04/24 Height: 5 ft 10 in Weight: 103.419 kg Body Mass Index (BMI): 32.7 Surgical Procedure: Operation Date: 02/04/24 12:55 Proposed Procedure Side Surgeon p Knee Arthroscopy, Synovectomy Left Nuno Santana MD Meds Allergies and Home Medications Allergies Allergy/AdvReac Type Severity Reaction Status Date / Time meloxicam Allergy Intermediate rash Verified 02/04/24 11:07 amitriptyline Allergy Mild RASH Verified 02/04/24 11:07 cyclobenzaprine Allergy Mild Skin Rash Verified 02/04/24 11:07 hydrocodone Allergy Mild rash on Verified 02/04/24 11:07 legs influenza virus vaccine, Allergy Mild SWELLING; Verified 02/04/24 11:07 specific JOINT PAIN omeprazole Allergy Mild Skin Rash Verified 02/04/24 11:07 gabapentin Allergy Unknown unknown Verified 02/04/24 11:07 dulaglutide (From [facility]) AdvReac Intermediate abd pain Verified 02/04/24 11:07 sertraline AdvReac abdominal Verified 02/04/24 11:07 pain Home Medication ?Medication ?Instructions ?Recorded blood sugar diagnostic #180 strips 03/26/19 magnesium oxide 500 mg capsule 500 mg PO BID 06/04/22 blood sugar diagnostic #100 ea 10/28/22 acyclovir 5 % topical ointment 1 applic topical .q 4h PRN Mouth 01/28/23 (Zovirax) Sore Pain #10 grams metformin 500 mg tablet,extended 500 mg PO BID 02/07/23 release 24 hr lisinopril 10 mg tablet 10 mg PO DAILY #90 tabs 03/17/23 blood-glucose meter,continuous #1 ea 07/02/23 (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) blood-glucose sensor (Dexcom G7 #2 ea 07/02/23 Sensor device) linaclotide 72 mcg capsule 72 mcg PO DAILY #90 caps 08/18/23 (Linzess) tolterodine 2 mg capsule,extended 2 mg PO DAILY #90 caps 08/18/23 release 24 hr Nexium 40 mg capsule,delayed 40 mg PO DAILY #90 caps 10/02/23 release (esomeprazole magnesium) empagliflozin 25 mg tablet 25 mg PO QAM #90 tabs 10/02/23 (Jardiance) insulin degludec 100 unit/mL (3 25 unit (0.25 mL) subcut QHS 50 10/02/23 mL) subcutaneous pen (Tresiba days #12.5 mL FlexTouch U-100 insulin) pen needle, diabetic 32 gauge x #100 ea 10/02/23 (BD Ultra-Fine Taina Pen Needle) pravastatin 20 mg tablet 20 mg PO DAILY #90 tab-caps 10/02/23 docusate sodium 100 mg capsule 100 - 200 mg (1 - 2 x 100 mg) PO 11/04/23 (Colace) DAILY #90 caps polyethylene glycol 3350 17 gram 17 g PO DAILY PRN constipation 11/04/23 oral powder packet #100 ea glipizide 5 mg tablet 5 mg PO BID #180 tabs 12/02/23 venlafaxine 37.5 mg 37.5 mg PO DAILY #30 caps 12/24/23 capsule,extended release 24 hr triamcinolone acetonide 0.1 % 1 applic topical BID #80 grams 01/13/24 topical cream acetaminophen 500 mg tablet 1,000 mg (2 x 500 mg) PO TID #90 02/04/24 tabs ibuprofen 600 mg tablet 600 mg PO TID PRN pain #90 tabs 02/04/24 Current Visit Medications: Current Medications Generic Name Dose Route Start Last Admin Trade Name Freq PRN Reason Stop Dose Admin Acetaminophen 1,000 mg 02/04/24 06:00 Acetaminophen 500 Mg Tab PO 02/04/24 23:59 PREOP MARY Celecoxib 400 mg 02/04/24 06:00 Celecoxib 200 Mg Cap PO 02/04/24 23:59 PREOP MARY Ringer's Solution 1,000 mls @ 80 mls/hr 02/04/24 06:00 IV 02/04/24 23:59 INFUSION [facility] Cefazolin Sodium/Dextrose 2 gm in 50 mls @ 100 mls/hr 02/04/24 06:00 Ancef Duplex IVPB 02/04/24 23:59 PREOP MARY Tranexamic Acid/Sodium Chloride 1,000 mg in 100 mls @ 600 mls/hr 02/04/24 06:00 IVPB 02/04/24 23:59 PREOP MARY IV Miscellaneous Supplies 1 each 02/04/24 06:00 Iv Access IV 02/04/24 23:59 DIRECTED MARY Sodium Chloride 0 ml 02/04/24 06:00 Normal Saline Flush 10 Ml Syr IV 02/04/24 23:59 PRN PRN Sodium Chloride 0 ml 02/04/24 06:00 Normal Saline 10 Ml Vial IJ 02/04/24 23:59 DIRECTED PRN Sterile Water 0 ml 02/04/24 06:00 Water,Injection,Sterile 10 Ml Vial IJ 02/04/24 23:59 DIRECTED PRN PFSH Active Problems Active Problems: Problem Status Onset Code Pruritic rash Acute L28.2 Anxiety Chronic F41.9 Venous insufficiency Acute I87.2 Painful total knee replacement, left Acute T84.84XA, Z96.652 Crepitus of joint of left knee Acute M23.8X2 Graham's esophagus Acute ~02/2023 K22.70 Pelvic pain in male Acute R10.2 Constipation Acute K59.00 Hypomagnesemia Acute E83.42 Change in stool habits Acute R19.4 Nail dystrophy Acute L60.3 Urgency of urination Acute R39.15 COVID-19 Acute ~12/25/21 U07.1 Status post revision of total replacement of left knee Acute 11/07/21 Z96.652 Seasonal allergies Acute J30.2 Loosening of prosthesis of left total knee replacement Resolved T84.033A Painful orthopaedic hardware Acute T84.84XA Benign prostatic hyperplasia Chronic N40.0 Hyperlipidemia Acute E78.5 Hypertension Chronic I10 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 08/08/15 K22.70 Headache Chronic R51 Hemorrhoids Chronic K64.9 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 Polyp of colon Chronic 05/22/02 K63.5 Primary osteoarthritis of right knee Chronic 07/24/15 M17.11 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 Mock H/O colonoscopy (07/03/18) diverticulosis, otherwise normal, repeat 10 years, Dr John Lambert Endoscopy (~02/2023) 2003, 2011,2015 Barium swallow 2016 EGD - MAC (03/12/17) Colonoscopy - MAC 2002 and 2007, 07/03/18 Dr John Lambert, [facility], normal, repeat in 10 years. mg Cholecystectomy (~2002) and pancreatitis Tobacco Smoking/Tobacco Use Status: Former Tobacco Use Smokeless tobacco user: other (Cigarettes ) Passive smoking exposure: Yes Second hand exposure: Yes Alcohol Alcohol Intake: current Alcohol intake frequency: holidays/special occasions only Alcohol type: hard liquor Substance Use Substance use: Never Substance use type: does not use Vital Signs and Lab Results Vital Signs Most Recent Vital Signs in EMR: Most Recent Vital Signs Temp Pulse Resp BP Pulse Ox 36.4 C L 55 L 16 145/57 H 98 02/04/24 10:59 02/04/24 10:59 02/04/24 10:59 02/04/24 10:59 02/04/24 10:59 Point of Care Results Point of Care Results: blood sugar 149 Lab Results Blood Type / Crossmatch: No Data to Display Complete Blood Count: No Data to Display Complete Metabolic Panel: Hemoglobin A1c 7.0 % (4.5-5.7) H 01/13/24 09:36 Liver Function Panel: No Data to Display Coagulation Panel: No Data to Display Cardiac Panel: No Data to Display Arterial Blood Gas: No Data to Display Venous Blood Gas: No Data to Display Pancreas Panel: No Data to Display Thyroid Panel: No Data to Display Infectious Disease: No Data to Display Blood Cultures: No Data to Display Toxicology Panel: No Data to Display Imaging and Studies Imaging and Studies Study information below may be from another EMR and interpreted by another provider. Please see original notes in EMR for more complete details. EKG Summary: DATE/TIME OF SERVICE: 09/21/23 1307 : 1950 PERFORMING LOCATION: ER APPROVED REPORT Exam: Resting ECG Reason for Exam: Chest Pain Patient Location: E HR:91 bpm ECG Measurements Heart Rate 91 AXIS AK 186 P 60 QRSd 101 QRS 4 QT 358 T0 QTc 441 Conclusion Sinus rhythm...normal P axis, V-rate 60- 99 Stress Test Summary: Date of Exam: 10/02/23 Indications: Chest pain, Stress ECG Conclusion 1. Resting EKG was normal 2. Patient underwent testing using pharmacologic stress with regadenoson 3. Peak heart rate achieved was 74% of maximal for age 4. The electrocardiographic portion of the test was noniagnostic 5. See MPI report MPI Conclusion Myocardial perfusion is normal. There is no ischemia or evidence of infarction EF 61%, normal wall motion Anesthesia Assessment and Plan Anesthesia History Personal History: No History of Anesthesia Complications Family History: No Family History of Anesthesia Complications Exercise Tolerance Exercise Tolerance: Metabolic Equivalents>4 Pertinent Negatives Pertinent Negatives: No Symptoms of GERD (no s/s for over a year, took nexium this am), No Major Cardiovascular Symptoms or Complaints and No Major Pulmonary Symptoms or Complaints Cardiac & Pulmonary Exam Cardiac Exam: Normal S1/S2 Heart Sounds Pulmonary Exam: Clear Bilateral Breath Sounds Implantable Cardiac Device Does patient have a Pacemaker or an ICD?: No Airway Exam Known Difficult Airway: No Mallampati Class: 2 Mouth Opening: Normal (> 3cm) Thyromental Distance: Greater than 3 cm Neck Range of Motion: Full ROM Neck Circumference: Normal Teeth Condition: Removable Dentures/Plates Upper and Other (6 teeth on the bottom) ASA Classification ASA Score: ASA 3 Emergency Case?: No NPO Status NPO Status: NPO Clears >2 hours, Solids >8 hours Anesthesia Plan Resuscitation Status: Full Code Anesthesia Technique: General Anesthesia Airway Planned: LMA Monitors Used: Standard Monitors
[2024-02-04] MEDS: Acetaminophen 500 MG TAB 1000 MG PO (11:16)
[2024-02-04] MEDS: Celecoxib 200 MG CAP 400 MG PO (11:16)
--- NOTE | 2024-02-04 11:28 | PDOC.DSDIS_ITS ---
Date of service: 02/04/24 Time of Service: 11:28 Discharge Plan Disposition Patient Disposition: Home Condition: Good Discharge Details Reason For Visit: L Knee arthroscopy Attending Provider: Nuno Santana Primary Care Provider: Bryan Isaacs Home Meds and New Rx's Prescriptions: New acetaminophen 500 mg tablet 1,000 mg PO TID Qty: 90 0RF ibuprofen 600 mg tablet 600 mg PO TID PRN (Reason: pain) Qty: 90 0RF Continued polyethylene glycol 3350 17 gram powder in packet 17 g PO DAILY PRN (Reason: constipation) Qty: 100 3RF docusate sodium [Colace] 100 mg capsule 100 - 200 mg PO DAILY Qty: 90 3RF triamcinolone acetonide 0.1 % cream 1 applic topical BID Qty: 80 0RF Patient Comments: 02/04/24: pt no longer taken , adverse reaction. 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 Writer Misc See Rx Instructions .Route Qty: 1 0RF Rx Instructions: As directed Jardiance 25 mg tablet 25 mg PO QAM Qty: 90 3RF esomeprazole magnesium [Nexium] 40 mg capsule,delayed release(DR/EC) 40 mg PO DAILY Qty: 90 3RF (DME) pen needle, diabetic [BD Ultra-Fine Taina Pen Needle] 32 gauge x 5/32 needle 1 ea Miscellaneous DAILY Qty: 100 3RF Rx Instructions: DX e11.65 ultra fine needle test once/day pravastatin 20 mg tablet 20 mg PO DAILY Qty: 90 3RF insulin degludec [Tresiba FlexTouch U-100] 100 unit/mL (3 mL) insulin pen 25 unit subcut QHS MDD 30 units 50 Days Qty: 12.5 12RF Rx Instructions: Inject 25 units subcutaneously once daily, titrate as directed. (DME) blood sugar diagnostic Strip 1 ea Miscellaneous BID Qty: 180 3RF Rx Instructions: As directed (DME) blood sugar diagnostic Strip See Rx Instructions .ROUTE .MEDSUPPLY Qty: 100 12RF Rx Instructions: test bid acyclovir [Zovirax] 5 % ointment 1 applic Topical .q 4h PRN (Reason: Mouth Sore Pain) Qty: 10 5RF Rx Instructions: 5% lisinopril 10 mg tablet 10 mg PO DAILY Qty: 90 3RF Linzess 72 mcg capsule 72 mcg PO DAILY Qty: 90 1RF tolterodine 2 mg capsule,extended release 24hr 2 mg PO DAILY Qty: 90 3RF glipizide 5 mg tablet 5 mg PO BID Qty: 180 3RF venlafaxine 37.5 mg capsule,extended release 24hr 37.5 mg PO DAILY Qty: 30 2RF Discharge Instructions Stand Alone Forms: Anesthesia Discharge Inst., Crutch Training Instructions, Mary Haddad ([facility]), Max Knee Arthroscopy Referrals: Nuno Santana MD [ [facility] STAFF PHYSICIAN] - 02/16/24 11:00 am Equipment/Supplies: Partial Weight Bearing Crutches Activity:: Activity as Tolerated Remove Dressings/Wound Care:: 72 hours Shower/Bathe:: 72 hours Diet:: As Tolerated Discharge Orders Discharge Orders: Discharge Order (Routine); Ordered 02/04/24 Ordered By: Prashant Capps DS: Diagnosis Discharge Diagnosis (1) Painful total knee replacement, left: Status: Acute
[2024-02-04] MEDS: Lactated Ringers 1,000 ML 80 ML IV (11:29)
--- NOTE | 2024-02-04 11:32 | HPE_ITS ---
Documented by User: KELLY Morrison 02/04/24 11:41 Assessment and Plan Assessment and plan (1) Painful total knee replacement, left: Status: Acute Assessment and plan: Left knee arthroscopy with synovectomy. Details of surgery were discussed with patient as well pertinent anatomy and risks including but not limited to risk of infection, blood clot, damage to soft tissue/blood vessels/nerves, bleeding and fracture in detail. All questions were answered. Qualifiers: Encounter type: sequela Qualified Code(s): T84.84XS - Pain due to internal orthopedic prosthetic devices, implants and grafts, sequela; Z96.652 - Presence of left artificial knee joint History of Present Illness History of Present Illness Chief Complaint: Painful L TKR Narrative: Devin is a 73-year-old male who comes in today for a left knee arthroscopic synovectomy for a painful total knee replacement. Since his total knee replacement he had had continued pain and swelling of the knee. He had complete resolution of his symptoms following an injection about four months ago. Unfortunately his symptoms have returned over the last couple of months. Since he has failed conservative treatment he was offered a left knee arthroscopic synovectomy and is anxious to proceed. Review of Systems Constitutional Constitutional: Denies fever(s) ENT Ears, Nose, Mouth, and Throat: Denies dizziness and Denies sore throat Cardiovascular Cardiovascular: Denies chest pain, Denies palpitations and Denies dyspnea Respiratory Respiratory: Denies cough and Denies dyspnea Gastrointestinal Gastrointestinal: Denies abdominal pain, Denies melena, Denies hematochezia, Denies diarrhea, Denies nausea and Denies vomiting Genitourinary Genitourinary: Denies hematuria and Denies dysuria Neurologic Neurologic: Denies dizziness Endocrine Endocrine: Denies palpitations PFSH All Active Problems Pruritic rash (Acute) Anxiety (Chronic) Venous insufficiency (Acute) Painful total knee replacement, left (Acute) DEPO MEDROL 09/29/23 Crepitus of joint of left knee (Acute) Graham's esophagus (Acute ~02/2023) chronic Pelvic pain in male (Acute) Constipation (Acute) Hypomagnesemia (Acute) Change in stool habits (Acute) Nail dystrophy (Acute) Urgency of urination (Acute) COVID-19 (Acute ~12/25/21) Status post revision of total replacement of left knee (Acute 11/07/21) Seasonal allergies (Acute) Painful orthopaedic hardware (Acute) Benign prostatic hyperplasia (Chronic) Hyperlipidemia (Acute) Hypertension (Chronic) 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) FOLLOWED BY OPTICAL EXPRESSIONS (SEE SCANNED) Polyp of colon (Chronic 05/22/02) Primary osteoarthritis of right knee (Chronic 07/24/15) Gastric motor function disorder (Acute) Erythema nodosum (Acute 05/22/01) Laryngitis from reflux of stomach acid (Acute) Trigeminal neuralgia (Acute) Gynecomastia (Acute) Diabetes mellitus (Chronic) Insomnia (Acute) Medical History Pancreatitis Depression Diverticulosis of colon Type II diabetes mellitus, uncontrolled Reflux esophagitis (06/30/15) Obesity Kidney stone left Hiatal hernia EGD 2003 Surgical History History of arthroscopy of left knee (02/27/21) Synovectomy of left TKA Hx of total knee replacement left H/O arthroscopic knee surgery b/l Dr. Mock H/O colonoscopy (07/03/18) diverticulosis, otherwise normal, repeat 10 years, Dr John Lambert Endoscopy (~02/2023) 2003, 2011,2015 Barium swallow 2016 EGD - MAC (03/12/17) Colonoscopy - MAC 2002 and 2007, 07/03/18 Dr John Lambert, [facility], normal, repeat in 10 years. mg Cholecystectomy (~2002) and pancreatitis Family History Mother Essential hypertension Stroke Father Personal history of malignant neoplasm STOMACH Brother Diabetes Personal history of malignant neoplasm Grandmother Personal history of malignant neoplasm Social History Smoking/Tobacco Use Status: Former Tobacco Use tobacco type: cigarettes Quit Date: 06/23/85 Tobacco: How many years used: 12 Smokeless tobacco user: other (Cigarettes ) Second Hand Exposure: Yes Smoking risk assessment performed?: Yes Alcohol Intake: current Alcohol Intake frequency: holidays/special occasions only Alcohol type: hard liquor Drug use: Never Substance use type: does not use Caregiver/Support person: No Household members: friend(s) Housing: house Communication Needs: Corrective Lenses Do you need help understanding health information?: Never Pets and animals: Yes Pets and animals: cat(s) and dog(s) Sexually active: No Do you think of yourself as: lesbian/harris/homosexual Current gender identity: male What is your relationship status?: living with partner How often do you talk on the phone with friends or family?: three or more times per week How often do you get together with friends or relatives?: three or more times per week How often do you attend sikhism or mandaeism services?: 1-3 times per year Do you belong to any clubs or organized social groups?: yes Panel score (0-1 are the most socially isolated patients): 3 What type of physical activity do you participate in: walking and bicycling Duration: 15-30 minutes/day Frequency: 3-4 times per week Galilea/Taoist: No preference Special galilea needs: No Seatbelt use: never Helmet use: No Drive intox or ride w/intox stud driver: No Do you feel safe at home: Yes Do you feel safe in your relationship?: Yes Meds Allergies and Home Medications Allergies Allergy/AdvReac Type Severity Reaction Status Date / Time meloxicam Allergy Intermediate rash Verified 02/04/24 11:07 amitriptyline Allergy Mild RASH Verified 02/04/24 11:07 cyclobenzaprine Allergy Mild Skin Rash Verified 02/04/24 11:07 hydrocodone Allergy Mild rash on Verified 02/04/24 11:07 legs influenza virus vaccine, Allergy Mild SWELLING; Verified 02/04/24 11:07 specific JOINT PAIN omeprazole Allergy Mild Skin Rash Verified 02/04/24 11:07 gabapentin Allergy Unknown unknown Verified 02/04/24 11:07 dulaglutide (From [facility]) AdvReac Intermediate abd pain Verified 02/04/24 11:07 sertraline AdvReac abdominal Verified 02/04/24 11:07 pain Home Medications ?Medication ?Instructions ?Recorded ?Confirmed ?Type blood sugar diagnostic #180 strips 03/26/19 01/29/24 Rx magnesium oxide 500 mg capsule 500 mg PO BID 06/04/22 02/02/24 History blood sugar diagnostic #100 ea 10/28/22 01/29/24 Rx acyclovir 5 % topical ointment 1 applic topical .q 4h PRN Mouth 01/28/23 02/04/24 Rx (Zovirax) Sore Pain #10 grams metformin 500 mg tablet,extended 500 mg PO BID 02/07/23 02/04/24 History release 24 hr lisinopril 10 mg tablet 10 mg PO DAILY #90 tabs 03/17/23 02/04/24 Rx blood-glucose meter,continuous #1 ea 07/02/23 01/29/24 Rx (Dexcom G7 Training Program Developer) blood-glucose sensor (Dexcom G7 #2 ea 07/02/23 01/29/24 Rx Sensor device) linaclotide 72 mcg capsule 72 mcg PO DAILY #90 caps 08/18/23 02/04/24 Rx (Linzess) tolterodine 2 mg capsule,extended 2 mg PO DAILY #90 caps 08/18/23 02/04/24 Rx release 24 hr Nexium 40 mg capsule,delayed 40 mg PO DAILY #90 caps 10/02/23 02/04/24 Rx release (esomeprazole magnesium) empagliflozin 25 mg tablet 25 mg PO QAM #90 tabs 10/02/23 02/04/24 Rx (Jardiance) insulin degludec 100 unit/mL (3 25 unit (0.25 mL) subcut QHS 50 10/02/23 02/04/24 Rx mL) subcutaneous pen (Tresi #12.5 mL FlexTouch U-100 insulin) pen needle, diabetic 32 gauge x #100 ea 10/02/23 01/29/24 Rx /32 (BD Ultra-Fine Taina Pen Needle) pravastatin 20 mg tablet 20 mg PO DAILY #90 tab-caps 10/02/23 02/04/24 Rx docusate sodium 100 mg capsule 100 - 200 mg (1 - 2 x 100 mg) PO 11/04/23 02/04/24 Rx (Colace) DAILY #90 caps polyethylene glycol 3350 17 gram 17 g PO DAILY PRN constipation 11/04/23 02/04/24 Rx oral powder packet #100 ea glipizide 5 mg tablet 5 mg PO BID #180 tabs 12/02/23 02/04/24 Rx venlafaxine 37.5 mg 37.5 mg PO DAILY #30 caps 12/24/23 02/04/24 Rx capsule,extended release 24 hr triamcinolone acetonide 0.1 % 1 applic topical BID #80 grams 01/13/24 02/04/24 Rx topical cream acetaminophen 500 mg tablet 1,000 mg (2 x 500 mg) PO TID #90 02/04/24 Rx tabs ibuprofen 600 mg tablet 600 mg PO TID PRN pain #90 tabs 02/04/24 Rx Exam Const General: cooperative and no acute distress Orientation: alert and awake [facility] Head: normocephalic and atraumatic General nose exam: no nasal discharge Other: soft palate rises symmetrically, no erythema Eyes Conjunctivae: conjunctivae normal Sclera: sclerae normal Resp Effort & Inspection: normal respiratory effort Auscultation: clear to auscultation bilaterally and no wheezes Cardio Rate: regular rate Rhythm: regular rhythm Heart Sounds: S1 normal, S2 normal and no murmurs Results Last Vital Signs Temp 97.5 F L 02/04/24 10:59 Pulse 55 L 02/04/24 10:59 Resp 16 02/04/24 10:59 BP 145/57 H 02/04/24 10:59 Pulse Ox 98 02/04/24 10:59 Documented by User: Nuno Santana MD 02/04/24 12:33 Assessment and Plan Assessment and plan (1) Painful total knee replacement, left: Status: Acute Assessment and plan: Left knee arthroscopy with synovectomy. Details of surgery were discussed with patient as well pertinent anatomy and risks including but not limited to risk of infection, blood clot, damage to soft tissue/blood vessels/nerves, bleeding and fracture in detail. All questions were answered. I interviewed and examined the patient with Prashant Capps PA-C. I agree with the documentation as above. The assessment and plan were formulated with my direct involvement. Devin is a 73-year-old male who has ongoing swelling and pain abou t his left knee with stiffness. He is status post revision left knee replacement for loosening. He has been worked up for infection which was negative. He has no overt signs of loosening. He did respond well to an intra- articular injection. Therefore, I did offer arthroscopic synovectomy. I am hopeful this will provide some relief of the pain within his left knee and debulk the knee. I reviewed the procedure with him. I discussed risk to include bleeding, infection, pain, stiffness, damage to nerves and vessels, damage to muscle and tendons. He has had no changes to his medical history set for an ongoing rash about bilateral lower extremities for which she has been seen by dermatology. His heart rate and rhythm is regular. His chest is clear to auscultation bilaterally. Nuno Santana MD FAAOS FAAHKS Qualifiers: Encounter type: sequela Qualified Code(s): T84.84XS - Pain due to internal orthopedic prosthetic devices, implants and grafts, sequela; Z96.652 - Presence of left artificial knee joint [facility] All Active Problems Pruritic rash (Acute) Anxiety (Chronic) Venous insufficiency (Acute) Painful total knee replacement, left (Acute) DEPO MEDROL 09/29/23 Crepitus of joint of left knee (Acute) Graham's esophagus (Acute ~02/2023) chronic Pelvic pain in male (Acute) Constipation (Acute) Hypomagnesemia (Acute) Change in stool habits (Acute) Nail dystrophy (Acute) Urgency of urination (Acute) COVID-19 (Acute ~12/25/21) Status post revision of total replacement of left knee (Acute 11/07/21) Seasonal allergies (Acute) Painful orthopaedic hardware (Acute) Benign prostatic hyperplasia (Chronic) Hyperlipidemia (Acute) Hypertension (Chronic) 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) FOLLOWED BY OPTICAL EXPRESSIONS (SEE SCANNED) Polyp of colon (Chronic 05/22/02) Primary osteoarthritis of right knee (Chronic 07/24/15) Gastric motor function disorder (Acute) Erythema nodosum (Acute 05/22/01) Laryngitis from reflux of stomach acid (Acute) Trigeminal neuralgia (Acute) Gynecomastia (Acute) Diabetes mellitus (Chronic) Insomnia (Acute) Medical History Pancreatitis Depression Diverticulosis of colon Type II diabetes mellitus, uncontrolled Reflux esophagitis (06/30/15) Obesity Kidney stone left Hiatal hernia EGD 2004 Surgical History History of arthroscopy of left knee (02/27/21) Synovectomy of left TKA Hx of total knee replacement left H/O arthroscopic knee surgery b/l Dr. Mock H/O colonoscopy (07/03/18) diverticulosis, otherwise normal, repeat 10 years, Dr John Lambert Endoscopy (~02/2023) 2003, 2011,2015 Barium swallow 2016 EGD - MAC (03/12/17) Colonoscopy - MAC 2002 and 2007, 07/03/18 Dr John Lambert, [facility], normal, repeat in 10 years. mg Cholecystectomy (~2002) and pancreatitis Family History Mother Essential hypertension Stroke Father Personal history of malignant neoplasm STOMACH Brother Diabetes Personal history of malignant neoplasm Grandmother Personal history of malignant neoplasm Social History Smoking/Tobacco Use Status: Former Tobacco Use tobacco type: cigarettes Quit Date: 06/23/85 Tobacco: How many years used: 12 Smokeless tobacco user: other (Cigarettes ) Second Hand Exposure: Yes Smoking risk assessment performed?: Yes Alcohol Intake: current Alcohol Intake frequency: holidays/special occasions only Alcohol type: hard liquor Drug use: Never Substance use type: does not use Caregiver/Support person: No Household members: friend(s) Housing: house Communication Needs: Corrective Lenses Do you need help understanding health information?: Never Pets and animals: Yes Pets and animals: cat(s) and dog(s) Sexually active: No Do you think of yourself as: lesbian/harris/homosexual Current gender identity: male What is your relationship status?: living with partner How often do you talk on the phone with friends or family?: three or more times per week How often do you get together with friends or relatives?: three or more times per week How often do you attend sikhism or mandaeism services?: 1-3 times per year Do you belong to any clubs or organized social groups?: yes Panel score (0-1 are the most socially isolated patients): 3 What type of physical activity do you participate in: walking and bicycling Duration: 15-30 minutes/day Frequency: 3-4 times per week Galilea/Taoist: No preference Special galilea needs: No Seatbelt use: never Helmet use: No Drive intox or ride w/intox stud driver: No Do you feel safe at home: Yes Do you feel safe in your relationship?: Yes Meds Allergies and Home Medications Allergies Allergy/AdvReac Type Severity Reaction Status Date / Time meloxicam Allergy Intermediate rash Verified 02/04/24 11:07 amitriptyline Allergy Mild RASH Verified 02/04/24 11:07 cyclobenzaprine Allergy Mild Skin Rash Verified 02/04/24 11:07 hydrocodone Allergy Mild rash on Verified 02/04/24 11:07 legs influenza virus vaccine, Allergy Mild SWELLING; Verified 02/04/24 11:07 specific JOINT PAIN omeprazole Allergy Mild Skin Rash Verified 02/04/24 11:07 gabapentin Allergy Unknown unknown Verified 02/04/24 11:07 dulaglutide (From [facility]) AdvReac Intermediate abd pain Verified 02/04/24 11:07 sertraline AdvReac abdominal Verified 02/04/24 11:07 pain Home Medications ?Medication ?Instructions ?Recorded ?Confirmed ?Type blood sugar diagnostic #180 strips 03/26/19 01/29/24 Rx magnesium oxide 500 mg capsule 500 mg PO BID 06/04/22 02/02/24 History blood sugar diagnostic #100 ea 10/28/22 01/29/24 Rx acyclovir 5 % topical ointment 1 applic topical .q 4h PRN Mouth 01/28/23 02/04/24 Rx (Zovirax) Sore Pain #10 grams metformin 500 mg tablet,extended 500 mg PO BID 02/07/23 02/04/24 History release 24 hr lisinopril 10 mg tablet 10 mg PO DAILY #90 tabs 03/17/23 02/04/24 Rx blood-glucose meter,continuous #1 ea 07/02/23 01/29/24 Rx (Dexcom G7 Training Program Developer) blood-glucose sensor (Dexcom G7 #2 ea 07/02/23 01/29/24 Rx Sensor device) linaclotide 72 mcg capsule 72 mcg PO DAILY #90 caps 08/18/23 02/04/24 Rx (Linzess) tolterodine 2 mg capsule,extended 2 mg PO DAILY #90 caps 08/18/23 02/04/24 Rx release 24 hr Nexium 40 mg capsule,delayed 40 mg PO DAILY #90 caps 10/02/23 02/04/24 Rx release (esomeprazole magnesium) empagliflozin 25 mg tablet 25 mg PO QAM #90 tabs 10/02/23 02/04/24 Rx (Jardiance) insulin degludec 100 unit/mL (3 25 unit (0.25 mL) subcut QHS 50 10/02/23 02/04/24 Rx mL) subcutaneous pen ([facility] #12.5 mL FlexTouch U-100 insulin) pen needle, diabetic 32 gauge x #100 ea 10/02/23 01/29/24 Rx /32 (BD Ultra-Fine Taina Pen Needle) pravastatin 20 mg tablet 20 mg PO DAILY #90 tab-caps 10/02/23 02/04/24 Rx docusate sodium 100 mg capsule 100 - 200 mg (1 - 2 x 100 mg) PO 11/04/23 02/04/24 Rx (Colace) DAILY #90 caps polyethylene glycol 3350 17 gram 17 g PO DAILY PRN constipation 11/04/23 02/04/24 Rx oral powder packet #100 ea glipizide 5 mg tablet 5 mg PO BID #180 tabs 12/02/23 02/04/24 Rx venlafaxine 37.5 mg 37.5 mg PO DAILY #30 caps 12/24/23 02/04/24 Rx capsule,extended release 24 hr triamcinolone acetonide 0.1 % 1 applic topical BID #80 grams 01/13/24 02/04/24 Rx topical cream acetaminophen 500 mg tablet 1,000 mg (2 x 500 mg) PO TID #90 02/04/24 Rx tabs ibuprofen 600 mg tablet 600 mg PO TID PRN pain #90 tabs 02/04/24 Rx
[2024-02-04] MEDS: ceFAZolin 2 GM/50 ML BAG IVPB (12:29)
[2024-02-04] MEDS: TRANEXAMIC ACID/SOD. CHL. 1,000 MG/100 ML BAG 600 MG IVPB (12:39)
[2024-02-04] MEDS: Bupivacaine 0.5% Pres-Free 30 ML VIAL (12:55)
[2024-02-04] MEDS: EPINEPHrine 10 MG/10 ML ML (13:12)
[2024-02-04] MEDS: Ketorolac 15 MG/ML VIAL IVP (14:20)
--- NOTE | 2024-02-04 14:59 | W.ANESPOSTOP ---
Postoperative Evaluation Date, Time and Location Date Performed: 02/04/24 Time Performed: 14:13 Patient Location: PACU Vital Signs Most Recent Imported Vital Signs: Most Recent Vital Signs Temp Pulse Resp BP Pulse Ox 36 C L 48 L 14 151/66 H 97 02/04/24 14:36 02/04/24 14:36 02/04/24 14:36 02/04/24 14:36 02/04/24 14:36 Pain Score Most Recent Pain Score: Most Recent Pain Score Pain Level 3 02/04/24 14:36 Assessment Mental Status: Awake (Alert & Oriented to Patient Baseline) Airway and Respiratory Function: Patent airway with normal (patient baseline) respiratory exam Cardiovascular Function: Hemodynamically Stable Hydration Status: Adequately Hydrated Nausea & Vomiting: No Nausea or Vomiting Pain: Pain is tolerable per patient Peripheral Nerve Block: Patient did not receive a nerve block
--- NOTE | 2024-02-04 20:55 | W.PM.OP ---
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 Nonoperative measures were exhausted but disability due to lack of motion persisted. I discussed knee arthroscopy with synovectomy with maniuplation with the patient. I reviewed the risks of the procedure to include, but not limited to, bleeding, infection, pain, continued stiffness, recurrence, blood clot. Despite these risks, the patient elected to proceed. Findings: Dense scarring and fibrosis was seen throughout the knee with large amounts of scar tissue and inflammaed, thickened synovium. Procedure Description: Devin was greeted in the preoperative holding area where the correct side was identified and marked. The consent was reviewed with the patient and signed. The history and physical was updated. All questions were answered. Devin was taken back to the operating room. The patient was placed into the supine position on the operating room table. All bony prominences were well padded. Prophylactic antibiotics in the form of Cefazolin were administered. The left leg was then prepped with Chloraprep and draped in a standard fashion with stockinette and extremity drape. A timeout to confirm correct identity, side and site, procedure, allergies, anesthesia, and medical concerns was performed. The leg was placed into a pneumatic leg solitario, [id number]. A standard lateral portal was made at the lateral border of the patella tendon in line with the inferior pole of the patella, soft spot. The skin and deep tissue was incised sharply and the blunt trochar was inserted atraumatically. At this point had visualization of the femoral component. A superolateral portal was then established with spinal needle localization just superior and lateral to the patella. A knife was taken down through the skin and soft tissue to enter the knee joint. Starting in the superior compartment above the femoral component and anterior to the femur I released all scarring between the anterior femoral synovium and the overlying extensor mechanism. This was obscurred initially due to the extreme amount of abundant tissue in the knee both densely throughout the knee and loosely attached. It took some time to debride this tissue from within the knee in order to best visualize the capsular and synovial tissue. Inflammatory tissue and fibrosis and synovitis was resected. This resection was performed with electrocautery and shaver. This tissue was quite thick and even with a 5 mm shaver was difficult to fully resect. I then debrided the superior compartment and released the attached scar tissue within the superior compartment. Once this was released fully from lateral to medial superiorly I then continue working down the lateral gutter. All scar tissue in the lateral gutter was released so there is normal space and movement between the capsular tissues and the edge of the femoral component and femur. This was taken down through the lateral gutter such that I was able to identify the polyethylene to its posterior corner. However, it was once again quite challenging to visualize given the abundance of the scar tissue. To continue the synovectomy from the lateral compartment to the anterior compartment into the medial compartment, I placed a medial portal under spinal needle localization. Once this was in place it became another working portal and I continued the synovectomy through the anterior compartment to the medial compartment. This allowed better visualization of the abundant scar tissue seen anteriorly which is able to be resected. There was now visible there is interposed tissue within the notch stem between the femoral component and the polyethylene. This was resected fully. The anterior compartment debrided, I then proceeded to the medial gutter. Once again, I freed up the medial gutter so I was able to visualize the polyethylene from the anterior posterior margins. There is no interposed tissue after full synovectomy was performed. Adhesions between the capsule and the femur were released. This was continued up the medial gutter until it met up with the releases performed previously in the superior compartment. Any remnant scar tissue from around the patella was then removed with a shaver and electrocautery. The arthroscope was brought back into the suprapatellar pouch and the leg was in full extension. The knee was thoroughly irrigated with the arthroscopic fluid on high flow and pressure. Inflow was stopped and excess fluid was removed. The wounds were closed with 4-0 Nylon. 0.25% bupivacaine was injected around the portal sites and into the knee. The wounds were dressed with Xeroform, 4x4 gauze, ABD pad, Kerlix and an JENIFER wrap. A cryo-cuff was applied. The patient tolerated the procedure well and was returned to the Same Day Surgery area in a stable condition suffering no known complication..
== END 2024-02-04 15:33 | disposition home or self-care (01) ==
PROVIDERS: PCP Family Medicine; Visit Provider Student in an Organized Health Care Education/Training Program
PROC: (CPT 29870; principal; 2024-02-04 12:45)
DX: T84.84XS Pain due to internal orthopedic prosthetic devices, implants and grafts, sequela (principal); Z96.652 Presence of left artificial knee joint; M24.662 Ankylosis, left knee; M65.862 Other synovitis and tenosynovitis, left lower leg
CPT/HCPCS: 29876; J0665; J0690; J1100; J1885; J2001; J2405; J2704; J3010

== ENCOUNTER → 2024-02-16 10:40 | Outpatient (BNVA) | payer MEDICARE, MEDICAID, SELFPAY | PROVIDERS: PCP Family Medicine; Referring Provider Family Medicine; Visit Provider Physician Assistant | DX: Z96.652 Presence of left artificial knee joint (principal) ==

== ENCOUNTER → 2024-03-29 08:50 | Outpatient (BNVA) | payer MEDICARE, MEDICAID, SELFPAY | PROVIDERS: PCP Family Medicine; Referring Provider Family Medicine; Visit Provider Student in an Organized Health Care Education/Training Program | DX: Z47.1 Aftercare following joint replacement surgery (principal); T84.84XD Pain due to internal orthopedic prosthetic devices, implants and grafts, subsequent encounter; Z96.652 Presence of left artificial knee joint | CPT/HCPCS: 99024 ==

== ENCOUNTER → 2024-05-10 08:28 | Outpatient (BNVA) | payer MEDICARE, MEDICAID, SELFPAY | PROVIDERS: PCP Family Medicine; Referring Provider Family Medicine; Visit Provider Student in an Organized Health Care Education/Training Program | DX: Z47.1 Aftercare following joint replacement surgery (principal); T84.84XD Pain due to internal orthopedic prosthetic devices, implants and grafts, subsequent encounter; Z96.652 Presence of left artificial knee joint | CPT/HCPCS: 99024 ==

== ENCOUNTER → 2024-08-09 07:52 | Outpatient (BNVA) | payer MEDICARE, MEDICAID, SELFPAY | PROVIDERS: PCP Family Medicine; Referring Provider Family Medicine; Visit Provider Student in an Organized Health Care Education/Training Program | DX: M76.52 Patellar tendinitis, left knee (principal); T84.84XS Pain due to internal orthopedic prosthetic devices, implants and grafts, sequela; Z96.652 Presence of left artificial knee joint | CPT/HCPCS: 99213 ==

== ENCOUNTER → 2024-08-11 10:45 | Outpatient (BNVA) | payer MEDICARE, MEDICAID, SELFPAY | PROVIDERS: PCP Family Medicine; Referring Provider Family Medicine; Visit Provider Podiatrist | DX: E11.9 Type 2 diabetes mellitus without complications (principal); I87.2 Venous insufficiency (chronic) (peripheral) | CPT/HCPCS: 99213 ==

== ENCOUNTER 2024-11-07 16:16 | Emergency (ER) | payer MEDICARE, MEDICAID, SELFPAY ==
--- NOTE | 2024-11-07 16:15 | RT.EKG_ITS ---
APPROVED REPORT Exam: Resting ECG Reason for Exam: chest pain Patient Location: E HR:58 bpm ECG Measurements Heart Rate 58 AXIS DE 159 P 67 QRSd 102 QRS 53 QT 379 T 10 QTc 372 Conclusion Sinus bradycardia...rate< 60
[2024-11-07 16:28] VITALS: BP 166/70; PULSE 60; RESP 15; TEMP 36.7; O2SAT 95
--- NOTE | 2024-11-07 16:30 | DI.RAD_ITS ---
Exam(s) XR CHEST 2V PA LATERAL EXAM: XR CHEST 2V PA LATERAL CLINICAL HISTORY: chest pain TECHNIQUE: 2D digital imaging was performed. Two views. COMPARISON: CT CT CHEST PE CTA from 09/21/2023 FINDINGS: HEART: Normal size. Aorta: Not dilated. PULMONARY VASCULATURE: Normal. MEDIASTINUM: Unremarkable. LUNGS: Clear. PLEURAL SPACE: No pleural effusion or pneumothorax. BONE:Unremarkable for age. SOFT TISSUES: Unremarkable. IMPRESSION: No acute abnormality. DATA REPOSITORY: RADIATION DOSE DELIVERED:
--- NOTE | 2024-11-07 16:45 | W.ED.GENAD ---
Discharge Plan Disposition Patient Disposition: Home Condition: Stable Discharge Details Clinical Impression: Chest pain Primary Care Provider: Bryan Isaacs ED Provider: Yfn Bonds Home Meds and New Rx's Prescriptions: Continued docusate sodium [Colace] 100 mg capsule 100 - 200 mg PO DAILY Qty: 90 3RF magnesium oxide 500 mg capsule 500 mg PO BID (DME) Dexcom G7 Sensor Device See Rx Instructions .Route Qty: 2 11RF Rx Instructions: As directed (DME) Dexcom G7 Type Disk Quality Control Supervisor Misc See Rx Instructions .Route Qty: 1 0RF Rx Instructions: As directed Jardiance 25 mg tablet 25 mg PO QAM Qty: 90 3RF pravastatin 20 mg tablet 20 mg PO DAILY Qty: 90 3RF (DME) blood sugar diagnostic Strip 1 ea Miscellaneous BID Qty: 180 3RF Rx Instructions: As directed (DME) blood sugar diagnostic Strip See Rx Instructions .ROUTE .MEDSUPPLY Qty: 100 12RF Rx Instructions: test bid acyclovir [Zovirax] 5 % ointment 1 applic Topical .q 4h PRN (Reason: Mouth Sore Pain) Qty: 10 5RF Rx Instructions: 5% Linzess 72 mcg capsule 72 mcg PO DAILY Qty: 90 1RF glipizide 5 mg tablet 5 mg PO BID Qty: 180 3RF metformin 500 mg tablet extended release 24 hr 500 mg PO BID Qty: 360 3RF lisinopril 10 mg tablet 10 mg PO DAILY Qty: 90 3RF (DME) pen needle, diabetic [BD Ultra-Fine Taina Pen Needle] 32 gauge x 5/32 needle 1 ea Miscellaneous DAILY Qty: 100 3RF Rx Instructions: DX e11.65 ultra fine needle test once/day tamsulosin 0.4 mg capsule 0.4 mg PO QHS Qty: 90 3RF (DME) OneTouch Ultra Test Strip See Rx Instructions .Route Qty: 50 0RF Rx Instructions: Test TID. pantoprazole 40 mg tablet,delayed release (DR/EC) 40 mg PO DAILY Qty: 90 3RF bupropion HCl 150 mg tablet extended release 24 hr 150 mg PO QAM Qty: 30 2RF mirabegron [Myrbetriq] 50 mg tablet extended release 24 hr 50 mg PO DAILY Qty: 90 3RF insulin glargine [Basaglar KwikPen U-100 Insulin] 100 unit/mL (3 mL) insulin pen 30 unit subcut DAILY Qty: 30 0RF Discharge Instructions Additional Instructions: Your blood work did not show any concerning findings at this time. You can take the Nexium generic which is called esomeprazole. Follow-up with your primary care provider if your symptoms are continuing in 1 to 2 weeks. If you feel significantly more ill or have severe worsening pain return to the emergency department for reevaluation. HPI General Mode of arrival: ambulatory. Date/Time Provider Initiated Documentation: 11/07/24 16:20. Limitations to Documentation: no limitations. Information obtained by: patient. History of Present Illness 74 year old M presents to the emergency department with the chief complaint of chest burning/burping, described as moderate, Quality is described as burning, and is localized to the chest. Patient reports no radiation. Patient started experiencing this day(s) (3) and it has been constant. No relieving factors improve symptom(s), No exacerbating factors reported . Patient notes chest pain; denies nausea/vomiting and shortness of breath. Patient did receive the following treatments prior to arrival, none Related Data Home Medications ?Medication ?Instructions ?Recorded ?Confirmed blood sugar diagnostic #180 strips 03/26/19 11/07/24 magnesium oxide 500 mg capsule 500 mg PO BID 06/04/22 11/07/24 blood sugar diagnostic #100 ea 10/28/22 11/07/24 acyclovir 5 % topical ointment 1 applic topical .q 4h PRN Mouth 01/28/23 11/07/24 (Zovirax) Sore Pain #10 grams blood-glucose sensor (Dexcom G7 #2 ea 07/02/23 11/07/24 Sensor device) blood-glucose,enthone solder stripper,cont #1 ea 07/02/23 11/07/24 (Dexcom G7 Type Disk Quality Control Supervisor) linaclotide 72 mcg capsule 72 mcg PO DAILY #90 caps 08/18/23 11/07/24 (Linzess) empagliflozin 25 mg tablet 25 mg PO QAM #90 tabs 10/02/23 11/07/24 (Jardiance) pravastatin 20 mg tablet 20 mg PO DAILY #90 tab-caps 10/02/23 11/07/24 docusate sodium 100 mg capsule 100 - 200 mg (1 - 2 x 100 mg) PO 11/04/23 11/07/24 (Colace) DAILY #90 caps glipizide 5 mg tablet 5 mg PO BID #180 tabs 12/02/23 11/07/24 metformin 500 mg tablet,extended 500 mg PO BID #360 tabs 02/10/24 11/07/24 release 24 hr lisinopril 10 mg tablet 10 mg PO DAILY #90 tabs 03/17/24 11/07/24 pen needle, diabetic 32 gauge x #100 ea 06/22/24 11/07/24 (BD Ultra-Fine Taina Pen Needle) tamsulosin 0.4 mg capsule 0.4 mg PO QHS #90 caps 07/05/24 11/07/24 blood sugar diagnostic (OneTouch #50 ea 07/07/24 11/07/24 Ultra Test strips) pantoprazole 40 mg tablet,delayed 40 mg PO DAILY #90 tabs 07/12/24 11/07/24 release bupropion HCl 150 mg 24 hr tablet, 150 mg PO QAM #30 tabs 08/27/24 11/07/24 extended release Myrbetriq 50 mg tablet,extended 50 mg PO DAILY #90 tabs 09/13/24 11/07/24 release (mirabegron) insulin glargine 100 unit/mL (3 30 unit (0.3 mL) subcut DAILY #30 11/01/24 11/07/24 mL) subcutaneous pen (Basaglar mL KwikPen U-100 Insulin) Previous Rx's ?Medication ?Instructions ?Recorded blood sugar diagnostic #180 strips 03/26/19 blood sugar diagnostic #100 ea 10/28/22 acyclovir 5 % topical ointment 1 applic topical .q 4h PRN Mouth 01/28/23 (Zovirax) Sore Pain #10 grams blood-glucose sensor (Dexcom G7 #2 ea 07/02/23 Sensor device) blood-glucose,enthone solder stripper,cont #1 ea 07/02/23 (Dexcom G7 Type Disk Quality Control Supervisor) linaclotide 72 mcg capsule 72 mcg PO DAILY #90 caps 08/18/23 (Linzess) empagliflozin 25 mg tablet 25 mg PO QAM #90 tabs 10/02/23 (Jardiance) pravastatin 20 mg tablet 20 mg PO DAILY #90 tab-caps 10/02/23 docusate sodium 100 mg capsule 100 - 200 mg (1 - 2 x 100 mg) PO 11/04/23 (Colace) DAILY #90 caps glipizide 5 mg tablet 5 mg PO BID #180 tabs 12/02/23 metformin 500 mg tablet,extended 500 mg PO BID #360 tabs 02/10/24 release 24 hr lisinopril 10 mg tablet 10 mg PO DAILY #90 tabs 03/17/24 pen needle, diabetic 32 gauge x #100 ea 06/22/24 (BD Ultra-Fine Taina Pen Needle) tamsulosin 0.4 mg capsule 0.4 mg PO QHS #90 caps 07/05/24 blood sugar diagnostic (OneTouch #50 ea 07/07/24 Ultra Test strips) pantoprazole 40 mg tablet,delayed 40 mg PO DAILY #90 tabs 07/12/24 release bupropion HCl 150 mg 24 hr tablet, 150 mg PO QAM #30 tabs 08/27/24 extended release Myrbetriq 50 mg tablet,extended 50 mg PO DAILY #90 tabs 09/13/24 release (mirabegron) insulin glargine 100 unit/mL (3 30 unit (0.3 mL) subcut DAILY #30 11/01/24 mL) subcutaneous pen (Basaglar mL KwikPen U-100 Insulin) Allergies Allergy/AdvReac Type Severity Reaction Status Date / Time meloxicam Allergy Intermediate rash Verified 11/07/24 16:35 amitriptyline Allergy Mild RASH Verified 11/07/24 16:35 cyclobenzaprine Allergy Mild Skin Rash Verified 11/07/24 16:35 hydrocodone Allergy Mild rash on Verified 11/07/24 16:35 legs influenza virus vaccine, Allergy Mild SWELLING; Verified 11/07/24 16:35 specific JOINT PAIN omeprazole Allergy Mild Skin Rash Verified 11/07/24 16:35 gabapentin Allergy Unknown unknown Verified 11/07/24 16:35 dulaglutide (From Trulicity) AdvReac Intermediate abd pain Verified 11/07/24 16:35 insulin degludec (From AdvReac Intermediate Skin Rash Verified 11/07/24 16:35 Tresiba FlexTouch U-100) sertraline AdvReac abdominal Verified 11/07/24 16:35 pain General Stated Complaint: Chest Pain JUAN ANTONIO: 3 Review of Systems All systems reviewed & are unremarkable except as noted in HPI and below Constitutional Constitutional: Denies chills, Denies fever(s) and Denies weakness Cardiovascular Cardiovascular: Reports chest pain and Denies dyspnea Respiratory Respiratory: Denies cough and Denies dyspnea Gastrointestinal Gastrointestinal: Denies abdominal pain, Reports belching, Denies nausea and Denies vomiting Neurologic Neurologic: Denies weakness Exam Const General: no acute distress Orientation: alert [facility] Head: normal to inspection Ears: external ears normal General nose exam: external nose normal Mouth: moist mucous membranes Eyes General: appearance normal, both eyes and all related structures Neck Neck: normal visual inspection Resp Effort & Inspection: normal respiratory effort and able to speak in complete sentences Auscultation: clear to auscultation bilaterally Cardio Jugular venous pressure: no JVD Rate: regular rate GI Palpation: soft and nontender Skin General skin exam: no rashes or lesions noted Neuro General: patient alert and patient oriented x3 Extrem General: normal to inspection Psych Mental Status: mental status grossly normal Course Vital Signs Vital signs: Vital Signs Temperature 36.7 C 11/07/24 16:28 Pulse 60 11/07/24 16:28 Respiratory Rate 15 11/07/24 16:28 Blood Pressure 166/70 H 11/07/24 16:28 Pulse Oximetry 95 11/07/24 16:28 Temperature 36.7 C 11/07/24 16:28 Pulse 60 11/07/24 16:28 Respiratory Rate 15 11/07/24 16:28 Blood Pressure 166/70 H 11/07/24 16:28 Blood Pressure Position Sitting 11/07/24 16:28 Pulse Oximetry 95 11/07/24 16:28 Oxygen Delivery Method Room Air 11/07/24 16:28 Oxygen Flow Rate 0 11/07/24 16:28 Medical Decision Making 74-year-old male who states he has a history of GERD and has been off Nexium for few months due to insurance reasons, no prior cardiac history comes in with several days of chest burning sensation and belching. Denies any pain with ambulation, no diaphoresis, no radiation of pain, no vomiting. He is well-appearing and ambulating with a normal gait on arrival. He has clear lung sounds, no JVD, no leg swelling or calf tenderness. Abdomen is soft and nontender. Equal peripheral pulses. There is no rashes on the chest wall. I suspect GERD versus esophagitis, will check a CBC CMP and troponins and treat his symptoms with a GI cocktail. He has no tearing back pain so I doubt dissection and has equal peripheral pulses. No evidence of DVT on exam and no hypoxia or tachycardia so I doubt PE. Patient asymptomatic after GI cocktail and delta troponin is negative. Given reassuring workup and symptoms consistent with acid reflux I feel he stable for discharge he will follow-up with his PCP and return precautions given. Differential Diagnosis Differential Diagnosis: GERD, esophagitis, NSTEMI Medical Records Medical records reviewed: Yes I reviewed the patient's medical records. Lab Data Lab results reviewed: Yes I reviewed the patient's lab results. ECG Data Attestation: I personally reviewed and interpreted this ECG (s) as follows: Prior ECG tracings: available for review Interpretation: Sinus bradycardia, rate 58, UT 159, no STEMI Quality:SDOH Health Related Social Needs: No Data to Display PFSH All Active Problems (Updated 11/07/24 @ 19:09 by Yfn Bonds MD) Chest pain (Acute) Patellar tendinitis, left knee (Acute) Laryngitis (Acute) Pruritic rash (Acute) Anxiety (Chronic) Venous insufficiency (Acute) Painful total knee replacement, left (Acute) DEPO MEDROL 09/29/23 S/P arthroscopic synovectomy: 02/04/2024 Crepitus of joint of left knee (Acute) Graham's esophagus (Acute ~02/2023) chronic Pelvic pain in male (Acute) Constipation (Acute) Hypomagnesemia (Acute) Change in stool habits (Acute) Nail dystrophy (Acute) Urgency of urination (Acute) COVID-19 (Acute ~12/25/21) Status post revision of total replacement of left knee (Acute 11/07/21) Seasonal allergies (Acute) Painful orthopaedic hardware (Acute) Benign prostatic hyperplasia (Chronic) Hyperlipidemia (Acute) Hypertension (Chronic) 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) FOLLOWED BY OPTICAL EXPRESSIONS (SEE SCANNED) Polyp of colon (Chronic 05/22/02) Primary osteoarthritis of right knee (Chronic 07/24/15) Gastric motor function disorder (Acute) Erythema nodosum (Acute 05/22/01) Laryngitis from reflux of stomach acid (Acute) Trigeminal neuralgia (Acute) Gynecomastia (Acute) Diabetes mellitus (Chronic) Insomnia (Acute) Medical History Pancreatitis Depression Diverticulosis of colon Type II diabetes mellitus, uncontrolled Reflux esophagitis (06/30/15) Obesity Kidney stone left Hiatal hernia EGD 2003 Surgical History History of arthroscopy of left knee (02/27/21) Synovectomy of left TKA Hx of total knee replacement left H/O arthroscopic knee surgery b/l Dr. Mock H/O colonoscopy (07/03/18) diverticulosis, otherwise normal, repeat 10 years, Dr John Lambert Endoscopy (~02/2023) 2003, 2011,2015 Barium swallow 2016 EGD - MAC (03/12/17) Colonoscopy - MAC 2002 and 2007, 07/03/18 Dr John Lambert, [facility], normal, repeat in 10 years. mg Cholecystectomy (~2002) and pancreatitis Family History Mother Essential hypertension Stroke Father Personal history of malignant neoplasm STOMACH Brother Diabetes Personal history of malignant neoplasm Grandmother Personal history of malignant neoplasm Social History Smoking/Tobacco Use Status: Former Tobacco Use tobacco type: cigarettes Quit Date: 06/23/85 Tobacco: How many years used: 12 Smokeless tobacco user: other (Cigarettes ) Second Hand Exposure: Yes Smoking risk assessment performed?: Yes Alcohol Intake: current Alcohol Intake frequency: holidays/special occasions only Alcohol type: hard liquor Drug use: Never Substance use type: does not use Caregiver/Support person: No Household members: friend(s) Housing: house Communication Needs: Corrective Lenses Do you need help understanding health information?: Never Pets and animals: Yes Pets and animals: cat(s) and dog(s) Sexually active: No Do you think of yourself as: lesbian/harris/homosexual Current gender identity: male What is your relationship status?: living with partner How often do you talk on the phone with friends or family?: three or more times per week How often do you get together with friends or relatives?: three or more times per week How often do you attend anabaptist or faith services?: 1-3 times per year Do you belong to any clubs or organized social groups?: yes Panel score (0-1 are the most socially isolated patients): 3 What type of physical activity do you participate in: walking and bicycling Duration: 15-30 minutes/day Frequency: 3-4 times per week Galilea/Jew: No preference Special galilea needs: No Seatbelt use: never Helmet use: No Drive intox or ride w/intox motorcycle delivery driver: No Do you feel safe at home: Yes Do you feel safe in your relationship?: Yes
[2024-11-07] MEDS: Lidocaine 2% Viscous 15 ML CUP (16:59)
[2024-11-07 17:04] LABS: Abs Immature Grans 0.04 10^3/uL (0.0-0.06); Absolute Basophil Count 0.02 10^3/uL (0.0-0.2); Absolute Eosinophil Count 0.14 10^3/uL (0.0-0.7); Absolute Lymphocyte Count 1.84 10^3/uL (1.2-3.4); Absolute Monocyte Count 0.66 10^3/uL (0.1-0.8); Absolute Neutrophil Count 3.81 10^3/uL (1.2-6.7); Basophils % 0.3 %; Eosinophils % 2.2 %; HCT 47.5 % (40.0-50.0); HGB 16.1 g/dL (13.5-17.5); Immature Grans % 0.6 %; Lymphocytes % 28.3 %; MCH 30.1 pg (27.0-33.0); MCHC 33.9 % (32.0-36.0); MCV 89 fL (80-95); Monocytes % 10.1 %; Neutrophils % 58.5 %; RBC 5.35 10^6/uL (4.36-5.78); RDW 13.5 % (11.8-14.1); RDW-SD 43.8 fL; WBC 6.51 10^3/uL (4.4-10.8)
[2024-11-07 17:20] LABS: ALT 20 U/L (16-63); AST 13 U/L (15-37); Albumin 3.9 g/dL (3.4-5.0); Alkaline Phosphatase 84 U/L (46-116); Anion Gap 6.1 mmol/L (3-11); BUN 21 mg/dL (7-18); Bilirubin, Total 0.4 mg/dL (0.2-1.0); CO2 26.9 mmol/L (21.0-32.0); Calcium 8.9 mg/dL (8.5-10.1); Chloride 105 mmol/L (98-107); Estimated GFR 79.97 (mL/min/1.73m2); Glucose 113 mg/dL (74-106); Lipase 41 U/L (<78); Magnesium 2.1 mg/dL (1.8-2.4); Potassium 4.6 mmol/L (3.5-5.1); Sodium 138 mmol/L (136-145); Total Protein 7.5 g/dL (6.4-8.2); Troponin I 4 ng/L (<or=76)
[2024-11-07 17:24] LABS: Platelet Count 198 10^3/uL (130-400)
--- NOTE | 2024-11-07 18:46 | DI.VRAD_ITS ---
PROCEDURE INFORMATION: Exam: XR Chest Exam date and time: 11/07/2024 5:23 PM Age: 74 years old Clinical indication: Other: Unspecified; Chest pain TECHNIQUE: Imaging protocol: Radiologic exam of the chest. Views: 2 views. COMPARISON: CT CHEST PE CTA 09/21/2023 3:03 PM FINDINGS: Lungs: Unremarkable. No consolidation. Pleural spaces: Unremarkable. No pleural effusion. No pneumothorax. Heart/Mediastinum: Unremarkable. No cardiomegaly. Bones/joints: Unremarkable. IMPRESSION: No evidence for acute abnormality in the chest. Dictated and Authenticated by: Felicia Stoner MD. Orderin Cammie Coulter MD
[2024-11-07 19:44] VITALS: BP 132/70; PULSE 60; RESP 18; O2SAT 97
[2024-11-07 19:48] LABS: Troponin I < 4 ng/L (<or=76)
[2024-11-07 19:59] VITALS: BP 139/59; PULSE 60; RESP 18; O2SAT 96
== END 2024-11-07 20:12 | disposition home or self-care (01) ==
PROVIDERS: Emergency Provider Emergency Medicine; PCP Family Medicine
DX: R07.89 Other chest pain (principal); K21.9 Gastro-esophageal reflux disease without esophagitis; E11.9 Type 2 diabetes mellitus without complications; R00.1 Bradycardia, unspecified; I10 Essential (primary) hypertension; E78.5 Hyperlipidemia, unspecified; Z79.84 Long term (current) use of oral hypoglycemic drugs; Z79.4 Long term (current) use of insulin; Z87.891 Personal history of nicotine dependence
CPT/HCPCS: 80053; 83690; 93005; 99285; 71046; 83735; 84484; 85025; 93010; 99284